=== PATIENT | female | born 1945 | race Caucasian/White ===

== ENCOUNTER 2023-08-30 10:13 | Outpatient (OUT) | payer MEDICARE, SELFPAY ==
--- NOTE | 2023-08-30 | ECG_ITS ---
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
== END 2023-08-30 10:14 | disposition home or self-care (01) ==
PROVIDERS: PCP Internal Medicine; Visit Provider Internal Medicine
DX: R00.0 Tachycardia, unspecified (principal)
CPT/HCPCS: 93005

== ENCOUNTER 2023-09-09 10:49 | Outpatient (OUT) | payer MEDICARE, SELFPAY ==
--- OUTSIDE RECORDS SUMMARY | 2023-09-09 10:52 | XMS_ITS | CCD ---
Author Name Unknown Address [address] [place] [address] Organization [facility] Care Team Providers Care Breaker Unit Assembler Name Role Phone Michael Linder DO Primary Care Provider MAYELIN ROSEN Referring MICHAEL Ortega Primary Care Unavailable MAYELIN ROSEN Referring Unavailable MAYELIN ROSEN Attending Unavailable MICHAEL LINDER Primary Care Unavailable Michael Linder Unavailable DR CINTHIA IBARRA Consulting Unavailable DIAB .LEONELA Admitting Unavailable DIAB LEONELA Childers Attending Unavailable KAILASH, DR FRAUSTO Primary Care Unavailable DIAB .LEONELA Consulting Unavailable KAILASH, DR FRAUSTO Admitting Unavailable KAILASH, DR FRAUSTO Primary Care Unavailable KAILASH, DR FRAUSTO Consulting Unavailable KAILASH, DR FRAUSTO Attending Unavailable Allergies Allergy Classification Reported Allergen(s) Allergy Type Date of Onset Reaction(s) Facility (6 sources) Adhesive Tape-Silicones; Translations: [ADHESIVE TAPE-SILICONES] Drug Intolerance 3 Intolerance [facility] (5 sources) band-aids [Other] Propensity to adverse reactions 7 [facility] (1 source) OTHER; Translations: [OTHER] Propensity to adverse reactions (disorder) 7 [facility] (2 sources) patient allergy list reviewed by nurse or physicia Propensity to adverse reactions 5 Comment:Done Quantitative Medicine Other Medications Current Medications Medication Drug Class(es) Dates Sig (Normalized) Sig (Original) atenolol 25 mg oral tablet (5 sources) beta-Adrenergic Vj take 1 tablet by mouth every twenty-four hours Atenolol 25 MG 1 tablet Orally Once a day Active losartan potassium 50 mg oral tablet (11 sources) Angiotensin 2 Receptor Vj Start: 11-09-2022 take 1 tablet by mouth every twenty-four hours Losartan Potassium 50 MG 1 tablet Orally Once a day Oct, Active Comment on above: Take 50 mg by mouth once daily. 24 hr metoprolol succinate 50 mg extended release oral tablet (1 source) beta-Adrenergic Vj Start: 08-31-2023 take 1 tablet by mouth every twenty-four hours Metoprolol Succinate ER 50 MG 1 tablet Orally Once a day for 30 days Aug, Active Completed/Discontinued Medications Medication Drug Class(es) Dates Sig (Normalized) Sig (Original) ascorbic acid 1000 mg oral tablet (5 sources) Vitamin C Start: 7 take 1 tablet by mouth once daily Ascorbic Acid (VITAMIN C) 1,000 mg ORAL Tab Take one(1) tablet daily. 0 12/01/2006 Active Comment on above: Take one(1) tablet d aily. Ieyxqnh-Wpzwiorwkr-Xndf 333-133-5 mg ORAL Tab (5 sources) Start: 7 Comment on above: dose unknown - takes two tablets per day cholecalciferol 0.125 mg oral tablet (5 sources) Vitamin D Start: 1 cholecalciferol (VITAMIN D3) 5,000 unit tab Take 1,000 Units by mouth once each week. 0 01/13/2011 Active Comment on above: Take 1,000 Units by mouth once each week. hydroCHLOROthiazide 12.5 mg oral tablet (5 sources) Thiazide Diuretic take 1 tablet by mouth every other day hydroCHLOROthiazide (HYDRODIURIL, ESIDRIX) 12.5 mg tablet Take 12.5 mg by mouth once daily. One tablet every other day 0 Active Comment on above: Take 12.5 mg by mout h once daily. One tablet every other day multivitamins(DAILY VITAMIN TAB) (5 sources) Start: 0 multivitamins(DAILY VITAMIN TAB) one tablet daily 0 12/17/2009 Active Comment on above: one tablet daily potassium 99 mg extended release oral tablet (5 sources) take 99 mg by mouth once daily POTASSIUM (POTASSIMIN ORAL) Take 99 mg by mouth once daily. 0 Active Comment on above: Take 99 mg by mouth once daily. Problems Active Problems Problem Classification Problem Date Documented Da te Episodic/Chronic Allergic reactions (4 sources) Allergic contact dermatitis due to plants, except food; Translations: [Allergic contact dermatitis due to plants, except food] Onset: 03-14-2015 Episodic Aortic; peripheral; and visceral artery aneurysms (8 sources) Ascending aorta dilatation; Translations: [Thoracic aortic ectasia] Chronic Cancer of breast (2 sources) Malignant neoplasm of female breast; Translations: [Malignant neoplasm of breast (female), unspecified site] Onset: 04-19-2014 Chronic Cancer of breast (20 sources) History of malignant neoplasm of breast; Translations: [Personal history of malignant neoplasm of breast] Onset: 08-02-2005 12-06-2007 Episodic Cardiac dysrhythmias (1 source) Persistent atrial fibrillation; Translations: [Other persistent atrial fibrillation] Chronic Cardiac dysrhythmias (1 source) Tachycardia, unspecified Episodic E Codes: Fall (1 source) Other fall on same level, initial encounter; Translations: [OTHER FALL ON SAME LEVEL INITIAL] Onset: 11-10-2022 Episodic Essential hypertension (11 sources) Essential hypertension; Translations: [Essential (primary) hypertension] Onset: 11-10-2022 Chronic Gastrointestinal hemorrhage (8 sources) Hematochezia; Translations: [Melena] Onset: 12-30-2015 Episodic Genitourinary symptoms and ill-defined conditions (3 sources) Dysuria; Translations: [Dysuria] Onset: 11-01-2015 Episodic Heart valve disorders (9 sources) Aortic valve disorder; Translations: [Nonrheumatic aortic (valve) stenosis] Onset: 12-16-2021 Chronic Intracranial injury (4 sources) Concussion with less than 1 hour loss of consciousness; Translations: [Concussion with loss of consciousness of 30 minutes or less, subsequent encounter] Onset: 04-05-2018 Episodic Nonmalignant breast conditions (13 sources) Fibrocystic changes of bilateral breasts; Translations: [Diffuse cystic mastopathy of right breast] Onset: 12-06-2008 Chronic Nutritional deficiencies (2 sources) Vitamin D deficiency; Translations: [Vitamin D deficiency, unspecified] Onset: 04-26-2014 Chronic Osteoporosis (6 sources) Primary osteoporosis; Translations: [Age-related osteoporosis without current pathological fracture] Chronic Other fractures (1 source) Other specified fracture of left pubis, subsequent encounter for fracture with routine healing Episodic Other fractures (1 source) Other specified fracture of left pubis, initial encounter for closed fracture; Translations: [OTHER SPEC FX LT PUBIS INIT CLOS FX] Onset: 11-10-2022 Episodic Other injuries and conditions due to external causes (2 sources) History of fall; Translations: [History of falling] Episodic Other non-epithelial cancer of skin (2 sources) Squamous cell carcinoma of nose; Translations: [Squamous cell carcinoma of skin of nose] Episodic Other non-traumatic joint disorders (3 sources) Pain in left hip; Translations: [PAIN IN LEFT HIP] Onset: 11-07-2022 Episodic Other nutritional; endocrine; and metabolic disorders (2 sources) Simple obesity ; Translations: [Other obesity due to excess calories] Onset: 11-01-2015 Chronic Other nutritional; endocrine; and metabolic disorders (2 sources) Obese class I; Translations: [Body mass index 32.0-32.9, adult] Onset: 11-01-2015 Chronic Other nutritional; endocrine; and metabolic disorders (4 sources) Body mass index 30+ - obesity; Translations: [Body mass index 31.0-31.9, adult] Onset: 11-01-2015 Chronic Other nutritional; endocrine; and metabolic disorders (2 sources) Obesity; Translations: [Obesity, unspecified] Chronic Other nutritional; endocrine; and metabolic disorders (2 sources) Obesity caused by energy imbalance; Translations: [Other obesity due to excess calories] Chronic Other nutritional; endocrine; and metabolic disorders (1 source) Other obesity due to excess calories Chronic Other nutritional; endocrine; and metabolic disorders (1 source) Body mass index (BMI) 30.0-30.9, adult Chronic Other screening for suspected conditions (not mental disorders or infectious disease) (6 sources) Patient encounter status; Translations: [Encounter for screening mammogram for malignant neoplasm of breast] Onset: 11-20-2022 Episodic Residual codes; unclassified (1 source) Family history of malignant neoplasm of breast in first degree relative; Translations: [Family history of malignant neoplasm of breast] Episodic Past or Other Problems Problem Classification Problem Date Documented Da te Episodic/Chronic Acute bronchitis (2 sources) Acute bronchitis; Translations: [Acute bronchitis, unspecified] Onset: 06-04-2014 Episodic Bacterial infection; unspecified site (2 sources) Bacterial infectious disease; Translations: [Bacterial infection, unspecified, in conditions classified elsewhere and of unspecified site] Onset: 05-10-2018 Episodic Conditions associated with dizziness or vertigo (2 sources) Benign paroxysmal positional vertigo; Translations: [Benign paroxysmal positional vertigo] Onset: 09-07-2018 Episodic Fluid and electrolyte disorders (4 sources) Dehydration; Translations: [Dehydration] Onset: 10-05-2014 Episodic Fracture of lower limb (2 sources) Nondisplaced fracture of fifth metatarsal bone, left foot, subsequent encounter for fracture with routine healing; Translations: [Nondisp fx of 5th metatarsal bone, l ft, 7thD] Onset: 04-05-2018 Episodic Fracture of upper limb (5 sources) Monteggia's fracture; Translations: [Monteggia's fracture of unspecified ulna, initial encounter for closed fracture] Onset: 07-10-2013 07-10-2013 Episodic Heart valve disorders (4 sources) Cardiac murmur, unspecified; Translations: [CARDIAC MURMUR UNSPECIFIED] Onset: 12-11-2021 Episodic Open wounds of extremities (2 sources) Open wound of knee and/or leg and/or ankle; Translations: [Puncture wound without foreign body, right lower leg, initial encounter] Resolved: 12-02-2021 Episodic Open wounds of head; neck; and trunk (2 sources) Laceration with foreign body of scalp, subsequent encounter; Translations: [Laceration with foreign body of scalp, subsequent encounter] Onset: 04-05-2018 Episodic Other nutritional; endocrine; and metabolic disorders (2 sources) Overweight; Translations: [Overweight] Onset: 11-01-2015 Episodic Other nutritional; endocrine; and metabolic disorders (2 sources) Body mass index 25-29 - overweight; Translations: [Body mass index 29.0-29.9, adult] Onset: 11-01-2015 Episodic Other upper respiratory infections (2 sources) Acute maxillary sinusitis; Translations: [Acute maxillary sinusitis, unspecified] Onset: 09-09-2017 Episodic Skin and subcutaneous tissue infections (4 sources) Cellulitis of right lower limb; Translations: [Cellulitis of right lower limb] Onset: 05-10-2018 Resolved: 12-02-2021 Episodic Spondylosis; intervertebral disc disorders; other back problems (2 sources) Low back pain; Translations: [Low back pain, unspecified] Onset: 05-08-2016 Episodic Sprains and strains (4 sources) Sprain of medial collateral ligament of knee; Translations: [Sprain of medial collateral ligament of left knee, initial encounter] Onset: 09-28-2018 Episodic Superficial injury; contusion (2 sources) Contusion of left hip region; Translations: [Contusion of left hip, subsequent encounter] Onset: 04-05-2018 Episodic Syncope (2 sources) Syncope and collapse; Translations: [Syncope and collapse] Onset: 10-05-2014 Episodic Unclassified (1 source) Other persistent atrial fibrillation Urinary tract infections (2 sources) Urinary tract infectious disease; Translations: [Urinary tract infection, site not specified] Onset: 10-05-2014 Episodic Results Test Name Value Interpretation Reference Range Facility Urinalysis - DIPSTICKon 08-03 Appearance (U) clear [facility] Other Bilirubin Ql (U) Negative [facility] Other Color (U) pale yellow [facility] Other Glucose Ql (U) Negative [facility] Other Hemoglobin Ql (U) Negative [facility] Other Ketones Ql (U) Negative [facility] Other Leukocyte esterase Test strip Ql (U) Negative [facility] Other Nitrite Ql (U) Negative [facility] Other pH (U) 5.0 [pH] [facility] Other Protein Ql (U) Negative [facility] Other Specific gravity (U) [Rel density] 1.010 [facility] Other Urobilinogen (U) [Mass/Vol] 0.2 mg/dL [facility] Other Urinalysis - DIPSTICK [facility] Other CNCOon 11-20-2022 [facility] HNO ID: [id number] Author: Mammography Coordinator Service: ? Author Type: Physician Type: Letter Filed: 11/23/2022 11:37 PM Note Text: November 23, 2022 PID: [id number] Pj Lopez [address] [place] [id number] Dear Ms. Lopez, We are pleased to inform you that the results of your recent breast imaging exam on 11/20/2022 are normal. Early detection of cancer is very important. We also understand recommendations regarding breast cancer screening are controversial. Please discuss with your primary care provider which strategy is best for you and whether a mammogram is right for you. Your imaging studies and report will be kept on file at [facility] as part of your permanent medical record and are available for your continuing care. Thank you for allowing us to help in meeting your health care needs. Sincerely, Dr. 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 She is established patient in Breast Center who was last seen on 10/28/21 for annual exam and screening mammogram with negative findings She denies any breast masses, pain, skin changes or nipple discharge. She denies any new family medical problems. She fell an has sustained a tear in left hip. She is walking with use of a walker On 01/26/06, she underwent a right breast biopsy at outside facility with findings of ILC ER+(40%)/GA+(70%), nuclear grade 1, LVI- with positive douglass. Her tumor size was 1.7 cm. In 03/07, she underwent right lumpectomy with ALND. Residual tumor of 0.8 cm focus of tumor was identified at superior marigin. 20 lymph nodes were removed and 0 were involved with tumor. She declined adjuvant therapy and XRT. She declined genetic testing History pertaining to prior breast biopsies, genetic reports, pathology reports, treatment summaries, personal, social and family history has been extracted from my note dated 10/28/21. Her vitamin D level was No results found for: VITD25. She takes Vitamin D 5000 units and a Multivitamin daily. BMD: Yes, per patient report in 2013; results: osteoporosis( declined treatment-weight bearing exercises) PERSONAL BREAST HISTORY: Past breast history (prior to this encounter) is as follows: Breast biopsy: Yes, 01/05-[facility] Breast cysts: No Breast surgery: Yes, Right PM with ALND Breast cancer: Yes, Stage I (T 1c N 0 M 0) in 2005, treated as above CANCER SURVEILLANCE: Mammograms: Yes, Date in [facility]: 10/28/21; results - negative Breast MRI: No Colonoscopy: Yes, per patient report in 2015, showing diverticulitis RISK FACTORS FOR BREAST CANCER: Age at the onset of menses: 13 years of age. P: 6 Age at the of first child: 20 years of age. She breast fed for 6-8 months total Age at menopause: 52 years of age. Post-menopausal hormone therapy: No She has had uterus removed with negative pathology (done for uterine prolapse), but ovaries remain She is postmenopausal and does not use control. History of Mantle Radiation prior to the age of 29: No Postmenopausal obesity: No There is no height or weight on file to calculate BMI. Current Weight: 173 lbs Mammographic density: There are scattered fibroglandular densities Personal History of Benign Atypical Breast Biopsy: No Alcohol use: Rare PAST MEDICAL HISTORY: PAST MEDICAL HISTORY Diagnosis Date HTN (hypertension) 2014 Patient specifically denies history of: DVT, PE, Migraine headaches WITH AURA , Migraine headaches WITHOUT AURA, Abnormal uterine bleeding and Abnormal uterine biopsies . PAST SURGICAL HISTORY: PAST SURGICAL HISTORY Procedure Laterality Date BREAST SURGERY PROCEDURE UNLISTED 1986 left breast exc. bx. - benign BREAST SURGERY PROCEDURE UNLISTED 01/05 right breast excisional biopsy BREAST SURGERY PROCEDURE UNLISTED 03/07 right breast re-excision with LND EXT HYSTERECTOMY,W/PARTIA L VAGINECTO 2007 Bladder repair and uterus removed. PAST SURGICAL HISTORY OF left foot surgery PAST SURGICAL HISTORY OF left ovarian cystectomy PAST SURGICAL HISTORY OF right toe surgery PAST SURGICAL HISTORY OF Right 07/2014 arm surgery SOCIAL HISTORY: Social History Tobacco Use Smoking status: Never Smokeless tobacco: Never Substance Use Topics Alcohol use: Yes Comment: occasional Drug use: No Caffeine intake: 3 cups / day Exercise: 3-5 minutes per week FAMILY HISTORY: Reviewed: 10/28/21 Family history of breast cancer: Sister ( Marcela) dx at age 31-alive and well-No genetic Family history of ovarian cancer: None Number of sisters: 1 Number of maternal aunts: 3 Number of paternal aunts: 0 Ashkenazi Ancestry: no Has Patient had Genetic Testing? Type of testing no Have any Family Members had Genetic Testing? No Other Cancer: Father dx skin cancer and mother dx uterine cancer in s There is no family history of prostate, colon, pancreatic, gastric, brain, renal cell or thyroid cancer. There is no family history of melanoma, sarcoma or leukemia. Osteoporosis: None Stroke: None Blood Clot: None Heart attack: None Thyroid Nodule or Goiter: Mother Autism: None FAMILY HISTORY Pro (more content not included)... Normal [facility] SCREENING W TOMOon 11-20 [facility] SCREENING W MAX * * *Final Report* * * DATE OF EXAM: Nov 20 2022 12:21PM SSW [id number] - [facility] SCREENING W MAX / PROCEDURE REASON: Encounter for screening mammogram for breast cancer * * * * Physician Interpretation * * * * RESULT: #[id number] - [facility] SCREENING W MAX BILATERAL DIGITAL SCREENING MAMMOGRAM TOMOSYNTHESIS WITH CAD: 11/20/2022 HISTORY: Encounter For Screening Mammogram For Breast Cancer / Screening Mammogram-Patient reports NO symptoms. RESULT: TECHNIQUE: The study was acquired using full field digital technology and interpreted from soft copy. Digital Breast Tomosynthesis (DBT) images were obtained and used to assist in the interpretation of this examination. Current study was also evaluated with a Computer Aided Detection (CAD). Comparison is made to exams dated: 10/28/2021 mammogram, 10/22/2020 mammogram, 10/10/2019 mammogram, 08/16/2018 mammogram, 07/06/2017 mammogram, and 06/16/2016 mammogram - [facility]. There are scattered fibroglandular elements in both breasts. There are benign post operative findings in both breasts. No significant masses, calcifications, or other findings are seen in either breast. There has been no significant interval change. IMPRESSION: BENIGN FINDING There is no mammographic evidence of malignancy. A 1 year screening mammogram is recommended. Yaz Tesfaye M.D. pt/penrad:11/20/2022 12:38:01 Patient Advocate(s): mEmy Patrick RT(R)(M), [facility] letter sent: Normal over 40 Mammogram BI-RADS: 2 Benign finding Multiple national specialty organizations have released breast cancer screening guidelines for women at average risk for developing breast cancer - guidelines that are based on both evidence and opinion, yet differ on when to start and how often to screen for breast cancer. With representation from Breast Imaging, Internal Medicine, Women's Health, Family Medicine, and Medical/Surgical Oncology, the [facility] has carefully reviewed the data and reached the following consensus: 1) All women should engage in shared decision-making with their providers to decide when to start and how often to screen; 2) All women should have the opportunity to start screening mammography at age 40; 3) For women ages 45-55, we recommend annual screening mammograms; 4) For women ages 55 and over, we support both the transition from an annual to a biennial interval if this aligns more with patient's values and preferences, or continuation with annual screening; 5) All women should discuss with their providers when to stop screening mammograms. Director Of Grants: Jonnie Transcribe Date/Time: Nov 20 2022 12:11P Dictated by: YAZ TESFAYE MD This examination was interpreted and the report reviewed and electronically signed by: YAZ TESFAYE MD on Nov 20 2022 12:38PM EST [id number] Normal [facility] Clin ic CT PELVIS WO CONon 3 CT PELVIS WO CON EXAMINATION: CT PELVIS WO CON HISTORY: Fracture of pelvis , left hip pain COMPARISON: No relevant comparison available. TECHNIQUE: Axial, Coronal, and Sagittal CT images obtained without IV contrast. Dose reduction techniques were achieved by using automated exposure control and/or adjustment of mA and/or kV according to patient size and/or use of iterative reconstruction technique. FINDINGS: BOWEL: Marked diverticulosis of sigmoid colon without acute inflammatory changes. LYMPH NODES: No adenopathy. URINARY BLADDER: No visible focal wall thickening, lesion, or calculus. PELVIC ORGANS: Hysterectomy. ANTERIOR WALL: No hernia. BONES: Nondisplaced fracture of the left superior and inferior pubic rami. No fracture of the proximal left or right femur. Degenerative disc disease and levocurvature of lumbar spine. OTHER: Negative. IMPRESSION: 1. Acute, nondisplaced fractures of the left inferior and superior pubic rami. Edema or small amount of hemorrhage within adjacent soft tissues/musculature. Electronically authenticated by: CINTHIA IBARRA Date: 2022-11-07 16:35 Normal [facility] CBC AUTO DIFFon 12-11-2021 BASO # 0.0 103/ul Normal 0.0-0.1 [facility] Comment on above: Performed By: #### C BC #### [facility] [address] [place] [address] Dr. Karishma Langley Basophils/100 WBC (Bld) 0.6 % Normal 0.2-2.0 [facility] Comment on above: Performed By: #### C BC #### [facility] [address] [place] [address] Dr. Karishma Langley EO # 0.2 103/ul Normal 0.0-0.7 [facility] Comment on above: Performed By: #### C BC #### [facility] [address] [place] [address] Dr. Karishma Langley Eosinophils/100 WBC (Bld) 3.0 % Normal 0.9-7.0 [facility] Comment on above: Performed By: #### C BC #### [facility] [address] [place] [address] Dr. Karishma Langley Erythrocyte distribution width (RBC) [Ratio] 12.2 % Normal 11.0-15.0 [facility] Comment on above: Performed By: #### C BC #### [facility] [address] [place] [address] Dr. Karishma Langley Hematocrit (Bld) [Volume fraction] 39.9 % Normal 36.0-48.0 [facility] Comment on above: Performed By: #### C BC #### [facility] [address] [place] [address] Dr. Karishma Langley Hemoglobin (Bld) [Mass/Vol] 13.0 g/dL Normal 12.0-16.0 [facility] Comment on above: Performed By: #### C BC #### [facility] [address] [place] [address] Dr. Karishma Langley IG # 0.01 10e3/ul Normal 0.00-0.03 [facility] Comment on above: Performed By: #### C BC #### [facility] [address] [place] [address] Dr. Karishma Langley IG % 0.2 % Normal 0.0-0.5 [facility] Comment on above: Performed By: #### C BC #### [facility] [address] [place] [address] Dr. Karishma Langley LYMPH # 1.5 103/ul Normal 1.2-3.8 [facility] Comment on above: Performed By: #### C BC #### [facility] [address] [place] [address] Dr. Karishma Langley Lymphocytes/100 WBC (Bld) 27.3 % Normal 20.5-60.0 [facility] Comment on above: Performed By: #### C BC #### [facility] [address] [place], [place] [address] Dr. Karishma Langley MANUAL DIFF REQ NO Normal [facility] Comment on above: Performed By: #### C BC #### [facility] [address] [place] [address] Dr. Karishma Langley MCH (RBC) [Entitic mass] 32.1 pg Normal 26.7-34.0 [facility] [place] [facility] Comment on above: Performed By: #### C BC #### [facility] [address] [place] [address] Dr. Karishma Langley MCHC (RBC) [Mass/Vol] 32.6 g/dL Normal 29.9-35.2 [facility] Comment on above: Performed By: #### C BC #### [facility] [address] [address] [address] Karishma Langley MCV (RBC) [Entitic vol] 98.5 fL Normal 81.0-99.0 [facility] Comment on above: Performed By: #### C BC #### [facility] [address] [place] [address] Dr. Karishma Langley MONO # 0.7 103/ul Normal 0.3-0.8 [facility] Comment on above: Performed By: #### C BC #### [facility] [address] [place] [address] Dr. Karishma Langley Monocytes/100 WBC (Bld) 12.4 % Critically high 1.7-12.0 [facility] Comment on above: Performed By: #### C BC #### [facility] [address] [place] [address] Dr. Karishma Langley NEUT # 3.0 103/ul Normal 1.4-6.5 [facility] Comment on above: Performed By: #### C BC #### [facility] [address] [place] [address] Dr. Karishma Langley Neutrophils/100 WBC (Bld) 56.5 % Normal 43.0-75.0 [facility] Comment on above: Performed By: #### C BC #### [facility] [address] [place] [address] Dr. Karishma Langley Platelet mean volume (Bld) [Entitic vol] 10.3 fL Normal 9.5-13.5 [facility] Comment on above: Performed By: #### C BC #### [facility] [address] [place] [address] Dr. Karishma Langley PLT 275 103/ul Normal 150-450 [facility] Comment on above: Performed By: #### C BC #### [facility] [address] [place] [address] Dr. Karishma Langley RBC 4.05 106/ul Critically low 4.20-5.40 [facility] Comment on above: Performed By: #### C BC #### [facility] [address] [place], [place] [address] Dr. Karishma Langley WBC 5.3 103/ul Normal 4.0-11.0 [facility] [place] [facility] Comment on above: Performed By: #### C BC #### [facility] [address] [place], [place] [address] Dr. Karishma Langley ECHOCARDIO M/2D COMPLETEon 0 12-11-2021 ECHOCARDIO M/2D COMPLETE Patient: PJ LOPEZ Exam Date: 12/11/2021 : 1945 Gender:F Ordering : DR MICHAEL LINDER D.O. Admission #: [id number] Family : Order #: [id number] CLICK HERE TO VIEW EXAM ECHOCARDIOGRAM REPORT PROCEDURE: CARDIO PULMONARY ECHOCARDIO M/2D COMP INDICATIONS: Systolic murmur, hypertension COMPARISON: None. DESCRIPTION: COMPLETE ECHOCARDIOGRAM Real-time transthoracic echocardiography with 2D, M-mode, spectral and color flow Doppler performed. QUALITY: Technical quality was good. LEFT VENTRICLE: Mild to moderate left ventricular hypertrophy. No regional wall motion abnormalities. LV EF: Normal left ventricular ejection fraction, (>55%). DIASTOLIC: Diastolic function is indeterminate. ATRIAL SEPTUM: Visually appears intact. LEFT ATRIUM: Mild dilatation. RIGHT ATRIUM: Mild dilatation. RIGHT VENTRICLE: Mild dilatation. Normal right ventricular systolic function. TRICUSPID VALVE: Normal mobility and thickness. No stenosis with mild regurgitation. Doppler studies reveal mildly (35-45) elevated right sided pressures. RVSP 36 mmHg MITRAL VALVE: Normal mobility and thickness. No evidence of mitral valve stenosis. Moderate mitral annular calcification. Mild mitral regurgitation. AORTIC VALVE: Normal trileaflet appearance. Mildly calcified aortic valve. Normal leaflet mobility. No evidence of aortic valve stenosis. No aortic regurgitation. AORTIC ROOT: Normal diameter and appearance. Ascending aorta is mildly dilated (3.67 cm) PULMONIC VALVE: Normal thickness and mobility. No stenosis. No regurgitation. PERICARDIUM: No evidence of pericardial effusion. IVC: IVC is mildly dilated (2.16 cm), does not completely collapse. CONCLUSION: Global left ventricular systolic function is normal; visually estimated ejection fraction is 55 to 60%. Mild to moderate left ventricular hypertrophy. Diastolic function is indeterminate. Biatrial enlargement. The right ventricle is mildly dilated. Right ventricular systolic function is normal. Mildly elevated right ventricular systolic pressure. Mild tricuspid regurgitation. Mild mitral regurgitation. The ascending aorta is mildly dilated. Adult Echocardiography Procedure Report Left Ventricle LVEDD (3.7 - 5.6 cm): 3.32 cm LVESD (2.2 - 4.0 cm): 2.40 cm LVIVS thickness (0.6 - 1.2 cm): 1.52 cm LVPW thickness (0.5 - 1.0 cm): 1.34 cm e': 10.10 cm/s E - e': 8.50 LVOT Area (cm2): 3.80 cm2 LVOT Diameter 2.20 cm Left Atrium LA Volume Index (2D A2C): 37.90 ml/m2 Left Atrium Systolic Dimension: 4.90 cm Left Atrium Systolic Area(A2C): 22.80 cm2 Left Atrium Systolic Area(A4C): 23.20 cm2 Left Atrium Systolic Volume(A2C): 35229 mm3 Left Atrium Systolic Volume(A4C): 34644 mm3 Mitral Valve MV E to A Ratio: 1.10 Mitral Valve A-Wave Peak Velocity: 80.50 cm/s Mitral Valve E-Wave Peak Velocity: 85.90 cm/s Deceleration Time: 254 ms Right Ventricle Aorta AO Root Diam: 3.70 cm Aortic Valve AoV Area (Peak Vinay): 2.32 cm2 AoV Area (VTI): 2.48 cm2 Peak Velocity(Antegrade Flow): 161.00 cm/s Peak Gradient(Antegrade Flow): 10 mm[Hg] Mean Velocity(Antegrade Flow): 110.00 cm/s Mean Gradient(Antegrade Flow): 6 mm[Hg] Velocity Time Integral: 36.90 cm Tricuspid Valve Pulmonic Valve Peak Velocity: 91.20 cm/s Peak Gradient: 3 mm[Hg] Right Atrium Dictated by: Nelly Ulloa M.D. on 12/11/2021 at 14:28 Approved by: Nelly Ulloa M.D. on 12/11/2021 at 14:32 Normal [facility] PROF CHEM 8 (BAS METB)on Anion gap [Moles/Vol] 13.5 mmol/L Normal [facility] Comment on above: Performed By: #### B MP #### [facility] [address] [address] [address] Karishma Langley Calcium [Mass/Vol] 9.0 mg/dL Normal 8.5-10.1 [facility] Comment on above: Performed By: #### B MP #### [facility] [address] [address] [address] Karishma Langley Chloride [Moles/Vol] 105 mmol/L Normal 98-107 [facility] Comment on above: Performed By: #### B MP #### [facility] [address] [address] [address] Karishma Langley CO2 [Moles/Vol] 24.3 mmol/L Normal 21.0-32.0 [facility] Comment on above: Performed By: #### B MP #### [facility] [address] [address] [address] Karishma Langley Creatinine [Mass/Vol] 0.87 mg/dL Normal 0.55-1.02 [facility] Comment on above: Performed By: #### B MP #### [facility] [address] [address] [address] Karishma Langley EGFR-AF POLISH >60 Normal >=60 [facility] Comment on above: Performed By: #### B MP #### [facility] [address] [address] [address] Karishma Langley EGFR-NON AF POLISH >60 Normal >=60 [facility] Comment on above: Performed By: #### B MP #### [facility] [address] [address] [address] Karishma Langley Glucose [Mass/Vol] 100 mg/dL Normal 74-106 [facility] Comment on above: Performed By: #### B MP #### [facility] [address] [address] [address] Karishma Langley Potassium [Moles/Vol] 3.8 mmol/L Normal 3.5-5.1 [facility] Comment on above: Performed By: #### B MP #### [facility] [address] [address] [address] Karishma Langley Sodium [Moles/Vol] 139 mmol/L Normal 136-145 [facility] [place] [facility] Comment on above: Performed By: #### B MP #### [facility] [address] [address] [address] Karishma Langley Urea nitrogen [Mass/Vol] 22.0 mg/dL Critically high 7.0-18.0 [facility] [place] [facility] Comment on above: Performed By: #### B MP #### [facility] [address] [address] [address] Karishma Langley Urea nitrogen/Creatini ne [Mass ratio] 25.3 mg/mg Normal [facility] [place] [facility] Comment on above: Performed By: #### B MP #### [facility] [address] [address] [address] Karishma Langley Vital Signs Date Time Vital Sign Value Performing Clinician Facility 08-24-2023 10:00-0500 Body height 158.75 cm Seg[facility] Other [facility] Other 08-24-2023 10:00-0500 Body mass index (BMI) [Ratio] 30.63 kg/m2 Michael [email or web address] Other [facility] Other 08-24-2023 10:00-0500 Body weight 77.2 kg Michael [email or web address] Other [facility] Other 08-24-2023 10:00-0500 Diastolic blood pressure 105 mm[Hg] Michael [email or web address] Other [facility] Other 08-24-2023 10:00-0500 Respiratory rate 12 /min Michael [email or web address] Other [facility] Other 08-24-2023 10:00-0500 Systolic blood pressure 152 mm[Hg] Michael [email or web address] Other [facility] Other 11-25-2022 10:30-0400 Body height 158.75 cm Michael [email or web address] Other [facility] Other 11-25-2022 10:30-0400 Body mass index (BMI) [Ratio] 31.17 kg/m2 Michael Ball Other [facility] Other 11-25-2022 10:30-0400 Body weight 78.56 kg Michael Ball Other [facility] Other 11-25-2022 10:30-0400 Diastolic blood pressure 81 mm[Hg] Michael Ball Other [facility] Other 11-25-2022 10:30-0400 Respiratory rate 12 /min Michael Linder Other [facility] Other 11-25-2022 10:30-0400 Systolic blood pressure 177 mm[Hg] Michael Linder Other [facility] Other Encounters Encounter Date Encounter Type Care Provider Facility Start: 08-31-2023 End: 08-31-2023 ambulatory Michael Linder Other [facility] Other Start: 08-31-2023 Telephone encounter Michael Ball [facility] Start: 08-24-2023 End: 08-24-2023 ambulatory Michael Kailash Other [facility] Other Start: 08-24-2023 Patient encounter procedure Michael Ball [facility] Start: 08-17-2023 End: 08-17-2023 ambulatory Michael Ball Other [facility] Other Start: 08-17-2023 Telephone encounter Michael Ball [facility] Start: 05-18-2023 End: 05-18-2023 ambulatory Michael Ball Other [facility] Other Start: 05-18-2023 Telephone encounter Michael Ball [facility] Start: 12-03-2022 End: 12-03-2022 ambulatory Michael Linder Other [facility] Other Start: 12-03-2022 Telephone encounter Michael Linder AD Linder [facility] Start: 11-25-2022 End: 11-25-2022 ambulatory Michael Linder Other [facility] Other Start: 11-25-2022 Office outpatient vi sit 15 minutes Michael Kailash CLAUDIA [facility] Start: 11-20-2022 Documentation procedure Mammog may Coordinator [facility] Start: 11-20-2022 Letter encounter Mammography Coordinator [facility] Department Start: 11-20-2022 End: 11-20-2022 ambulatory MAYELIN ROSEN Facility:[facility] Start: 11-20-2022 End: 11-20-2022 Patient encounter procedure Mayelin Rosen CAP [email or web address].LOCK TENDER Work Phone: [facility] Comment on above: Fibrocystic breast c hanges, bilateral (Primary Dx); Personal history of malignant neoplasm of breast; Encounter for screening mammogram for breast cancer; Family history of breast cancer in sister Start: 11-10-2022 Orders Only Mayelin perez APRN.LOCK TENDER Work Phone: [facility] Comment on above: Encounter for screen ing mammogram for breast cancer (Primary Dx) Start: 11-07-2022 End: 11-07-[address] CINTHIA IBARRA Facility:[facility] Start: 12-11-2021 End: 12-12-[address] MICHAEL LINDER Facility:[facility] Start: 12-03-2021 Adult health examination Broderick Linder Other [facility] Other Start: 10-28-2021 End: 10-28-2021 Patient encounter procedure Mayelin Rosen CAP [email or web address].LOCK TENDER Work Phone: [facility] Comment on above: Fibrocystic breast c hanges, bilateral (Primary Dx); Personal history of malignant neoplasm of breast; Encounter for screening mammogram for breast cancer Start: 10-22-2021 Orders Only Mayelin perez ANJALI Work Phone: [facility] Comment on above: Encounter for screen ing mammogram for breast cancer (Primary Dx); Fibrocystic breast changes, bilateral Procedures Date Procedure Procedure Detail Performing Clinician Start: 11-01-2015 Screening for malign ant neoplasm of colon Michael Kailash Other Depression screening Dion her Kailash Other Plan of Treatment Date Care Activity Detail Author Start: 04-02-2023 Influenza vaccination INFLUENZ A (Season Ended) [facility] Start: 08-02-2022 ADVANCE DIRECTIVE DISCUSSION ADVANCE DIRECTIVE DISCUSSION [facility] Start: 08-02-2022 DEPRESSION ASSESSMENT DEPRESSION ASS ESSMENT [facility] Start: 08-02-2021 ADVANCE DIRECTIVE DISCUSSION ADVANCE DIRECTIVE DISCUSSION [facility] Start: 04-02-2021 Influenza vaccination INFLUENZA (#1) [facility] Start: 07-10-2016 DIABETES SCREEN DIABETES SCREEN [facility] Start: 2009 PNEUMOCOCCAL: 65+ (1 - PCV) PNEUMOCOCCAL: 65+ (1 - PCV) [facility] Start: 1994 SHINGRIX VACCINE (1 of 2) SHINGRIX VACCINE (1 of 2) [facility] Start: 1963 Urine microalbumin profile DTAP,TDAP,TD (1 - Tdap) [facility] Start: 1962 HEPATITIS C SCREENING HEPATITIS C [facility] Start: 1956 Adult depression screening assessment DEPRESSION SCREENING [facility] Start: 1949 COVID-19 VACCINE (1) COVID-19 VACCIN E (1) [facility] Start: 1945 COVID-19 VACCINE (#1) COVID-19 VACCI NE (#1) [facility] End: 12-10-2023 KENDRA SCREENING KENDRA SCREENING Radiology Routine Encounter for screening mammogram for breast cancer 1 Occurrences starting 11/10/2022 until 12/10/2023 [facility] Work Phone: Comment on above: 1 Occurrences starti ng 11/10/2022 until 12/10/2023 End: 11-21-2022 Screening mammography bi 2-view breast inc cad KENDRA SCREENING Radiology Routine Encounter for screening mammogram for breast cancer Fibrocystic breast changes, bilateral 1 Occurrences starting 10/22/2021 until 11/21/2022 [facility] Work Phone: Comment on above: 1 Occurrences starti ng 10/22/2021 until 11/21/2022 [facility] Immunizations Immunization Date Immunization Notes Care Provider Fa cilisadia 03-28-2018 diphtheria, tetanus toxoids and acellular pertussis vaccine, unspecified formulation Michael Linder Other [facility] Other 01-13-2017 diphtheria, tetanus toxoids and acellular pertussis vaccine, unspecified formulation Michael Linder Other [facility] Other Payers Date Payer Category Payer Private Health Insurance [employer] A ETNA MEDICARE SUPPLEMENT [id number] 2019-Present [phone] [address] [address] [place] [address] Indemnity [id number] 2019 Private Health Insurance [employer] A ETNA MEDICARE SUPPLEMENT [id number] 2019-Present [phone] [address] [address] [place] [address] Indemnity [id number] 2009 Medicare MEDICARE MEDICAR E A AND B [id number] 2009-Present [phone] [place] [address] Medicare [id number] 2009 Medicare MEDICARE MEDICAR E A AND B [id number] 2009-Present [phone] [place] [address] Medicare [id number] 1959 Medicare [id number] 1959 Medicare [id number] 1959 Private Health Insurance [facility] [id number] 1945 Unknown [id number] 1945 Unknown [id number] Social History Date Type Detail Facility Start: 08-16-2018 Tobacco smoking status NHIS Never smoked tobacco [facility] Start: 10-23-2020 End: 11-20-2022 Alcohol intake Current drinker of alcohol (finding) [facility] Start: 1945 Sex Assigned At Not on file [facility] Start: 08-16-2018 Tobacco use and exposure Smokeless tobacco non-user [facility] Sex Assigned At Sex Assigned At [facility] Other Medical Equipment Procedure Code Equipment Code Equipment Original Text Equipment Identifier Dates [id number] Screw [id number] Start: 07-12-2013 Comment on above: Description: locking screw 2.7 x 40 [id number] Screw [id number] Start: 07-12-2013 Comment on above: Description: 2.7 x 3 2 locking screw 0--- Locking Screw [id number] Start: 07-12-2013 Comment on above: Description: 2.7 x 1 8 locking screw 0---Cortex Screw [id number] Start: 07-12-2013 Comment on above: Description: 3.5 x 2 4 cortex screw 0---Cortex Screw [id number] Start: 07-12-2013 0---Cortex Screw [id number] Start: 07-12-2013 Comment on above: Description: 2.7 x 2 0 cortex screw 0---Cortex Screw [id number] Start: 07-12-2013 Comment on above: Description: 2.7 x 2 2 cortex screw [id number] 98406-Oouzntciher Screw [id number] Start: 07-12-2013 Comment on above: Description: 2.7 x 2 6 metaphyseal screw [id number] 74625-Envzvi Head [id number] Start: [id number]-Emi5 5 92959-Sdcbplo Screw [id number] Start: [id number]-Twi4 5 43217-Utcitnifahr Screw [id number] Start: 07-12-2013 Comment on above: Description: 2.7 x 1 8 0---Cortex Screw [id number] Start: 07-12-2013 Comment on above: Description: 3.5 x 1 8 0---Cortex Screw [id number] Start: [id number]-Wjh9 5 67395-Aunmusqoq Plate [id number] Start: 07-12-2013 Comment on above: Description: 4 hole plate [id number] 5 68399-Nipfprh Screw [id number] Start: 07-12-2013 0--- 8 Hole Plate [id number] Start: [id number]-Snw1 5 36087-Kadb Radl 7.5mm Evol Std Elb - [id number]_[facility] Start: 07-12-2013 Clinical Notes 10-28-2021 to 08-31-2023 Note Date & Type Note Facility 08-31-2023 Evaluation note Encounter Date Diagnosis Assessment Notes Aug, Persistent atrial fibrillation (ICD-10 - I48.19) [facility] Other 01-23-2024 Evaluation note* Encounter Date Diagnosis Assessment Notes Treatment Notes Treatment Clinical Notes Aug, Medicare annual wellness visit, subsequent (ICD-10 - Z00.00) Personalized health advice was given to the beneficiary including a written plan for screenings discussed and provided. Advanced care planning reviewed and/or information given as requested. Additional counseling was provided here today in regards to, [ ]. The above visit was performed by [ ], under direct supervision of [ ]. Document reviewed and amended by provider signed below. Aug, Primary hypertension (ICD-10 - I10) This patient is instructed to consume a healthy, low-fat, low-salt diet. They are also encouraged to continue exercise to achieve/maintain a normal BMI. Patient is instructed on home BP measurements: - rest for 5 minutes w/o talking.- positioned w/ feet on floor and arm supported.- average best 2/3 readings w/ goal < 135/85.- update office w/ home readings in 2 weeks. Aug, Dysuria (ICD-10 - R30.0) Urine normal w/o s/s infection Instructed to push fluids. Aug, Tachycardia (ICD-10 - R00.0) Denies CP, dyspnea or lightheadedness Pulse irregular and increased Check TSH and EKG Aug, Other obesity due to excess calories (ICD-10 - E66.09) This patient has been instructed on a low-fat, high-fiber diet. They are instructed to reduce calories, portion sizes and snacks. It is recommended that they exercise for 30 minutes, 3-5 times weekly. Aug, Body mass index [BMI] 30.0-30.9, adult (ICD-10 - Z68.30) Aug, History of breast cancer (ICD-10 - Z85.3) Continue surveillance mammograms and SBE. No s/s recurrence, f/u Oncology Aug, Screening mammogram for breast cancer (ICD-10 - Z12.31) Instructed patient on monthly SBE and yearly mammograms. [facility] Other 01-16-2024 Evaluation note* Encounter Date Diagnosis Assessment Notes Treatment Notes Treatment Clinical Notes Aug, Essential (primary) hypertension (ICD-10 - I10) [facility] Other 10-17-2023 Evaluation note* Encounter Date Diagnosis Assessment Notes Treatment Notes Treatment Clinical Notes May, Essential (primary) hypertension (ICD-10 - I10) [facility] Other 04-26-2023 Evaluation note* Encounter Date Diagnosis Assessment Notes Treatment Notes Treatment Clinical Notes Oct, Closed fracture of ramus of left pubis with routine healing, subsequent encounter (ICD-10 - S32.592D) Continue Advil as needed. Activity as tolerated. Oct, Primary hypertension (ICD-10 - I10) This patient is instructed to consume a healthy, low-fat, low-salt diet. They are also encouraged to continue exercise to achieve/maintain a normal BMI. Recheck BP at home and update office if remains > 140/90 Oct, Hx of breast cancer (ICD-10 - Z85.3) CT did not reveal any pathologic findings to suspect mets [facility] Other 04-21-2023 NoteHNO ID: [id number] Author: Emmy Patrick [employer] Service: ? Author Type: Design Engineering Intern Type: Progress Notes Filed: 11/20/2022 12:28 PM Note Text: Radiology Service Progress Note PATIENT NAME: Pj Lopez DATE OF SERVICE: November 20, 2022 TIME: 12:28 PM PATIENT IDENTITY VERIFICATION COMPLETED USING TWO (2) IDENTIFIERS: Name and Date of confirmed by patient verbally. FALL SCREENING: Has the patient had 2 falls in the last year or 1 fall with injury or currently using an Ambulatory Assistive Device (Walker, Cane, Wheelchair, Crutches, etc.)? No PATIENT GENDER DATA: Female. status: : No status: NO. PATIENT RELEVANT IMPLANT DATA REVIEWED: Yes RADIOLOGY DEPARTMENT: Mammography PERIPHERAL IV DATA: Not applicable SIGNED BY: Emmy Patrick [employer] November 20, 2022 12:28 [facility]04-21-2023 NoteHNO ID: [id number] Author: Mayelin Rosen APRN.LOCK TENDER Service: ? 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 She is established patient in Breast Center who was last seen on 10/28/21 for annual exam and screening mammogram with negative findings She denies any breast masses, pain, skin changes or nipple discharge. She denies any new family medical problems. She fell an has sustained a tear in left hip. She is walking with use of a walker On 01/26/06, she underwent a right breast biopsy at outside facility with findings of RIC ER+(40%)/GA+(70%), nuclear grade 1, LVI- with positive douglass. Her tumor size was 1.7 cm. In 03/07, she underwent right lumpectomy with ALND. Residual tumor of 0.8 cm focus of tumor was identified at superior marigin. 20 lymph nodes were removed and 0 were involved with tumor. She declined adjuvant therapy and XRT. She declined genetic testing History pertaining to prior breast biopsies, genetic reports, pathology reports, treatment summaries, personal, social and family history has been extracted from my note dated 10/28/21. Her vitamin D level was No results found for: VITD25. She takes Vitamin D 5000 units and a Multivitamin daily. BMD: Yes, per patient report in 2013; results: osteoporosis( declined treatment-weight bearing exercises) PERSONAL BREAST HISTORY: Past breast history (prior to this encounter) is as follows: Breast biopsy: Yes, 01/05-[facility] Breast cysts: No Breast surgery: Yes, Right PM with ALND Breast cancer: Yes, Stage I (T 1c N 0 M 0) in 2005, treated as above CANCER SURVEILLANCE: Mammograms: Yes, Date in [facility]: 10/28/21; results - negative Breast MRI: No Colonoscopy: Yes, per patient report in 2015, showing diverticulitis RISK FACTORS FOR BREAST CANCER: Age at the onset of menses: 13 years of age. P: 5 Age at the of first child: 20 years of age. She breast fed for 6-8 months total Age at menopause: 52 years of age. Post-menopausal hormone therapy: No She has had uterus removed with negative pathology (done for uterine prolapse), but ovaries remain She is postmenopausal and does not use control. History of Mantle Radiation prior to the age of 30: No Postmenopausal obesity: No There is no height or weight on file to calculate BMI. Current Weight: 173 lbs Mammographic density: There are scattered fibroglandular densities Personal History of Benign Atypical Breast Biopsy: No Alcohol use: Rare PAST MEDICAL HISTORY: PAST MEDICAL HISTORY Diagnosis Date HTN (hypertension) 2014 Patient specifically denies history of: DVT, PE, Migraine headaches WITH AURA , Migraine headaches WITHOUT AURA, Abnormal uterine bleeding and Abnormal uterine biopsies . PAST SURGICAL HISTORY: PAST SURGICAL HISTORY Procedure Laterality Date BREAST SURGERY PROCEDURE UNLISTED 1986 left breast exc. bx. - benign BREAST SURGERY PROCEDURE UNLISTED 01/05 right breast excisional biopsy BREAST SURGERY PROCEDURE UNLISTED 03/07 right breast re-excision with LND EXT HYSTERECTOMY,W/PARTIAL VAGINECTO 2007 Bladder repair and uterus removed. PAST SURGICAL HISTORY OF left foot surgery PAST SURGICAL HISTORY OF left ovarian cystectomy PAST SURGICAL HISTORY OF right toe surgery PAST SURGICAL HISTORY OF Right 07/2014 arm surgery SOCIAL HISTORY: Social History Tobacco Use Smoking status: Never Smokeless tobacco: Never Substance Use Topics Alcohol use: Yes Comment: occasional Drug use: No Caffeine intake: 3 cups / day Exercise: 3-5 minutes per week FAMILY HISTORY: Reviewed: 10/28/21 Family history of breast cancer: Sister ( Marcela) dx at age 31-alive and well-No genetic Family history of ovarian cancer: None Number of sisters: 1 Number of maternal aunts: 3 Number of paternal aunts: 0 Ashkenazi Ancestry: no Has Patient had Genetic Testing? Type of testing no Have any Family Members had Genetic Testing? No Other Cancer: Father dx skin cancer and mother dx uterine cancer in 90's There is no family history of prostate, colon, pancreatic, gastric, brain, renal cell or thyroid cancer. There is no family history of melanoma, sarcoma or leukemia. Osteoporosis: None Stroke: None Blood Clot: None Heart attack: None Thyroid Nodule or Goiter: Mother Autism: None FAMILY HISTORY Problem Relation Age of Onset Breast Cancer Sister diagnosed at age 31. Uterine Cancer Mother 96 at 101 yrs old Cervical Cancer Maternal Aunt Uterine Cancer Maternal Au (more content not included)...[facility]04-21-2023 Miscellaneous Notes* Letter - Mammography Coordinator - 11/20/2022 12:38 PM EDT November 23, 2022 PID: [id number] Pj Lopez [address] [place] [id number] Dear Ms. Lopez, We are pleased to inform you that the results of your recent breast imaging exam on 11/20/2022 are normal. Early detection of cancer is very important. We also understand recommendations regarding breast cancer screening are controversial. Please discuss with your primary care provider which strategy is best for you and whether a mammogram is right for you. Your imaging studies and report will be kept on file at [facility] as part of your permanent medical record and are available for your continuing care. Thank you for allowing us to help in meeting your health care needs. Sincerely, Dr. Tesfaye Interpreting Radiologist [facility] (Normal over 40) documented in this encounterGreen Cross Hospital04-21-2023 Instructions* Patient Instructions* Paola Cloud Ma - 11/20/2022 11:14 AM EDT BREAST CANCER SCREENING If you have remaining breast tissue, an annual screening mammogram and clinical breast exam by yourbreast provider is recommended. Option for mammography include digital mammograms and digital breast tomosynthesis. Single view mammograms are recommended if you have had a mastectomy with tissue flap reconstruction. Mammograms are not necessary if you have had a mastectomy with implant reconstruction. Breast MRI is NOT ROUTINELY recommended for screening following a cancer diagnosis and is NOT recommended for women who have undergone bilateral mastectomy procedures unless otherwise clinically indicated. MRI is recommended for breast cancer survivors with remaining breast tissue who: Have a history if chest irradiation under the age of 30. Carry genetic mutations conferring increased cancer risk (BRCA1, BRCA2, PTEN, TP53, CDH1, STK11, PALB2, CHEK2, JADE) Per [facility] High Risk Care Path recommendations, screening breast MRI may be considered for women under the age of 65 with remaining breast tissue in the following situations: Patients who were under the age of 50 at the time of their breast cancer diagnosis Patients with mammographically dense tissue (BI-RADS category 3 or 4) Patients with a history of invasive lobular breast cancer GENETIC TESTING Approximately 10% of all breast cancers in the [place] are due to inherited genetic mutations. BRCA 1 and BRCA 2 are the most common genes associated with hereditary breast and ovarian cancer risk, but other genes known to increase breast cancer risk have also been identified. A certified genetic counselor can help decide if you are a candidate for testing, especially if your breast cancer was diagnosed prior to the age of 50 you had triple negative breast cancer you have a personal or family history of ovarian cancer you have a family member with a known genetic mutation you have a person or family history of male breast cancer you are of Ashkenazi Zoroastrianism descent HEALTHY LIFESTYLE MANAGEMENT (per NCCN Guidelines Version 1.2017 for Survivorship) All survivors should be encouraged to achieve and maintain a healthy lifestyle with attention to weight management, physical activity, and healthy dietary habits. Healthy Lifestyle habits have been associated with overall health and quality of life. For some cancers, a healthy lifestyle has been associated with a reduced risk of recurrence and . For a healthy lifestyle, all survivors should be encouraged to: Achieve and maintain a healthy body weight throughout life. Strive for at least 150 minutes of moderate or 75 minutes of vigorous activity per week. Maintain a healthy diet high in fruits, vegetables, and whole grains and low in red and processed meats, sugars, and fat in order to promote weight control and avoid obesity. Limit alcohol intake to less than one drink per day. Avoid tobacco products. Practice sun safety. Obtain 6-7 hours of sleep per night. Follow up with primary care physician regularly. WHEN TO CALL Tests may become necessary in some point of time. We encourage you to call with any new questions or concerns, particularly if your symptoms are worsening or have lasted longer than two weeks. Specifically, please report: breast or chest wall lumps, skin changes, swelling, or nipple discharge unexplained nausea or vomiting unexplained localized bone pain unexplained cough or shortness of breath unexplained swelling in your arm(s) unexplained and persistent headaches Breast Cancer Support and Resources Many resources are available in the community and offer an array of programs including support groups and community education programs. All of them have web sites you can access for additional information. These include but are not limited to: [facility] Comprehensive Breast Cancer Program - [email or web address]/thxxgv-[email or web address]-[email or web address] [facility] - [facility][email or web address] [employer] - cancer.org PANDA Breast Cancer Foundations - jdbcfoundation.org FORCE - facingourrisk.org [place] - brightpink.org Young Survival Coalition - youngsurvival.org [employer] - 4thangel.org [facility] - touchedbycancer.org ([place] and [place]) [facility] - the[facility].org ([place] area) [facility] - yellowbrickplace.org ([place] area) [facility] - stewartscaring[facility].org ([place] area) If you would like to compliment one of our caregivers you encountered today, you may do so at [email or web address]. Thank you ! 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 She is established patient in Breast Center who was last seen on 10/28/21 for annual exam and screening mammogram with negative findings She denies any breast masses, pain, skin changes or nipple discharge. She denies any new family medical problems. She fell an has sustained a tear in left hip. She is walking with use of a walker On 01/26/06, she underwent a right breast biopsy at outside facility with findings of [facility] ER+(40%)/GA+(70%), nuclear grade 1, LVI- with positive douglass. Her tumor size was 1.7 cm. In 03/07, she underwent right lumpectomy with ALND. Residual tumor of 0.8 cm focus of tumor was identified at superior marigin. 20 lymph nodes were removed and 0 were involved with tumor. She declined adjuvant therapy and XRT. She declined genetic testing History pertaining to prior breast biopsies, genetic reports, pathology reports, treatment summaries, personal, social and family history has been extracted from my note dated 10/28/21. Her vitamin D level was No results found for: VITD25. She takes Vitamin D 5000 units and a Multivitamin daily. BMD: Yes, per patient report in 2013; results: osteoporosis( declined treatment- weight bearing exercises) PERSONAL BREAST HISTORY: Past breast history (prior to this encounter) is as follows: Breast biopsy: Yes, 01/05-[facility] Breast cysts: No Breast surgery: Yes, Right PM with ALND Breast cancer: Yes, Stage I (T 1c N 0 M 0) in 2006, treated as above CANCER SURVEILLANCE: Mammograms: Yes, Date in [facility]: 10/28/21; results - negative Breast MRI: No Colonoscopy: Yes, per patient report in 2016, showing diverticulitis RISK FACTORS FOR BREAST CANCER: Age at the onset of menses: 13 years of age. P: 6 Age at the of first child: 20 years of age. She breast fed for 6-8 months total Age at menopause: 52 years of age. Post-menopausal hormone therapy: No She has had uterus removed with negative pathology (done for uterine prolapse), but ovaries remain She is postmenopausal and does not use control. History of Mantle Radiation prior to the age of 30: No Postmenopausal obesity: No There is no height or weight on file to calculate BMI. Current Weight: 173 lbs Mammographic density: There are scattered fibroglandular densities Personal History of Benign Atypical Breast Biopsy: No Alcohol use: Rare PAST MEDICAL HISTORY: PAST MEDICAL HISTORY Diagnosis Date HTN (hypertension) 2014 Patient specifically denies history of: DVT, PE, Migraine headaches WITH AURA , Migraine headaches WITHOUT AURA, Abnormal uterine bleeding and Abnormal uterine biopsies . PAST SURGICAL HISTORY: PAST SURGICAL HISTORY Procedure Laterality Date BREAST SURGERY PROCEDURE UNLISTED 1986 left breast exc. bx. - benign BREAST SURGERY PROCEDURE UNLISTED 01/05 right breast excisional biopsy BREAST SURGERY PROCEDURE UNLISTED 03/07 right breast re-excision with LND EXT HYSTERECTOMY,W/PARTIAL VAGINECTO 2007 Bladder repair and uterus removed. PAST SURGICAL HISTORY OF left foot surgery PAST SURGICAL HISTORY OF left ovarian cystectomy PAST SURGICAL HISTORY OF right toe surgery PAST SURGICAL HISTORY OF Right 07/2014 arm surgery SOCIAL HISTORY: Social History Tobacco Use Smoking status: Never Smokeless tobacco: Never Substance Use Topics Alcohol use: Yes Comment: occasional Drug use: No Caffeine intake: 3 cups / day Exercise: 3-5 minutes per week FAMILY HISTORY: Reviewed: 10/28/21 Family history of breast cancer: Sister ( Marcela) dx at age 31-alive and well- No genetic Family history of ovarian cancer: None Number of sisters: 1 Number of maternal aunts: 3 Number of paternal aunts: 0 Ashkenazi Ancestry: no Has Patient had Genetic Testing? Type of testing no Have any Family Members had Genetic Testing? No Other Cancer: Father dx skin cancer and mother dx uterine cancer in 90's There is no family history of prostate, colon, pancreatic, gastric, brain, renal cell or thyroid cancer. There is no family history of melanoma, sarcoma or leukemia. Osteoporosis: None Stroke: None Blood Clot: None Heart attack: None Thyroid Nodule or Goiter: Mother Autism: None FAMILY HISTORY Problem Relation Age of Onset Breast Cancer Sister diagnosed at age 31. Uterine Cancer Mother 96 at 101 yrs old Cervical Cancer Maternal Aunt Uterine Cancer Maternal Aunt in her 70's Skin Cancer Father MEDICATIONS: losartan (COZAAR) 50 mg tablet Take 50 mg by mouth once daily. hydroCHLOROthiazide (HYDRODIURIL, ESIDRIX) 12.5 mg tablet Take 12.5 mg by mouth once daily. One tablet every other day POTASSIUM (POTASSIMIN ORAL) Take 99 mg by mouth once daily. Cholecalciferol, Vitamin D3, (VITAMIN D) 5,000 unit ORAL Tab Take 1,000 Units by mouth once each week. multivitamins(DAILY VITAMIN TAB) one tablet daily Ascorbic Acid (VITAMIN C) 1,000 mg ORAL Tab Take one(1) tablet daily. Bmxpbxg-Sjsgyvbaor-Pydb 333-133-5 mg ORAL Tab dose unknown - takes two tablets per day ALLERGIES: ALLERGIES Allergen Reactions Adhesive Tape-Silic* Intolerance irritation Band-Aids [Other] Cause skin irritation REVIEW OF SYSTEMS: She denies chest pain, shortness of breath, persistent cough, severe headaches, unusual bony pains,abdominal pain or unintentional weight loss. PHYSICAL EXAM: There were no vitals taken for this visit. General: well-nourished, healthy, white, female, alert and oriented x 3, calm Skin: warm, dry, skin color, texture, turgor normal Head/Eyes: normocephalic, atraumatic and anicteric Lymph nodes- The supraclavicular, axillary, and cervical regions are free of significant lymphadenopathy. Right breast-S/p partial mastectomy with no evidence of local recurrence. Mild XRT changes.The skin, nipple and areola appear normal. There is no skin dimpling with movement of the pectoralis. There is no nipple retraction. No discharge can be elicited. The parenchya is moderately fibrocystic. There is no dominant masses in the breast. The axillary tail is normal. There is no tenderness noted with palpation. Left breast- The skin, nipple, and areola appear normal. There is no skin dimpling with movement ofthe pectoralis. There is no nipple retraction. No discharge can be elicited. The parenchyma is moderately fibrocystic. There is no dominant masses in the breast. The axillary tail is normal. There isno tenderness noted with palpation. Chest: cl Cor: reg, no r/m/g IMAGING: Bilateral Screening Mammogram w/DBT was completed in Breast Center today an was negative for malignancy. There are scattered fibroglandular elements in both breasts. There are benign post operative findings in both breasts. There is no mammographic evidence of malignancy Assessment IMPRESSION/PLAN: Pj Lopez is a 77 year old year old female with Bilateral Fibrocystic Change, History of RIGHT Breast Cancer, Osteoporosis and Family history of breast cancer There is no evidence of malignancy. The clinical and mammographic breast findings were discussed indetail. Her breast tissue continues to be scattered density-Category B for dense tissue. Dense breasts can lower the sensitivity for screening mammography. DBT is associated with a 25-40% improved sensitivity and 15% fewer callbacks. DBT is associated with 2-3 times the radiation exposure compared with digital mammography, but is still below the FDA limit for radiation. Breast MRI is NOT ROUTINELY recommended for screening following a cancer diagnosis and is NOT recommended for women who have undergone bilateral mastectomy procedures unless otherwise clinically indicated. MRI is recommended for breast cancer survivors with remaining breast tissue who: - Have a history of chest irradiation under the age of 30. - Carry germline mutations conferring increased cancer risk (BRCA1, BRCA2, PTEN, TP53, CDH1, STK11,PALB2, CHEK2, JADE) Per [facility] High Risk Care Path recommendations, screening breast MRI may be considered for women underthe age of 65 with remaining breast tissue in the following situations: - Age at breast cancer diagnosis under 50 - Mammographically dense tissue (BI-RADS category 3 or 4) - History of invasive lobular breast cancer She doesn't meet [facility] care path guidelines for MRI of breast. She will continue to be followed annually with clinical exam and mamogram. Health maintenance: BMD discussed however she doesn't plan to comply as she has declined any medication. Genetics referral made: This has been recommended in past and declined. She again declined this referral today Chemoprevention discussion: N/A The patient is advised to exercise regularly, achieve/maintain ideal body weight, and to limit alcohol consumption to less than 7 drinks weekly for breast cancer risk reduction and overall health. Encouraged vitamin D and continue weight bearing exercise. She will return in one year for bilateral digital mammogram and clinical evaluation. She will call me in the interim should she have any questions or concerns. I spent a total of 29 minutes on the date of the service which included preparing to see the patient, [id number] patient care, completing clinical documentation, obtaining and/or reviewing separately obtained history, performing a medically appropriate examination, counseling and educating the pat ient/family/caregiver, ordering medications, tests, or procedures, communicating results to the patient/family/caregiver, and care coordination (not separately reported). Mayelin Rosen APRN.SAMM Medical Breast Specialist Women's Health Nurse Practitioner CC: Michael Linder MD ([facility]) [facility] [place] [address] documented in this encounterGreen Cross Hospital04-08-2023 NotePROCEDURE: XR HIP LT 2 3V W PELVIS HISTORY: Pain in lower limb ; left hip pain after falling COMPARISON: None. FINDINGS: BONES:Displaced fracture of the left superior pubic ramus near the pubis. Suspect fracture of inferior pubic ramus, but no appreciable displacement. Unremarkable left femur and hip joint. SOFT TISSUES:No visible soft tissue swelling. EFFUSION:None visible. OTHER: Negative. IMPRESSION: 1. Acute fractures of the left superior and inferior pubic rami. 2. No appreciable fracture of the proximal femur. Unremarkable hip joint. 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 She is an established patient of mine who I last saw on 10/22/20 for annual exam and mammogram with negative findings. She denies any breast masses, pain, skin changes or nipple discharge. She denies any new personal or family medical problems. She continues to be very active and works out regularly On 01/26/06, she underwent a right breast biopsy at outside facility with findings of [facility] ER+(40%)/GA+(70%), nuclear grade 1, LVI- with positive dougalss. Her tumor size was 1.7 cm. In 03/07, she underwent right lumpectomy with ALND. Residual tumor of 0.8 cm focus of tumor was identified at superior marigin. 20 lymph nodes were removed and 0 were involved with tumor. She declined adjuvant therapy and XRT. She declined genetic testing History pertaining to prior breast biopsies, genetic reports, pathology reports, treatment summaries, personal, social and family history has been extracted from my note dated 10/22/20. Her vitamin D level was No results found for: VITD25. She takes Vitamin D 5000 units and a Multivitamin daily. BMD: Yes, per patient report in 2013; results: osteoporosis( declined treatment- weight bearing exercises) PERSONAL BREAST HISTORY: Past breast history (prior to this encounter) is as follows: Breast biopsy: Yes, 01/05-[facility] Breast cysts: No Breast surgery: Yes, Right PM with ALND Breast cancer: Yes, Stage I (T 1c N 0 M 0) in 2005, treated as above CANCER SURVEILLANCE: Mammograms: Yes, Date in Epic: 10/22/20; results - negative Breast MRI: No Colonoscopy: Yes, per patient report in 2015, showing diverticulitis RISK FACTORS FOR BREAST CANCER: Age at the onset of menses: 13 years of age. P: 6 Age at the of first child: 20 years of age. She breast fed for 6-8 months total Age at menopause: 52 years of age. Post-menopausal hormone therapy: No She has had uterus removed with negative pathology (done for uterine prolapse), but ovaries remain She is postmenopausal and does not use control. History of Mantle Radiation prior to the age of 30: No Postmenopausal obesity: No There is no height or weight on file to calculate BMI. Current Weight: 173 lbs Mammographic density: There are scattered fibroglandular densities Personal History of Benign Atypical Breast Biopsy: No Alcohol use: Rare PAST MEDICAL HISTORY: PAST MEDICAL HISTORY Diagnosis Date HTN (hypertension) 2014 Patient specifically denies history of: DVT, PE, Migraine headaches WITH AURA , Migraine headaches WITHOUT AURA, Abnormal uterine bleeding and Abnormal uterine biopsies . PAST SURGICAL HISTORY: PAST SURGICAL HISTORY Procedure Laterality Date BREAST SURGERY PROCEDURE UNLISTED 1986 left breast exc. bx. - benign BREAST SURGERY PROCEDURE UNLISTED 01/05 right breast excisional biopsy BREAST SURGERY PROCEDURE UNLISTED 03/07 right breast re-excision with LND EXT HYSTERECTOMY,W/PARTIAL VAGINECTO 2007 Bladder repair and uterus removed. PAST SURGICAL HISTORY OF left foot surgery PAST SURGICAL HISTORY OF left ovarian cystectomy PAST SURGICAL HISTORY OF right toe surgery PAST SURGICAL HISTORY OF Right 07/2014 arm surgery SOCIAL HISTORY: Social History Tobacco Use Smoking status: Never Smoker Smokeless tobacco: Never Used Substance Use Topics Alcohol use: Yes Comment: occasional Drug use: No Caffeine intake: 3 cups / day Exercise: 3-5 minutes per week FAMILY HISTORY: Reviewed: 10/28/21 Family history of breast cancer: Sister ( Marcela) dx at age 31-alive and well- No genetic Family history of ovarian cancer: None Number of sisters: 1 Number of maternal aunts: 3 Number of paternal aunts: 0 Ashkenazi Ancestry: no Has Patient had Genetic Testing? Type of testing no Have any Family Members had Genetic Testing? No Other Cancer: Father dx skin cancer and mother dx uterine cancer in 90's - There is no family history of prostate, colon, pancreatic, gastric, brain, renal cell or thyroid cancer. - There is no family history of melanoma, sarcoma or leukemia. Osteoporosis: None Stroke: None Blood Clot: None Heart attack: None Thyroid Nodule or Goiter: Mother Autism: None FAMILY HISTORY Problem Relation Age of Onset Breast Cancer Sister diagnosed at age 31. Uterine Cancer Mother 96 at 101 yrs old Cervical Cancer Maternal Aunt Uterine Cancer Maternal Aunt in her 70's Skin Cancer Father MEDICATIONS: losartan (COZAAR) 50 mg tablet Take 50 mg by mouth once daily. hydroCHLOROthiazide (HYDRODIURIL, ESIDRIX) 12.5 mg tablet Take 12.5 mg by mouth once daily. One tablet every other day POTASSIUM (POTASSIMIN ORAL) Take 99 mg by mouth once daily. Cholecalciferol, Vitamin D3, (VITAMIN D) 5,000 unit ORAL Tab Take 1,000 Units by mouth once each week. multivitamins(DAILY VITAMIN TAB) one tablet daily Ascorbic Acid (VITAMIN C) 1,000 mg ORAL Tab Take one(1) tablet daily. Kshqqww-[id number]-Sifv 333-133-5 mg ORAL Tab dose unknown - takes two tablets per day ALLERGIES: ALLERGIES Allergen Reactions Adhesive Tape-Silic* Intolerance irritation Band-Aids [Other] Cause skin irritation REVIEW OF SYSTEMS: She denies chest pain, shortness of breath, persistent cough, unusual bony pains, abdominal pain orunintentional weight loss.+h/o severe headaches-but denies any changes in them PHYSICAL EXAM: There were no vitals taken for this visit. General: well-nourished, healthy, white, female, alert and oriented x 3, calm Skin: warm, dry, skin color, texture, turgor normal Head/Eyes: normocephalic, atraumatic and anicteric Lymph nodes- The supraclavicular, axillary, and cervical regions are free of significant lymphadenopathy. Right breast-S/p partial mastectomy with no evidence of local recurrence. Indentation along incision noted chronically. The skin, nipple and areola appear normal. There is no skin dimpling with movement of the pectoralis. There is no nipple retraction. No discharge can be elicited. The parenchya ismoderately fibrocystic. There is no dominant masses in the breast. The axillary tail is normal. There is no tenderness noted with palpation. Left breast- The skin, nipple, and areola appear normal. There is no skin dimpling with movement ofthe pectoralis. There is no nipple retraction. No discharge can be elicited. The parenchyma is moderately fibrocystic. There is no dominant masses in the breast. The axillary tail is normal. There isno tenderness noted with palpation. S/p breast reduction mammoplasty with well healed incisions Chest: cl Cor: reg, no r/m/g Abd: soft, no hepatomegaly IMAGING: Bilateral Screening Mammogram was completed in [facility] today an was negative for malignancy.There are scattered fibroglandular elements in both breasts. There are benign post operative findings in both breasts. There is no mammographic evidence of malignancy Assessment IMPRESSION/PLAN: Pj Lopez is a 76 year old year old female with Bilateral Fibrocystic Change, History of RIGHT Breast Cancer, Osteoporosis and Family history of breast cancer There is no evidence of malignancy. The clinical and mammographic breast findings were discussed indetail. Her breast tissue continues to be scattered density. I discussed the the patient the option for digital breast tomosynthesis for her screening mammogram in the past. Dense breasts can lower the sensitivity for screening mammography. DBT is associated with a 25-40% improved sensitivity and 15% fewercallbacks. DBT is associated with 2-3 times the radiation exposure compared with digital mammography, but is still below the FDA limit for radiation. She declined this in her care Breast MRI is NOT ROUTINELY recommended for screening following a cancer diagnosis and is NOT recommended for women who have undergone bilateral mastectomy procedures unless otherwise clinically indicated. MRI is recommended for breast cancer survivors with remaining breast tissue who: - Have a history of chest irradiation under the age of 30. - Carry germline mutations conferring increased cancer risk (BRCA1, BRCA2, PTEN, TP53, CDH1, STK11,PALB2, CHEK2, JADE) Per [facility] High Risk Care Path recommendations, screening breast MRI may be considered for women underthe age of 65 with remaining breast tissue in the following situations: - Age at breast cancer diagnosis under 50 - Mammographically dense tissue (BI-RADS category 3 or 4) - History of invasive lobular breast cancer She doesn't meet [facility] care path guidelines for MRI of breast. She will continue to be followed annually with clinical exam and mamogram. Health maintenance: BMD discussed however she doesn't plan to comply as she has declined any medication. Genetics referral made: This has been recommended in past and declined Chemoprevention discussion: N/A The patient is advised to exercise regularly, achieve/maintain ideal body weight, and to limit alcohol consumption to less than 7 drinks weekly for breast cancer risk reduction and overall health. Encouraged vitamin D and continue weight bearing exercise. She was commended on continued exercise routine and very active lifestyle She will return in one year for bilateral digital mammogram and clinical evaluation. She will call me in the interim should she have any questions or concerns. I spent a total of 29 minutes on the date of the service which included preparing to see the patient, [id number] patient care, completing clinical documentation, obtaining and/or reviewing separately obtained history, performing a medically appropriate examination, counseling and educating the pat ient/family/caregiver, ordering medications, tests, or procedures, communicating with other HCPs (not separately reported), independently interpreting results (not separately reported), communicatingresults to the patient/family/caregiver and care coordination (not separately reported). Mayelin Rosen APRN.SAMM Medical Breast Specialist Women's Health Nurse Practitioner CC: Michael Linder MD ([facility]) [address] [place] [address] documented in [facility] Instructions* Patient Instructions* Paola Cloud Ma - 10/28/2021 11:24 AM EDT BREAST CANCER SCREENING If you have remaining breast tissue, an annual screening mammogram and clinical breast exam by yourbreast provider is recommended. Option for mammography include digital mammograms and digital breast tomosynthesis. Single view mammograms are recommended if you have had a mastectomy with tissue flap reconstruction. Mammograms are not necessary if you have had a mastectomy with implant reconstruction. Breast MRI is NOT ROUTINELY recommended for screening following a cancer diagnosis and is NOT recommended for women who have undergone bilateral mastectomy procedures unless otherwise clinically indicated. MRI is recommended for breast cancer survivors with remaining breast tissue who: Have a history if chest irradiation under the age of 30. Carry genetic mutations conferring increased cancer risk (BRCA1, BRCA2, PTEN, TP53, CDH1, STK11, PALB2, CHEK2, JADE) Per [facility] High Risk Care Path recommendations, screening breast MRI may be considered for women under the age of 65 with remaining breast tissue in the following situations: Patients who were under the age of 50 at the time of their breast cancer diagnosis Patients with mammographically dense tissue (BI-RADS category 3 or 4) Patients with a history of invasive lobular breast cancer GENETIC TESTING Approximately 10% of all breast cancers in the [place] are due to inherited genetic mutations. BRCA 1 and BRCA 2 are the most common genes associated with hereditary breast and ovarian cancer risk, but other genes known to increase breast cancer risk have also been identified. A certified genetic counselor can help decide if you are a candidate for testing, especially if your breast cancer was diagnosed prior to the age of 50 you had triple negative breast cancer you have a personal or family history of ovarian cancer you have a family member with a known genetic mutation you have a person or family history of male breast cancer you are of Ashkenazi Zoroastrianism descent HEALTHY LIFESTYLE MANAGEMENT (per NCCN Guidelines Version 1.2017 for Survivorship) All survivors should be encouraged to achieve and maintain a healthy lifestyle with attention to weight management, physical activity, and healthy dietary habits. Healthy Lifestyle habits have been associated with overall health and quality of life. For some cancers, a healthy lifestyle has been associated with a reduced risk of recurrence and . For a healthy lifestyle, all survivors should be encouraged to: Achieve and maintain a healthy body weight throughout life. Strive for at least 150 minutes of moderate or 75 minutes of vigorous activity per week. Maintain a healthy diet high in fruits, vegetables, and whole grains and low in red and processed meats, sugars, and fat in order to promote weight control and avoid obesity. Limit alcohol intake to less than one drink per day. Avoid tobacco products. Practice sun safety. Obtain 6-7 hours of sleep per night. Follow up with primary care physician regularly. WHEN TO CALL Tests may become necessary in some point of time. We encourage you to call with any new questions or concerns, particularly if your symptoms are worsening or have lasted longer than two weeks. Specifically, please report: breast or chest wall lumps, skin changes, swelling, or nipple discharge unexplained nausea or vomiting unexplained localized bone pain unexplained cough or shortness of breath unexplained swelling in your arm(s) unexplained and persistent headaches Breast Cancer Support and Resources Many resources are available in the community and offer an array of programs including support groups and community education programs. All of them have web sites you can access for additional information. These include but are not limited to: [facility] Comprehensive Breast Cancer Program - [email or web address] [facility] - komenneohio.[email or web address] [employer] - cancer.org PANDA Breast Cancer Foundations - jdbcfoundation.[email or web address] FORCE - [email or web address] [facility] [place] - brightpink.[email or web address] Young Survival Coalition - youngsurvival.org [employer]th [employer] - 4thangel.org [facility] - [facility].[email or web address] ([place] and [place]) [facility] - mclean [email or web address] ([place] area) [facility] - yellowbrickplace.org ([place] area) [facility] - stewartscaringplace.org ([place] area) If you would like to compliment one of our caregivers you encountered today, you may do so at [email or web address]. Thank you ! documented in this encounterGreen Cross Hospital03-29-[facility] Nurse Note* Paola Cloud Ma - 10/28/2021 11:24 AM EDT Last mammogram on: 10/22/20 Results: see report Is the patient active on [email or web address] Yes Electronically Signed By: Paola Cloud Ma In Department: [facility] REVIEW OF PATIENT HISTORY: OB History T0 L6 SAB0 IAB0 Ectopic0 Multiple0 Live Births0 Comment: Menarche at age 13. AFB 20. Breastfed. Menopause at age 52. FAMILY HISTORY Problem Relation Age of Onset Breast Cancer Sister diagnosed at age 31. Uterine Cancer Mother 96 at 101 yrs old Cervical Cancer Maternal Aunt Uterine Cancer Maternal Aunt in her 70's Skin Cancer Father PAST MEDICAL HISTORY Diagnosis Date HTN (hypertension) 2014 PAST SURGICAL HISTORY Procedure Laterality Date BREAST SURGERY PROCEDURE UNLISTED 1986 left breast exc. bx. - benign BREAST SURGERY PROCEDURE UNLISTED 01/05 right breast excisional biopsy BREAST SURGERY PROCEDURE UNLISTED 03/07 right breast re-excision with LND EXT HYSTERECTOMY,W/PARTIAL VAGINECTO 2007 Bladder repair and uterus removed. PAST SURGICAL HISTORY OF left foot surgery PAST SURGICAL HISTORY OF left ovarian cystectomy PAST SURGICAL HISTORY OF right toe surgery PAST SURGICAL HISTORY OF Right 07/2014 arm surgery Social History Tobacco Use Smoking status: Never Smoker Smokeless tobacco: Never Used Substance Use Topics Alcohol use: Yes Comment: occasional Drug use: No documented in this encounterGreen [facility] [place] [facility]* Diagnosis Encounter for screening mammogram for breast cancer- Primary Fibrocystic breast changes, bilateral documented in this encounter [facility] [place] [facility]* Diagnosis Fibrocystic breast changes, bilateral- Primary Personal history of malignant neoplasm of breast Encounter for screening mammogram for breast cancer documented in this encounter [facility] note* Diagnosis Encounter for screening mammogram for breast cancer- Primary documented in this encounter [facility] note* Diagnosis Fibrocystic breast changes, bilateral- Primary Personal history of malignant neoplasm of breast Encounter for screening mammogram for breast cancer Family history of breast cancer in sister Family history of malignant neoplasm of breast documented in this encounter [facility] noteNo InformationNort Doctolib Other History general Narrative - Reported* Type Description Date Medical History Primary hypertension Medical History Blood in stool Medical History Hx of breast cancer Medical History Ascending aorta dilatation Medical History Aortic stenosis, mild Medical History Age-related osteopor osis without current pathological fracture Surgical History LUMPECTOMY, BREAST, RIGHT 2006 Surgical History BREAST REDUCTION SURGERY Surgical History ORIF RIGHT HUMERUS Surgical History COLONOSCOPY Hospitalization History SEE SURGICAL HX Quantitative Medicine Other History general Narrative - Reported* Type Description Date Medical History Primary hypertension Medical History Blood in stool Medical History Hx of breast cancer Medical History Ascending aorta dilatation Medical History Aortic stenosis, mild Medical History Age-related osteopor osis without current pathological fracture Surgical History LUMPECTOMY, BREAST, RIGHT 2005 Surgical History BREAST REDUCTION SURGERY Surgical History ORIF RIGHT HUMERUS Surgical History COLONOSCOPY 2016 Hospitalization History SEE SURGICAL HX Quantitative Medicine Other Reason for referral (narrative)* Diagnostic Procedure Only (Routine) - Authorized Specialty Diagnoses / Procedures Referred By Errol benson Referred To Contact [facility] Diagnoses Encounter for screening mammogram for breast cancer Fibrocystic breast changes, bilateral Procedures KENDRA SCREENING SCREENING MAMMOGRAPHY BI 2-VIEW BREAST INC CAD Mayelin Rosen APRN.CNP [address] [place] [address] [facility] [address] [place] [address] Referral ID Status Reason Start Date Expiration Date Visits Requested Visits Authorized [id number] Authorized Auto-Generat ed Referral 10/22/2021 11/21/2022 1 1 [facility] for referral (narrative)* Diagnostic Procedure Only (Routine) - Authorized Specialty Diagnoses / Procedures Referred By Errol benson Referred To Contact [facility] Diagnoses Encounter for screening mammogram for breast cancer Procedures KENDRA SCREENING SCREENING MAMMOGRAPHY BI 2-VIEW BREAST INC Mayelin Cummings APRN.CNP [address] [place] [address] [facility] [address] [place] [address] Referral ID Status Reason Start Date Expiration Date Visits Requested Visits Authorized [id number] Authorized Auto-Generat ed Referral 11/10/2022 12/10/2023 1 1 [facility])* Diagnostic Procedure Only (Routine) - Closed Specialty Diagnoses / Procedures Referred By Errol benson Referred To Contact [facility] Diagnoses Encounter for screening mammogram for breast cancer Procedures KENDRA SCREENING W AMX SCREENING DIGITAL BREAST TOMOSYNTHESIS BI SCREENING MAMMOGRAPHY BI 2-VIEW BREAST INC Mayelin Cummings APRN.CNP [address] [place] [address] [facility] [address] [place] [address] Referral ID Status Reason Start Date Expiration Date V isits Requested Visits Authorized [id number] Closed Auto-Generate d Referral 11/20/2022 12/20/2023 1 1 [facility] Advance Directives Documents on File Type Date Recorded Patient Lot Technician Expl anation Advance Directive(s) 07/14/2013 7:01 PM Documents on File Type Date Recorded Patient Lot Technician Expl anation Advance Directive(s) 07/14/2013 7:01 PM Summary Purpose Family History No Family History Records FoundNo Family History Records Found Additional Source Comments Source Comments (unrecognize d section and content) In the event this informatio n is protected by the Federal Confidentiality of Alcohol and Drug Abuse Patient Records regulations: The Federal rules restrict any use of the information to criminally investigate or prosecute any alcohol or drug abuse patient.[facility] HospitalIn the event this information is protected by the Federal Confidentiality of Alcohol and Drug Abuse Patient Records regulations: The Federal rules restrict any use of the information to criminally investigate or prosecute any alcohol or drug abuse patient.[facility] HospitalIn the event this information is protected by the Federal Confidentiality of Alcohol and Drug Abuse Patient Records regulations: The Federal rules restrict any use of the information to criminally investigate or prosecute any alcohol or drug abuse patient.[facility] HospitalIn the event this information is protected by the Federal Confidentiality of Alcohol and Drug Abuse Patient Records regulations: The Federal rules restrict any use of the information to criminally investigate or prosecute any alcohol or drug abuse patient.[facility] HospitalIn the event this information is protected by the Federal Confidentiality of Alcohol and Drug Abuse Patient Records regulations: The Federal rules restrict any use of the information to criminally investigate or prosecute any alcohol or drug abuse patient.[facility] Care Teams (unrecognized sec tion and content) Breaker Unit Assembler Relationship Specialty Start Date End Date Michael LinderDO PCP - General Internal Medicine 12/19/10 Breaker Unit Assembler Relationship Specialty Start Date End Date Michael Linder, DO PCP - General Internal Medicine 12/19/10 Breaker Unit Assembler Relationship Specialty Start Date End Date Michael Linder, DO PCP - General Internal Medicine 12/19/10 Breaker Unit Assembler Relationship Specialty Start Date End Date Michael Linder DO PCP - General Internal Medicine 12/19/10 Breaker Unit Assembler Relationship Specialty Start Date End Date Michael Linder, DO PCP - General Internal Medicine 12/19/10 Reason for Visit (unrecogniz ed section and content) EKG results Reason Comments Established Patient Annual breast exam w ith mammogram; no breast concerns at this time Reason Comments Established Patient Annual breast exam w ith mammogram; broke Left hip front and back 2 weeks ago; no other breast concerns at this time INFORMATION SOURCE (unrecogn ized section and content) DATE CREATED AUTHOR 11/25/2022 [facility] DATE CREATED AUTHOR AUTHOR'S ORGANIZ ATION 11/28/2022 [facility] FOR RECORDS PERTAINING TO PATIENTS WHO ARE OR HAVE BEEN ENROLLED IN A CHEMICAL DEPENDENCY/SUBSTANCEABUSE PROGRAM, SOME INFORMATION MAY BE OMITTED. This clinical summary was aggregated from multiple sources. Caution should be exercised in using it in the provision of clinical care. This summary normalizes information from multiple sources, and as a consequence, information in this document may materially change the coding, format and clinical context of patient data. In addition, data may be omitted in some cases. CLINICAL DECISIONS SHOULD BE BASED ON THE PRIMARY CLINICAL RECORDS. [facility]. provides no warranty or guarantee of the accuracy or completeness of information in this document.
--- NOTE | 2023-09-09 11:44 | CA_ITS ---
Patient Name: PJ LOPEZ MR#: [id number] : 1945 Exam Date: 09/09/2023 Ordering Doctor: DR LISBET GREEN D.O. ECHOCARDIOGRAM REPORT PROCEDURE: CA ECHO DOPPLER COMPLETE INDICATIONS: New onset of Afib, Primary HTN COMPARISON: None. DESCRIPTION: COMPLETE ECHOCARDIOGRAM Real-time transthoracic echocardiography with 2D, M-mode, spectral and color flow Doppler performed. QUALITY: Technical quality was good. 61 , 172#, BSA 1.77 m2 LEFT VENTRICLE: Normal chamber size. Thickened septal wall. LV EF: Global left ventricular systolic function is normal; visually estimated ejection fraction is 60 to 65%. No obvious wall motion abnormalities. DIASTOLIC: Not adequately assessed due to heart rhythm. ATRIAL SEPTUM: Visually appears intact. LEFT ATRIUM: Severe dilatation. RIGHT ATRIUM: Mild dilatation. RIGHT VENTRICLE: Normal chamber size. Normal systolic function. TRICUSPID VALVE: Normal mobility and thickness. Mild regurgitation. No evidence of pulmonary hypertension. RVSP 23 mmHg MITRAL VALVE: Normal mobility and thickness. Mild mitral annular calcification. Mild to moderate mitral regurgitation. AORTIC VALVE: Normal trileaflet appearance. No visible sclerosis. Normal leaflet mobility. No evidence of aortic valve stenosis. No aortic regurgitation. AORTIC ROOT: Normal diameter and appearance. PULMONIC VALVE: Not well visualized. Normal with No regurgitation. PERICARDIUM: Anterior free space; trivial effusion versus fat pad. IVC: Collapses with inspirations. IVC is normal in size. CONCLUSION: 1. Global left ventricular systolic function is normal; visually estimated ejection fraction is 60 to 65% 2. Normal right ventricular size and systolic function 3. Biatrial enlargement 4. Mild tricuspid regurgitation 5. Mild to moderate mitral regurgitation 6. Anterior free space; trivial effusion versus fat pad Adult Echocardiography Procedure Report Left Ventricle LVEDD (3.7 - 5.6 cm): 3.66 cm LVESD (2.2 - 4.0 cm): 3.39 cm LVIVS thickness (0.6 - 1.2 cm): 1.61 cm LVPW thickness (0.5 - 1.0 cm): 0.98 cm LVOT Max Gradient: 3.87 mm[Hg], 2.84 mm[Hg] LVOT Area (cm2): 0.91 m/s Peak Velocity (LVOT): 0.98 m/s, 0.84 m/s LVOT Diameter 2.38 cm Left Atrium LA Volume Index (2D A2C): 56.99 ml/m2 Left Atrium Systolic Dimension: 4.49 cm Mitral Valve Mitral Valve E-Wave Peak Velocity: 0.76 m/s Right Ventricle Aorta AO Root Diam: 3.16 cm Ascending Ao Diam: 3.09 cm Aortic Valve AoV Area (Peak Vinay): 4.94 cm2, 5.32 cm2 Peak Velocity(Antegrade Flow): 0.82 m/s Peak Gradient(Antegrade Flow): 2.70 mm[Hg] Tricuspid Valve Peak Velocity (Regurgitant Flow): 1.99 m/s, 2.22 m/s, 2.08 m/s Pulmonic Valve Peak Velocity: 0.83 m/s Peak Gradient: 2.63 mm[Hg], 2.92 mm[Hg] Right Atrium Right Atrium Systolic Pressure: 42.93 ml, 42.93 ml Dictated by: Nelly Ulloa M.D. on 09/09/2023 at 16:07 Approved by: Nelly Ulloa M.D. on 09/09/2023 at 16:12
== END 2023-09-09 10:50 | disposition home or self-care (01) ==
LOC: NM 10:49
PROVIDERS: PCP Internal Medicine; Visit Provider Internal Medicine
DX: R07.9 Chest pain, unspecified (principal)
CPT/HCPCS: 93017; 93306

== ENCOUNTER 2023-11-03 13:30 | Outpatient (RCR) | payer MEDICARE, SELFPAY | END 2023-11-30 17:49 | disposition home or self-care (01) | LOC: MM 13:30 | PROVIDERS: PCP Internal Medicine; Visit Provider Internal Medicine | DX: Z51.81 Encounter for therapeutic drug level monitoring (principal); Z79.01 Long term (current) use of anticoagulants; I48.91 Unspecified atrial fibrillation ==

== ENCOUNTER 2023-11-04 07:27 | Observation (INO) | payer MEDICARE, SELFPAY ==
[2023-11-04] VITALS (31 sets, daily range): BP systolic 120–138; BP diastolic 74–97; PULSE 44–124; TEMP 36.5–36.9; O2SAT 87–98; BMI 31.7; BMI 31.5
--- OUTSIDE RECORDS SUMMARY | 2023-11-04 07:38 | XMS_ITS | CCD ---
Author Organization [facility] Care Team Providers Care Bottle Assembler Name Role Phone Michael Rivas DO Primary Care Provider MAYELIN ROSEN Referring Unavailable MICHAEL RIVAS Primary Care Unavailable MAYELIN ROSEN Referring Unavailable MAYELIN ROSEN Attending Unavailable MICHAEL RIVAS Primary Care Unavailable Michael Rivas DR CINTHIA IBARRA Consulting Unavailable DIAB ., LEONELA Admitting Unavailable DIAB ., LEONELA Attending Unavailable KAILASH, DR FRAUSTO Primary Care Unavailable DIAB ., LEONELA Consulting Unavailable KAILASH, DR FRAUSTO Admitting Unavailable KAILASH, DR FRAUSTO Primary Care Unavailable KAILASH, DR FRAUSTO Consulting Unavailable KAILASH, DR FRAUSTO Attending Unavailable Michael Rivas DO Primary Care Provider JUDY CASTRO Attending MICHAEL Ortega Primary Care Unavailable Allergies Allergy Classification Reported Allergen(s) Allergy Type Date of Onset Reaction(s) Facility (6 sources) Adhesive Tape-Silicones; Translations: [ADHESIVE TAPE-SILICONES] Drug Intolerance 3 Intolerance [facility] (5 sources) band-aids [Other] Propensity to adverse reactions 7 [facility] (1 source) OTHER; Translations: [OTHER] Propensity to adverse reactions (disorder) 7 [facility] Repository (2 sources) patient allergy list reviewed by nurse or physicia Propensity to adverse reactions 5 Comment:Done [facility] Other Medications Current Medications Medication Drug Class(es) Dates Sig (Normalized) Sig (Original) apixaban 5 mg oral tablet (6 sources) Factor Xa Inhibitor Start: 09-08-2023 End: 10-29-2023 take 1 tablet by mouth every twelve hours Eliquis 5 MG 1 tablet Orally Twice a day for 30 days Sep, Active atenolol 25 mg oral tablet (5 sources) beta-Adrenergic Vj take 1 tablet by mouth every twenty-four hours Atenolol 25 MG 1 tablet Orally Once a day Active digoxin 0.125 mg oral tablet (1 source) Cardiac Glycoside Start: 10-29-2023 End: 10-28-2024 take 1 tablet by mouth once daily digoxin (Lanoxin) 125 MCG tablet Indications: Atrial fibrillation, unspecified type (CMS/HCC) Take 1 tablet (125 mcg) by mouth once daily. 30 tablet 11 10/29/2023 10/28/2024 Active flecainide acetate 50 mg oral tablet (1 source) Antiarrhythmic Start: 09-24-2023 End: 09-23-2024 take 1 tablet by mouth twice daily flecainide (Tambocor) 50 mg tablet Indications: Atrial fibrillation, unspecified type (CMS/HCC) Take 1 tablet (50 mg) by mouth 2 times a day. 60 tablet 11 09/24/2023 09/23/2024 Active losartan potassium 50 mg oral tablet (17 sources) Angiotensin 2 Receptor Vj Start: 11-09-2022 take 1 tablet by mouth every twenty-four hours Losartan Potassium 50 MG 1 tablet Orally Once a day Oct, Active Comment on above: Take 50 mg by mouth once daily. 24 hr metoprolol succinate 50 mg extended release oral tablet (7 sources) beta-Adrenergic Jv Start: 10-29-2023 End: 10-28-2024 take 1 tablet by mouth once daily metoprolol succinate XL (Toprol-XL) 50 mg 24 hr tablet Indications: Atrial fibrillation, unspecified type (CMS/HCC) Take 1 tablet (50 mg) by mouth once daily. Do not crush or chew. 30 tablet 11 10/29/2023 10/28/2024 Active Start: 08-31-2023 take 1 tablet by jasen th every twenty-four hours Metoprolol Succinate ER 50 MG 1 tablet Orally Once a day Aug, Active End: 09-24-2023 take 1 tablet by mouth once daily metoprolol succinate XL (Toprol-XL) 50 mg 24 hr tablet Take 12.5 mg by mouth once daily. Do not crush or chew. 0 09/24/2023 Discontinued (Side effects) ondansetron 4 mg oral tablet (1 source) Serotonin-3 Receptor Antagonist take 1 tablet by mouth every eight hours as needed ondansetron (Zofran) 4 mg tablet Take 1 tablet (4 mg) by mouth every 8 hours if needed for nausea or vomiting. 0 Active warfarin sodium 5 mg oral tablet (1 source) Vitamin K Antagonist Start: 4 warfarin (Coumadin) 5 mg tablet Indications: Atrial fibrillation, unspecified type (CMS/HCC) One tablet daily or 5 mg daily. To be followed by [facility] 14 tablet 0 10/29/2023 Active Completed/Discontinued Medications Medication Drug Class(es) Dates Sig (Normalized) Sig (Original) ascorbic acid 1000 mg oral tablet (5 sources) Vitamin C Start: 7 take 1 tablet by mouth once daily Ascorbic Acid (VITAMIN C) 1,000 mg ORAL Tab Take one(1) tablet daily. 0 12/01/2006 Active Comment on above: Take one(1) tablet d aily. Feucunk-Xkfokarlui-Pzid 333-133-5 mg ORAL Tab (5 sources) Start: 7 Comment on above: dose unknown - takes two tablets per day cholecalciferol 0.125 mg oral tablet (5 sources) Vitamin D Start: 1 cholecalciferol (VITAMIN D3) 5,000 unit tab Take 1,000 Units by mouth once each week. 0 01/13/2011 Active Comment on above: Take 1,000 Units by mouth once each week. 24 hr dilTIAZem hydrochloride 240 mg extended release oral capsule (2 sources) Calcium Channel Vj Start: 4 End: 5 take 1 capsule by mouth once daily dilTIAZem CD (Cardizem CD) 240 mg 24 hr capsule Indications: Atrial fibrillation, unspecified type (CMS/HCC) , Hypertension, unspecified type Take 1 capsule (240 mg) by mouth once daily. 30 capsule 11 09/24/2023 10/29/2023 Discontinued (Therapy completed) hydroCHLOROthiazide 12.5 mg oral tablet (5 sources) [...] Episodic Aortic; peripheral; and visceral artery aneurysms (12 sources) Ascending aorta dilatation; Translations: [Thoracic aortic ectasia] Chronic Cancer of breast (2 sources) Malignant neoplasm of female breast; Translations: [Malignant neoplasm of breast (female), unspecified site] Onset: 04-19-2014 Chronic Cancer of breast (20 sources) History of malignant neoplasm of breast; Translations: [Personal history of malignant neoplasm of breast] Onset: 08-02-2005 12-06-2007 Episodic Cardiac dysrhythmias (17 sources) Persistent atrial fibrillation; Translations: [Other persistent atrial fibrillation] Onset: 09-24-2023 Chronic Cardiac dysrhythmias (1 source) Tachycardia, unspecified Episodic E Codes: Fall (1 source) Other fall on same level, initial encounter; Translations: [OTHER FALL ON SAME LEVEL INITIAL] Onset: 11-10-2022 Episodic Essential hypertension (20 sources) Essential hypertension; Translations: [Essential (primary) hypertension] Onset: 11-10-2022 Chronic Gastrointestinal hemorrhage (12 sources) Hematochezia; Translations: [Melena] Onset: 12-30-2015 Episodic Genitourinary symptoms and ill-defined conditions (3 sources) Dysuria; Translations: [Dysuria] Onset: 11-01-2015 Episodic Heart valve disorders (13 sources) Aortic valve disorder; Translations: [Nonrheumatic aortic (valve) stenosis] Onset: 12-16-2021 Chronic Intracranial injury (4 sources) Concussion with less than 1 hour loss of consciousness; Translations: [Concussion with loss of consciousness of 30 minutes or less, subsequent encounter] Onset: 04-05-2018 Episodic Nonmalignant breast conditions (13 sources) Fibrocystic changes of bilateral breasts; Translations: [Diffuse cystic mastopathy of right breast] Onset: 12-06-2008 Chronic Nonspecific chest pain (1 source) Precordial pain Episodic Nutritional deficiencies (2 sources) Vitamin D deficiency; Translations: [Vitamin D deficiency, unspecified] Onset: 04-26-2014 Chronic Osteoporosis (10 sources) Primary osteoporosis; Translations: [Age-related osteoporosis without current pathological fracture] Chronic Other aftercare (4 sources) Taking high risk medication; Translations: [Other manager intermediate (current) drug therapy] Onset: 09-24-2023 09-24-2023 Episodic Other aftercare (2 sources) Other longterm (current) drug therapy; Translations: [Other manager intermediate (current) drug therapy] Onset: 09-24-2023 Episodic Other fractures (1 source) Other specified [...] Chronic Other nutritional; endocrine; and metabolic disorders (3 sources) Obese class I; Translations: [Body mass index 32.0-32.9, adult] Onset: 11-01-2015 09-24-2023 Chronic Other nutritional; endocrine; and metabolic disorders (8 sources) Body mass index 30+ - obesity; Translations: [Body mass index 31.0-31.9, adult] Onset: 11-01-2015 Chronic Other nutritional; endocrine; and metabolic disorders (5 sources) Obesity; Translations: [Obesity, unspecified] Onset: 09-24-2023 09-24-2023 Chronic Other nutritional; endocrine; and metabolic disorders (6 sources) Obesity caused by energy imbalance; Translations: [Other obesity due to excess calories] Chronic Other nutritional; endocrine; and metabolic disorders (2 sources) Other obesity due to excess calories Chronic Other nutritional; endocrine; and metabolic disorders (2 sources) Body mass index (BMI) 30.0-30.9, adult Chronic Other screening for suspected conditions (not mental disorders or infectious disease) (6 sources) Patient encounter status; Translations: [Encounter for screening mammogram for malignant neoplasm of breast] Onset: 11-20-2022 Episodic Residual codes; unclassified (1 source) Family history of malignant neoplasm of breast in first degree relative; Translations: [Family history of malignant neoplasm of breast] Episodic Residual codes; unclassified (2 sources) Never smoked tobacco; Translations: [Other specified health status] Onset: 10-29-2023 10-29-2023 Episodic Past or Other Problems Problem Classification [...] Unclassified (1 source) Other persistent atrial fibrillation Unclassified (2 sources) Onset: 09-24-2023 Resolved: 10-29-2023 09-24-2023 Urinary tract infections (2 sources) Urinary tract infectious disease; Translations: [Urinary tract infection, site not specified] Onset: 10-05-2014 Episodic Results Test Name Value Interpretation Reference Range Facility ECG 12 [facility] 09-24-2023 ECG revealed atrial fibrillation with [facility] Work Phone: Urinalysis - DIPSTICKon 08-03 Appearance (U) clear [employer] Other Bilirubin Ql (U) Negative [employer] Other Color (U) pale yellow [employer] [facility] Other Glucose Ql (U) Negative [employer] Other Hemoglobin Ql (U) Negative [employer] Other Ketones Ql (U) Negative [employer] Other Leukocyte esterase Test strip Ql (U) Negative [employer] [facility] Other Nitrite Ql (U) Negative [employer] Other pH (U) 5.0 [pH] [employer] [facility] Other Protein Ql (U) Negative [employer] Other Specific gravity (U) [Rel density] 1.010 [employer] [facility] Other Urobilinogen (U) [Mass/Vol] 0.2 mg/dL [employer] Other Urinalysis - DIPSTICK [employer] Other CNCOon 11-20-2022 [facility] HNO ID: [id number] Author: Mammography Coordinator Service: ? Author Type: Physician Type: Letter Filed: 11/23/2022 11:37 PM Note Text: November 23, 2022 PID: [id number] Pj Lopez [address] [place] [id number] Dear Ms. Lopez, We are pleased to [...] report will be kept on file at [facility] as part of your permanent medical record and are available for your continuing care. Thank you for allowing us to help in meeting your health care needs. Sincerely, Dr. 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 [...] encounter) is as follows: Breast biopsy: Yes, 01/05-[facility] Breast cysts: No Breast surgery: Yes, Right PM with [facility] Breast cancer: Yes, Stage I (T 1c N 0 M 0) in 2005, treated as above CANCER SURVEILLANCE: Mammograms: Yes, Date in [facility]: 10/28/21; results - negative Breast MRI: No [...] HISTORY Pro (more content not included)... Normal [facility] SCREENING [facility] * * *Final Report* * * DATE OF EXAM: Nov 20 2022 12:21PM SSW [id number] - KENDRA SCREENING W MAX / PROCEDURE REASON: Encounter for screening mammogram for breast cancer * * * * Physician Interpretation * * * * RESULT: #[id number] - [facility] MAX BILATERAL DIGITAL SCREENING MAMMOGRAM [...] mammogram, 07/06/2017 mammogram, and 06/16/2016 mammogram - [facility]. There are scattered fibroglandular elements in both breasts. There are benign post operative findings in both breasts. No significant masses, calcifications, or other findings are seen in either breast. There has been no significant interval change. IMPRESSION: BENIGN FINDING There is no mammographic evidence of malignancy. A 1 year screening mammogram is recommended. Yaz Tesfaye M.D. pt/penrad:11/20/2022 12:38:01 Core Winder Machine Operator(s): Emmy Patrick, RT(R)(M), [facility] letter sent: Normal over 40 Mammogram BI-RADS: [...] Health, Family Medicine, and Medical/Surgical Oncology, the [facility] has carefully reviewed the data and reached [...] their providers when to stop screening mammograms. Buncher Machine: Jonnie Transcribe Date/Time: Nov 20 2022 12:11P Dictated by: YAZ TESFAYE MD This examination was interpreted and the report reviewed and electronically signed by: YAZ TESFAYE MD on Nov 20 2022 12:38PM EST [id number] Normal [facility] ic CT PELVIS WO CONon 3 [...] CINTHIA IBARRA Date: 2022-11-07 16:35 Normal [facility] CBC AUTO DIFFon 12-11-2021 BASO # 0.0 103/ul Normal 0.0-0.1 [facility] Comment on above: Performed By: #### C BC #### [facility] [address] [address] [address] Karishma Langley Basophils/100 WBC (Bld) 0.6 % Normal 0.2-2.0 [facility] Comment on above: Performed By: #### C BC #### [facility] [address] [address] [address] Karishma Langley EO # 0.2 103/ul Normal 0.0-0.7 [facility] Comment on above: Performed By: #### C BC #### [facility] [address] [address] [address] Karishma Langley Eosinophils/100 WBC (Bld) 3.0 % Normal 0.9-7.0 [facility] Comment on above: Performed By: #### C BC #### [facility] [address] [address] [address] Karishma Langley Erythrocyte distribution width (RBC) [Ratio] 12.2 % Normal 11.0-15.0 [facility] Comment on above: Performed By: #### C BC #### [facility] [address] [address] [address] Karishma Langley Hematocrit (Bld) [Volume fraction] 39.9 % Normal 36.0-48.0 [facility] Comment on above: Performed By: #### C BC #### [facility] [address] [address] [address] Karishma Langley Hemoglobin (Bld) [Mass/Vol] 13.0 g/dL Normal 12.0-16.0 [facility] Comment on above: Performed By: #### C BC #### [facility] [address] [place] [address] Dr. Karishma Langley IG # 0.01 10e3/ul Normal 0.00-0.03 [facility] Comment on above: Performed By: #### C BC #### [facility] [address] [place] [address] Dr. Karishma Langley IG % 0.2 % Normal 0.0-0.5 [facility] Comment on above: Performed By: #### C BC #### [facility] [address] [place] [address] Dr. Karishma Langley LYMPH # 1.5 103/ul Normal 1.2-3.8 [facility] Comment on above: Performed By: #### C BC #### [facility] [address] [place] [address] Dr. Karishma Langley Lymphocytes/100 WBC (Bld) 27.3 % Normal 20.5-60.0 [facility] Comment on above: Performed By: #### C BC #### [facility] [address] [place] [address] Dr. Karishma Langley MANUAL DIFF REQ NO Normal [facility] Comment on above: Performed By: #### C BC #### [facility] [address] [place] [address] Dr. Karishma Langley MCH (RBC) [Entitic mass] 32.1 pg Normal 26.7-34.0 [facility] Comment on above: Performed By: #### C BC #### [facility] [address] [place] [address] Dr. Karishma Langley MCHC (RBC) [Mass/Vol] 32.6 g/dL Normal 29.9-35.2 [facility] Comment on above: Performed By: #### C BC #### [facility] [address] [place] [address] Dr. Karishma Langley MCV (RBC) [Entitic vol] 98.5 fL Normal 81.0-99.0 [facility] Comment on above: Performed By: #### C BC #### [facility] [address] [place] [address] Dr. Karishma Langley MONO # 0.7 103/ul Normal 0.3-0.8 [facility] Comment on above: Performed By: #### C BC #### [facility] [address] [place] [address] Dr. Karishma Langley Monocytes/100 WBC (Bld) 12.4 % Critically high 1.7-12.0 [facility] Comment on above: Performed By: #### C BC #### [facility] [address] [place] [address] Dr. Karishma Langley NEUT # 3.0 103/ul Normal 1.4-6.5 [facility] Comment on above: Performed By: #### C BC #### [facility] [address] [place] [address] Dr. Karishma Langley Neutrophils/100 WBC (Bld) 56.5 % Normal 43.0-75.0 [facility] Comment on above: Performed By: #### C BC #### [facility] [address] [place] [address] Dr. Karishma Langley Platelet mean volume (Bld) [Entitic vol] 10.3 fL Normal 9.5-13.5 [facility] Comment on above: Performed By: #### C BC #### [facility] [address] [place] [address] Dr. Karishma Langley PLT 275 103/ul Normal 150-450 [facility] Comment on above: Performed By: #### C BC #### [facility] [address] [place] [address] Dr. Karishma Langley RBC 4.05 106/ul Critically low 4.20-5.40 [facility] Comment on above: Performed By: #### C BC #### [facility] [address] [place] [address] Dr. Karishma Langley WBC 5.3 103/ul Normal 4.0-11.0 [facility] Comment on above: Performed By: #### C BC #### [facility] [address] [place] [address] Dr. Karishma Langley ECHOCARDIO M/2D COMPLETEon 0 -12-2022 ECHOCARDIO M/2D COMPLETE Patient: JOHN, PJ M. Exam Date: 12/11/2021 : 1945 Gender:F Ordering : DR MICHAEL RIVAS D.O. Admission #: [id number] Family : Order #: [id number] CLICK HERE TO VIEW EXAM ECHOCARDIOGRAM REPORT [...] Area(A4C): 23.20 cm2 Left Atrium Systolic Volume(A2C): 85490 mm3 Left Atrium Systolic Volume(A4C): 20587 mm3 Mitral Valve MV E to A [...] M.D. on 12/11/2021 at 14:32 Normal [facility] PROF CHEM 8 (BAS METB)on Anion gap [Moles/Vol] 13.5 mmol/L Normal [facility] Comment on above: Performed By: #### B MP #### [facility] [address] [address] [address] Karishma Langley Calcium [Mass/Vol] 9.0 mg/dL Normal 8.5-10.1 [facility] Comment on above: Performed By: #### B MP #### [facility] [address] [address] [address] Karishma Langley Chloride [Moles/Vol] 105 mmol/L Normal 98-107 [facility] Comment on above: Performed By: #### B MP #### [facility] [address] [address] [address] Karishma Langley CO2 [Moles/Vol] 24.3 mmol/L Normal 21.0-32.0 [facility] Comment on above: Performed By: #### B MP #### [facility] [address] [address] [address] Karishma Langley Creatinine [Mass/Vol] 0.87 mg/dL Normal 0.55-1.02 [facility] Comment on above: Performed By: #### B MP #### [facility] [address] [address] [address] Karishma Langley EGFR-AF NIGERIEN >60 Normal >=60 [facility] Comment on above: Performed By: #### B MP #### [facility] [address] [place] [address] Dr. Karishma Langley EGFR-NON AF NIGERIEN >60 Normal >=60 [facility] Comment on above: Performed By: #### B MP #### [facility] [address] [place] [address] Dr. Karishma Langley Glucose [Mass/Vol] 100 mg/dL Normal 74-106 [facility] Comment on above: Performed By: #### B MP #### [facility] [address] [address] [address] Karishma Langley Potassium [Moles/Vol] 3.8 mmol/L Normal 3.5-5.1 [facility] Comment on above: Performed By: #### B MP #### [facility] [address] [address] [address] Karishma Langley Sodium [Moles/Vol] 139 mmol/L Normal 136-145 [facility] Comment on above: Performed By: #### B MP #### [facility] [address] [place] [address] Dr. Karishma Langley Urea nitrogen [Mass/Vol] 22.0 mg/dL Critically high 7.0-18.0 [facility] Comment on above: Performed By: #### B MP #### [facility] [address] [place] [address] Dr. Karishma Langley Urea nitrogen/Creatini ne [Mass ratio] 25.3 mg/mg Normal [facility] Comment on above: Performed By: #### B #### [facility] [address] [place] [address] Dr. Karishma Langley Vital Signs Date Time Vital Sign Value Performing Clinician Facility 10-29-2023 09:37-0400 Body height 154.9 cm Judy Castro MD Work Phone: [facility] 10-29-2023 09:37-0400 Body mass index (BMI) [Ratio] 31.86 kg/m2 Judy Castro MD Work Phone: [facility] 10-29-2023 09:37-0400 Body weight 76.48 kg Judy Castro MD Work Phone: [facility] 10-29-2023 09:37-0400 Diastolic blood pressure 92 mm[Hg] Judy Castro MD Work Phone: [facility] 10-29-2023 09:37-0400 Heart rate 100 /min Judy Castro MD Work Phone: [facility] 10-29-2023 09:37-0400 Systolic blood pressure 142 mm[Hg] Judy Castro MD Work Phone: [facility] 09-24-2023 10:59-0500 Diastolic blood pressure 86 mm[Hg] Judy Castro MD Work Phone: [facility] 09-24-2023 10:59-0500 Systolic blood pressure 136 mm[Hg] Judy Castro MD Work Phone: [facility] 09-24-2023 10:15-0500 Body height 154.9 cm Judy Castro MD Work Phone: [facility] 09-24-2023 10:15-0500 Body mass index (BMI) [Ratio] 32.31 kg/m2 Judy Castro MD Work Phone: [facility] 09-24-2023 10:15-0500 Body weight 77.56 kg Judy Castro MD Work Phone: [facility] 09-24-2023 10:15-0500 Heart rate 131 /min Judy Castro MD Work Phone: [facility] 09-08-2023 09:00-0500 Body height 158.75 cm Michael Ball Other [facility] Other 09-08-2023 09:00-0500 Body mass index (BMI) [Ratio] 31.24 kg/m2 Michael Ball Other [facility] [facility] Other 09-08-2023 09:00-0500 Body weight 78.74 kg Michael Ball Other [facility] [facility] Other 09-08-2023 09:00-0500 Diastolic blood pressure 87 mm[Hg] Michael Ball Other [facility] Other 09-08-2023 09:00-0500 Respiratory rate 12 /min Michael Ball Other [facility] Other 09-08-2023 09:00-0500 Systolic blood pressure 142 mm[Hg] Michael Ball Other [employer] Other 08-24-2023 10:00-0500 Body height 158.75 cm Michael Ball Other [facility] Other 08-24-2023 10:00-0500 Body mass index (BMI) [Ratio] 30.63 kg/m2 Michael Ball Other [facility] Other 08-24-2023 10:00-0500 Body weight 77.2 kg Michael Ball Other [facility] Other 08-24-2023 10:00-0500 Diastolic blood pressure 105 mm[Hg] Michael Ball Other [facility] Other 08-24-2023 10:00-0500 Respiratory rate 12 /min Michael Ball Other [facility] Other 08-24-2023 10:00-0500 Systolic blood pressure 152 mm[Hg] Michael Ball Other [facility] Other 11-25-2022 10:30-0400 Body height 158.75 cm Michael Ball Other [facility] Other 11-25-2022 10:30-0400 Body mass index (BMI) [Ratio] 31.17 kg/m2 Michael Ball Other [facility] Other 11-25-2022 10:30-0400 Body weight 78.56 kg Michael Ball Other [facility] Other 11-25-2022 10:30-0400 Diastolic blood pressure 81 mm[Hg] Michael Ball Other [facility] Other 11-25-2022 10:30-0400 Respiratory rate 12 /min Michael Ball Other [facility] Other 11-25-2022 10:30-0400 Systolic blood pressure 177 mm[Hg] Michael Ball Other [facility] Other Encounters Encounter Date Encounter Type Care Provider Facility Start: 10-29-2023 End: 10-29-2023 Office outpatient visit 25 minutes Judy Castro MD [facility] Comment on above: Atrial fibrillation, unspecified type (CMS/HCC); Hypertension, unspecified type; High risk medication use; Obesity, unspecified classification, unspecified obesity type, unspecified whether serious comorbidity present; Never smoked tobacco Start: 10-26-2023 End: 10-26-2023 ambulatory Michael Rivas Other [facility] Other Start: 10-26-2023 Telephone encounter Michael [facility] Start: 09-24-2023 End: 09-24-2023 ambulatory JUDY CASTRO [facility] Ambulatory Start: 09-24-2023 End: 09-24-2023 Office outpatient new 45 minutes Judy Castro MD Work Phone: [facility] Comment on above: Obesity, Class I, BM I 30-34.9 (Primary Dx); Atrial fibrillation, unspecified type (CMS/HCC); Hypertension, unspecified type; High risk medication use; Persistent atrial fibrillation (CMS/HCC) Start: 09-13-2023 End: 09-13-2023 ambulatory Michael Rivas Other [facility] Other Start: 09-13-2023 Telephone encounter Michael [facility] Start: 09-10-2023 End: 09-10-2023 ambulatory Michael Rivas Other [facility] Other Start: 09-10-2023 Telephone encounter Michael [facility] Start: 09-08-2023 End: 09-08-2023 ambulatory Michael Rivas Other [facility] Other Start: 09-08-2023 Office outpatient vi sit 25 minutes Michael Rivas [facility] Start: 08-31-2023 End: 08-31-2023 ambulatory Michael Rivas Other [facility] Other Start: 08-31-2023 Telephone encounter Michael [facility] Start: 08-24-2023 End: 08-24-2023 ambulatory Michael Rivas Other [facility] Other Start: 08-24-2023 Patient encounter procedure Michael Rivas [facility] Start: 08-17-2023 End: 08-17-2023 ambulatory Michael Rivas Other [facility] Other Start: 08-17-2023 Telephone encounter Michael Mena [facility] Start: 05-18-2023 End: 05-18-2023 ambulatory Michael Rivas Other [facility] Other Start: 05-18-2023 Telephone encounter Michael Mena [facility] Start: 12-03-2022 End: 12-03-2022 ambulatory Michael Rivas Other [facility] Other Start: 12-03-2022 Telephone encounter Michael Rivas [facility] Start: 11-25-2022 End: 11-25-2022 ambulatory Michael Rivas Other [facility] Other Start: 11-25-2022 Office outpatient vi sit 15 minutes Michael Rivas [facility] Start: 11-20-2022 Documentation procedure Mammog may Coordinator [facility] Start: 11-20-2022 Letter encounter Mammography Coordinator [facility] Department Start: 11-20-2022 End: 11-20-2022 ambulatory MAYELIN ROSEN Facility:[facility] Start: 11-20-2022 End: 11-20-2022 Patient encounter procedure Mayelin Rosen PROPERTY SITE MANAGER.INFORMATION SYSTEMS TECHNICIAN Work Phone: [facility] Comment on above: Fibrocystic breast c hanges, bilateral (Primary Dx); Personal history of malignant neoplasm of breast; Encounter for screening mammogram for breast cancer; Family history of breast cancer in sister Start: 11-10-2022 Orders Only Mayelin perez PROPERTY SITE MANAGER.INFORMATION SYSTEMS TECHNICIAN Work Phone: [facility] Comment on above: Encounter for screen ing mammogram for breast cancer (Primary Dx) Start: 11-07-2022 End: 11-07-[address] CINTHIA IBARRA Facility:[facility] Start: 12-11-2021 End: 12-12-[address] MICHAEL RIVAS Facility:[facility] Start: 12-03-2021 Adult health examination Broderick Rivas Other [place] [employer] Other Start: 10-28-2021 End: 10-28-2021 Patient encounter procedure Mayelin Rosen MAXIMILIAN.INFORMATION SYSTEMS TECHNICIAN Work Phone: [facility] Comment on above: Fibrocystic breast c hanges, bilateral (Primary Dx); Personal history of malignant neoplasm of breast; Encounter for screening mammogram for breast cancer Start: 10-22-2021 Orders Only Mayelin Oneal ana PROPERTY SITE MANAGER.INFORMATION SYSTEMS TECHNICIAN Work Phone: [facility] Comment on above: Encounter for screen ing mammogram for breast cancer (Primary Dx); Fibrocystic breast changes, bilateral Procedures Date Procedure Procedure Detail Performing Clinician Start: 09-24-2023 ECG 12-LEAD JUDY COLE Start: 09-24-2023 Ecg routine ecg w/le ast 12 lds w/i&r Judy Castro MD Work Phone: Start: 11-01-2015 Screening for malign ant neoplasm of colon Michael Rivas Other Depression screening Dion Rivas Other Plan of Treatment Date Care Activity Detail Author Start: 03-28-2028 DTaP/Tdap/Td Vaccine s (3 - Tdap) DTaP/Tdap/Td Vaccines (3 - Tdap) [facility] Start: 01-03-2024 End: 01-03-2024 Patient encounter procedure 01/03/2024 1:20 PM EDT [facility] [address] [place] [address] Judy Castro MD [address] [facility] [address] [place] [address] [facility] Start: 11-19-2023 End: 11-19-2023 Patient encounter procedure 11/19/2023 10:10 AM EDT Office Visit [address] [place] [address] Judy Castro MD [address] [place] [address] [facility] Start: 10-13-2023 End: 10-13-2023 Professional / ancillary services management 10/13/2023 2:00 PM EDT Ancillary Procedure [facility] [address] [place] [address] [facility] Start: 10-08-2023 End: 09-24-2024 ECG 12 Lead ECG 12 Lead ECG Routine Atrial fibrillation, unspecified type (CMS/HCC) Expected: 10/08/2023 (Approximate), Expires: 09/24/2024 [facility] Service Area Work Phone: Comment on above: Expected: 10/08/2023 (Approximate), Expires: 09/24/2024 Start: 04-02-2023 Influenza vaccination [facility] Start: 08-02-2022 ADVANCE DIRECTIVE DISCUSSION ADVANCE DIRECTIVE DISCUSSION [facility] Start: 08-02-2022 DEPRESSION ASSESSMENT DEPRESSION ASS ESSMENT [facility] Start: 08-02-2021 ADVANCE DIRECTIVE DISCUSSION ADVANCE DIRECTIVE DISCUSSION [facility] Start: 04-02-2021 Influenza vaccination INFLUENZA (#1) [facility] Start: 07-10-2016 DIABETES SCREEN DIABETES SCREEN [facility] Start: 2009 Pneumococcal Vaccine : 65+ Years (1 - PCV) Pneumococcal Vaccine: 65+ Years (1 - PCV) [facility] Start: 2009 PNEUMOCOCCAL: 65+ (1 - PCV) PNEUMOCOCCAL: 65+ (1 - PCV) [facility] Start: 1994 SHINGRIX VACCINE (1 of 2) SHINGRIX VACCINE (1 of 2) [facility] Start: 1994 Zoster Vaccines (1 o f 2) Zoster Vaccines (1 of 2) [facility] Start: 1966 DTaP/Tdap/Td Vaccine s (1 - Tdap) DTaP/Tdap/Td Vaccines (1 - Tdap) [facility] Start: 1963 Urine microalbumin profile DTAP,TDAP,TD (1 - Tdap) [facility] Start: 1962 HEPATITIS C SCREENING HEPATITIS C SC ALICIA [facility] Start: 1962 Hepatitis C screening Hepatitis C Sc reening [facility] Start: 1956 Adult depression screening assessment DEPRESSION SCREENING [facility] Start: 1949 COVID-19 VACCINE (1) COVID-19 VACCIN E (1) [facility] Start: 1944 COVID-19 VACCINE (#1) COVID-19 VACCI NE (#1) [facility] Start: 1944 Lipid panel Lipid Panel [facility] Start: 1944 Medicare Annual Wellness Visit Medicare Annual Wellness Visit (AWV) [facility] Start: 1944 Screening for osteoporosis Bone Density Scan [facility] End: 12-10-2023 [facility] Routine Encounter for screening mammogram for breast cancer 1 Occurrences starting 11/10/2022 until 12/10/2023 [facility] Work Phone: Comment on above: 1 Occurrences starti ng 11/10/2022 until 12/10/2023 End: 11-21-2022 Screening mammography bi 2-view breast inc cad KENDRA SCREENING Radiology Routine Encounter for screening mammogram for breast cancer Fibrocystic breast changes, bilateral 1 Occurrences starting 10/22/2021 until 11/21/2022 [facility] Work Phone: Comment on above: 1 Occurrences starti ng 10/22/2021 until 11/21/2022 [facility] Immunizations Immunization Date Immunization Notes Care Provider Fili andujar 03-28-2018 diphtheria, tetanus toxoids and acellular pertussis vaccine, unspecified formulation Michael Rivas Other [facility] Other 01-13-2017 diphtheria, tetanus toxoids and acellular pertussis vaccine, unspecified formulation Michael Rivas Other [facility] Other Payers Date Payer Category Payer Private Health Insurance [employer] A ETNA MEDICARE SUPPLEMENT [id number] 2019-Present [phone] [address] [address] [place] [address] Indemnity [id number] 2019 Private Health Insurance [id number] 2009 Medicare MEDICARE MEDICAR E A AND B [id number] 2009-Present [phone] [address] [address] [place] [address] Medicare [id number] 2009 Medicare [id number] 1959 Medicare [id number] 1959 Medicare [id number] 1959 [place] Health [place] [facility] [place] [id number] 1944 Unknown [id number] 1944 Unknown [id number] 1944 Unknown [id number] Social History Date Type Detail Facility Start: 08-16-2018 End: 09-24-2023 Tobacco smoking status [facility] Never smoked tobacco [facility] Start: 10-23-2020 End: 10-29-2023 Alcohol intake Current drinker of alcohol (finding) [facility] Start: 1945 Sex Assigned At Not on file [facility] Start: 08-16-2018 End: 09-24-2023 Tobacco use and exposure Smokeless tobacco non-user [facility] Start: 09-24-2023 End: 10-29-2023 Sex Assigned At [facility] Other Start: 09-24-2023 End: 10-29-2023 History of Social function [facility] Work Phone: Start: 09-24-2023 Alcohol Comment rare [facility] Work Phone: Start: 09-14-2023 End: 10-29-2023 Exposure to SARS-CoV-2 (event) Not sure [facility] Medical Equipment Procedure Code Equipment Code Equipment Original Text Equipment Identifier Dates [id number] Screw [id number] Start: 07-12-2013 Comment on above: Description: locking screw 2.7 x 40 [id number] Screw [id number] Start: 07-12-2013 Comment on above: [...] Description: 2.7 x 2 2 cortex screw [id number] 5 [id number] Screw [id number] Start: 07-12-2013 Comment on above: Description: 2.7 x 2 6 metaphyseal screw [id number] Head [id number] Start: [id number] 5 [id number] Screw [id number] Start: [id number] 5 11532-Tjvexodwsgv Screw [id number] Start: 07-12-2013 Comment on above: Description: 2.7 x 1 8 0---Cortex Screw [id number] Start: 07-12-2013 Comment on above: Description: 3.5 x 1 8 0---Cortex Screw [id number] Start: [id number] 5 45063-Zqlsjhbcl Plate [id number] Start: 07-12-2013 Comment on above: Description: 4 hole plate [id number] 95969-Zxaorah Screw [id number] Start: 07-12-2013 0--- 8 Hole Plate [id number] Start: 07-12-2013 [id number] Radl 7.5mm Evol Std Elb - [id number] Start: 07-12-2013 Clinical Notes 10-28-2021 to 10-29-2023 Judy Castro MD - 10/29/2023 9:50 AM EDTPatient InstructionsJudy Castro MD - 09/24/2023 10:20 AM ESTPatient Instructions Note Date & Type Note Facility 10-29-2023 History of Present illness Narrative Subjective Pj Lopez is a 78 y.o. female Chief Complaint Follow-up HPI Patient was added to the schedule to discuss medical therapy of persistent atrial fibrillation. Since her last visit she did not tolerate flecainide and had to get off of it. Also she is not tolerating diltiazem for a variety of reasons. She is presently hypertensive and complains of inability to exercise and do her daily work without shortness of breath. She remains in atrial fibrillation with a heart rate just around 100 bpm. She demonstrated no signs of heart failure. She had no syncope and also complained about the cost and the side effect of the Eliquis. I addressed all these issues as noted below. Assessment/recommendations: 1-persistent atrial fibrillation with RVR since August 2023. Noninvasive workup with echo and nuclear stress test came back normal. The patient was given class Ic drugs for atrial fibrillation along with diltiazem and did not tolerate either one. I discussed with her at length the merit of rate control and anticoagulation versus rhythm control and anticoagulation. Given the lack of symptoms on presentation I believe for this patient medical therapy should be limited to what is absolutely necessary. I suggested going on the Coumadin since is an expensive and she can tolerated along with rate control utilizing combination of beta-vj and digoxin. She is in agreement to pursue that plan. 2-hypertension on losartan, not completely under control, adding beta-vj therapy might help control the blood pressure. 3-high risk medication with anticoagulation to be monitored closely 4-class I obesity, encouraged the patient to continue to be very active which she already has but cut back on calorie consumption Review of Systems Constitutional: Positive for malaise/fatigue. Gastrointestinal: Positive for nausea and vomiting. Neurological: Positive for dizziness. All other systems reviewed and are negative. Vitals: 10/29/23 0937 BP: (!) 142/92 BP Location: Left arm Patient Position: Sitting Pulse: 100 Weight: 76.5 kg (168 lb 9.6 oz) Height: 1.549 m (5' 1 ) Objective Physical Exam Constitutional: Appearance: Normal appearance. HENT: Nose: Nose normal. Neck: Vascular: No carotid bruit. Cardiovascular: Rate and Rhythm: Normal rate. Pulses: Normal pulses. Heart sounds: Normal heart sounds. Pulmonary: Effort: Pulmonary effort is normal. Abdominal: General: Bowel sounds are normal. Palpations: Abdomen is soft. Musculoskeletal: General: Normal range of motion. Cervical back: Normal range of motion. Right lower leg: No edema. Left lower leg: No edema. Skin: General: Skin is warm and dry. Neurological: General: No focal deficit present. Mental Status: She is alert. Psychiatric: Mood and Affect: Mood normal. Behavior: Behavior normal. Thought Content: Thought content normal. Judgment: Judgment normal. Allergies Patient has no known allergies. Current Medications Current Outpatient Medications: apixaban (Eliquis) 5 mg tablet, Take 1 tablet (5 mg) by mouth 2 times a day., Disp: , Rfl: dilTIAZem CD (Cardizem CD) 240 mg 24 hr capsule, Take 1 capsule (240 mg) by mouth once daily., Disp: 30 capsule, Rfl: 11 losartan (Cozaar) 50 mg tablet, Take 1 tablet (50 mg) by mouth once daily., Disp: , Rfl: ondansetron (Zofran) 4 mg tablet, Take 1 tablet (4 mg) by mouth every 8 hours if needed for nausea or vomiting., Disp: , Rfl: Assessment/Plan 1. Atrial fibrillation, unspecified type (CMS/HCC) Follow Up In Cardiology 2. Hypertension, unspecified type 3. High risk medication use 4. Obesity, unspecified classification, unspecified obesity type, unspecified whether serious comorbidity present 5. Never smoked tobacco Scribe Attestation By signing my name below, I, Neha Nguyen LPN, Scribe attest that this documentation has been prepared under the direction and in the presence of Judy Castro MD. Provider Attestation - Scribe documentation All medical record entries made by the Scribe were at my direction and personally dictated by me. I have reviewed the chart and agree that the record accurately reflects my personal performance of the history, physical exam, discussion and plan. documented in this encounter [facility] Work Phone: 10-29-2023 Instructions Neha Beckman LPN - 10/29/2023 9:50 AM EDT Please bring all medicines, vitamins, and herbal supplements with you when you come to the office. Prescriptions will not be filled unless you are compliant with your follow up appointments or have a follow up appointment scheduled as per instruction of your physician. Refills should be requested at the time of your visit. BMI was above normal measurement. Current weight: 76.5 kg (168 lb 9.6 oz) Weight change since last visit (-) denotes wt loss -2.4 lbs Weight loss needed to achieve BMI 25: 36.6 Lbs Weight loss needed to achieve BMI 30: 10.2 Lbs Provided instructions on dietary changes Provided instructions on exercise. Stop Eliquis Start Coumadin- [facility]. Start 5 mg daily. Will take Eliquis and Coumadin Wednesday, Wed and Wednesday then stop Eliquis Stop Cardizem Start Metoprolol 50 mg daily Start Digoxin .125 mg daily Follow up 2 months documented in this encounter [facility] Work Phone: 09-24-2023 History of Present illness Narrative Cardiology Consultation- New Consult Reason for referral: New Patient HPI: Pj Lopez is a 78 y.o. female with Who was referred to me by Dr. Michael rivas for management of recent diagnosis of atrial fibrillation with RVR. The patient has no previous cardiac history and during routine visit in late August 2023 she was found to be in atrial fibrillation with RVR. She was placed on Eliquis and metoprolol and subsequently had echocardiogram and nuclear stress test which were reportedly unremarkable and copies were requested. The patient had side effect of the metoprolol and has been taking it at a much smaller dose than prescribed and she remains presently in atrial fibrillation with RVR. She is also mildly hypertensive. Her past medical history is only remarkable for hypertension which for year has been controlled on losartan. Patient has no history of atrial fibrillation in the family, she is non-smoker nondrinker with no thyroid disease and no pulmonary disease. The patient lives by herself and has Medicare as her main insurance will supplement from [employer]. She was given samples of Eliquis by her PCP. She has no history of diabetes or heart failure no previous strokes or TIAs. She has no vascular disease anywhere. Her examination is remarkable for tachycardia with irregular rhythm consistent with A-fib with RVR no cardiac murmurs are heard, lungs sounded normal she had no lower extremity edema. Assessment/recommendations: 1-persistent atrial fibrillation with RVR diagnosed late August 2023 and was totally asymptomatic. The patient apparently has no organic heart disease based on nuclear stress test and echocardiogram done in the last few weeks. She has been anticoagulated at least for 3 weeks therefore we will try to restore normal sinus rhythm by adding flecainide 50 mg twice daily and since she did not tolerate metoprolol was switched to diltiazem CD 240 mg daily. ECG will be done in couple of weeks and if necessary cardioversion to follow. Potential side effect of medications were discussed with the patient. She was informed to keep me up-to-date before she changes her medications 2-hypertension on losartan, adding diltiazem will help better control heart rate and blood pressure 3-high risk medication with antiarrhythmics and anticoagulants which should be monitored closely. 4-class I obesity, encouraged the patient to continue to be very active which she already has but cut back on calorie consumption Past Medical History: She has no past medical history on file. Surgical History: She has a past surgical history that includes Tonsillectomy; Ovarian cyst removal; Ankle surgery; Toe Surgery; Tubal ligation; Bladder surgery; and Breast surgery. Family History: Family History Problem Relation Name Age of Onset Aneurysm Father Heart murmur Sister Heart murmur Brother Social History: Social History Tobacco Use Smoking status: Never Smokeless tobacco: Never Substance Use Topics Alcohol use: Yes Comment: rare Allergies: Patient has no known allergies. Current Medications: Current Outpatient Medications: apixaban (Eliquis) 5 mg tablet, Take 1 tablet (5 mg) by mouth 2 times a day., Disp: , Rfl: losartan (Cozaar) 50 mg tablet, Take 1 tablet (50 mg) by mouth once daily., Disp: , Rfl: dilTIAZem CD (Cardizem CD) 240 mg 24 hr capsule, Take 1 capsule (240 mg) by mouth once daily., Disp: 30 capsule, Rfl: 11 flecainide (Tambocor) 50 mg tablet, Take 1 tablet (50 mg) by mouth 2 times a day., Disp: 60 tablet, Rfl: 11 Vitals: Vitals: 09/24/23 1015 09/24/23 1019 09/24/23 1059 BP: (!) 160/100 130/90 136/86 BP Location: Left arm Left arm Patient Position: Sitting Sitting Pulse: (!) 131 Weight: 77.6 kg (171 lb) Height: 1.549 m (5' 1 ) Review of Systems All other systems reviewed and are negative. Objective Physical Exam Assessment and Plan: 1. Atrial fibrillation, unspecified type (CMS/HCC) Follow Up In Cardiology ECG 12 Lead dilTIAZem CD (Cardizem CD) 240 mg 24 hr capsule flecainide (Tambocor) 50 mg tablet ECG 12 Lead 2. Hypertension, unspecified type dilTIAZem CD (Cardizem CD) 240 mg 24 hr capsule 3. High risk medication use Scribe Attestation By signing my name below, Neha Adame LPN, Scribmarilin attest that this documentation has been prepared under the direction and in the presence of Judy Castro MD. Provider Attestation - Scribe documentation All medical record entries made by the Scribe were at my direction and personally dictated by me. I have reviewed the chart and agree that the record accurately reflects my personal performance of the history, physical exam, discussion and plan. documented in this encounter [facility] Work Phone: 09-24-2023 Instructions Neha Beckman LPN - 09/24/2023 10:20 AM EST Please bring all medicines, vitamins, and herbal supplements with you when you come to the office. Prescriptions will not be filled unless you are compliant with your follow up appointments or have a follow up appointment scheduled as per instruction of your physician. Refills should be requested at the time of your visit. Retrieve echo and stress from [facility] CD 240 mg daily Stop Toprol Start Flecainide 50 mg one tablet two times daily EKG 2 weeks Follow up 6 weeks documented in this encounter [facility] Work Phone: 09-08-2023 Evaluation note Encounter Date Diagnosis Assessment Notes Sep, New onset atrial fibrillation (ICD-10 - I48.91) This patient is rate controlled. This patient is anticoagulated to prevent thromboembolic events. Scheduled for stress test to r/o obstructive coronary artery disease. Scheduled for echocardiogram to r/o valvular heart disease and cardiomyopathy. Sep, Precordial pain (ICD-10 - R07.2) Atypical and may be due to cardiac disease. Due to newly dx atrial fibrillation, must exclude obstructive CAD. Initiate Metoprolol. Control BP w/ goal < 140/90 Sep, Primary hypertension (ICD-10 - I10) This patient [...] office w/ home readings in 2 weeks. Sep, Other obesity due to excess calories (ICD-10 - E66.09) This patient has been instructed on a low-fat, high-fiber diet. They are instructed to reduce calories, portion sizes and snacks. It is recommended that they exercise for 30 minutes, 3-5 times weekly. Sep, Body mass index [BMI] 30.0-30.9, adult (ICD-10 - Z68.30) Sep, History of breast cancer (ICD-10 - Z85.3) No s/s recurrence. [facility] Other 01-30-2024 Evaluation note* Encounter Date Diagnosis Assessment Notes Treatment Notes Treatment Clinical Notes Aug, Persistent atrial fibrillation (ICD-10 - I48.19) [facility] Other 01-23-2024 Evaluation note* Encounter Date Diagnosis [...] patient on monthly SBE and yearly mammograms. [facility] Other 01-16-2024 Evaluation note* Encounter Date Diagnosis Assessment Notes Treatment Notes Treatment Clinical Notes Aug, Essential (primary) hypertension (ICD-10 - I10) [facility] Other 10-17-2023 Evaluation note* Encounter Date Diagnosis Assessment Notes Treatment Notes Treatment Clinical Notes May, Essential (primary) hypertension (ICD-10 - I10) [facility] Other 04-26-2023 Evaluation note* Encounter Date Diagnosis [...] reveal any pathologic findings to suspect mets [facility] Other 04-21-2023 NoteHNO ID: [id number] Author: Emmy Patrick, RefleXion Medical Service: ? Author Type: Project Management Analyst Type: Progress Notes Filed: 11/20/2022 12:28 PM [...] DATA: Not applicable SIGNED BY: Emmy Patrick Mammo Tech November 20, 2022 12:28 [facility]04-21-2023 NoteHNO ID: [id number] Author: Mayelin Rosen APRN.SAMM Service: ? 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 [...] encounter) is as follows: Breast biopsy: Yes, 01/05-[facility] Breast cysts: No Breast surgery: Yes, Right PM with ALND Breast cancer: Yes, Stage I (T 1c N 0 M 0) in 2005, treated as above CANCER SURVEILLANCE: Mammograms: Yes, Date in [facility]: 10/28/21; results - negative Breast MRI: No [...] Uterine Cancer Maternal Au (more content not included)...[facility]04-21-2023 Miscellaneous Notes* Letter - Mammography Coordinator - 11/20/2022 12:38 PM EDT November 23, 2022 PID: [id number] Pj Lopez [address] [place] [address] Dear Ms. Lopez, We are pleased to [...] report will be kept on file at [facility] as part of your permanent medical record and are available for your continuing care. Thank you for allowing us to help in meeting your health care needs. Sincerely, Dr. Tesfaye Interpreting Radiologist [facility] (Normal over 40) documented in this [facility]04-[facility]-2023 Instructions* Patient Instructions* Paola Cloud Ma - [...] TP53, CDH1, STK11, PALB2, CHEK2, JADE) Per [facility] High Risk Care Path recommendations, screening breast [...] male breast cancer you are of Ashkenazi Catholic descent HEALTHY LIFESTYLE MANAGEMENT (per NCCN Guidelines [...] include but are not limited to: The [facility] Comprehensive Breast Cancer Program - [email or web address]/services/qivfgs-naiwou-vbcdwro [facility] - komenneohio.org Swazi Cancer Society - cancer.org PANDA Breast Cancer Foundations - jdbcfoundation.org FORCE - facingourrisk.org Bright [place] - brightpink.org Young Survival Coalition - youngsurvival.org 4th [place]ot[place] - 4thangel.org The Gathering Place - touchedbycancer.org ([place] and [place]) The Victory Center - thevictorycenter.org ([place] area) [facility] [place] - yellowbrickplace.org ([place] area) [facility] - stewartscaringplace.org ([place] area) If you would like to compliment one of our caregivers you encountered today, you may do so at [email or web address]. Thank you ! 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 [...] encounter) is as follows: Breast biopsy: Yes, 01/05-[facility] Breast cysts: No Breast surgery: Yes, Right PM with ALND Breast cancer: Yes, Stage I (T 1c N 0 M 0) in 2005, treated as above CANCER SURVEILLANCE: Mammograms: Yes, Date in [facility]: 10/28/21; results - negative Breast MRI: No [...] mg ORAL Tab Take one(1) tablet daily. Mzjfkuv-Xdzljuxazw-Qkag 333-133-5 mg ORAL Tab dose unknown - [...] PTEN, TP53, CDH1, STK11,PALB2, CHEK2, JADE) Per [facility] High Risk Care Path recommendations, screening breast MRI may be considered for women underthe age of 65 with remaining breast tissue in the following situations: - Age at breast cancer diagnosis under 50 - Mammographically dense tissue (BI-RADS category 3 or 4) - History of invasive lobular breast cancer She doesn't meet [facility] care path guidelines for MRI of breast. [...] which included preparing to see the patient, dett-gl-yukh patient care, completing clinical documentation, obtaining and/or reviewing separately obtained history, performing a medically appropriate examination, counseling and educating the pat ient/family/caregiver, ordering medications, tests, or procedures, communicating results to the patient/family/caregiver, and care coordination (not separately reported). Mayelin Rosen APRN.SAMM Medical Breast Specialist Women's Health Nurse Practitioner CC: Michael Rivas MD ([facility]) [address] [place] [address] documented in this encounterT[facility]04-08-2023 NotePROCEDURE: XR HIP LT 2 3V W [...] Electronically authenticated by: CINTHIA IBARRA Date: 2022-11-07 14:54[facility]03-29-2022 History of Present illness Narrative* Mayelin Rosen APRN.INFORMATION SYSTEMS TECHNICIAN - 10/28/2021 11:34 AM EDT MEDICAL BREAST PATIENT NAME: Pj Lopez REASON FOR VISIT: Annual Exam and Mammogram HISTORY of PRESENT ILLNESS: Pj Lopez is a 76 year old year old 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 [...] encounter) is as follows: Breast biopsy: Yes, 01/05-[facility] Breast cysts: No Breast surgery: Yes, Right PM with ALND Breast cancer: Yes, Stage I (T 1c N 0 M 0) in 2005, treated as above CANCER SURVEILLANCE: Mammograms: Yes, Date in [facility]: 10/22/20; results - negative Breast MRI: No [...] mg ORAL Tab Take one(1) tablet daily. Caakzlm-Ggxkpojhxo-Scll 333-133-5 mg ORAL Tab dose unknown - [...] which included preparing to see the patient, lmbe-vc-mmor patient care, completing clinical documentation, obtaining and/or reviewing separately obtained history, performing a medically appropriate examination, counseling and educating the pat ient/family/caregiver, ordering medications, tests, or procedures, communicating with other HCPs (not separately reported), independently interpreting results (not separately reported), communicatingresults to the patient/family/caregiver and care coordination (not separately reported). Mayelin Rosen APRN.SAMM Medical Breast Specialist Women's Health Nurse Practitioner CC: Michael Rivas MD ([facility]) [address] [place] [address] documented in this encounterT[facility]03-29-2022 Instructions* Patient Instructions* Paola Cloud Ma - [...] TP53, CDH1, STK11, PALB2, CHEK2, JADE) Per [facility] High Risk Care Path recommendations, screening breast [...] male breast cancer you are of Ashkenazi Catholic descent HEALTHY LIFESTYLE MANAGEMENT (per NCCN Guidelines [...] include but are not limited to: The [facility] Comprehensive Breast Cancer Program - [email or web address]/services/kplord-qpjfsf-jyvepsr [facility] [place] - komennealTrackDuck.org Swazi Cancer Society - cancer.org PANDA Breast Cancer Foundations - jdbcfoundation.org FORCE - facingourrisk.org Bright [place] - brightpink.org Young Survival Coalition - youngsurvival.org 4th Sotero - 4thangel.org The Gathering Place - touchedbycancer.org ([place] and [place]) The [facility] - thevictorycenter.org ([place] area) [facility] - yellowbrickplace.org ([place] area) [facility] - stewartscaringplace.org ([place] area) If you would like to compliment one of our caregivers you encountered today, you may do so at [email or web address]. Thank you ! documented in this encounterTogus [facility] Center03-29-2022 Nurse Note* Paola Cloud Ma - 10/28/2021 11:24 AM EDT Last mammogram on: 10/22/20 Results: see report Is the patient active on MyChart Yes Electronically Signed By: Paola Cloud Ma [...] occasional Drug use: No [facility] Diagnosis Encounter for screening mammogram for breast cancer- Primary Fibrocystic breast changes, bilateral documented in this [facility]* Diagnosis Fibrocystic breast changes, bilateral- Primary Personal history of malignant neoplasm of breast Encounter for screening mammogram for breast cancer documented in [facility] encounter [facility]* Diagnosis Encounter for screening mammogram for breast cancer- Primary documented in this encounter [facility] note* Diagnosis Fibrocystic breast changes, bilateral- Primary Personal history of malignant neoplasm of breast Encounter for screening mammogram for breast cancer Family history of breast cancer in sister Family history of malignant neoplasm of breast documented in this encounter [facility] noteNo [facility] [employer] Other Evaluation note* Diagnosis Obesity, Class I, BMI 30-34.9- Primary Atrial fibrillation, unspecified type (CMS/HCC) Hypertension, unspecified type High risk medication use Persistent atrial fibrillation (CMS/HCC) Atrial fibrillation documented in this encounter [facility] Work Phone: Evaluation note* Diagnosis Atrial fibrillation, unspecified type (CMS/HCC) Hypertension, unspecified type High risk medication use Obesity, unspecified classification, unspecified obesity type, unspecified whether serious comorbidity present Never smoked tobacco documented in this encounter [facility] Work Phone: History general Narrative - Reported* Type Description [...] History COLONOSCOPY Hospitalization History SEE SURGICAL HX [facility] Other History general Narrative - Reported* Type [...] COLONOSCOPY 2016 Hospitalization History SEE SURGICAL HX [facility] Other Reason for referral (narrative)* Diagnostic Procedure Only (Routine) - Authorized Specialty Diagnoses / Procedures Referred By Errol benson Referred To Contact [facility] Diagnoses Encounter for screening mammogram for breast cancer Fibrocystic breast changes, bilateral Procedures KENDRA SCREENING SCREENING MAMMOGRAPHY BI 2-VIEW BREAST INC [facility] Mayelin Rosen APRN.CNP [address] [place] [address] [facility] [address] [place] [address] Referral ID Status Reason Start Date Expiration Date Visits Requested Visits Authorized [id number] Authorized Auto-Generat ed Referral 10/22/2021 11/21/2022 1 1 [facility] for referral (narrative)* Diagnostic Procedure Only (Routine) - Authorized Specialty Diagnoses / Procedures Referred By Errol benson Referred To Contact [facility] Diagnoses Encounter for screening mammogram for breast cancer Procedures KENDRA SCREENING SCREENING MAMMOGRAPHY BI 2-VIEW BREAST INC Mayelin Cummings APRN.CNP [address] [place] [address] [facility] [address] [place] [address] Referral ID Status Reason Start Date Expiration Date Visits Requested Visits Authorized [id number] Authorized Auto-Generat ed Referral 11/10/2022 12/10/2023 1 1 [facility] for referral (narrative)* Diagnostic Procedure Only (Routine) - Closed Specialty Diagnoses / Procedures Referred By Errol benson Referred To Contact [facility] Diagnoses Encounter for screening mammogram for breast cancer Procedures KENDRA SCREENING W MAX SCREENING DIGITAL BREAST TOMOSYNTHESIS BI SCREENING MAMMOGRAPHY BI 2-VIEW BREAST INC CAD Mayelin Rosen APRN.CNP [address] [place] [address] [facility] [address] [place] [address] Referral ID Status Reason Start Date Expiration Date V isits Requested Visits Authorized [id number] Closed Auto-Generate d Referral 11/20/2022 12/20/2023 1 1 [facility] for referral (narrative)* Reason *FU 09/17 Referral for new onset atrial fibrillation Diagnosis 1 New onset atrial fib rillation (I48.91) Referral Organization [facility] vanessa Referring Provider First Name Michael Referring Provider Last Name Kailash Referring Provider Specialty Internal Me dicine Referred Organization [facility] enter Referred Provider Judy Castro Referred Address [address],[address] Referred Provider Specialty Cardiac Surg ailyn Referral Priority Routine General Notes Mrs. Lopez was foun d to be in atrial fibrillation, at her annual wellness examination. She exercises regularly and denies chest pain, dyspnea, palpitations or lightheadedness. She may have noticed a slight decline in her endurance over the past 3 wks. She has HTN with no personal or family history for CAD. Nany Delarosa 09/10/2023 05:15:05 PM >received today, notes locked, attachments made, referral faxed Clinical Notes Include labs, EKG, E cho and stress test [facility] Other Reason for referral (narrative)* Consultation (Routine) - Authorized Specialty Diagnoses / Procedures Referred By Contac t Referred To Contact Cardiology Diagnoses Atrial fibrillation, unspecified type (CMS/HCC) Procedures Follow Up In Cardiology Judy Castro MD [address], [place] [address] [place] [address] Judy Castro MD [address], [place] [address] [place] [address] Referral ID Status Reason Start Date Expiration Date V isits Requested Visits Authorized [id number] Authorized 10/29/2023 10/28/2024 1 1 [facility] Work Phone: Advance Directives Documents on File Type Date Recorded 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 Advance Directive(s) 07/14/2013 7:01 PM Documents on File Type Date Recorded 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 Advance Directive(s) 07/14/2013 7:01 PM Summary Purpose Family History No Family History Records FoundNo Family History Records FoundNo Family History Records Found Reason for Referral Specialty Diagnoses / Procedures Referred By Contac t Referred To Contact Diagnoses Atrial fibrillation, unspecified type (CMS/HCC) Procedures ECG 12 Lead Judy Castro MD [address], [address] [address] Referral ID Status Reason Start Date Expiration Date V isits Requested Visits Authorized [id number] Authorized 09/24/2023 09/23/2024 1 1 Referral ID Status Reason Start Date Expiration Date V isits Requested Visits Authorized [id number] Authorized 09/24/2023 09/23/2024 1 1 Specialty Diagnoses / Procedures Referred By Contac t Referred To Contact Cardiology Diagnoses Atrial fibrillation, unspecified type (CMS/HCC) Procedures Follow Up In Cardiology Judy Castro MD [address], [address] [address] Judy Castro MD [address], [address] [address] Referral ID Status Reason Start Date Expiration Date V isits Requested Visits Authorized [id number] Authorized 09/24/2023 09/23/2024 1 1 Additional Source Comments Source Comments (unrecognize d section and content) In the event this informatio n is protected by the Federal Confidentiality of Alcohol and Drug Abuse Patient Records regulations: The Federal rules restrict any use of the information to criminally investigate or prosecute any alcohol or drug abuse patient.[facility] the event this information is protected by the Federal Confidentiality of Alcohol and Drug Abuse Patient Records regulations: The Federal rules restrict any use of the information to criminally investigate or prosecute any alcohol or drug abuse patient.[facility] Center[facility] the event this information is protected by the Federal Confidentiality of Alcohol and Drug Abuse Patient Records regulations: The Federal rules restrict any use of the information to criminally investigate or prosecute any alcohol or drug abuse patient.[facility] Center[facility] the event this information is protected by the Federal Confidentiality of Alcohol and Drug Abuse Patient Records regulations: The Federal rules restrict any use of the information to criminally investigate or prosecute any alcohol or drug abuse patient.[facility] CenterIn the event this information is protected by the Federal Confidentiality of Alcohol and Drug Abuse Patient Records regulations: The Federal rules restrict any use of the information to criminally investigate or prosecute any alcohol or drug abuse patient.[facility] Care Teams (unrecognized sec tion and content) Bottle Assembler Relationship Specialty Start Date End Date Michael Rivas DO PCP - General Internal Medicine 12/19/10 Bottle Assembler Relationship Specialty Start Date End Date Michael Rivas DO PCP - General Internal Medicine 12/19/10 Bottle Assembler Relationship Specialty Start Date End Date Michael Rivas DO PCP - General Internal Medicine 12/19/10 Bottle Assembler Relationship Specialty Start Date End Date Michael Rivas DO PCP - General Internal Medicine 12/19/10 Bottle Assembler Relationship Specialty Start Date End Date Michael Rivas DO PCP - General Internal Medicine 12/19/10 Bottle Assembler Relationship Specialty Start Date End Date Michael Rivas DO [address] [place] [address] [place] [address] PCP - General Internal Medicine 09/14/23 Bottle Assembler Relationship Specialty Start Date End Date Michael Rivas DO [address] [facility] [facility] [address] [place] [id number] PCP - General Internal Medicine 09/14/23 Reason for Visit (unrecogniz ed section and content) Reason Comments Established Patient Annual breast exam w ith mammogram; no breast concerns at this time Reason Comments Established Patient Annual breast exam w ith mammogram; broke Left hip front and back 2 weeks ago; no other breast concerns at this time Reason Comments Atrial Fibrillation Specialty Diagnoses / Procedures Referred By Contac t Referred To Contact Diagnoses Atrial fibrillation, unspecified type (CMS/HCC) Procedures ECG 12 Lead Judy Castro MD [address] [place] [address] 2, [address] [address] Referral ID Status Reason Start Date Expiration Date V isits Requested Visits Authorized [id number] Authorized 09/24/2023 09/23/2024 1 1 Reason Comments Follow-up symptoms Specialty Diagnoses / Procedures Referred By Contac t Referred To Contact Cardiology Diagnoses Atrial fibrillation, unspecified type (CMS/HCC) Procedures Follow Up In Cardiology Judy Castro MD [address] [facility] 2, [address] [address] Judy Castro MD [address] [facility] 2, [address] [address] Referral ID Status Reason Start Date Expiration Date V isits Requested Visits Authorized [id number] Authorized 09/24/2023 09/23/2024 1 1 INFORMATION SOURCE (unrecogn ized section and content) DATE CREATED AUTHOR 11/25/2022 [facility] DATE CREATED AUTHOR AUTHOR'S ORGANIZ ATION 11/28/2022 [facility] DATE CREATED AUTHOR AUTHOR'S ORGANIZ ATION 10/02/2023 [facility] FOR RECORDS PERTAINING TO PATIENTS WHO ARE [...] BE BASED ON THE PRIMARY CLINICAL RECORDS. [facility] [employer]. provides no warranty or guarantee of the accuracy or completeness of information in this document.
--- NOTE | 2023-11-04 07:42 | ED_ITS ---
HPI HPI - General Adult General Chief complaint: Nausea/Vomiting/Diarrhea Stated complaint: LOWER BACK PAIN Time Seen by Provider: 11/04/23 07:41 Source: patient Mode of arrival: walk-in History of Present Illness HPI narrative: This patient is here today for evaluation of ongoing nausea. She says has been present for several months. She has mentioned it to her primary care doctor and they thought it might be due to medication. 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 She occasionally has some discomfort in the pain over the last 24 hours gotten worse. The pain is in the both the right upper and left upper quadrant. She says that she is also on blood thinners for atrial fibrillation but was switched recently to Coumadin. She has not had a colonoscopy for approximately 8 years, but at that time it was normal. She has not had upper endoscopy for many many years. She believes it might be her gallbladder. She has not had any recent ultrasounds or CT scans. She has not had any substantial weight gain or weight loss. She denies any alcohol use. Related Data Home Medications ?Medication ?Instructions ?Recorded ?Confirmed digoxin 125 mcg (0.125 mg) tablet 0.125 mg PO DAILY 11/04/23 11/04/23 losartan 50 mg tablet 50 mg PO DAILY 11/04/23 11/04/23 metoprolol succinate 50 mg 50 mg PO DAILY 11/04/23 11/04/23 tablet,extended release 24 hr ondansetron 4 mg disintegrating 4 mg translingual Q6H PRN nausea 11/04/23 11/04/23 tablet and vomiting warfarin 5 mg tablet (Jantoven) 5 mg PO DAILY 11/04/23 11/04/23 Allergies Allergy/AdvReac Type Severity Reaction Status Date / Time No Known Drug Allergies Allergy Verified 11/04/23 07:35 Opioid HPI Opioid Management Most Recent Opioid Data: No Data to Display Exam Narrative Exam Narrative: Awake alert vital signs are stable. Posted heart rate of 44 is an accurate. She is in atrial fibrillation and her heart rate is approximately 110. Her color is good her skin is warm and dry there is no scleral icterus or evidence of anemia. Examination abdomen she has very active bowel sounds throughout the abdomen but she does have discomfort with palpation in the left and the right upper quadrant with no specific masses. There is no rebound rigidity or peritoneal findings. The abdomen seems to be quite gaseous and she has diffuse discomfort as noted. Constitutional Vital Signs, click to edit/add: Last Vital Signs Temp 97.7 F 11/04/23 07:32 Pulse 113 H 11/04/23 10:30 Resp 20 11/04/23 07:32 BP 124/90 11/04/23 10:27 Pulse Ox 94 L 11/04/23 07:32 Course Vital Signs Vital signs: Vital Signs Temperature 97.7 F 11/04/23 07:32 Pulse Rate 44 L 11/04/23 07:32 Respiratory Rate 20 11/04/23 07:32 Blood Pressure 138/97 H 11/04/23 07:32 Pulse Oximetry 94 L 11/04/23 07:32 Temperature 97.7 F 11/04/23 07:32 Pulse Rate 113 H 11/04/23 10:30 Respiratory Rate 20 11/04/23 07:32 Blood Pressure 124/90 11/04/23 10:27 Pulse Oximetry 94 L 11/04/23 07:32 Medical Decision Making MDM Narrative Medical decision making narrative: This patient presents with at least 2 to 3 months of nausea and decreased appetite. Her pain has been present before then but it was not severe or persistent until the last several days. Her CT scan unfortunately shows multiple lesions in her liver and also nodules at the base of her right lung that may represent lung cancer. She also then mentioned to me that she had breast cancer approximately 18 years ago but did not have any chemotherapy or radiation at that time. I spoke her primary care doctor and he would like us to consult the on-call oncologist here. Were waiting for his reply at this time. Also remarkable are the elevation of some of her liver function test as well as her white blood cell count. I spoke with and he is able to consult on the case. I spoke with the hospitalist who will admit the patient. Oncologist advised cancer markers further CT imaging but he will be glad to talk to the admitting physician to facilitate that. We spoke with the patient and she agrees with the need for adm ission. She will be given analgesics and admitted for continuing workup Lab Data Labs: Lab Results 11/04/23 11/04/23 Range/Units 07:43 10:27 WBC 14.5 H (4.0-11.0) 10^3/uL RBC 4.37 (4.20-5.40) 10^6/uL Hgb 14.2 (12.0-16.0) g/dL Hct 42.3 (36.0-48.0) % MCV 96.8 (81.0-99.0) fL MCH 32.5 (26.7-34.0) pg MCHC 33.6 (29.9-35.2) g/dL RDW 14.0 (11.0-15.0) % Plt Count 314 (150-450) 10^3/uL MPV 10.5 (9.5-13.5) fL Neut % (Auto) 82.3 H (43.0-75.0) % Lymph % (Auto) 6.7 L (20.5-60.0) % [place] % (Auto) 9.8 (1.7-12.0) % Eos % (Auto) 0.3 L (0.9-7.0) % Baso % (Auto) 0.3 (0.2-2.0) % Neut # (Auto) 12.0 H (1.4-6.5) 10^3/uL Lymph # (Auto) 1.0 L (1.2-3.8) 10^3/uL [place] # (Auto) 1.4 H (0.3-0.8) 10^3/uL Eos # (Auto) 0.1 (0.0-0.7) 10^3/uL Baso # (Auto) 0.0 (0.0-0.1) 10^3/uL Abs Immat Gran (auto) 0.08 H (0.00-0.03) 10^3/uL Imm/Tot Granulo (auto) 0.6 H (0.0-0.5) % Sodium 137 (136-145) mmol/L Potassium 3.5 (3.5-5.1) mmol/L Chloride 99 (98-107) mmol/L Carbon Dioxide 27.7 (21.0-32.0) mmol/L Anion Gap 13.8 BUN 15.0 (7.0-18.0) mg/dL Creatinine 0.92 (0.55-1.02) mg/dL Est GFR ( Amer) >60 (>=60) Est GFR (Non-Af Amer) 59 L (>=60) BUN/Creatinine Ratio 16.3 Glucose 112 H (74-106) mg/dL Lactate 2.1 H (0.4-2.0) mmol/L Calcium 9.1 (8.5-10.1) mg/dL Total Bilirubin 1.0 (0.2-1.0) mg/dL AST 248 H (15-37) U/L ALT 57 (14-59) U/L Alkaline Phosphatase 168 H (46-116) U/L Total Protein 6.7 (6.4-8.2) g/dL Albumin 2.7 L (3.4-5.0) g/dL Globulin 4.0 g/dL Albumin/Globulin Ratio 0.7 Urine Color Yellow (YELLOW) Urine Clarity Clear (CLEAR) Urine pH 5.5 (5.0-9.0) Ur Specific [place] 1.015 (1.005-1.025) Urine Protein Trace (NEG/TRACE) mg/dL Urine Glucose (UA) Negative (NEGATIVE) mg/dL Urine Ketones Trace A (NEGATIVE) mg/dL Urine Occult Blood Negative (NEGATIVE) Urine Nitrite Negative (NEGATIVE) Urine Bilirubin Negative (NEGATIVE) Urine Urobilinogen 0.2 (0.2-1.0) EU/dL Ur Leukocyte Esterase Negative (NEGATIVE) Digoxin 0.5 L (0.9-2.0) ng/mL Discharge Plan Discharge Chief Complaint: Nausea/Vomiting/Diarrhea Clinical Impression: Cancer, metastatic to liver, Abdominal pain Patient Disposition: Admitted as Observation Time of Disposition Decision: 11:20 Prescriptions / Home Meds: No Action losartan 50 mg tablet 50 mg PO DAILY metoprolol succinate 50 mg tablet extended release 24 hr 50 mg PO DAILY warfarin [Jantoven] 5 mg tablet 5 mg PO DAILY digoxin 125 mcg (0.125 mg) tablet 0.125 mg PO DAILY ondansetron 4 mg tablet,disintegrating 4 mg translingual Q6H PRN (Reason: nausea and vomiting) Print Language: Peruvian Referrals: Michael Linder DO [Primary Care Provider] - 1 week
--- NOTE | 2023-11-04 07:53 | CT_ITS ---
[address] [address] Patient Name: PJ LOPEZ MRN: [id number] date: 1945 Sex: F Assigned Patient Location: ER Current Patient Location: Accession/Order Number: [id number] Exam Date: 11/04/2023 08:36 Report Date: 11/04/2023 09:34 At the request of: LAURA MARTIN Procedure: CT abdomen pelvis w con EXAMINATION: CT abdomen pelvis w con HISTORY: Abdominal pain primarily right upper quadrant , nausea, dry heaves COMPARISON: CT pelvis 11/07/2022 TECHNIQUE: Axial, Coronal, and Sagittal images were obtained without and/or with IV contrast as indicated by examination type. Dose reduction techniques were achieved by using automated exposure control and/or adjustment of mA and/or kV according to patient size and/or use of iterative reconstruction technique. FINDINGS: LUNG BASES: Geographic shaped 1.9 cm nodule within anterior right lateral costophrenic angle. 1.3 cm nodule within right posterior costophrenic angle. LIVER: Innumerable hypodense masses throughout the liver most consistent with neoplasm. Small amount of free fluid in lung liver margins. BILIARY: Sludge versus numerous tiny granular size stones within gallbladder. No appreciable acute inflammatory changes. PANCREAS: No lesion, fluid collection, or abnormal duct dilatation. SPLEEN: No enlargement or focal lesion. ADRENALS: 3.7 cm left adrenal mass, nonspecific but there are small areas of fat density which suggests a benign adenoma. 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 Bilateral renal hypodensities favoring benign cysts. No mass, obstruction, or calcification. BOWEL/MESENTERY: Numerous diverticula scattered along the colon without acute inflammatory changes. No visible mass, obstruction, or bowel wall thickening. AORTA/VASCULAR: No aneurysm or dissection. RETROPERITONEUM: No mass or adenopathy. LYMPH NODES: No adenopathy. URINARY BLADDER: No visible focal wall thickening, lesion, or calculus. PELVIC ORGANS: Hysterectomy. ABDOMINAL WALL: No mass or hernia. BONES: Levoscoliosis of lumbar spine. Old healed left pubic rami fractures. OTHER: Moderate amount of free fluid within pelvis. CT/CT abdomen pelvis w con IMPRESSION: 1. Innumerable lesions throughout the liver most consistent with neoplasm. The 11/07/2022 study included the lower margin of the liver which was clear at that time. 2. There are 2 prominent nodules within the right lung base; nonspecific but given the appearance of the liver these are concerning for neoplasm. 3. Nonspecific 3.7 cm left adrenal mass, although there are small foci of fat density which is suggestive of a benign adenoma. 4. 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 (There is no provided history regarding prior left renal lesion and wedge resection.) 5. Colonic diverticulosis. No suspicious lesion. 6. Small moderate free fluid along margins of the liver and moderate amount of free fluid within the pelvis; nonspecific. Electronically authenticated by: CINTHIA IBARRA Date: 11/04/2023 09:34
[2023-11-04 08:03] LABS: Basophils Percent Auto 0.3 % (0.2-2.0); Eosinophils Absolute Auto 0.1 10^3/uL (0.0-0.7); Eosinophils Percent Auto 0.3 % (0.9-7.0); Hematocrit 42.3 % (36.0-48.0); Hemoglobin 14.2 g/dL (12.0-16.0); Immature Granulocytes Abs Auto 0.08 10^3/uL (0.00-0.03); Immature Granulocytes Pct Auto 0.6 % (0.0-0.5); Lymphocytes Percent Auto 6.7 % (20.5-60.0); Mean Corpuscular HGB Conc 33.6 g/dL (29.9-35.2); Mean Corpuscular Hemoglobin 32.5 pg (26.7-34.0); Mean Corpuscular Volume 96.8 fL (81.0-99.0); Mean Platelet Volume 10.5 fL (9.5-13.5); Monocytes Absolute Auto 1.4 10^3/uL (0.3-0.8); Monocytes Percent Auto 9.8 % (1.7-12.0); Neutrophils Percent Auto 82.3 % (43.0-75.0); Platelet Count 314 10^3/uL (150-450); Red Blood Count 4.37 10^6/uL (4.20-5.40); White Blood Count 14.5 10^3/uL (4.0-11.0)
[2023-11-04] MEDS: 0.9 % SODIUM CHLORIDE 1,000 ML 999 ML IV (08:05)
[2023-11-04] MEDS: ONDANSETRON PF 4 MG/2 ML VIAL IV (08:05)
[2023-11-04 08:27] LABS: Alanine Aminotransferase 57 U/L (14-59); Albumin Globulin Ratio 0.7; Albumin Level 2.7 g/dL (3.4-5.0); Alkaline Phosphatase 168 U/L (46-116); Anion Gap 13.8; Aspartate Amino Transferase 248 U/L (15-37); BUN Creatinine Ratio 16.3; Calcium 9.1 mg/dL (8.5-10.1); Carbon Dioxide 27.7 mmol/L (21.0-32.0); Chloride 99 mmol/L (98-107); Digoxin 0.5 ng/mL (0.9-2.0); Estimated GFR (African America >60 (>=60); Estimated GFR (Non-African Ame 59 (>=60); Glucose 112 mg/dL (74-106); Potassium 3.5 mmol/L (3.5-5.1); Sodium 137 mmol/L (136-145); Total Protein 6.7 g/dL (6.4-8.2)
[2023-11-04 08:36] LABS: Lactate/Lactic Acid 2.1 mmol/L (0.4-2.0)
[2023-11-04 10:46] LABS: Bilirubin Urine NEGATIVE (NEGATIVE); Blood Urine NEGATIVE (NEGATIVE); Clarity Urine CLEAR (CLEAR); Color Urine YELLOW (YELLOW); Glucose Urine UA NEGATIVE (NEGATIVE); Ketones Urine TRACE mg/dL (NEGATIVE); Leukocyte Esterase Urine NEGATIVE (NEGATIVE); Nitrite Urine NEGATIVE (NEGATIVE); Protein Urine TRACE mg/dL (NEG/TRACE); Specific Gravity Urine 1.015 (1.005-1.025); Urobilinogen Urine 0.2 EU/dL (0.2-1.0); pH Urine 5.5 (5.0-9.0)
[2023-11-04 10:47] LABS: Urine Microscopic Indicated NO
[2023-11-04 11:17] LABS: Lactate/Lactic Acid 1.3 mmol/L (0.4-2.0)
[2023-11-04] MEDS: HYDROMORPHONE HCL 1 MG/ML CARTRIDGE IV (11:33)
--- OUTSIDE RECORDS SUMMARY | 2023-11-04 12:24 | XMS_ITS | CCD ---
Author Organization [facility] Care Team Providers Care Manager Professional Development Name Role Phone Michael Rivas DO Primary [...] Translations: [ADHESIVE TAPE-SILICONES] Drug Intolerance 3 Intolerance [facility] (5 sources) band-aids [Other] Propensity to adverse reactions 7 [facility] (1 source) OTHER; Translations: [OTHER] Propensity to adverse reactions (disorder) 7 [facility] (2 sources) patient allergy list reviewed by nurse or physicia Propensity to adverse reactions 5 Comment:Done [facility] Other Medications Current Medications Medication Drug Class(es) [...] extended release oral tablet (7 sources) beta-Adrenergic Vj Start: 10-29-2023 End: 10-28-2024 take 1 tablet [...] 5 mg daily. To be followed by [facility] 14 tablet 0 10/29/2023 Active Completed/Discontinued Medications Medication Drug Class(es) Dates Sig (Normalized) Sig (Original) ascorbic acid 1000 mg oral tablet (5 sources) Vitamin C Start: 7 take 1 tablet by mouth once daily Ascorbic Acid (VITAMIN C) 1,000 mg ORAL Tab Take one(1) tablet daily. 0 12/01/2006 Active Comment on above: Take one(1) tablet d aily. 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] Onset: 09-24-2023 Episodic Other [...] 09-24-2023 ECG revealed atrial fibrillation with RVR [facility] Work Phone: Urinalysis - DIPSTICKon 08-03 Appearance (U) clear i-nexus Other Bilirubin Ql (U) Negative [employer] Other Color (U) pale yellow [facility] Other Glucose Ql (U) Negative i-nexus Other Hemoglobin Ql (U) Negative [employer] Other Ketones Ql (U) Negative i-nexus Other Leukocyte esterase Test strip Ql (U) Negative [facility] Other Nitrite Ql (U) Negative i-nexus Other pH (U) 5.0 [pH] [facility] Other Protein Ql (U) Negative i-nexus Other Specific gravity (U) [Rel density] 1.010 [facility] Other Urobilinogen (U) [Mass/Vol] 0.2 mg/dL [facility] Other Urinalysis - DIPSTICK [facility] Other CNCOon 11-20-2022 [facility] HNO ID: [id number] Author: Mammography Coordinator Service: ? Author Type: Physician Type: Letter Filed: 11/23/2022 11:37 PM Note Text: November 23, 2022 PID: [id number] Pj Lopez [address] [place] [id number] Dear Ms. Lopez, We are pleased to [...] report will be kept on file at [facility] as part of your permanent medical record and are available for your continuing care. Thank you for allowing us to help in meeting your health care needs. Sincerely, Dr. Tesfaye Interpreting Radiologist [facility] (Normal over 40) Normal 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 [...] encounter) is as follows: Breast biopsy: Yes, 01/05-[facility] Breast cysts: No Breast surgery: Yes, Right PM with ALND Breast cancer: Yes, Stage I (T 1c N 0 M 0) in 2005, treated as above CANCER SURVEILLANCE: Mammograms: Yes, Date in [facility]: 10/28/21; results - negative Breast MRI: [...] HISTORY Pro (more content not included)... Normal [facility] SCREENING W TOMOon 11-20 [facility] SCREENING W MAX * * *Final Report* * * DATE OF EXAM: Nov 20 2022 12:21PM SSW [id number] - KENDRA SCREENING W MAX / PROCEDURE REASON: Encounter for screening mammogram for breast cancer * * * * Physician Interpretation * * * * RESULT: #[id number] - [facility] SCREENING W MAX BILATERAL DIGITAL SCREENING [...] mammogram, 07/06/2017 mammogram, and 06/16/2016 mammogram - [facility]. There are scattered fibroglandular elements in both breasts. There are benign post operative findings in both breasts. No significant masses, calcifications, or other findings are seen in either breast. There has been no significant interval change. IMPRESSION: BENIGN FINDING There is no mammographic evidence of malignancy. A 1 year screening mammogram is recommended. Yaz Tesfaye M.D. pt/penrad:11/20/2022 12:38:01 Director Of Land Acquisition(s): Emmy Patrick, RT(R)(M), [facility] letter sent: Normal over 40 Mammogram BI-RADS: [...] Health, Family Medicine, and Medical/Surgical Oncology, the [facility] has carefully reviewed the data and [...] their providers when to stop screening mammograms. [place] Operator: Jonnie Transcribe Date/Time: Nov 20 2022 12:11P Dictated by: YAZ TESFAYE MD This examination was interpreted and the report reviewed and electronically signed by: YAZ TESFAYE MD on Nov 20 2022 12:38PM EST [id number] Normal [facility] Clin ic CT PELVIS WO [...] CINTHIA IBARRA Date: 2022-11-07 16:35 Normal [facility] CBC AUTO DIFFon 12-11-2021 BASO # 0.0 103/ul Normal 0.0-0.[address] [facility] Comment on above: Performed By: #### C BC #### [facility] [address] [address] [address] Karishma Langley Basophils/100 WBC (Bld) 0.6 % Normal 0.2-2.[address] [facility] Comment on above: Performed By: #### C BC #### [facility] [address] [address] [address] Karishma Langley EO # 0.2 103/ul Normal 0.0-0.[address] [facility] Comment on above: Performed By: #### C BC #### [facility] [address] [address] [address] Karishma Langley Eosinophils/100 WBC (Bld) 3.0 % Normal 0.9-7.[address] [facility] Comment on above: Performed By: #### C BC #### [facility] [address] [address] [address] Karishma Langley Erythrocyte distribution width (RBC) [Ratio] 12.2 % Normal 11.0-15.[address] [facility] Comment on above: Performed By: #### C BC #### [facility] [address] [address] [address] Karishma Langley Hematocrit (Bld) [Volume fraction] 39.9 % Normal 36.0-48.[address] [facility] Comment on above: Performed By: #### C BC #### [facility] [address] [address] [address] Karishma Langley Hemoglobin (Bld) [Mass/Vol] 13.0 g/dL Normal 12.0-16.[address] [facility] Comment on above: Performed By: #### C BC #### [facility] [address] [place] [address] Dr. Karishma Langley IG # 0.01 10e3/ul Normal 0.00-0.03 [facility] Comment on above: Performed By: #### C BC #### [facility] [address] [place] [address] Dr. Karishma Langley IG % 0.2 % Normal 0.0-0.5 [facility] Comment on above: Performed By: #### C BC #### [facility] [address] [place] [address] Dr. Karishma Langley LYMPH # 1.5 103/ul Normal 1.2-3.8 [facility] Comment on above: Performed By: #### C BC #### [facility] [address] [place] [address] Dr. Karishma Langley Lymphocytes/100 WBC (Bld) 27.3 % Normal 20.5-60.0 [facility] Comment on above: Performed By: #### C BC #### [facility] [address] [place] [address] Dr. Karishma Langley MANUAL DIFF REQ NO Normal [facility] Comment on above: Performed By: #### C BC #### [facility] [address] [place] [address] Dr. Karishma Langley MCH (RBC) [Entitic mass] 32.1 pg Normal 26.7-34.0 [facility] Comment on above: Performed By: #### C BC #### [facility] [address] [place] [address] Dr. Karishma Langley MCHC (RBC) [Mass/Vol] 32.6 g/dL Normal 29.9-35.2 [facility] Comment on above: Performed By: #### C BC #### [facility] [address] [place] [address] Dr. Karishma Langley MCV (RBC) [Entitic vol] 98.5 fL Normal 81.0-99.0 [facility] Comment on above: Performed By: #### C BC #### [facility] [address] [place] [address] Dr. Karishma Langley MONO # 0.7 103/ul Normal 0.3-0.8 [facility] Comment on above: Performed By: #### C BC #### [facility] [address] [place] [address] Dr. Karishma Langley Monocytes/100 WBC (Bld) 12.4 % Critically high 1.7-12.0 [facility] Comment on above: Performed By: #### C BC #### [facility] [address] [place] [address] Dr. Karishma Langley NEUT # 3.0 103/ul Normal 1.4-6.5 [facility] Comment on above: Performed By: #### C BC #### [facility] [address] [place] [address] Dr. Karishma Langley Neutrophils/100 WBC (Bld) 56.5 % Normal 43.0-75.0 [facility] Comment on above: Performed By: #### C BC #### [facility] [address] [place] [address] Dr. Karishma Langley Platelet mean volume (Bld) [Entitic vol] 10.3 fL Normal 9.5-13.5 [facility] Comment on above: Performed By: #### C BC #### [facility] [address] [place] [address] Dr. Karishma Langley PLT 275 103/ul Normal 150-[address] [facility] Comment on above: Performed By: #### C BC #### [facility] [address] [place] [address] Dr. Karishma Langley RBC 4.05 106/ul Critically low 4.20-5.40 [facility] Comment on above: Performed By: #### C BC #### [facility] [address] [place] [address] Dr. Karishma Langley WBC 5.3 103/ul Normal 4.0-11.0 [facility] Comment on above: Performed By: #### C BC #### [facility] [address] [place] [address] Dr. Karishma Langley ECHOCARDIO M/2D COMPLETEon 0 -12-2022 ECHOCARDIO M/2D COMPLETE Patient: JOHN, PJ M. Exam Date: 12/11/2021 : 1945 Gender:F Ordering : DR MICHAEL RIVAS D.O. Admission #: [id number] Family : Order #: [id number] CLICK HERE TO VIEW EXAM ECHOCARDIOGRAM REPORT [...] Area(A4C): 23.20 cm2 Left Atrium Systolic Volume(A2C): 78203 mm3 Left Atrium Systolic Volume(A4C): 04782 mm3 Mitral Valve MV E to A [...] M.D. on 12/11/2021 at 14:32 Normal [facility] PROF CHEM 8 (BAS METB)on Anion gap [Moles/Vol] 13.5 mmol/L Normal [facility] Comment on above: Performed By: #### B MP #### [facility] [address] [address] [address] Karishma Langley Calcium [Mass/Vol] 9.0 mg/dL Normal 8.5-10.[address] [facility] Comment on above: Performed By: #### B MP #### [facility] [address] [address] [address] Karishma Langley Chloride [Moles/Vol] 105 mmol/L Normal 98-[address] [facility] Comment on above: Performed By: #### B MP #### [facility] [address] [address] [address] Karishma Langley CO2 [Moles/Vol] 24.3 mmol/L Normal 21.0-32.0 [facility] Comment on above: Performed By: #### B MP #### [facility] [address] [address] [address] Karishma Langley Creatinine [Mass/Vol] 0.87 mg/dL Normal 0.55-1.[address] [facility] Comment on above: Performed By: #### B MP #### [facility] [address] [address] [address] aKrishma Langley EGFR-AF [place] >60 Normal >=60 [facility] Comment on above: Performed By: #### B MP #### [facility] [address] [place] [address] Dr. Karishma Langley EGFR-NON AF [place] >60 Normal >=[address] [facility] Comment on above: Performed By: #### B MP #### [facility] [address] [place] [address] Dr. Karishma Langley Glucose [Mass/Vol] 100 mg/dL Normal 74-[address] [facility] Comment on above: Performed By: #### B MP #### [facility] [address] [address] [address] Karishma Langley Potassium [Moles/Vol] 3.8 mmol/L Normal 3.5-5.[address] [facility] Comment on above: Performed By: #### B MP #### [facility] [address] [address] [address] Karishma Langley Sodium [Moles/Vol] 139 mmol/L Normal 136-[address] [facility] Comment on above: Performed By: #### B MP #### [facility] [address] [place] [address] Dr. Karishma Langley Urea nitrogen [Mass/Vol] 22.0 mg/dL Critically high 7.0-18.[address] [facility] Comment on above: Performed By: #### B MP #### [facility] [address] [place] [address] Dr. Karishma Langley Urea nitrogen/Creatini ne [Mass ratio] 25.3 mg/mg Normal [facility] Comment on above: Performed By: #### B #### [facility] [address] [place] [address] Dr. Karishma Langley Vital Signs Date Time Vital Sign Value Performing Clinician Facility 10-29-2023 09:37-0400 Body height 154.9 cm Judy Castro MD Work Phone: [facility] 10-29-2023 09:37-0400 Body mass index (BMI) [Ratio] 31.86 kg/m2 Judy Castro MD Work Phone: [facility] 10-29-2023 09:37-0400 Body weight 76.48 kg Judy Castro MD Work Phone: [facility] 10-29-2023 09:37-0400 Diastolic blood pressure 92 mm[Hg] Judy Castro MD Work Phone: [facility] 10-29-2023 09:37-0400 Heart rate 100 /min Judy Castro MD Work Phone: [facility] 10-29-2023 09:37-0400 Systolic blood pressure 142 mm[Hg] Judy Castro MD Work Phone: [facility] 09-24-2023 10:59-0500 Diastolic blood pressure 86 mm[Hg] Judy Castro MD Work Phone: [facility] 09-24-2023 10:59-0500 Systolic blood pressure 136 mm[Hg] Judy Castro MD Work Phone: [facility] 09-24-2023 10:15-0500 Body height 154.9 cm Judy Castro MD Work Phone: [facility] 09-24-2023 10:15-0500 Body mass index (BMI) [Ratio] 32.31 kg/m2 Judy Castro MD Work Phone: [facility] 09-24-2023 10:15-0500 Body weight 77.56 kg Judy Castro MD Work Phone: [facility] 09-24-2023 10:15-0500 Heart rate 131 /min Judy Castro MD Work Phone: [facility] 09-08-2023 09:00-0500 Body height 158.75 cm Michael Ball Other [facility] Other 09-08-2023 09:00-0500 Body mass index (BMI) [Ratio] 31.24 kg/m2 Michael Ball Other [facility] Other 09-08-2023 09:00-0500 Body weight 78.74 kg Michael Ball Other [facility] Other 09-08-2023 09:00-0500 Diastolic blood pressure 87 mm[Hg] Michael Ball Other [facility] Other 09-08-2023 09:00-0500 Respiratory rate 12 /min Michael Ball Other [facility] Other 09-08-2023 09:00-0500 Systolic blood pressure 142 mm[Hg] Michael Ball Other [facility] Other 08-24-2023 10:00-0500 Body height 158.75 cm Michael Ball Other [facility] Other 08-24-2023 10:00-0500 Body mass index (BMI) [Ratio] 30.63 kg/m2 Michael Ball Other [facility] Other 08-24-2023 10:00-0500 Body weight 77.2 kg Michael Ball Other [facility] Other 08-24-2023 10:00-0500 Diastolic blood pressure 105 mm[Hg] Michael Ball Other [facility] Other 08-24-2023 10:00-0500 Respiratory rate 12 /min Michael Ball Other [facility] Other 08-24-2023 10:00-0500 Systolic blood pressure 152 mm[Hg] Michael Ball Other [facility] Other 11-25-2022 10:30-0400 Body height 158.75 cm Michael Ball Other [facility] Other 11-25-2022 10:30-0400 Body mass index (BMI) [Ratio] 31.17 kg/m2 Michael Ball Other [facility] Other 11-25-2022 10:30-0400 Body weight 78.56 kg Michael Ball Other [facility] Other 11-25-2022 10:30-0400 Diastolic blood pressure 81 mm[Hg] Michael Ball Other [facility] Other 11-25-2022 10:30-0400 Respiratory rate 12 /min Michael Ball Other [facility] Other 11-25-2022 10:30-0400 Systolic blood pressure 177 mm[Hg] Michael Ball Other [facility] Other Encounters Encounter Date Encounter Type Care Provider Facility Start: 10-29-2023 End: 10-29-2023 Office outpatient visit 25 minutes Judy Castro MD Work Phone: [facility] Comment on above: Atrial fibrillation, unspecified type (CMS/HCC); Hypertension, unspecified type; High risk medication use; Obesity, unspecified classification, unspecified obesity type, unspecified whether serious comorbidity present; Never smoked tobacco Start: 10-26-2023 End: 10-26-2023 ambulatory Michael Rivas Other [facility] Other Start: 10-26-2023 Telephone encounter Michael DUONG [facility] Start: 09-24-2023 End: 09-24-2023 ambulatory JUDY CASTRO [facility] Start: 09-24-2023 End: 09-24-2023 Office outpatient new 45 minutes Judy Castro MD Work Phone: [facility] Comment on above: Obesity, Class I, BM I 30-34.9 (Primary Dx); Atrial fibrillation, unspecified type (CMS/HCC); Hypertension, unspecified type; High risk medication use; Persistent atrial fibrillation (CMS/HCC) Start: 09-13-2023 End: 09-13-2023 ambulatory Michael Rivas Other [facility] Other Start: 09-13-2023 Telephone encounter Michael DUONG [facility] Start: 09-10-2023 End: 09-10-2023 ambulatory Michael Rivas Other [facility] Other Start: 09-10-2023 Telephone encounter Michael DUONG [facility] Start: 09-08-2023 End: 09-08-2023 ambulatory Michael Rivas Other [facility] Other Start: 09-08-2023 Office outpatient vi sit 25 minutes Michael Rivas [facility] Start: 08-31-2023 End: 08-31-2023 ambulatory Michael Rivas Other [facility] Other Start: 08-31-2023 Telephone encounter Michael DUONG [facility] Start: 08-24-2023 End: 08-24-2023 ambulatory Michael Rivas Other [facility] Other Start: 08-24-2023 Patient encounter procedure Michael Rivas [facility] Start: 08-17-2023 End: 08-17-2023 ambulatory Michael Rivas Other [facility] Other Start: 08-17-2023 Telephone encounter Michael Mena [facility] Start: 05-18-2023 End: 05-18-2023 ambulatory Michael Rivas Other [facility] Other Start: 05-18-2023 Telephone encounter Michael Mena [facility] Start: 12-03-2022 End: 12-03-2022 ambulatory Michael Rivas Other [facility] Other Start: 12-03-2022 Telephone encounter Michael Rivas [facility] Start: 11-25-2022 End: 11-25-2022 ambulatory Michael Rivas Other [facility] Other Start: 11-25-2022 Office outpatient vi sit 15 minutes Michael Rivas [facility] Start: 11-20-2022 Documentation procedure Mammog may Coordinator [facility] Start: 11-20-2022 Letter encounter Mammography Coordinator [facility] Department Start: 11-20-2022 End: 11-20-2022 ambulatory MAYELIN ROSEN Facility:[facility] Start: 11-20-2022 End: 11-20-2022 Patient encounter procedure Mayelin Rosen POLE PEELING MACHINE OPERATOR.ITEM PROCESSOR Work Phone: [facility] Comment on above: Fibrocystic breast c hanges, bilateral (Primary Dx); Personal history of malignant neoplasm of breast; Encounter for screening mammogram for breast cancer; Family history of breast cancer in sister Start: 11-10-2022 Orders Only Mayelin perez POLE PEELING MACHINE OPERATOR.ITEM PROCESSOR Work Phone: [facility] Comment on above: Encounter for screen ing mammogram for breast cancer (Primary Dx) Start: 11-07-2022 End: 11-07-[address] CINTHIA IBARRA Facility:[facility] Start: 12-11-2021 End: 12-12-[address] MICHAEL RIVAS Facility:[facility] Start: 12-03-2021 Adult health examination Broderick Rivas Other [facility] Other Start: 10-28-2021 End: 10-28-2021 Patient encounter procedure Mayelin Rosen MAXIMILIAN.ITEM PROCESSOR Work Phone: [facility] Comment on above: Fibrocystic breast c hanges, bilateral (Primary Dx); Personal history of malignant neoplasm of breast; Encounter for screening mammogram for breast cancer Start: 10-22-2021 Orders Only Mayelin Oneal ana POLE PEELING MACHINE OPERATOR.ITEM PROCESSOR Work Phone: [facility] Comment on above: Encounter for screen [...] - Tdap) DTaP/Tdap/Td Vaccines (3 - Tdap) [facility] Start: 01-03-2024 End: 01-03-2024 Patient encounter procedure 01/03/2024 1:20 PM EDT Office Visit [facility] [address] [place] [address] Judy Castro MD [address] [facility] [address] [place] [address] [facility] Start: 11-19-2023 End: 11-19-2023 Patient encounter procedure 11/19/2023 10:10 AM EDT Office Visit [address] [place] [address] Judy Castro MD [address] [place] [address] [facility] Start: 10-13-2023 End: 10-13-2023 Professional / ancillary services management 10/13/2023 2:00 PM EDT Ancillary Procedure [facility] [address] [place] [address] [facility] Start: 10-08-2023 End: 09-24-2024 ECG 12 Lead ECG 12 Lead ECG Routine Atrial fibrillation, unspecified type (CMS/HCC) Expected: 10/08/2023 (Approximate), Expires: 09/24/2024 [facility] Service Area Work Phone: Comment on above: Expected: 10/08/2023 (Approximate), Expires: 09/24/2024 Start: 04-02-2023 Influenza vaccination [facility] Start: 08-02-2022 ADVANCE DIRECTIVE DISCUSSION ADVANCE DIRECTIVE DISCUSSION [facility] Start: 08-02-2022 DEPRESSION ASSESSMENT DEPRESSION ASS ESSMENT [facility] Start: 08-02-2021 ADVANCE DIRECTIVE DISCUSSION ADVANCE DIRECTIVE DISCUSSION [facility] Start: 04-02-2021 Influenza vaccination INFLUENZA (#1) [facility] Start: 07-10-2016 DIABETES SCREEN DIABETES SCREEN [facility] Start: 2009 Pneumococcal Vaccine : 65+ Years (1 - PCV) Pneumococcal Vaccine: 65+ Years (1 - PCV) [facility] Start: 2009 PNEUMOCOCCAL: 65+ (1 - PCV) PNEUMOCOCCAL: 65+ (1 - PCV) [facility] Start: 1994 SHINGRIX VACCINE (1 of 2) SHINGRIX VACCINE (1 of 2) [facility] Start: 1994 Zoster Vaccines (1 o f 2) Zoster Vaccines (1 of 2) [facility] Start: 1966 DTaP/Tdap/Td Vaccine s (1 - Tdap) DTaP/Tdap/Td Vaccines (1 - Tdap) [facility] Start: 1963 Urine microalbumin profile DTAP,TDAP,TD (1 - Tdap) [facility] Start: 1962 HEPATITIS C SCREENING HEPATITIS C SC ALICIA [facility] Start: 1962 Hepatitis C screening Hepatitis C Sc reening [facility] Start: 1956 Adult depression screening assessment DEPRESSION SCREENING [facility] Start: 1949 COVID-19 VACCINE (1) COVID-19 VACCIN E (1) [facility] Start: 1945 COVID-19 VACCINE (#1) COVID-19 VACCI NE (#1) [facility] Start: 1945 Lipid panel Lipid Panel [facility] Start: 1945 Medicare Annual Wellness Visit Medicare Annual Wellness Visit (AWV) [facility] Start: 1945 Screening for osteoporosis Bone Density Scan [facility] End: 12-10-2023 KENDRA SCREENING [facility] SCREENING Radiology Routine Encounter for screening mammogram for breast cancer 1 Occurrences starting 11/10/2022 until 12/10/2023 [facility] Work Phone: Comment on above: 1 Occurrences starti ng 11/10/2022 until 12/10/2023 End: 11-21-2022 Screening mammography bi 2-view breast inc cad KENDRA SCREENING Radiology Routine Encounter for screening mammogram for breast cancer Fibrocystic breast changes, bilateral 1 Occurrences starting 10/22/2021 until 11/21/2022 [facility] Work Phone: Comment on above: 1 Occurrences starti ng 10/22/2021 until 11/21/2022 [facility] Immunization Date Immunization Notes Care Provider Fili andujar 03-28-2018 diphtheria, tetanus toxoids and acellular pertussis vaccine, unspecified formulation Michael Rivas Other [facility] Other 01-13-2017 diphtheria, tetanus toxoids and acellular pertussis vaccine, unspecified formulation Michael Rivas Other [facility] Other Payers Date Payer Category Payer Private Health Insurance [employer] A ETNA MEDICARE SUPPLEMENT [id number] 2019-Present [phone] [address] [address] [place] [address] Indemnity [id number] 2019 Private Health Insurance [id number] 2009 Medicare MEDICARE MEDICAR E A AND B [id number] 2009-Present [phone] [address] [address] [place] [address] Medicare [id number] 2009 Medicare [id number] 1959 Medicare [id number] 1959 Medicare [id number] 1959 Private Health Insurance [facility] [id number] 1944 Unknown [id number] 1944 Unknown [id number] 1944 Unknown [id number] Social History Date Type Detail Facility Start: 08-16-2018 End: 09-24-2023 Tobacco smoking status [facility] Never smoked tobacco [facility] Start: 10-23-2020 End: 10-29-2023 Alcohol intake Current drinker of alcohol (finding) [facility] Start: 1945 Sex Assigned At Not on file C [facility] Start: 08-16-2018 End: 09-24-2023 Tobacco use and exposure Smokeless tobacco non-user [facility] Start: 09-24-2023 End: 10-29-2023 Sex Assigned At [facility] [employer] Other Start: 09-24-2023 End: 10-29-2023 History of Social function [facility] Work Phone: Start: 09-24-2023 Alcohol Comment rare [facility] Work Phone: Start: 09-14-2023 End: 10-29-2023 Exposure to SARS-CoV-2 (event) Not sure [facility] Medical Equipment Procedure Code Equipment Code Equipment Original Text Equipment Identifier Dates [id number] Screw [id number] Start: 07-12-2013 Comment on above: Description: locking screw 2.7 x 40 [id number]-Rqyuxtr Screw [id number] Start: 07-12-2013 Comment on above: [...] Description: 2.7 x 2 2 cortex screw [id number] 5 97735-Rajdxympfxy Screw [id number] Start: 07-12-2013 Comment on above: Description: 2.7 x 2 6 metaphyseal screw [id number] 5 10358-Roqjol Head [id number] Start: [id number] 5 10156-Ydbmkyc Screw [id number] Start: [id number] 5 80225-Kfwdobzlhio Screw [id number] Start: 07-12-2013 Comment on above: Description: 2.7 x 1 8 0---Cortex Screw [id number] Start: 07-12-2013 Comment on above: Description: 3.5 x 1 8 0---Cortex Screw [id number] Start: [id number] 5 65732-Wqcwektwj Plate [id number] Start: 07-12-2013 Comment on above: Description: 4 hole plate [id number] 5 15338-Zegovmw Screw [id number] Start: 07-12-2013 0--- 8 Hole Plate [id number] Start: 07-12-2013 [id number] 5 18953-Cxzk Radl 7.5mm Evol Std Elb - [id number] Start: 07-12-2013 Clinical Notes 10-28-2021 to [...] discussion and plan. documented in this encounter [facility] Work Phone: 10-29-2023 Instructions Neha Beckman LPN [...] instructions on exercise. Stop Eliquis Start Coumadin- [facility]. Start 5 mg daily. Will take Eliquis and Coumadin Wednesday, Wed and Wednesday then stop Eliquis Stop Cardizem Start Metoprolol 50 mg daily Start Digoxin .125 mg daily Follow up 2 months documented in this encounter [facility] Work Phone: 09-24-2023 History of Present illness [...] as her main insurance will supplement from [employer]. She was given samples of Eliquis by [...] discussion and plan. documented in this encounter [facility] Work Phone: 09-24-2023 Instructions Neha Beckman LPN [...] your visit. Retrieve echo and stress from [facility] CD 240 mg daily Stop Toprol Start Flecainide 50 mg one tablet two times daily EKG 2 weeks Follow up 6 weeks documented in this encounter [facility] Work Phone: 09-08-2023 Evaluation note Encounter Date [...] cancer (ICD-10 - Z85.3) No s/s recurrence. [facility] Other 01-30-2024 Evaluation note* Encounter Date Diagnosis Assessment Notes Treatment Notes Treatment Clinical Notes Aug, Persistent atrial fibrillation (ICD-10 - I48.19) [facility] Other 01-23-2024 Evaluation note* Encounter Date Diagnosis [...] patient on monthly SBE and yearly mammograms. [facility] Other 01-16-2024 Evaluation note* Encounter Date Diagnosis Assessment Notes Treatment Notes Treatment Clinical Notes Aug, Essential (primary) hypertension (ICD-10 - I10) [facility] Other 10-17-2023 Evaluation note* Encounter Date Diagnosis Assessment Notes Treatment Notes Treatment Clinical Notes May, Essential (primary) hypertension (ICD-10 - I10) [facility] Other 04-26-2023 Evaluation note* Encounter Date Diagnosis [...] reveal any pathologic findings to suspect mets [facility] Other 04-21-2023 NoteHNO ID: [id number] Author: Emmy Patrick, [employer] Service: ? 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 [...] encounter) is as follows: Breast biopsy: Yes, 01/05-[facility] Breast cysts: No Breast surgery: Yes, Right PM with ALND Breast cancer: Yes, Stage I (T 1c N 0 M 0) in 2005, treated as above CANCER SURVEILLANCE: Mammograms: Yes, Date in [facility]: 10/28/21; results - negative Breast MRI: [...] Uterine Cancer Maternal Au (more content not included)...[facility]04-21-2023 Miscellaneous Notes* Letter - Mammography Coordinator - 11/20/2022 12:38 PM EDT November 23, 2022 PID: [id number] Pj Lopez [address] [place] [address] Dear Ms. Lopez, We are pleased to [...] report will be kept on file at [facility] as part of your permanent medical record and are available for your continuing care. Thank you for allowing us to help in meeting your health care needs. Sincerely, Dr. Tesfaye Interpreting Radiologist [facility] (Normal over 40) [facility] Instructions* Patient Instructions* Paola Cloud Ma [...] TP53, CDH1, STK11, PALB2, CHEK2, JADE) Per [facility] High Risk Care Path recommendations, screening [...] male breast cancer you are of Ashkenazi Taoist descent HEALTHY LIFESTYLE MANAGEMENT (per NCCN Guidelines [...] include but are not limited to: The [facility] Comprehensive Breast Cancer Program - [email or web address]/services/[email or web address]-[email or web address] [facility] Affairs [facility] - [email or web address] Hong [place]er Cancer Society - cancer.org PANDA Breast Cancer Foundations - [email or web address].[email or web address] FORCE - facingourrisk.org Bright [place] - brightpink.[email or web address] Young Survival Coalition - youngsurvival.org 4th Sotero - 4thangel.[email or web address] The Gathering Place - [email or web address] ([place] and [place]) The Victory Center - thevictorycenter.org ([place] area) [facility] [place] - yellowbrickplace.org ([place] area) [facility] - [email or web address] ([place] area) If you would like to compliment one of our caregivers you encountered today, you may do so at [email or web address]. Thank you ! 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 [...] encounter) is as follows: Breast biopsy: Yes, 01/05-[facility] Breast cysts: No Breast surgery: Yes, Right PM with ALND Breast cancer: Yes, Stage I (T 1c N 0 M 0) in 2005, treated as above CANCER SURVEILLANCE: Mammograms: Yes, Date in [facility]: 10/28/21; results - negative Breast MRI: [...] mg ORAL Tab Take one(1) tablet daily. Xtjbncb-Flxrwodznu-Qpnp 333-133-5 mg ORAL Tab dose unknown - [...] PTEN, TP53, CDH1, STK11,PALB2, CHEK2, JADE) Per [facility] High Risk Care Path recommendations, screening breast MRI may be considered for women underthe age of 65 with remaining breast tissue in the following situations: - Age at breast cancer diagnosis under 50 - Mammographically dense tissue (BI-RADS category 3 or 4) - History of invasive lobular breast cancer She doesn't meet [facility] care path guidelines for MRI of [...] which included preparing to see the patient, fjix-ur-geld patient care, completing clinical documentation, obtaining and/or reviewing separately obtained history, performing a medically appropriate examination, counseling and educating the pat ient/family/caregiver, ordering medications, tests, or procedures, communicating results to the patient/family/caregiver, and care coordination (not separately reported). Mayelin Rosen APRN.SAMM Medical Breast Specialist Women's Health Nurse Practitioner CC: Michael Rivas MD ([facility]) [address] [place] [address] documented in [facility]04-08-2023 NotePROCEDURE: XR HIP LT 2 3V [...] Electronically authenticated by: CINTHIA IBARRA Date: 2022-11-07 14:54[facility]03-29-2022 History of Present illness Narrative* Mayelin Rosen APRN.ITEM PROCESSOR - 10/28/2021 11:34 AM EDT MEDICAL BREAST PATIENT NAME: Pj Lopez REASON FOR VISIT: Annual Exam and Mammogram HISTORY of PRESENT ILLNESS: Pj Lopez is a 76 year old year 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 [...] encounter) is as follows: Breast biopsy: Yes, 01/05-[facility] Breast cysts: No Breast surgery: Yes, Right PM with ALND Breast cancer: Yes, Stage I (T 1c N 0 M 0) in 2005, treated as above CANCER SURVEILLANCE: Mammograms: Yes, Date in [facility]: 10/22/20; results - negative Breast MRI: [...] mg ORAL Tab Take one(1) tablet daily. Qomfmzb-Jyoxdmsops-Ldzo 333-133-5 mg ORAL Tab dose unknown - [...] which included preparing to see the patient, yvuc-zs-bymx patient care, completing clinical documentation, obtaining and/or [...] Health Nurse Practitioner CC: Michael Rivas MD ([facility]) [address] [place] [address] documented in [facility]03-29-2022 Instructions* Patient Instructions* Paola Cloud Ma [...] TP53, CDH1, STK11, PALB2, CHEK2, JADE) Per [facility] High Risk Care Path recommendations, screening [...] male breast cancer you are of Ashkenazi Taoist descent HEALTHY LIFESTYLE MANAGEMENT (per NCCN Guidelines [...] include but are not limited to: The [facility] Comprehensive Breast Cancer Program - my.[email or web address]/services/arbizr-lhzzkw-woiyanf [facility] Affairs [facility] - komennecaGreen A.org Hong [place]er Cancer Society - cancer.org PANDA Breast Cancer Foundations - jdbcfoundation.org FORCE - facingourrisk.org Bright [place] - brightpink.org Young Survival Coalition - youngsurvival.org 4th Sotero - 4thangel.org The Gathering Place - touchedbycancer.org ([place]) The Victory Center - thevictorycenter.org ([place] area) [facility] - yellowbrickplace.org ([place] area) [facility] - stewartscaringplace.org ([place] area) If you would like to compliment one of our caregivers you encountered today, you may do so at [email or web address]. Thank you ! documented in [facility]03-29-2022 Nurse Note* Paola Cloud Ma - [...] occasional Drug use: No [facility] Diagnosis Encounter for screening mammogram for breast cancer- Primary Fibrocystic breast changes, bilateral documented in this encounter [facility] note* Diagnosis Fibrocystic breast changes, bilateral- Primary Personal history of malignant neoplasm of breast Encounter for screening mammogram for breast cancer documented in this encounter [facility] note* Diagnosis Encounter for screening mammogram for breast cancer- Primary documented in this encounter [facility] note* Diagnosis Fibrocystic breast changes, bilateral- Primary Personal history of malignant neoplasm of breast Encounter for screening mammogram for breast cancer Family history of breast cancer in sister Family history of malignant neoplasm of breast documented in this encounter [facility] noteNo [facility] [employer] Other Evaluation note* Diagnosis Obesity, Class I, BMI 30-34.9- Primary Atrial fibrillation, unspecified type (CMS/HCC) Hypertension, unspecified type High risk medication use Persistent atrial fibrillation (CMS/HCC) Atrial fibrillation documented in this encounter [facility] Work Phone: Evaluation note* Diagnosis Atrial fibrillation, unspecified type (CMS/HCC) Hypertension, unspecified type High risk medication use Obesity, unspecified classification, unspecified obesity type, unspecified whether serious comorbidity present Never smoked tobacco documented in this encounter [facility] Work Phone: History general Narrative - Reported* [...] History COLONOSCOPY Hospitalization History SEE SURGICAL HX [facility] Other History general Narrative - Reported* Type [...] COLONOSCOPY 2016 Hospitalization History SEE SURGICAL HX [facility] Other Reason for referral (narrative)* Diagnostic Procedure Only (Routine) - Authorized Specialty Diagnoses / Procedures Referred By Errol benson Referred To Contact [facility] Diagnoses Encounter for screening mammogram for breast cancer Fibrocystic breast changes, bilateral Procedures KENDRA SCREENING SCREENING MAMMOGRAPHY BI 2-VIEW BREAST INC [facility] Mayelin Rosen APRN.CNP [address] [place] [address] [facility] [address] [place] [address] Referral ID Status Reason Start Date Expiration Date Visits Requested Visits Authorized [id number] Authorized Auto-Generat ed Referral 10/22/2021 11/21/2022 1 1 [facility] for referral (narrative)* Diagnostic Procedure Only (Routine) - Authorized Specialty Diagnoses / Procedures Referred By Errol benson Referred To Contact [facility] Diagnoses Encounter for screening mammogram for breast cancer Procedures KENDRA SCREENING SCREENING MAMMOGRAPHY BI 2-VIEW BREAST INC Mayelin Cummings APRN.CNP [address] [place] [address] [facility] [address] [place] [address] Referral ID Status Reason Start Date Expiration Date Visits Requested Visits Authorized [id number] Authorized Auto-Generat ed Referral 11/10/2022 12/10/2023 1 1 [facility] for referral (narrative)* Diagnostic Procedure Only (Routine) - Closed Specialty Diagnoses / Procedures Referred By Errol benson Referred To Contact [facility] Diagnoses Encounter for screening mammogram for breast cancer Procedures KENDRA SCREENING W MAX SCREENING DIGITAL BREAST TOMOSYNTHESIS BI SCREENING MAMMOGRAPHY BI 2-VIEW BREAST INC CAD Mayelin Rosen APRN.CNP [address] [place] [address] [facility] [address] [place] [address] Referral ID Status Reason Start Date Expiration Date V isits Requested Visits Authorized [id number] Closed Auto-Generate d Referral 11/20/2022 12/20/2023 1 1 [facility] for referral (narrative)* Reason *FU 09/17 Referral for new onset atrial fibrillation Diagnosis 1 New onset atrial fib rillation (I48.91) Referral Organization [facility] Medical C vanessa Referring Provider First Name Michael Referring Provider Last Name Kailash Referring Provider Specialty Internal Me dicine Referred Organization [facility] enter Referred Provider Judy Castro Referred Address [address],[address] Referred Provider Specialty Cardiac Surg ailyn Referral [...] labs, EKG, E cho and stress test [facility] Other Reason for referral (narrative)* Consultation (Routine) - Authorized Specialty Diagnoses / Procedures Referred By Contac t Referred To Contact Cardiology Diagnoses Atrial fibrillation, unspecified type (CMS/HCC) Procedures Follow Up In Cardiology Judy Castro MD [address], [place] [address] [place] [address] Judy Castro MD [address], [place] [address] [place] [address] Referral ID Status Reason Start Date Expiration Date V isits Requested Visits Authorized [id number] Authorized 10/29/2023 10/28/2024 1 1 [facility] Work Phone: Advance Directives Documents on File Type Date Recorded Patient 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 Guide Expl anation Advance Directive(s) 07/14/2013 7:01 PM Documents on File Type Date Recorded Patient Ski Guide Expl anation Advance Directive(s) 07/14/2013 7:01 PM Summary Purpose Family History No Family History Records FoundNo Family History Records FoundNo Family History Records Found Reason for Referral Specialty Diagnoses / Procedures Referred By Contac t Referred To Contact Diagnoses Atrial fibrillation, unspecified type (CMS/HCC) Procedures ECG 12 Lead Judy Castro MD [address], [address] [address] Referral ID Status Reason Start Date Expiration Date V isits Requested Visits Authorized [id number] Authorized 09/24/2023 09/23/2024 1 1 Referral ID Status Reason Start Date Expiration Date V isits Requested Visits Authorized [id number] Authorized 09/24/2023 09/23/2024 1 1 Specialty Diagnoses / Procedures Referred By Contac t Referred To Contact Cardiology Diagnoses Atrial fibrillation, unspecified type (CMS/HCC) Procedures Follow Up In Cardiology Judy Castro MD [address], [address] [address] Judy Castro MD [address], [address] [address] Referral ID Status Reason Start Date Expiration Date V isits Requested Visits Authorized [id number] Authorized 09/24/2023 09/23/2024 1 1 Additional Source Comments Source Comments (unrecognize d section and content) In the event this informatio n is protected by the Federal Confidentiality of Alcohol and Drug Abuse Patient Records regulations: The Federal rules restrict any use of the information to criminally investigate or prosecute any alcohol or drug abuse patient.[facility] Hospital[facility] the event this information is protected by the Federal Confidentiality of Alcohol and Drug Abuse Patient Records regulations: The Federal rules restrict any use of the information to criminally investigate or prosecute any alcohol or drug abuse patient.[facility] HospitalIn the event this information is protected by the Federal Confidentiality of Alcohol and Drug Abuse Patient Records regulations: The Federal rules restrict any use of the information to criminally investigate or prosecute any alcohol or drug abuse patient.[facility] HospitalIn the event this information is protected by the Federal Confidentiality of Alcohol and Drug Abuse Patient Records regulations: The Federal rules restrict any use of the information to criminally investigate or prosecute any alcohol or drug abuse patient.[facility] HospitalIn the event this information is protected by the Federal Confidentiality of Alcohol and Drug Abuse Patient Records regulations: The Federal rules restrict any use of the information to criminally investigate or prosecute any alcohol or drug abuse patient.[facility] Care Teams (unrecognized sec tion and content) Manager Professional Development Relationship Specialty Start Date End Date Michael Rivas DO PCP - General Internal Medicine 12/19/10 Manager Professional Development Relationship Specialty Start Date End Date Michael Rivas DO PCP - General Internal Medicine 12/19/10 Manager Professional Development Relationship Specialty Start Date End Date Michael Rivas DO PCP - General Internal Medicine 12/19/10 Manager Professional Development Relationship Specialty Start Date End Date Michael Rivas DO PCP - General Internal Medicine 12/19/10 Manager Professional Development Relationship Specialty Start Date End Date Michael Rivas DO PCP - General Internal Medicine 12/19/10 Manager Professional Development Relationship Specialty Start Date End Date Michael Rivas DO [address] [place] [address] [place] [address] PCP - General Internal Medicine 09/14/23 Manager Professional Development Relationship Specialty Start Date End Date Michael Rivas DO [address] [facility] [address] [facility] A [place] [id number] PCP - General Internal Medicine 09/14/23 Reason [...] Procedures ECG 12 Lead Judy Castro MD [address] [place] [address] 2, [address] [address] Referral ID Status Reason Start Date Expiration Date V isits Requested Visits Authorized [id number] Authorized 09/24/2023 09/23/2024 1 1 Reason Comments Follow-up symptoms Specialty Diagnoses / Procedures Referred By Contac t Referred To Contact Cardiology Diagnoses Atrial fibrillation, unspecified type (CMS/HCC) Procedures Follow Up In Cardiology Judy Castro MD [address] [facility] 2, [address] [address] Judy Castro MD [address] [facility] 2, [address] [address] Referral ID Status Reason Start Date Expiration Date V isits Requested Visits Authorized [id number] Authorized 09/24/2023 09/23/2024 1 1 INFORMATION SOURCE (unrecogn ized section and content) DATE CREATED AUTHOR 11/25/2022 [facility] DATE CREATED AUTHOR AUTHOR'S ORGANIZ ATION 11/28/2022 [facility] DATE CREATED AUTHOR AUTHOR'S ORGANIZ ATION 10/02/2023 [facility] FOR RECORDS PERTAINING TO PATIENTS WHO [...] THE PRIMARY CLINICAL RECORDS. [facility] [employer] [facility]. provides no warranty or guarantee of the accuracy or completeness of information in this document.
[2023-11-04 14:23] LABS: Amylase 35 U/L (25-115)
--- NOTE | 2023-11-04 14:42 | ECG_ITS ---
[facility] Test Date: 2023-11-04 Pat Name: PJ LOPEZ Department: Room: [facility] Gender: Female Unit Receptionist: : 1945 Requested By: LISBET GREEN Order Number: [id number] Reading MD: LISBET GREEN Measurements Intervals [place] Rate: 132 P: -[id number] IA: -[id number] QRS: 89 QRSD: 86 T: -69 QT: 286 QTc: 364 Interpretive Statements [id number] Atrial fibrillation with rapid ventricular response Inferolateral ST depression, can't exclude myocardial ischemia 9150 abnormal ECG Electronically Signed On 11-05-2023 6:55:19 EDT by LISBET GREEN
[2023-11-04 15:27] LABS: Ammonia 37 umol/L (11-32)
[2023-11-04 15:49] LABS: Partial Thromboplastin Time 51.4 sec (22.3-36.2)
[2023-11-04 15:50] LABS: INR 4.42; Prothrombin Time 43.1 sec (9.0-11.6)
[2023-11-04] MEDS: LACTATED RINGER'S SOLUTION 1,000 ML 100 ML IV (17:17)
[2023-11-04] MEDS: PIPERACILLIN SODIUM/TAZOBACTAM 3.375 GM in 0.9 % SODIUM CHLORIDE 50 ML IV ×2 (17:17→23:14)
--- NOTE | 2023-11-04 18:00 | DIETREC ---
Recommend 237 mL Ensure Original BID.
--- NOTE | 2023-11-04 18:29 | P.HP_ITS ---
HPI H&P: HPI History of Present Illness Chief complaint: LOWER BACK PAIN Narrative: Patient presented to the emergency room with about a protracted course so over a month of just not feeling well.? Fairly recently she was diagnosed with atrial fibrillation she was placed on a couple medications, she just assumed she was not tolerating those but knew she needed to keep taking the medication.? When symptoms became worse she presented to the emergency room.? In the emergency room.? CT scan shows abdominal ascites with multiple areas of possible metastatic disease.? Patient mated for nausea and pain control and dehydration When I saw the patient up on the medical surgical floor, she was resting comfortably, some pain, difficulty taking a deep breath secondary to the abdominal swelling. Opioid HPI Opioid Management Most Recent Opioid Data: Last Pain Scale 5 11/04/23 18:37 Last Pain Assessment 11/04/23 18:06 Last MAR Pain Assessment 11/04/23 18:37 [facility] Medical History (Updated 11/04/23 @ 13:55 by Amrita Green RN) History of fall ?Z91.81 - History of falling (ICD-10) Diverticulosis ?K57.90 - Diverticulosis of intestine, part unspecified, without perforation or abscess without bleeding (ICD-10) Hypertension ?I10 - Essential (primary) hypertension (ICD-10) Atrial fibrillation ?I48.91 - Unspecified atrial fibrillation (ICD-10) Breast cancer ?C50.919 - Malignant neoplasm of unspecified site of unspecified female breast (ICD-10) Surgical History (Updated 11/04/23 @ 13:55 by Amrita Green RN) H/O bilateral breast reduction surgery ?Z98.890 - Other specified postprocedural states (ICD-10) H/O: hysterectomy ?Z90.710 - Acquired absence of both cervix and uterus (ICD-10) H/O lumpectomy ?Z98.890 - Other specified postprocedural states (ICD-10) H/O tubal ligation ?Z98.51 - Tubal ligation status (ICD-10) History of tonsillectomy ?Z90.89 - Acquired absence of other organs (ICD-10) Family History (Updated 11/04/23 @ 12:22 by Amrita Green RN) Mother Family history of hypertension Family history of cancer Father Family history of hypertension Sister Family history of hypertension Family history of cancer Brother Family history of hypertension Social History (Updated 11/04/23 @ 12:22 by Amrita Green RN) Within the past year, how often did you have a drink containing alcohol: never Score interpretation: A score less than 3 is consistent with normal alcohol consumption. Smoking status: Never smoker Non-prescribed substance use: denies use Highest level of school completed/degree received: high school graduate Meds Home Medications and Allergies Home Medications ?Medication ?Instructions ?Recorded ?Confirmed ?Type digoxin 125 mcg (0.125 mg) tablet 0.125 mg PO DAILY 11/04/23 11/04/23 History diltiazem HCl 240 mg 240 mg PO QDAY 11/04/23 11/04/23 History capsule,extended release 24 hr flecainide 50 mg tablet 50 mg PO BID 11/04/23 11/04/23 History losartan 50 mg tablet 50 mg PO DAILY 11/04/23 11/04/23 History metoprolol succinate 50 mg 50 mg PO DAILY 11/04/23 11/04/23 History tablet,extended release 24 hr ondansetron 4 mg disintegrating 4 mg translingual Q6H PRN nausea 11/04/23 11/04/23 History tablet and vomiting warfarin 5 mg tablet (Jantoven) 5 mg PO DAILY 11/04/23 11/04/23 History Allergies Allergy/AdvReac Type Severity Reaction Status Date / Time No Known Drug Allergies Allergy Verified 11/04/23 07:35 Exam Constitutional Vital Signs, click to edit/add: Last Vital Signs Temp 98.5 F 11/04/23 14:18 Pulse 100 H 11/04/23 14:18 Resp 16 11/04/23 14:18 BP 132/81 11/04/23 14:18 Pulse Ox 95 11/04/23 16:59 O2 Del Method Room Air 11/04/23 16:59 Documenting provider has reviewed patient's vital signs: yes Common normals: no apparent distress Respiratory Common normals: normal respiratory effort and no retractions Cardio Common normals: regular rate GI Common normals: negative for Normal to inspection, nondistended, normoactive bowel sounds present, negative for soft to palpation and tender Palpation: firm, tender and ascites present Neuro Common normals: oriented x3 and CN's II-XII intact bilaterally Results Labs Labs: Short CBC 11/04/23 Range/Units 07:43 WBC 14.5 H (4.0-11.0) 10^3/uL Hgb 14.2 (12.0-16.0) g/dL Hct 42.3 (36.0-48.0) % Plt Count 314 (150-450) 10^3/uL BMP 11/04/23 07:43 Sodium 137 Potassium 3.5 Chloride 99 Carbon Dioxide 27.7 BUN 15.0 Creatinine 0.92 Glucose 112 H Calcium 9.1 Liver Function 11/04/23 Range/Units 07:43 Total Bilirubin 1.0 (0.2-1.0) mg/dL AST 248 H (15-37) U/L ALT 57 (14-59) U/L Alkaline Phosphatase 168 H (46-116) U/L Albumin 2.7 L (3.4-5.0) g/dL Urine 11/04/23 Range/Units 10:27 Urine Color Yellow (YELLOW) Urine Clarity Clear (CLEAR) Urine pH 5.5 (5.0-9.0) Ur Specific [place] 1.015 (1.005-1.025) Urine Protein Trace (NEG/TRACE) mg/dL Urine Glucose (UA) Negative (NEGATIVE) mg/dL Assessment and Plan Assessment and Plan (1) Abdominal pain: (2) Cancer, metastatic to liver: Plan Sinus tachycardia, leukocytosis, positive lactate, elevated liver function test, intra-abdominal ascites with appears to be metastatic disease.? She does have a history of breast cancer but this was 18 years ago.? She has not had any recent scans however though.? Will check tumor markers.? Pain control. Dehydration-continue with IV fluids.? Will start patient on antibiotics secondary to the positive lactate and leukocytosis.? Start patient on Reglan [id number].? Phenergan as needed.? Ondansetron was not effective History of breast cancer-workup as an outpatient with oncology Atrial fibrillation-rate currently controlled, she does have Coumadin toxicity- will hold Coumadin today. Elevated liver function test with hyperammonemia-this is likely related to the liver mass's. Repeat labs in a.m.
[2023-11-04] MEDS: METOCLOPRAMIDE HCL 10 MG/2 ML VIAL IVP ×2 (18:37→23:14)
[2023-11-04] MEDS: HYDROMORPHONE HCL 0.5 MG/0.5 ML SYRINGE IV (18:37)
[2023-11-04] MEDS: FLECAINIDE ACETATE 50 MG TABLET PO (20:50)
[2023-11-05] VITALS (14 sets, daily range): BP systolic 111–133; BP diastolic 74–84; PULSE 88–126; TEMP 36.3–36.5; O2SAT 90–97
[2023-11-05] MEDS: LACTATED RINGER'S SOLUTION 1,000 ML 100 ML IV (03:53)
[2023-11-05 04:08] LABS: AFP, Serum, Tumor Marker 32.7 ng/mL (0.0-9.2)
[2023-11-05 04:08] LABS: CEA 2.2 ng/mL (0.0-4.7)
[2023-11-05 05:08] LABS: CA 19-9 181501 U/mL (0-35)
[2023-11-05] MEDS: METOCLOPRAMIDE HCL 10 MG/2 ML VIAL IVP ×2 (05:55→11:33)
[2023-11-05] MEDS: PIPERACILLIN SODIUM/TAZOBACTAM 3.375 GM in 0.9 % SODIUM CHLORIDE 50 ML IV (06:00)
[2023-11-05 06:20] LABS: INR 4.04; Prothrombin Time 39.6 sec (9.0-11.6)
[2023-11-05 06:31] LABS: Digoxin 0.4 ng/mL (0.9-2.0)
--- NOTE | 2023-11-05 09:02 | CM.NOTE ---
Rounds made with Dr. Lin. Jemma with c/o nausea and constipation. Dr. Lin to add Lactulose. Dr. Lin reviewed labs with Jemma and need to follow up with Dr. Botello. Jemma verbalizes understanding.
[2023-11-05] MEDS: DIGOXIN 125 MCG TABLET PO (09:04)
[2023-11-05] MEDS: LOSARTAN POTASSIUM 50 MG TABLET PO (09:04)
[2023-11-05] MEDS: METOPROLOL SUCCINATE 50 MG TAB.ER.24H PO (09:04)
--- NOTE | 2023-11-05 09:55 | CT_ITS ---
[address] [address] Patient Name: PJ LOPEZ MRN: [id number] date: 1945 Sex: F Assigned Patient Location: Current Patient Location: Accession/Order Number: [id number] Exam Date: 11/05/2023 10:40 Report Date: 11/05/2023 11:23 At the request of: HIMA POWELL Procedure: CT chest wo con EXAMINATION: CT chest wo con HISTORY: staging for cancer COMPARISON: CT abdomen pelvis 11/04/2023. TECHNIQUE: Multi-planar CT images were obtained without and/or with IV contrast as indicated by examination type. Axial, Coronal, and Sagittal images. Dose reduction techniques were achieved by using automated exposure control and/or adjustment of mA and/or kV according to patient size and/or use of iterative reconstruction technique. FINDINGS: LUNGS: Right middle lobe lobular 1.8 cm nodule. Several nodules within left lower lobe, largest is 3.1 cm. Additional nodules are 1.3 cm, 1.4 cm, and 0.7 cm. 2.3 cm nodule within left lower lobe. PLEURA: No mass, effusion, or pneumothorax. VASCULATURE: No abnormality. MAYA: No mass or adenopathy. MEDIASTINUM: No mass or adenopathy. CARDIAC: No enlargement, pericardial thickening, or significant calcification. AORTA: No aneurysm or dissection. CHEST WALL: No mass or axillary adenopathy. BONES: No bone lesion or fracture. LIMITED ABDOMEN: Numerous hypodense lesions throughout the liver. Small amount of free fluid within upper abdomen. Stable large left adrenal mass, nonspecific. Large benign-appearing right renal cyst. Limited images of the upper abdomen. OTHER: Negative. CT/CT chest wo con IMPRESSION: 1. Multiple nodules scattered within the lungs; nonspecific but suspicious for metastatic disease. No appreciable hilar or mediastinal adenopathy. 2. Innumerable liver lesions suspected to represent neoplasm. 3. Nonspecific left adrenal mass. Please see the 11/04/2023 CT abdomen and pelvis report. Electronically authenticated by: CINTHIA IBARRA Date: 11/05/2023 11:23
--- NOTE | 2023-11-05 09:57 | P.DS_ITS ---
DS: Providers Provider Date of admission: 11/04/23 11:55 Primary care physician: Michael Linder DO Consults: 11/04/23 Consult to Dietitian Routine Reason For Exam: Weight loss Reason for consultation: weight loss 11/04/23 13:34 Occupational Therapy Eval and Treat Routine Reason for consultation: Only if needed for Rehab Has provider been notified: No Physical Therapy Eval and Treat Routine Reason for consultation: Eval and Treat Has provider been notified: No 11/04/23 13:39 Consult to Oncology Routine Consulting Provider: Kasia Flannery Reason for consultation: mets Has provider been notified: No DS: Diagnosis Discharge Diagnosis (1) Abdominal pain: (2) Cancer, metastatic to liver: Plan Sinus tachycardia, leukocytosis, positive lactate, elevated liver function test, intra-abdominal ascites with appears to be metastatic disease.? She does have a history of breast cancer but this was 18 years ago.? She has not had any recent scans however though.? Will check tumor markers.? Pain control. Dehydration-continue with IV fluids.? Will start patient on antibiotics secondary to the positive lactate and leukocytosis.? Start patient on Reglan [id number].? Phenergan as needed.? Ondansetron was not effective History of breast cancer-workup as an outpatient with oncology Atrial fibrillation-rate currently controlled, she does have Coumadin toxicity- will hold Coumadin today. Elevated liver function test with hyperammonemia-this is likely related to the liver mass's. Repeat labs in a.m. ? DS: Summary Hospital Course Hospital Course: Patient was seen and evaluated in the emergency room with abdominal pain, pressure, recurrent nausea and vomiting. Workup in ER found patient to have likely metastatic process to liver. No mass was noted on the pancreas. CA 19-9 and alpha-fetoprotein both came back positive, the CA 19-9 is over 100,000. She also had leukocytosis and significant tenderness throughout her abdomen that is actually improved today. Will send patient home with antibiotics however. Patient also had Coumadin toxicity, will cut back on her Coumadin back down to 2-1/2 instead of 5 mg a day. Likely going to have some coagulopathy related to her liver metastases. Patient if she tolerates breakfast and lunch she will be discharged home. Pain medications written for. She has a visit with oncology on Wednesday. Patient likely with metastatic pancreatic cancer Time Spent with Patient Time attestation: Total time spent providing and/or coordinating discharge services: Exam Constitutional Vital Signs, click to edit/add: Last Vital Signs Temp 97.5 F L 11/05/23 09:06 Pulse 99 H 11/05/23 09:55 Resp 18 11/05/23 09:06 BP 111/74 11/05/23 09:06 Pulse Ox 95 11/05/23 09:06 O2 Del Method Room Air 11/05/23 09:06 O2 Flow Rate 1 11/04/23 23:50 Documenting provider has reviewed patient's vital signs: yes Common normals: no apparent distress Respiratory Common normals: normal respiratory effort and no retractions Cardio Common normals: regular rate GI Common normals: negative for Normal to inspection, nondistended, normoactive bowel sounds present, negative for soft to palpation and tender Palpation: firm, tender and ascites present Neuro Common normals: oriented x3 and CN's II-XII intact bilaterally DS: Data Data Completed and Pending Labs on day of discharge: Labs from last 24 hours 11/05/23 11/04/23 11/04/23 05:03 15:02 14:52 PT 39.6 H 43.1 H* INR 4.04 4.42 H* APTT 51.4 H* Lactate Ammonia 37 H Amylase Lipase Tumor Marker AFP 32.7 H Carcinoembryonic Ag 2.2 CA 19-9 Antigen 540399 H Urine Color Urine Clarity Urine pH Ur Specific [place] Urine Protein Urine Glucose (UA) Urine Ketones Urine Occult Blood Urine Nitrite Urine Bilirubin Urine Urobilinogen Ur Leukocyte Esterase Digoxin 0.4 L 11/04/23 11/04/23 10:35 10:27 PT INR APTT Lactate 1.3 Ammonia Amylase 35 Lipase 44.0 Tumor Marker AFP Carcinoembryonic Ag CA 19-9 Antigen Urine Color Yellow Urine Clarity Clear Urine pH 5.5 Ur Specific [place] 1.015 Urine Protein Trace Urine Glucose (UA) Negative Urine Ketones Trace A Urine Occult Blood Negative Urine Nitrite Negative Urine Bilirubin Negative Urine Urobilinogen 0.2 Ur Leukocyte Esterase Negative Digoxin Discharge Plan Discharge Disposition: Home, Self-Care Discharge Medications: New hydrocodone-acetaminophen 5-325 mg Tablet 1 tab PO Q4H PRN (Reason: pain) Qty: 42 0RF lactulose 10 gram/15 mL (15 mL) Solution 30 g PO BID Qty: 2880 11RF warfarin 2.5 mg tablet 2.5 mg PO DAILY Qty: 30 11RF metoclopramide HCl [Reglan] 10 mg tablet 10 mg PO ACHS Qty: 60 11RF promethazine 25 mg tablet 25 mg PO Q4H PRN (Reason: nausea) Qty: 60 11RF Continued losartan 50 mg tablet 50 mg PO DAILY metoprolol succinate 50 mg tablet extended release 24 hr 50 mg PO DAILY digoxin 125 mcg (0.125 mg) tablet 0.125 mg PO DAILY ondansetron 4 mg tablet,disintegrating 4 mg translingual Q6H PRN (Reason: nausea and vomiting) diltiazem HCl 240 mg capsule,extended release 24hr 240 mg PO QDAY flecainide 50 mg tablet 50 mg PO BID Discontinued warfarin [Jantoven] 5 mg tablet 5 mg PO DAILY Activity: increase activity as tolerated Diet: advance to your usual diet Print Language: Arabic Patient Instructions: Liver Cancer (DC) Forms: Portal Instructions Follow Up Appointments: Dr. Prudencio Perea. November 08 @ 12:00 , ext. [phone] Dr. Kailash Hollis. November 09 @ 11:15 Discharge Date/Time: 11/05/23 12:45
[2023-11-05] MEDS: LACTULOSE 10 GM/15 ML UD CUP 30 GM PO (10:12)
--- NOTE | 2023-11-05 11:37 | SWNOTE1 ---
SW met with pt to discuss dc needs. Pt is independent at home and has good family support at home. Pt voices she has no discharge needs at this time. SW to follow as needed. Medicare Outpatient Observation Notice reviewed and discussed with patient. Pt. verbalized understanding and signed the form. Original given to patient and copy placed in patient?s chart.
[2023-11-05] MEDS: HYDROCODONE/ACET 5-325 MG TABLET 1 TAB PO (12:10)
--- NOTE | 2023-11-09 15:18 | CM.DCFOLLOWU ---
1st attempt discharge follow up call, phone line was busy on 11/09/23
--- NOTE | 2023-11-10 15:50 | CM.DCFOLLOWU ---
Person spoke with: patient How are you feeling? still not feeling the greatest How is your pain? some pain Did you understand your discharge instructions? yes Do you have any questions about your discharge instructions? no Were you given any prescriptions at discharge? yes Were you able to get your prescriptions filled? yes Do you understand how to take your medications as ordered? yes Do you have any questions about your follow up appointment and do you plan to keep your follow up appointment? no questions, had follow up yesterday and today Is there anything else that you would like to discuss? no Questions/Comments/Concerns/Other: N/A
== END 2023-11-05 12:45 | disposition home or self-care (01) ==
LOC: ER 11:20 → MS 12:09
PROVIDERS: Admitting Provider Family Medicine; Emergency Provider Emergency Medicine Emergency Medical Services; PCP Internal Medicine; Visit Provider Family Medicine
DX: E86.0 Dehydration (principal); R10.11 Right upper quadrant pain; I48.91 Unspecified atrial fibrillation; Z79.01 Long term (current) use of anticoagulants; Z79.899 Other long term (current) drug therapy; K76.9 Liver disease, unspecified; C78.7 Secondary malignant neoplasm of liver and intrahepatic bile duct; R91.8 Other nonspecific abnormal finding of lung field; Z85.3 Personal history of malignant neoplasm of breast; R18.8 Other ascites; Z91.81 History of falling; I10 Essential (primary) hypertension; Z90.710 Acquired absence of both cervix and uterus; Z98.51 Tubal ligation status; R79.89 Other specified abnormal findings of blood chemistry; D72.829 Elevated white blood cell count, unspecified; R00.0 Tachycardia, unspecified; R10.12 Left upper quadrant pain; T45.515A Adverse effect of anticoagulants, initial encounter; E72.20 Disorder of urea cycle metabolism, unspecified; R11.2 Nausea with vomiting, unspecified; K57.30 Diverticulosis of large intestine without perforation or abscess without bleeding; E27.9 Disorder of adrenal gland, unspecified
CPT/HCPCS: 36415; 71250; 74177; 80053; 80162; 81001; 81003; 82105; 82140; 82150; 82378; 83605; 83690; 85025; 85610; 85730; 86301; 87040; 87086; 93005; 94667; 94668; 94761; 96361; 96365; 96366; 96375; 96376; 97165; 99285; G0378; J1170; Q9967

== ENCOUNTER 2023-11-16 16:30 | Observation (INO) | payer MEDICARE, SELFPAY ==
[2023-11-16 16:33] VITALS: BP 113/91; PULSE 83; TEMP 36.6; O2SAT 97; BMI 31.0
--- OUTSIDE RECORDS SUMMARY | 2023-11-16 16:50 | XMS_ITS | CCD ---
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 Name Role Phone Michael Rivas DO Primary Care Provider MAYELIN ROSEN Referring Unavailable MICHAEL RIVAS Primary Care Unavailable MAYELIN ROSEN Referring Unavailable MAYELIN ROSEN Attending Unavailable MICHAEL RIVAS Primary Care Unavailable Michael Rivas DR CINTHIA IBARRA Consulting Unavailable DIAB ., LEONELA Admitting Unavailable DIAB LEONELA Childers Attending Unavailable KAILASH, DR FRAUSTO Primary Care Unavailable DIAB .LEONELA Consulting Unavailable KAILASH, DR FRAUSTO Admitting Unavailable KAILASH, DR FRAUSTO Primary Care Unavailable KAILASH, DR FRAUSTO Consulting Unavailable KAILASH, DR FRAUSTO Attending Unavailable Michael Rivas DO Primary Care Provider JUDY CASTRO Attending MICHAEL Ortega Primary Care Unavailable JUDY CASTRO Attending Unavailable JUDY CASTRO Referring Unavailable MICHAEL RIVAS Primary Care Unavailable Allergies Allergy Classification Reported Allergen(s) Allergy Type Date of Onset Reaction(s) Facility (6 sources) Adhesive Tape-Silicones; Translations: [ADHESIVE TAPE-SILICONES] Drug Intolerance 3 Intolerance [facility] (5 sources) band-aids [Other] Propensity to adverse reactions 7 [facility] (1 source) OTHER; Translations: [OTHER] Propensity to adverse reactions (disorder) 7 [facility] Repository (2 sources) patient allergy list reviewed by nurse or physicia Propensity to adverse reactions 5 Comment:Done [employer] Other Medications Current Medications Medication Drug Class(es) Dates Sig (Normalized) Sig (Original) acetaminophen 325 mg / HYDROcodone bitartrate 5 mg oral tablet (1 source) Opioid Agonist Start: 11-10-2023 take 1 tablet by mouth every four hours Hydrocodone-Acet aminophen Active 1 TAB PO Every 4 hours November 10, 2023 12:00am atenolol 25 mg oral tablet (5 sources) beta-Adrenergic Vj take 1 tablet by mouth every twenty-four hours Atenolol 25 MG 1 tablet Orally Once a day Active digoxin 0.125 mg oral tablet (2 sources) Cardiac Glycoside Start: 10-29-2023 End: 10-28-2024 take 125 ug by mouth once daily Digoxin Active 125 MCG PO Daily November 10, 2023 12:00am flecainide acetate 50 mg oral tablet (3 sources) Antiarrhythmic Start: 11-10-2023 take 50 mg by mouth every twelve hours Flecainide Active 50 MG PO Every 12 hours November 10, 2023 12:00am Start: 09-24-2023 End: 09-23-2024 take 1 tablet by mouth twice daily flecainide (Tambocor) 50 mg tablet Indications: Atrial fibrillation, unspecified type (CMS/HCC) Take 1 tablet (50 mg) by mouth 2 times a day. 60 tablet 11 09/24/2023 09/23/2024 Active Start: 09-24-2023 End: 10-26-2023 take 50 mg by mouth every twelve hours Flecainide Discontinued 50 MG PO Every 12 hours 60 September 24, 2023 1:00am October 26, 2023 8:02pm lactulose 667 mg/ml oral solution (1 source) Osmotic Laxative Start: 11-10-2023 take 30 g by mouth twice daily Lactulose Active 30 GM PO Twice daily November 10, 2023 12:00am losartan potassium 50 mg oral tablet (18 sources) Angiotensin 2 Receptor Vj Start: 11-09-2022 take 50 mg by mouth once daily Losartan Active 50 MG PO Daily September 24, 2023 1:00am Comment on above: Take 50 mg by mouth once daily. metoclopramide 10 mg oral tablet (1 source) Dopamine-2 Receptor Antagonist Start: 11-10-2023 take 10 mg by mouth at bedtime Metoclopramide Hcl Active 10 MG PO .ACHS November 10, 2023 12:00am 24 hr metoprolol succinate 50 mg extended release oral tablet (8 sources) beta-Adrenergic Vj Start: 10-29-2023 End: 10-28-2024 take 50 mg by mouth once daily Metoprolol Succinate Active 50 MG PO Daily November 10, 2023 12:00am Start: 08-31-2023 take 1 tablet by jasen th every twenty-four hours Metoprolol Succinate ER 50 MG 1 tablet Orally Once a day Aug, Active End: 09-24-2023 take 1 tablet by mouth once daily metoprolol succinate XL (Toprol-XL) 50 mg 24 hr tablet Take 12.5 mg by mouth once daily. Do not crush or chew. 0 09/24/2023 Discontinued (Side effects) ondansetron 4 mg disintegrating oral tablet (2 sources) Serotonin-3 Receptor Antagonist Start: 10-26-2023 take 4 mg by mouth every six hours Ondansetron Active 4 MG PO Every 6 hours 19 12October 26, 2023 12:00am take 1 tablet by jasen th every eight hours as needed ondansetron (Zofran) 4 mg tablet Take 1 tablet (4 mg) by mouth every 8 hours if needed for nausea or vomiting. 0 Active promethazine hydrochloride 25 mg oral tablet (1 source) Phenothiazine Start: 11-10-2023 take 25 mg by mouth every four hours Promethazine Active 25 MG PO Every 4 hours November 10, 2023 12:00am warfarin sodium 2.5 mg oral tablet (2 sources) Vitamin K Antagonist Start: 11-10-2023 take 2.5 mg by mouth once daily Warfarin Active 2.5 MG PO Daily November 10, 2023 12:00am Start: 10-29-2023 warfarin (Coum kinjal) 5 mg tablet Indications: Atrial fibrillation, unspecified type (CMS/HCC) One tablet daily or 5 mg daily. To be followed by [facility] 14 tablet 0 10/29/2023 Active Completed/Discontinued Medications Medication Drug Class(es) Dates Sig (Normalized) Sig (Original) apixaban 5 mg oral tablet (8 sources) Factor Xa Inhibitor Start: End: take 1 tablet by mouth twice daily Apixaban (Eliquis) 5 mg tablet Discontinued 5 MG PO Twice daily 60 September 28, 2023 2:19pm November 10, 2023 11:26am ascorbic acid 1000 mg oral tablet (5 sources) Vitamin C Start: 7 take 1 tablet by mouth once daily Ascorbic Acid (VITAMIN C) 1,000 mg ORAL Tab Take one(1) tablet daily. 0 12/01/2006 Active Comment on above: Take one(1) tablet d ailwaldemar. Qwkpjeh-[id number]-Xcca 333-133-5 mg ORAL Tab (5 sources) Start: [...] hydrochloride 240 mg extended release oral capsule (3 sources) Calcium Channel Vj Start: 4 End: [...] Episodic Aortic; peripheral; and visceral artery aneurysms (13 sources) Ascending aorta dilatation; Translations: [Thoracic aortic ectasia] 11-06-2023 Chronic Cancer of breast (2 sources) Malignant neoplasm of female breast; Translations: [Malignant neoplasm of breast (female), unspecified site] Onset: 04-19-2014 Chronic Cancer of breast (20 sources) History of malignant neoplasm of breast; Translations: [Personal history of malignant neoplasm of breast] Onset: 08-02-2005 12-06-2007 Episodic Cardiac dysrhythmias (19 sources) Persistent atrial fibrillation; Translations: [Other persistent atrial fibrillation] Onset: 09-24-2023 Chronic Cardiac dysrhythmias (1 source) Tachycardia, unspecified Episodic E Codes: Fall (1 source) Other fall on same level, initial encounter; Translations: [OTHER FALL ON SAME LEVEL INITIAL] Onset: 11-10-2022 Episodic Essential hypertension (20 sources) Essential hypertension; Translations: [Essential (primary) hypertension] Onset: 11-10-2022 Chronic Gastrointestinal hemorrhage (14 sources) Hematochezia; Translations: [Melena] Onset: 12-30-2015 11-06-2023 Episodic Genitourinary symptoms and ill-defined conditions (3 sources) Dysuria; Translations: [Dysuria] Onset: 11-01-2015 Episodic Heart valve disorders (14 sources) Aortic valve disorder; Translations: [Nonrheumatic aortic (valve) stenosis] Onset: 12-16-2021 11-06-2023 Chronic Intracranial injury (4 sources) Concussion with [...] sources) Taking high risk medication; Translations: [Other supervisor intermediates (current) drug therapy] Onset: 09-24-2023 09-24-2023 Episodic Other aftercare (2 sources) Other skilled nursing (current) drug therapy; Translations: [Other supervisor intermediates (current) drug therapy] Onset: 09-24-2023 Episodic Other [...] mass index (BMI) 30.0-30.9, adult Chronic Other nutritional; endocrine; and metabolic disorders (2 sources) Obesity, unspecified; Translations: [Obesity, unspecified] Onset: 10-29-2023 Chronic Other screening for suspected conditions (not [...] specified health status] Onset: 10-29-2023 10-29-2023 Episodic Residual codes; unclassified (2 sources) Other specified health status; Translations: [Other specified health status] Onset: 10-29-2023 Episodic Secondary malignancies (1 source) Secondary malignant neoplasm of lung; Translations: [Secondary malignant neoplasm of unspecified lung] 11-07-2023 Chronic Secondary malignancies (1 source) Secondary malignant neoplasm of liver; Translations: [Secondary malignant neoplasm of liver and intrahepatic bile duct] 11-07-2023 Chronic Secondary malignancies (1 source) Secondary malignant neoplasm of liver and intrahepatic bile duct; Translations: [Malignant neoplasm of liver, secondary] 11-10-2023 Chronic Secondary malignancies (1 source) Secondary malignant neoplasm of unspecified lung; Translations: [Secondary malignant neoplasm of lung] 11-10-2023 Chronic Past or Other Problems Problem Classification Problem [...] Test Name Value Interpretation Reference Range Facility Activated partial thrombopla stin time (aPTT) in platelet poor plasma by coagulation aon 11-09-2023 aPTT Coag (PPP) [Time] 50.5 s 22.3-36.2 [facility] Comment on above: RESULTS CALLED TO TERESITA HYDE RN Basophils Auto (Bld) [#/Vol] on 11-09-2023 Basophils (Bld) [#/Vol] 0.0 10 3/uL 0.0-0.1 [facility] Basophils/100 WBC Auto (Bld) on 11-09-2023 Basophils/100 WBC (Bld) 0.2 % 0.2-2.0 [facility] Eosinophils/100 WBC Auto (Bl d)on 11-09-2023 Eosinophils/100 WBC (Bld) 0.3 % 0.9-7.0 [facility] Erythrocyte distribution wid th Auto (RBC) [Ratio]on 11-09-2023 Erythrocyte distribution width (RBC) [Ratio] 14.5 % 11.0-15.0 [facility] Estimated glomerular filtrat ion rate (GFR) non- Americanon 11-09-2023 GFR/1.73 sq M.predicted among non-blacks MDRD (S/P/Bld) [Vol rate/Area] 29 mL/min/{1.73_m2} >=60 [facility] Globulin Calc (S) [Mass/Vol] on 11-09-2023 Globulin (S) [Mass/Vol] 4.7 g/dL [facility] Hematocrit Auto (Bld) [Volum e fraction]on 11-09-2023 Hematocrit (Bld) [Volume fraction] 42.3 % 36.0-48.0 [facility] Hemoglobin [Mass/volume] in Bloodon 11-09-2023 Hemoglobin (Bld) [Mass/Vol] 13.8 g/dL 12.0-16.0 [facility] INR in Platelet poor plasma by Coagulation assayon 11-09-2023 INR Coag (PPP) [Relative time] 2.49 {INR} [facility] Comment on above: DESIRED INR:2.0-3.0 CONDITIONS NOT LISTED BELOW2.5-3.5 FOR PROSTHETIC HEART VALVE REPLACEMENT2.5-3.5 RECURRENT THROMBOSIS Laboratory - Chemistry and C hemistry - challengeon 11-09-2023 Albumin [Mass/Vol] 2.1 g/dL 3.4-5.0 [facility] ALP [Catalytic activity/Vol] 170 U/L 46-116 [facility] ALT [Catalytic activity/Vol] 69 U/L 14-59 [facility] AST [Catalytic activity/Vol] 236 U/L 15-37 [facility] Bilirubin [Mass/Vol] 0.8 mg/dL 0.2-1.0 [facility] Calcium [Mass/Vol] 9.6 mg/dL 8.5-10.1 [facility] Chloride [Moles/Vol] 96 mmol/L 98-107 [facility] CO2 [Moles/Vol] 28.5 mmol/L 21.0-32.0 [facility] Creatinine [Mass/Vol] 1.72 mg/dL 0.55-1.02 [facility] GFR/1.73 sq M.predicted MDRD (S/P/Bld) [Vol rate/Area] 35 mL/min/{1.73_m2} >=60 [facility] Glucose [Mass/Vol] 127 mg/dL 74-106 [facility] Potassium [Moles/Vol] 3.1 mmol/L 3.5-5.1 [facility] Protein [Mass/Vol] 6.8 g/dL 6.4-8.2 [facility] Sodium [Moles/Vol] 134 mmol/L 136-145 [facility] Urea nitrogen [Mass/Vol] 27.0 mg/dL 7.0-18.0 [facility] Urea nitrogen/Creatinin e [Mass ratio] 15.7 mg/mg [facility] Laboratory - Hematology and Cell countson 11-09-2023 Immature granulocytes/100 WBC (Bld) 0.7 % 0.0-0.5 [facility] Leukocytes [#/volume] correc shanelle for nucleated erythrocytes in Blood by Automated counon 11-09-2023 WBC corrected for nucl RBC Auto (Bld) [#/Vol] 14.8 10 3/uL 4.0-11.0 [facility] Lymphocytes Auto (Bld) [#/Vo l]on 11-09-2023 Lymphocytes (Bld) [#/Vol] 0.7 10 3/uL 1.2-3.8 [facility] Lymphocytes/100 WBC Auto (Bl d)on 11-09-2023 Lymphocytes/100 WBC (Bld) 4.9 % 20.5-60.0 [facility] MCH Auto (RBC) [Entitic mass ]on 11-09-2023 MCH (RBC) [Entitic mass] 32.6 pg 26.7-34.0 [facility] MCHC Auto (RBC) [Mass/Vol]on 11-09-2023 MCHC (RBC) [Mass/Vol] 32.6 g/dL 29.9-35.2 [facility] MCV Auto (RBC) [Entitic vol] on 11-09-2023 MCV (RBC) [Entitic vol] 100.0 fL 81.0-99.0 [facility] Monocytes Auto (Bld) [#/Vol] on 11-09-2023 Monocytes (Bld) [#/Vol] 1.4 10 3/uL 0.3-0.8 [facility] Monocytes/100 WBC Auto (Bld) on 11-09-2023 Monocytes/100 WBC (Bld) 9.4 % 1.7-12.0 [facility] Neutrophils Auto (Bld) [#/Vo l]on 11-09-2023 Neutrophils (Bld) [#/Vol] 12.5 10 3/uL 1.4-6.5 [facility] Neutrophils/100 WBC Auto (Bl d)on 11-09-2023 Neutrophils/100 WBC (Bld) 84.5 % 43.0-75.0 [facility] No Panel Informationon 11-08 Eosinophils # (Auto) 0.1 10 3/uL 0.0-0.7 [facility] Immature Granulocyte # (Auto) 0.10 10 3/uL 0.00-0.03 [facility] Platelet mean volume Auto (B ld) [Entitic vol]on 11-09-2023 Platelet mean volume (Bld) [Entitic vol] 10.7 fL 9.5-13.5 [facility] Platelets Auto (Bld) [#/Vol] on 11-09-2023 Platelets (Bld) [#/Vol] 323 10 3/uL 150-450 [facility] Prothrombin time (PT)on PT Coag (PPP) [Time] 25.1 s 9.0-11.6 [facility] RBC Auto (Bld) [#/Vol]on RBC (Bld) [#/Vol] 4.23 10 6/uL 4.20-5.40 [facility] Serum or plasma albumin/glob ulin mass ratioon 11-09-2023 Albumin/Globulin [Mass ratio] 0.4 {ratio} [facility] Serum or plasma anion gap de terminationon 11-09-2023 Anion gap [Moles/Vol] 12.6 mmol/L [facility] INR in Platelet poor plasma by Coagulation assayon 11-05-2023 INR Coag (PPP) [Relative time] 4.04 {INR} [facility] Comment on above: DESIRED INR:2.0-3.0 CONDITIONS NOT LISTED BELOW2.5-3.5 FOR PROSTHETIC HEART VALVE REPLACEMENT2.5-3.5 RECURRENT THROMBOSIS No Panel Informationon 11-04 Digoxin Level 0.4 ng/mL 0.9-2.0 [facility] Prothrombin time (PT)on PT Coag (PPP) [Time] 39.6 s 9.0-11.6 [facility] Activated partial thrombopla stin time (aPTT) in platelet poor plasma by coagulation aon 11-04-2023 aPTT Coag (PPP) [Time] 51.4 s 22.3-36.2 [facility] Comment on above: RESULTS CALLED TO SA RA DEGROOT/[place] IN MED SURG Automated urine specific gra vity by refractometryon 11-04-2023 Specific gravity Refractometry automated (U) [Rel density] 1.015 1.005-1.025 [facility] Basophils Auto (Bld) [#/Vol] on 11-04-2023 Basophils (Bld) [#/Vol] 0.0 10 3/uL 0.0-0.1 [facility] Basophils/100 WBC Auto (Bld) on 11-04-2023 Basophils/100 WBC (Bld) 0.3 % 0.2-2.0 [facility] Bilirubin Auto test strip (U ) [Mass/Vol]on 11-04-2023 Bilirubin (U) [Mass/Vol] Negative NEGATIVE [facility] Color Auto (U)on 11-04-2023 Color (U) YELLOW YELLOW [facility] Eosinophils/100 WBC Auto (Bl d)on 11-04-2023 Eosinophils/100 WBC (Bld) 0.3 % 0.9-7.0 [facility] Erythrocyte distribution wid th Auto (RBC) [Ratio]on 11-04-2023 Erythrocyte distribution width (RBC) [Ratio] 14.0 % 11.0-15.0 [facility] Estimated glomerular filtrat ion rate (GFR) non- Americanon 11-04-2023 GFR/1.73 sq M.predicted among non-blacks MDRD (S/P/Bld) [Vol rate/Area] 59 mL/min/{1.73_m2} >=60 [facility] Globulin Calc (S) [Mass/Vol] on 11-04-2023 Globulin (S) [Mass/Vol] 4.0 g/dL [facility] Hematocrit Auto (Bld) [Volum e fraction]on 11-04-2023 Hematocrit (Bld) [Volume fraction] 42.3 % 36.0-48.0 [facility] Hemoglobin [Mass/volume] in Bloodon 11-04-2023 Hemoglobin (Bld) [Mass/Vol] 14.2 g/dL 12.0-16.0 [facility] INR in Platelet poor plasma by Coagulation assayon 11-04-2023 INR Coag (PPP) [Relative time] 4.42 {INR} [facility] Comment on above: RESULTS CALLED TO SA RA DEGROOT/[place] IN MED SURGDESIRED INR:2.0-3.0 CONDITIONS NOT LISTED BELOW2.5-3.5 FOR PROSTHETIC HEART VALVE REPLACEMENT2.5-3.5 RECURRENT THROMBOSIS Ketones Auto test strip (U) [Mass/Vol]on 11-04-2023 Ketones (U) [Mass/Vol] TRACE mg/dL NEGATIVE [facility] Laboratory - Chemistry and C hemistry - challengeon 11-04-2023 Ammonia (P) [Moles/Vol] 37 umol/L 11-32 [facility] Amylase [Catalytic activity/Vol] 35 U/L 25-115 [facility] Lactate [Moles/Vol] 1.3 mmol/L 0.4-2.0 [facility] Lipase [Catalytic activity/Vol] 44.0 U/L 16.0-77.0 [facility] Albumin [Mass/Vol] 2.7 g/dL 3.4-5.0 [facility] ALP [Catalytic activity/Vol] 168 U/L 46-116 [facility] ALT [Catalytic activity/Vol] 57 U/L 14-59 [facility] AST [Catalytic activity/Vol] 248 U/L 15-37 [facility] Bilirubin [Mass/Vol] 1.0 mg/dL 0.2-1.0 [facility] Calcium [Mass/Vol] 9.1 mg/dL 8.5-10.1 [facility] Chloride [Moles/Vol] 99 mmol/L 98-107 [facility] CO2 [Moles/Vol] 27.7 mmol/L 21.0-32.0 [facility] Creatinine [Mass/Vol] 0.92 mg/dL 0.55-1.02 [facility] GFR/1.73 sq M.predicted MDRD (S/P/Bld) [Vol rate/Area] mL/min/{1.73_m2} >=60 [facility] Glucose [Mass/Vol] 112 mg/dL 74-106 [facility] Potassium [Moles/Vol] 3.5 mmol/L 3.5-5.1 [facility] Protein [Mass/Vol] 6.7 g/dL 6.4-8.2 [facility] Sodium [Moles/Vol] 137 mmol/L 136-145 [facility] Urea nitrogen [Mass/Vol] 15.0 mg/dL 7.0-18.0 [facility] Urea nitrogen/Creatinin e [Mass ratio] 16.3 mg/mg [facility] Laboratory - Hematology and Cell countson 11-04-2023 Immature granulocytes/100 WBC (Bld) 0.6 % 0.0-0.5 [facility] Leukocytes [#/volume] correc shanelle for nucleated erythrocytes in Blood by Automated counon 11-04-2023 WBC corrected for nucl RBC Auto (Bld) [#/Vol] 14.5 10 3/uL 4.0-11.0 [facility] Lymphocytes Auto (Bld) [#/Vo l]on 11-04-2023 Lymphocytes (Bld) [#/Vol] 1.0 10 3/uL 1.2-3.8 [facility] Lymphocytes/100 WBC Auto (Bl d)on 11-04-2023 Lymphocytes/100 WBC (Bld) 6.7 % 20.5-60.0 [facility] MCH Auto (RBC) [Entitic mass ]on 11-04-2023 MCH (RBC) [Entitic mass] 32.5 pg 26.7-34.0 [facility] MCHC Auto (RBC) [Mass/Vol]on 11-04-2023 MCHC (RBC) [Mass/Vol] 33.6 g/dL 29.9-35.2 [facility] MCV Auto (RBC) [Entitic vol] on 11-04-2023 MCV (RBC) [Entitic vol] 96.8 fL 81.0-99.0 [facility] Monocytes Auto (Bld) [#/Vol] on 11-04-2023 Monocytes (Bld) [#/Vol] 1.4 10 3/uL 0.3-0.8 [facility] Monocytes/100 WBC Auto (Bld) on 11-04-2023 Monocytes/100 WBC (Bld) 9.8 % 1.7-12.0 [facility] Neutrophils Auto (Bld) [#/Vo l]on 11-04-2023 Neutrophils (Bld) [#/Vol] 12.0 10 3/uL 1.4-6.5 [facility] Neutrophils/100 WBC Auto (Bl d)on 11-04-2023 Neutrophils/100 WBC (Bld) 82.3 % 43.0-75.0 [facility] No Panel Informationon 11-03 Urine Microscopic Review NO [facility] Digoxin Level 0.5 ng/mL 0.9-2.0 [facility] Eosinophils # (Auto) 0.1 10 3/uL 0.0-0.7 [facility] Immature Granulocyte # (Auto) 0.08 10 3/uL 0.00-0.03 [facility] Platelet mean volume Auto (B ld) [Entitic vol]on 11-04-2023 Platelet mean volume (Bld) [Entitic vol] 10.5 fL 9.5-13.5 [facility] Platelets Auto (Bld) [#/Vol] on 11-04-2023 Platelets (Bld) [#/Vol] 314 10 3/uL 150-450 [facility] Protein Auto test strip (U) [Mass/Vol]on 11-04-2023 Protein (U) [Mass/Vol] TRACE mg/dL NEG/TRACE [facility] Prothrombin time (PT)on PT Coag (PPP) [Time] 43.1 s 9.0-11.6 [facility] Comment on above: RESULTS CALLED TO SA RA DEGROOT/[place] IN MED SURG RBC Auto (Bld) [#/Vol]on RBC (Bld) [#/Vol] 4.37 10 6/uL 4.20-5.40 [facility] Serum or plasma albumin/glob ulin mass ratioon 11-04-2023 Albumin/Globulin [Mass ratio] 0.7 {ratio} [facility] Serum or plasma [id number] protein tumor marker measurement (mass/volume)on 11-04-2023 AFP.tumor marker [Mass/Vol] 32.7 ng/mL 0.0-9.2 [facility] Comment on above: [employer] El ectrochemiluminescence Immunoassay(ECLIA)Values obtained with different assay methods or kits cannotbe used interchangeably. Results cannot be interpreted asabsolute evidence of the presence or absence of malignantdisease.This test is not interpretable in females.Performed at: [facility] [employer] [id number] Director: Paul Moore PhD, Phone: [phone] Serum or plasma anion gap de terminationon 11-04-2023 Anion gap [Moles/Vol] 13.8 mmol/L [facility] Serum or plasma cancer antig en 19-9 measurement (units/volume)on 11-04-2023 Cancer Ag 19-9 Qn [id number] [arb'U]/mL 0-35 [facility] Comment on above: Results confirmed on dilution.[employer] Electrochemiluminescence Immunoassay(ECLIA)Values obtained with different assay methods or kits cannotbe used interchangeably. Results cannot be interpreted asabsolute evidence of the presence or absence of malignantdisease.Performed at: [employer] [id number] Director: Paul Moore PhD, Phone: [phone] Specific gravity Auto test s trip (U) [Rel density]on 11-04-2023 Specific gravity (U) [Rel density] CLEAR CLEAR [facility] Urine glucose measurement by test strip (mass/volume)on 11-04-2023 Glucose Test strip (U) [Mass/Vol] Negative NEGATIVE [facility] Urine hemoglobin detection b y automated test stripon 11-04-2023 Hemoglobin Auto test strip Ql (U) Negative NEGATIVE [facility] Urine nitrite detection by a utomated test stripon 11-04-2023 Nitrite Auto test strip Ql (U) Negative NEGATIVE [facility] Urobilinogen Auto test strip (U) [Mass/Vol]on 11-04-2023 Urobilinogen Qn (U) 0.2 {Barbara'U}/dL 0.2-1.0 [facility] pH Auto test strip (U)on pH (U) 5.5 [pH] 5.0-9.0 [facility] ECG 12 Leadon 09-24-2023 ECG revealed atrial fibrillation with RVR [facility] Work Phone: Urinalysis - DIPSTICKon 08-03 Appearance (U) clear [employer] Other Bilirubin Ql (U) Negative [employer] Other Color (U) pale yellow [employer] Other Glucose Ql (U) Negative [employer] Other Hemoglobin Ql (U) Negative [employer] Other Ketones Ql (U) Negative [employer] Other Leukocyte esterase Test strip Ql (U) Negative [employer] Other Nitrite Ql (U) Negative [employer] Other pH (U) 5.0 [pH] [employer] Other Protein Ql (U) Negative [employer] Other Specific gravity (U) [Rel density] 1.010 [employer] Other Urobilinogen (U) [Mass/Vol] 0.2 mg/dL [employer] Other Urinalysis - DIPSTICK [employer] Other CNCOon 11-20-[address] [facility] HNO ID: [id number] Author: Mammography Coordinator Service: ? Author Type: Physician Type: Letter Filed: 11/23/2022 11:37 PM Note Text: November 23, 2022 PID: [id number] Pj Lopez [address] [place] [id number] Dear Alvarado Martíneztt, We are pleased to inform you that [...] report will be kept on file at [facility] as part of your permanent medical record and are available for your continuing care. Thank you for allowing us to help in meeting your health care needs. Sincerely, Dr. 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 [...] encounter) is as follows: Breast biopsy: Yes, 01/05-[facility] Breast cysts: No Breast surgery: Yes, Right PM with ALND Breast cancer: Yes, Stage I (T 1c N 0 M 0) in 2005, treated as above CANCER SURVEILLANCE: Mammograms: Yes, Date in [facility]: 10/28/21; results - negative Breast MRI: [...] HISTORY Pro (more content not included)... Normal [facility] SCREENING W TOMOon 11-20 [facility] SCREENING W MAX * * *Final Report* * * DATE OF EXAM: Nov 20 2022 12:21PM SSW [id number] - KENDRA SCREENING W MAX / PROCEDURE REASON: Encounter for screening mammogram for breast cancer * * * * Physician Interpretation * * * * RESULT: #[id number] - [facility] SCREENING W MAX BILATERAL DIGITAL SCREENING [...] mammogram, 07/06/2017 mammogram, and 06/16/2016 mammogram - [facility]. There are scattered fibroglandular elements in both breasts. There are benign post operative findings in both breasts. No significant masses, calcifications, or other findings are seen in either breast. There has been no significant interval change. IMPRESSION: BENIGN FINDING There is no mammographic evidence of malignancy. A 1 year screening mammogram is recommended. Yaz Tesfaye M.D. pt/penrad:11/20/2022 12:38:01 Driver Operator(s): RT Royal(R)(M), [facility] letter sent: Normal over 40 Mammogram [...] Health, Family Medicine, and Medical/Surgical Oncology, the [facility] has carefully reviewed the [...] their providers when to stop screening mammograms. Drum Handler: Jonnie Transcribe Date/Time: Nov 20 2022 12:11P Dictated by: YAZ TESFAYE MD This examination was interpreted and the report reviewed and electronically signed by: YAZ TESFAYE MD on Nov 20 2022 12:38PM EST [id number] Normal [facility] CT PELVIS WO CONon 3 CT PELVIS WO CON EXAMINATION: CT PELV IS WO CON HISTORY: Fracture of pelvis , [...] CINTHIA IBARRA Date: 2022-11-07 16:35 Normal [facility] CBC AUTO DIFFon 12-11-2021 BASO # 0.0 103/ul Normal 0.0-0.1 [facility] Comment on above: Performed By: #### C BC #### [facility] [address] [address] [address] Karishma Langley Basophils/100 WBC (Bld) 0.6 % Normal 0.2-2.0 [facility] Comment on above: Performed By: #### C BC #### [facility] [address] [address] [address] Karishma Langley EO # 0.2 103/ul Normal 0.0-0.7 [facility] Comment on above: Performed By: #### C BC #### [facility] [address] [place] [address] Dr. Karishma Langley Eosinophils/100 WBC (Bld) 3.0 % Normal 0.9-7.0 [facility] Comment on above: Performed By: #### C BC #### [facility] [address] [place] [address] Dr. Karishma Langley Erythrocyte distribution width (RBC) [Ratio] 12.2 % Normal 11.0-15.0 [facility] Comment on above: Performed By: #### C BC #### [facility] [address] [place] [address] Dr. aKrishma Langley Hematocrit (Bld) [Volume fraction] 39.9 % Normal 36.0-48.0 [facility] Comment on above: Performed By: #### C BC #### [facility] [address] [place] [address] Dr. Karishma Langley Hemoglobin (Bld) [Mass/Vol] 13.0 g/dL Normal 12.0-16.0 [facility] Comment on above: Performed By: #### C BC #### [facility] [address] [place] [address] Dr. Karishma Langley IG # 0.01 10e3/ul Normal 0.00-0.03 [facility] Comment on above: Performed By: #### C BC #### [facility] [address] [place] [address] Dr. Karishma Langley IG % 0.2 % Normal 0.0-0.5 [facility] Comment on above: Performed By: #### C BC #### [facility] [address] [place] [address] Dr. Karishma Langley LYMPH # 1.5 103/ul Normal 1.2-3.8 [facility] Comment on above: Performed By: #### C BC #### [facility] [address] [place] [address] Dr. Karishma Langley Lymphocytes/100 WBC (Bld) 27.3 % Normal 20.5-60.0 [facility] Comment on above: Performed By: #### C BC #### [facility] [address] [place] [address] Dr. Karishma Langley MANUAL DIFF REQ NO Normal [facility] Comment on above: Performed By: #### C BC #### [facility] [address] [place] [address] Dr. Karishma Langley MCH (RBC) [Entitic mass] 32.1 pg Normal 26.7-34.0 [facility] Comment on above: Performed By: #### C BC #### [facility] [address] [place] [address] Dr. Karishma Langley MCHC (RBC) [Mass/Vol] 32.6 g/dL Normal 29.9-35.2 [facility] Comment on above: Performed By: #### C BC #### [facility] [address] [place] [address] Dr. Karishma Langley MCV (RBC) [Entitic vol] 98.5 fL Normal 81.0-99.0 [facility] Comment on above: Performed By: #### C BC #### [facility] [address] [place] [address] Dr. Karishma Langley MONO # 0.7 103/ul Normal 0.3-0.8 [facility] Comment on above: Performed By: #### C BC #### [facility] [address] [place] [address] Dr. Karishma Langley Monocytes/100 WBC (Bld) 12.4 % Critically high 1.7-12.0 [facility] Comment on above: Performed By: #### C BC #### [facility] [address] [place] [address] Dr. Karishma Langley NEUT # 3.0 103/ul Normal 1.4-6.5 [facility] Comment on above: Performed By: #### C BC #### [facility] [address] [place] [address] Dr. Karishma Langley Neutrophils/100 WBC (Bld) 56.5 % Normal 43.0-75.0 [facility] Comment on above: Performed By: #### C BC #### [facility] [address] [place] [address] Dr. Karishma Langley Platelet mean volume (Bld) [Entitic vol] 10.3 fL Normal 9.5-13.5 [facility] Comment on above: Performed By: #### C BC #### [facility] [address] [place] [address] Dr. Karishma Langley PLT 275 103/ul Normal 150-450 [facility] Comment on above: Performed By: #### C BC #### [facility] [address] [place] [address] Dr. Karishma Langley RBC 4.05 106/ul Critically low 4.20-5.40 [facility] Comment on above: Performed By: #### C BC #### [facility] [address] [place] [address] Dr. Karishma Langley WBC 5.3 103/ul Normal 4.0-11.0 [facility] Comment on above: Performed By: #### C BC #### [facility] [address] [place], [place] [id number] Dr. Karishma Langley ECHOCARDIO M/2D COMPLETEon 0 12-11-2021 ECHOCARDIO M/2D COMPLETE Patient: PJ LOPEZ Exam Date: 12/11/2021 : 1945 Gender:F Ordering : DR MICHAEL RIVAS D.O. Admission #: [id number] Family : Order #: [id number] CLICK HERE TO VIEW EXAM ECHOCARDIOGRAM REPORT [...] Area(A4C): 23.20 cm2 Left Atrium Systolic Volume(A2C): 57380 mm3 Left Atrium Systolic Volume(A4C): 92889 mm3 Mitral Valve MV E to A [...] Ulloa M.D. on 12/11/2021 at 14:32 Normal [facility] PROF CHEM 8 (BAS METB)on Anion gap [Moles/Vol] 13.5 mmol/L Normal [facility] Comment on above: Performed By: #### B MP #### [facility] [address] [address] [address] Karishma Langley Calcium [Mass/Vol] 9.0 mg/dL Normal 8.5-10.1 [facility] Comment on above: Performed By: #### B MP #### [facility] [address] [address] [address] Karishma Langley Chloride [Moles/Vol] 105 mmol/L Normal 98-107 [facility] Comment on above: Performed By: #### B MP #### [facility] [address] [address] [address] Karishma Langley CO2 [Moles/Vol] 24.3 mmol/L Normal 21.0-32.0 [facility] Comment on above: Performed By: #### B MP #### [facility] [address] [address] [address] Karishma Langley Creatinine [Mass/Vol] 0.87 mg/dL Normal 0.55-1.02 [facility] Comment on above: Performed By: #### B MP #### [facility] [address] [address] [address] Karishma Langley EGFR-AF OMANI >60 Normal >=60 [facility] Comment on above: Performed By: #### B MP #### [facility] [address] [address] [address] Karishma Langley EGFR-NON AF OMANI >60 Normal >=60 [facility] Comment on above: Performed By: #### B MP #### [facility] [address] [address] [address] Karishma Langley Glucose [Mass/Vol] 100 mg/dL Normal 74-106 [facility] Comment on above: Performed By: #### B MP #### [facility] [address] [address] [address] Karishma Langley Potassium [Moles/Vol] 3.8 mmol/L Normal 3.5-5.1 [facility] Comment on above: Performed By: #### B MP #### [facility] [address] [address] [address] Karishma Langley Sodium [Moles/Vol] 139 mmol/L Normal 136-145 [facility] Comment on above: Performed By: #### B MP #### [facility] [address] [address] [address] Karishma Langley Urea nitrogen [Mass/Vol] 22.0 mg/dL Critically high 7.0-18.0 [facility] Comment on above: Performed By: #### B MP #### [facility] [address] [address] [address] Karishma Langley Urea nitrogen/Creatinin e [Mass ratio] 25.3 mg/mg Normal [facility] Comment on above: Performed By: #### B MP #### [facility] [address] [place] [address] Dr. Karishma Langley Vital Signs Date Time Vital Sign Value Performing Clinician Facility 11-10-2023 11:27-0400 Body height 158.75 cm [facility] 11-10-2023 11:27-0400 Body mass index (BMI) [Ratio] 30.7 kg/m2 [facility] 11-10-2023 11:27-0400 Body weight 77.28 kg [facility] 11-10-2023 11:27-0400 Diastolic blood pressure 75 mm[Hg] [facility] 11-10-2023 11:27-0400 Heart rate 102 /min [facility] 11-10-2023 11:27-0400 Respiratory rate 16 /min [facility] 11-10-2023 11:27-0400 Systolic blood pressure 124 mm[Hg] [facility] 10-29-2023 09:37-0400 Body height 154.9 cm Judy Castro MD Work Phone: [facility] 10-29-2023 09:37-0400 Body mass index (BMI) [Ratio] 31.86 kg/m2 Judy Castro MD Work Phone: [facility] 10-29-2023 09:37-0400 Body weight 76.48 kg Judy Castro MD Work Phone: [facility] 10-29-2023 09:37-0400 Diastolic blood pressure 92 mm[Hg] Judy Castro MD Work Phone: [facility] 10-29-2023 09:37-0400 Heart rate 100 /min Judy Castro MD Work Phone: [facility] 10-29-2023 09:37-0400 Systolic blood pressure 142 mm[Hg] Judy Castro MD Work Phone: [facility] 09-24-2023 10:59-0500 Diastolic blood pressure 86 mm[Hg] Judy Castro MD Work Phone: [facility] 09-24-2023 10:59-0500 Systolic blood pressure 136 mm[Hg] Judy Castro MD Work Phone: [facility] 09-24-2023 10:15-0500 Body height 154.9 cm Judy Castro MD Work Phone: [facility] 09-24-2023 10:15-0500 Body mass index (BMI) [Ratio] 32.31 kg/m2 Judy Castro MD Work Phone: [facility] 09-24-2023 10:15-0500 Body weight 77.56 kg Judy Castro MD Work Phone: [facility] 09-24-2023 10:15-0500 Heart rate 131 /min Judy Castro MD Work Phone: [facility] 09-08-2023 09:00-0500 Body height 158.75 cm Michael Ball Other [facility] [employer] Other 09-08-2023 09:00-0500 Body mass index (BMI) [Ratio] 31.24 kg/m2 Michael Ball Other [employer] Other 09-08-2023 09:00-0500 Body weight 78.74 kg Michael Ball Other [employer] Other 09-08-2023 09:00-0500 Diastolic blood pressure 87 mm[Hg] Michael Ball Other [employer] Other 09-08-2023 09:00-0500 Respiratory rate 12 /min Michael Ball Other [employer] Other 09-08-2023 09:00-0500 Systolic blood pressure 142 mm[Hg] Michael Ball Other [employer] Other 08-24-2023 10:00-0500 Body height 158.75 cm Michael Ball Other [facility] 08-24-2023 10:00-0500 Body mass index (BMI) [Ratio] 30.63 kg/m2 Michael Ball Other [facility] Other 08-24-2023 10:00-0500 Body weight 77.2 kg Michael Ball Other [facility] 08-24-2023 10:00-0500 Diastolic blood pressure 105 mm[Hg] Michael Ball Other [facility] 08-24-2023 10:00-0500 Respiratory rate 12 /min Michael Ball Other [facility] Other 08-24-2023 10:00-0500 Systolic blood pressure 152 mm[Hg] Michael Ball Other [facility] 11-25-2022 10:30-0400 Body height 158.75 cm Michael Ball Other [facility] Other 11-25-2022 10:30-0400 Body mass index (BMI) [Ratio] 31.17 kg/m2 Michael Ball Other [facility] Other 11-25-2022 10:30-0400 Body weight 78.56 kg Michael Ball Other [facility] Other 11-25-2022 10:30-0400 Diastolic blood pressure 81 mm[Hg] Michael Ball Other [facility] Other 11-25-2022 10:30-0400 Respiratory rate 12 /min Michael Ball Other [employer] Other 11-25-2022 10:30-0400 Systolic blood pressure 177 mm[Hg] Michael Ball Other [employer] Other Encounters Encounter Date Encounter Type Care Provider Facility Start: 11-10-2023 End: 11-10-2023 ambulatory [facility] Work Phone: Start: 11-10-2023 End: 11-10-2023 Patient encounter procedure [facility] Work Phone: Start: 11-09-2023 Non-patient / Non-visit [facility] Physician [facility] Work Phone: Start: 11-09-2023 Non-patient / Non-visit [facility] Physician [facility] [employer] Work Phone: Start: 11-05-2023 Non-patient / Non-visit [facility] Physician [facility] [employer] Work Phone: Start: 11-04-2023 Non-patient / Non-visit [facility] Physician [facility] [employer] Work Phone: Start: 10-29-2023 End: 10-29-2023 ambulatory [facility] Start: 10-29-2023 End: 10-29-2023 Office outpatient visit 25 minutes Judy Castro MD Work Phone: [facility] Comment on above: Atrial fibrillation, unspecified type (CMS/HCC); Hypertension, unspecified type; High risk medication use; Obesity, unspecified classification, unspecified obesity type, unspecified whether serious comorbidity present; Never smoked tobacco Start: 10-26-2023 End: 10-26-2023 ambulatory Michael Rivas Other [facility] Other Start: 10-26-2023 Telephone encounter Michael Rivas [facility] Start: 09-30-2023 Non-patient / Non-visit [facility] Physician [facility] [employer] Work Phone: Start: 09-24-2023 End: 09-24-2023 ambulatory [facility] Start: 09-24-2023 End: 09-24-2023 Office outpatient new 45 minutes Judy Castro MD Work Phone: [facility] Comment on above: Obesity, Class I, BM I 30-34.9 (Primary Dx); Atrial fibrillation, unspecified type (CMS/HCC); Hypertension, unspecified type; High risk medication use; Persistent atrial fibrillation (CMS/HCC) Start: 09-13-2023 End: 09-13-2023 ambulatory Michael Rivas Other [employer] Other Start: 09-13-2023 Telephone encounter Michael Rivas [facility] Start: 09-10-2023 End: 09-10-2023 ambulatory Michael Rivas Other [employer] Other Start: 09-10-2023 Telephone encounter Michael DUONG [facility] Start: 09-08-2023 End: 09-08-2023 ambulatory Michael Rivas Other [employer] Other Start: 09-08-2023 Office outpatient vi sit 25 minutes Michael Rivas [facility] Start: 08-31-2023 End: 08-31-2023 ambulatory Michael Rivas Other [employer] Other Start: 08-31-2023 Telephone encounter Michael DUONG [facility] Start: 08-24-2023 End: 08-24-2023 ambulatory Michael Rivas Other [employer] Other Start: 08-24-2023 Patient encounter procedure Michael Rivas [facility] Start: 08-24-2023 End: 08-24-2023 Patient encounter procedure [facility]- Start: 08-17-2023 End: 08-17-2023 ambulatory Michael Rivas Other [employer] Other Start: 08-17-2023 Telephone encounter Michael Rivas [facility] Start: 05-18-2023 End: 05-18-2023 ambulatory Michael Rivas Other [employer] Other Start: 05-18-2023 Telephone encounter Michael Rivas [facility] Start: 12-03-2022 End: 12-03-2022 ambulatory Michael Rivas Other [employer] Other Start: 12-03-2022 Telephone encounter Michael Rivas AD [facility] Start: 11-25-2022 End: 11-25-2022 ambulatory Michael Rivas Other [employer] Other Start: 11-25-2022 Office outpatient vi sit 15 minutes Michael Kailash CLAUDIA [facility] Start: 11-20-2022 Documentation procedure Mammog may Coordinator [facility] Start: 11-20-2022 Letter encounter Mammography Coordinator [facility] Department Start: 11-20-2022 End: 11-20-2022 ambulatory MAYELIN ROSEN Facility:[facility] Start: 11-20-2022 End: 11-20-2022 Patient encounter procedure Mayelin Rosen STRATEGIC INSIGHTS LEAD.BOTTOM TURNING LATHE TENDER Work Phone: [facility] Comment on above: Fibrocystic breast c hanges, bilateral (Primary Dx); Personal history of malignant neoplasm of breast; Encounter for screening mammogram for breast cancer; Family history of breast cancer in sister Start: 11-10-2022 Orders Only Mayelin perez APRN.BOTTOM TURNING LATHE TENDER Work Phone: [facility] Comment on above: Encounter for screen ing mammogram for breast cancer (Primary Dx) Start: 11-07-2022 End: 11-07-[address] CINTHIA IBARRA Facility:[facility] Start: 12-11-2021 End: 12-12-[address] MICHAEL RIVAS Facility:[facility] Start: 12-03-2021 Adult health examination Broderick Rivas Other [employer] Other Start: 10-28-2021 End: 10-28-2021 Patient encounter procedure Mayelin Rosen STRATEGIC INSIGHTS LEAD.BOTTOM TURNING LATHE TENDER Work Phone: [facility] Comment on above: Fibrocystic breast c hanges, bilateral (Primary Dx); Personal history of malignant neoplasm of breast; Encounter for screening mammogram for breast cancer Start: 10-22-2021 Orders Only Mayelin perez BOTTOM TURNING LATHE TENDER Work Phone: [facility] Comment on above: Encounter for screen ing mammogram for breast cancer (Primary Dx); Fibrocystic breast changes, bilateral Procedures Date Procedure Procedure Detail Performing Clinician Start: 11-04-2023 Carcinoembryonic antigen cea Comment on above: Nonsmokers <3.9 Smokers <5.6[employer] Electrochemiluminescence Immunoassay(ECLIA)Values obtained with different assay methods or kitscannot be used interchangeably. Results cannot beinterpreted as absolute evidence of the presence orabsence of malignant disease.Performed at: [facility] [id number] Director: Paul Moore PhD, Phone: [phone] Start: 10-29-2023 FOLLOW UP IN CARDIOLOGY JUDY CASTRO Start: 09-24-2023 ECG 12-LEAD JUDY CASTRO Start: 09-24-2023 Ecg routine ecg w/least 12 lds w/i&r Judy Castro MD Work Phone: Start: 11-01-2015 Screening for malignant neoplasm of colon Michael Rivas Other Depression screening Dion Rivas Other Plan of Treatment Date Care Activity Detail Author Start: 03-28-2028 DTaP/Tdap/Td Vaccine s (3 - Tdap) DTaP/Tdap/Td Vaccines (3 - Tdap) [facility] Start: 01-03-2024 End: 01-03-2024 Patient encounter procedure 01/03/2024 1:20 PM EDT Office Visit [facility] [address] [facility] [address] [place] [address] Judy Castro MD [address] [facility] [address] [place] [address] [facility] Start: 11-19-2023 End: 11-19-2023 Patient encounter procedure 11/19/2023 10:10 AM EDT Office Visit [address] [place] [address] Judy Castro MD [address] [facility] [address] [place] [address] [facility] Start: 11-04-2023 Blood Culture 1 Blood Culture 1 [facility] Start: 11-04-2023 Blood Culture 2 Blood Culture 2 [facility] Start: 10-13-2023 End: 10-13-2023 Professional / ancillary services management 10/13/2023 2:00 PM EDT Ancillary Procedure [address] [place] [address] [facility] Start: 10-08-2023 End: 09-24-2024 ECG 12 Lead ECG 12 Lead ECG Routine Atrial fibrillation, unspecified type (CMS/HCC) Expected: 10/08/2023 (Approximate), Expires: 09/24/2024 [facility] Service Area Work Phone: Comment on above: Expected: 10/08/2023 (Approximate), Expires: 09/24/2024 Start: 04-02-2023 Influenza vaccination C [facility] Start: 08-02-2022 ADVANCE DIRECTIVE DISCUSSION ADVANCE DIRECTIVE DISCUSSION [facility] Start: 08-02-2022 DEPRESSION ASSESSMENT DEPRESSION ASS ESSMENT [facility] Start: 08-02-2021 ADVANCE DIRECTIVE DISCUSSION ADVANCE DIRECTIVE DISCUSSION [facility] Start: 04-02-2021 Influenza vaccination INFLUENZA (#1) [facility] Start: 07-10-2016 DIABETES SCREEN DIABETES SCREEN [facility] Start: 2009 Pneumococcal Vaccine : 65+ Years (1 - PCV) Pneumococcal Vaccine: 65+ Years (1 - PCV) [facility] Start: 2009 PNEUMOCOCCAL: 65+ (1 - PCV) PNEUMOCOCCAL: 65+ (1 - PCV) [facility] Start: 1994 SHINGRIX VACCINE (1 of 2) SHINGRIX VACCINE (1 of 2) [facility] Start: 1994 Zoster Vaccines (1 o f 2) Zoster Vaccines (1 of 2) [facility] Start: 1966 DTaP/Tdap/Td Vaccine s (1 - Tdap) DTaP/Tdap/Td Vaccines (1 - Tdap) [facility] Start: 1963 Urine microalbumin profile DTAP,TDAP,TD (1 - Tdap) [facility] Start: 1962 HEPATITIS C SCREENING HEPATITIS C [facility] Start: 1962 Hepatitis C screening Hepatitis C [facility] Start: 1956 Adult depression screening assessment DEPRESSION SCREENING [facility] Start: 1949 COVID-19 VACCINE (1) COVID-19 VACCIN E (1) [facility] Start: 1945 COVID-19 VACCINE (#1) COVID-19 VACCI NE (#1) [facility] Start: 1944 Lipid panel Lipid Panel [facility] Start: 1945 Medicare Annual Wellness Visit Medicare Annual Wellness Visit (AWV) [facility] Start: 1945 Screening for osteoporosis Bone Density Scan [facility] End: 12-10-2023 KENDRA SCREENING KENDRA SCREENING Radiology Routine Encounter for screening mammogram for breast cancer 1 Occurrences starting 11/10/2022 until 12/10/2023 [facility] Work Phone: Comment on above: 1 Occurrences starti ng 11/10/2022 until 12/10/2023 End: 11-21-2022 Screening mammography bi 2-view breast inc cad KENDRA SCREENING Radiology Routine Encounter for screening mammogram for breast cancer Fibrocystic breast changes, bilateral 1 Occurrences starting 10/22/2021 until 11/21/2022 [facility] Work Phone: Comment on above: 1 Occurrences starti ng 10/22/2021 until 11/21/2022 [facility] Immunizations Immunization Date Immunization Notes Care Provider Fili andujar 03-28-2018 diphtheria, tetanus toxoids and acellular pertussis vaccine, unspecified formulation Michael Rivas Other [facility] 01-13-2017 diphtheria, tetanus toxoids and acellular pertussis vaccine, unspecified formulation Michael Rivas Other [facility] Payers Date Payer Category Payer Private Health Insurance AETRENETTA Carty ETNA MEDICARE SUPPLEMENT [id number] 2019-Present [phone] [address] [address] [place] [address] Indemnity [id number] 2019 Private Health Insurance [id number] 2009 Medicare MEDICARE MEDICAR E A AND B [id number] 2009-Present [phone] [place] [address] Medicare [id number] 2009 Medicare [id number] 1959 Medicare [id number] 1959 Medicare [id number] 1959 Private Health Insurance [facility] [id number] 1944 Unknown [id number] 1944 Unknown [id number] 1944 Unknown [id number] 1944 Unknown [id number] Unknown [id number] Social History Date Type Detail Facility Start: 08-16-2018 End: 09-24-2023 Tobacco smoking status NHIS Never smoked tobacco [facility] Start: 10-23-2020 End: 10-29-2023 Alcohol intake Current drinker of alcohol (finding) [facility] Start: 1945 Sex Assigned At Not on file C [facility] Start: 08-16-2018 End: 09-24-2023 Tobacco use and exposure Smokeless tobacco non-user [facility] Start: 09-24-2023 End: 10-29-2023 Sex Assigned At [facility] Other Start: 09-24-2023 End: 10-29-2023 History of Social function [facility] Work Phone: Start: 09-24-2023 Alcohol Comment rare [facility] Work Phone: Start: 09-14-2023 End: 10-29-2023 Exposure to SARS-CoV-2 (event) Not sure [facility] Start: 1945 Sex Assigned At Female F [facility] Medical Equipment Procedure Code Equipment Code Equipment Original Text Equipment Identifier Dates [id number] Screw [id number] Start: 07-12-2013 Comment on above: Description: locking screw 2.7 x 40 [id number] 13681-Oaailvk Screw [id number] Start: 07-12-2013 Comment on above: [...] Description: 2.7 x 2 2 cortex screw [id number] 00333-Gfducpwxdse Screw [id number] Start: 07-12-2013 Comment on above: Description: 2.7 x 2 6 metaphyseal screw [id number] 51858-Zqkvli Head [id number] Start: [id number]-Saz5 5 24943-Wsocqec Screw [id number] Start: [id number]-Fpg1 5 30388-Npuevjbgasz Screw [id number] Start: 07-12-2013 Comment on above: Description: 2.7 x 1 8 0---Cortex Screw [id number] Start: 07-12-2013 Comment on above: Description: 3.5 x 1 8 0---Cortex Screw [id number] Start: [id number]-Fic6 5 68250-Kweuibapb Plate [id number] Start: 07-12-2013 Comment on above: Description: 4 hole plate [id number] 5 94343-Sajgqzn Screw [id number] Start: 07-12-2013 0--- 8 Hole Plate [id number] Start: 07-12-20139-000554535-Zyc4 5 05693-Cxjg Radl 7.5mm Evol Std Elb - [id number] Start: 07-12-2013 Clinical Notes 10-28-2021 to [...] Scribe Attestation By signing my name below, INeha LPN, Scribe attest that this documentation has [...] discussion and plan. documented in this encounter [facility] Work Phone: 10-29-2023 Instructions Neha Beckman [...] instructions on exercise. Stop Eliquis Start Coumadin- [facility]. Start 5 mg daily. Will take Eliquis and Coumadin Wednesday, Wed and Wednesday then stop Eliquis Stop Cardizem Start Metoprolol 50 mg daily Start Digoxin .125 mg daily Follow up 2 months documented in this encounter [facility] Work Phone: 09-24-2023 History of Present [...] as her main insurance will supplement from [employer]. She was given samples of Eliquis by [...] Attestation By signing my name below, I, Samson Jennings LPN attest that this documentation has been prepared [...] discussion and plan. documented in this encounter [facility] Work Phone: 09-24-2023 Instructions Neha Beckman [...] your visit. [facility] mg daily Stop Toprol Start Flecainide 50 mg one tablet two times daily EKG 2 weeks Follow up 6 weeks documented in this encounter [facility] Work Phone: 09-08-2023 Evaluation note Encounter [...] cancer (ICD-10 - Z85.3) No s/s recurrence. [facility] Other 01-30-2024 Evaluation note* Encounter Date Diagnosis Assessment Notes Treatment Notes Treatment Clinical Notes Aug, Persistent atrial fibrillation (ICD-10 - I48.19) [facility] Other 01-23-2024 Evaluation note* Encounter Date Diagnosis [...] patient on monthly SBE and yearly mammograms. [facility] Other 01-16-2024 Evaluation note* Encounter Date Diagnosis Assessment Notes Treatment Notes Treatment Clinical Notes Aug, Essential (primary) hypertension (ICD-10 - I10) [facility] Other 10-17-2023 Evaluation note* Encounter Date Diagnosis Assessment Notes Treatment Notes Treatment Clinical Notes May, Essential (primary) hypertension (ICD-10 - I10) [facility] Other 04-26-2023 Evaluation note* Encounter Date Diagnosis [...] reveal any pathologic findings to suspect mets [facility] Other 04-21-2023 NoteHNO ID: [id number] Author: Emmy Patrick Oxagen Service: ? Author Type: Automation And Controls Instructor Type: Progress Notes Filed: 11/20/2022 12:28 PM [...] DATA: Not applicable SIGNED BY: Emmy Patrick Oxagen November 20, 2022 12:28 [facility]04-21-2023 NoteHNO ID: [id number] Author: Mayelin Rosen APRN.BOTTOM TURNING LATHE TENDER Service: ? 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 [...] encounter) is as follows: Breast biopsy: Yes, 01/05-[facility] Breast cysts: No Breast surgery: Yes, Right PM with ALND Breast cancer: Yes, Stage I (T 1c N 0 M 0) in 2005, treated as above CANCER SURVEILLANCE: Mammograms: Yes, Date in [facility]: 10/28/21; results - negative Breast MRI: [...] cancer and mother dx uterine cancer in 's There is no family history of prostate, [...] Uterine Cancer Maternal Au (more content not included)...[facility]04-21-2023 Miscellaneous Notes* Letter - Mammography Coordinator - 11/20/2022 12:38 PM EDT November 23, 2022 PID: [id number] Pj Lopez [address] [place] [address] Dear Ms. Lopez, We are pleased to [...] report will be kept on file at [facility] as part of your permanent medical record and are available for your continuing care. Thank you for allowing us to help in meeting your health care needs. Sincerely, Dr. Tesfaye Interpreting Radiologist [facility] (Normal over 40) documented in this encounterLouis Stokes [facility]04-21-2023 Instructions* Patient Instructions* Paola [...] TP53, CDH1, STK11, PALB2, CHEK2, JADE) Per [facility] High Risk Care Path [...] male breast cancer you are of Ashkenazi Confucianist descent HEALTHY LIFESTYLE MANAGEMENT (per NCCN Guidelines [...] include but are not limited to: The [facility] Comprehensive Breast Cancer Program - [email or web address] [facility] - [facility].org [place] Cancer Society - cancer.org PANDA Breast Cancer Foundations - [email or web address] FORCE - facingourrisk.org [place] - brightpink.org Young Survival Coalition - youngsurvival.org 4th Sotero - 4thangel.[email or web address] The Gathering Place - touchedbycancer.org ([place] and [place]) The Victory Center - thevictorycenter.org ([place] area) [facility] [place] - yellowbrickplace.org ([place] area) [facility] - stewartscaringplace.org ([place] area) If you would like to compliment one of our caregivers you encountered today, you may do so at [email or web address]. Thank you ! 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 [...] encounter) is as follows: Breast biopsy: Yes, 01/05-[facility] Breast cysts: No Breast surgery: Yes, Right PM with ALND Breast cancer: Yes, Stage I (T 1c N 0 M 0) in 2005, treated as above CANCER SURVEILLANCE: Mammograms: Yes, Date in Epic: 10/28/21; results - negative Breast MRI: No [...] cancer and mother dx uterine cancer in 's There is no family history of prostate, [...] mg ORAL Tab Take one(1) tablet daily. Xtbiorv-Aivekomxej-Fsqk 333-133-5 mg ORAL Tab dose unknown - [...] which included preparing to see the patient, usgu-qu-tyyb patient care, completing clinical documentation, obtaining and/or reviewing separately obtained history, performing a medically appropriate examination, counseling and educating the pat ient/family/caregiver, ordering medications, tests, or procedures, communicating results to the patient/family/caregiver, and care coordination (not separately reported). Mayelin Rosen APRN.[facility] Medical Breast Specialist Women's Health Nurse Practitioner CC: Michael Rivas MD ([facility]) [address] [id number] documented in this encounterLouis Stokes [facility]04-08-2023 NotePROCEDURE: XR HIP LT [...] Electronically authenticated by: CINTHIA IBARRA Date: 2022-11-07 14:54[facility]03-29-2022 History of Present illness Narrative* Mayelin Rosen APRN.CNP - 10/28/2021 11:34 AM EDT MEDICAL BREAST PATIENT NAME: Pj Lopez REASON FOR VISIT: Annual Exam and Mammogram HISTORY of PRESENT ILLNESS: Pj Lopez is a 76 year old 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 [...] encounter) is as follows: Breast biopsy: Yes, 01/05-[facility] Breast cysts: No Breast surgery: Yes, Right PM with ALND Breast cancer: Yes, Stage I (T 1c N 0 M 0) in 2005, treated as above CANCER SURVEILLANCE: Mammograms: Yes, Date in [facility]: 10/22/20; results - negative Breast MRI: [...] mg ORAL Tab Take one(1) tablet daily. Erwrbwz-Fbdxmioqxv-Fodb 333-133-5 mg ORAL Tab dose unknown - [...] PTEN, TP53, CDH1, STK11,PALB2, CHEK2, JADE) Per [facility] High Risk Care Path recommendations, screening breast MRI may be considered for women underthe age of 65 with remaining breast tissue in the following situations: - Age at breast cancer diagnosis under 50 - Mammographically dense tissue (BI-RADS category 3 or 4) - History of invasive lobular breast cancer She doesn't meet [facility] care path guidelines for MRI of breast. [...] which included preparing to see the patient, srzl-fq-gtoj patient care, completing clinical documentation, obtaining and/or reviewing separately obtained history, performing a medically appropriate examination, counseling and educating the pat ient/family/caregiver, ordering medications, tests, or procedures, communicating with other HCPs (not separately reported), independently interpreting results (not separately reported), communicatingresults to the patient/family/caregiver and care coordination (not separately reported). Mayelin Rosen APRN.[facility] Medical Breast Specialist Women's Health Nurse Practitioner CC: Michael Rivas MD ([facility]) [address] [phone] documented in this encounterLouis Stokes [facility]03-29-2022 Instructions* Patient Instructions* Paola [...] TP53, CDH1, STK11, PALB2, CHEK2, JADE) Per [facility] High Risk Care Path [...] male breast cancer you are of Ashkenazi Confucianist descent HEALTHY LIFESTYLE MANAGEMENT (per NCCN Guidelines [...] include but are not limited to: The [facility] Comprehensive Breast Cancer Program - [email or web address] [facility] - [facility].org Tanz[place] Cancer Society - cancer.org PANDA Breast Cancer Foundations - [email or web address] FORCE - facingourrisk.org [place] - brightpink.org Young Survival Coalition - youngsurvival.org 4th Sotero - 4thangel.org The Gathering Place - touchedbycancer.org ([place] and [place]) [facility] Center - thevictorycenter.org ([place] area) [facility] - yellowbrickplace.org ([place] area) [facility] - stewartscaringplace.org ([place] area) If you would like to compliment one of our caregivers you encountered today, you may do so at [email or web address]. Thank you ! documented in this encounterLouis Stokes [facility] Center03-29-2022 Nurse Note* Paola Cloud Ma - 10/28/2021 11:24 AM EDT Last mammogram on: 10/22/20 Results: see report Is the patient active on [employer] Yes Electronically Signed By: Paola Cloud Ma [...] occasional Drug use: No documented in this encounterLouis [facility] CenterEvaludel[facility]* Diagnosis Encounter for screening mammogram for breast cancer- Primary Fibrocystic breast changes, bilateral documented in this encounter [facility]* Diagnosis Fibrocystic breast changes, bilateral- Primary Personal history of malignant neoplasm of breast Encounter for screening mammogram for breast cancer documented in this encounter [facility]* Diagnosis Encounter for screening mammogram for breast cancer- Primary documented in this encounter [facility]* Diagnosis Fibrocystic breast changes, bilateral- Primary Personal history of malignant neoplasm of breast Encounter for screening mammogram for breast cancer Family history of breast cancer in sister Family history of malignant neoplasm of breast documented in this encounter [facility]Eval[facility] noteNo [employer] Other Evaluation note* Diagnosis Obesity, Class I, BMI 30-34.9- Primary Atrial fibrillation, unspecified type (CMS/HCC) Hypertension, unspecified type High risk medication use Persistent atrial fibrillation (CMS/HCC) Atrial fibrillation documented in this encounter [facility] Work Phone: Evaluation note* Diagnosis Atrial fibrillation, unspecified type (CMS/HCC) Hypertension, unspecified type High risk medication use Obesity, unspecified classification, unspecified obesity type, unspecified whether serious comorbidity present Never smoked tobacco documented in this encounter [facility] Work Phone: Evaluation note* Diagnosis Onset Date Resolution Status Blood in stool acute 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 Persistent atrial fibrillation acute Primary hypertension acute [facility] Work Phone: Hisnmrk general Narrative - Reported* Type Description Date [...] History COLONOSCOPY Hospitalization History SEE SURGICAL HX [facility] Other Hisczlk general Narrative - Reported* Type Description Date [...] COLONOSCOPY 2016 Hospitalization History SEE SURGICAL HX [facility] Other Reason for referral (narrative)* Diagnostic Procedure Only (Routine) - Authorized Specialty Diagnoses / Procedures Referred By Contac t Referred To Contact [facility] Diagnoses Encounter for screening mammogram for breast cancer Fibrocystic breast changes, bilateral Procedures KENDRA SCREENING SCREENING MAMMOGRAPHY BI 2-VIEW BREAST INC CAD Mayelin Rosen, MAXIMILIAN.BOTTOM TURNING LATHE TENDER [address] [place] [address] [facility] [address] [place] [address] Referral ID Status Reason Start Date Expiration Date Visits Requested Visits Authorized [id number] Authorized Auto-Generat ed Referral 10/22/2021 11/21/2022 1 1 [facility] for referral (narrative)* Diagnostic Procedure Only (Routine) - Authorized Specialty Diagnoses / Procedures Referred By Contac t Referred To Contact [facility] Diagnoses Encounter for screening mammogram for breast cancer Procedures KENDRA SCREENING SCREENING MAMMOGRAPHY BI 2-VIEW BREAST INC [facility] Mayelin Rosen APRN.BOTTOM TURNING LATHE TENDER [address] [place] [address] [facility] [address] [place] [address] Referral ID Status Reason Start Date Expiration Date Visits Requested Visits Authorized [id number] Authorized Auto-Generat ed Referral 11/10/2022 12/10/2023 1 1 [facility] for referral (narrative)* Diagnostic Procedure Only (Routine) - Closed Specialty Diagnoses / Procedures Referred By Casandraac t Referred To Contact [facility] Diagnoses Encounter for screening mammogram for breast cancer Procedures KENDRA SCREENING W MAX SCREENING DIGITAL BREAST TOMOSYNTHESIS BI SCREENING MAMMOGRAPHY BI 2-VIEW BREAST INC [facility] Mayelin Rosen APRN.BOTTOM TURNING LATHE TENDER [address] [place] [address] [facility] [address] [place] [address] Referral ID Status Reason Start Date Expiration Date V isits Requested Visits Authorized [id number] Closed Auto-Generate d Referral 11/20/2022 12/20/2023 1 1 [facility] for referral (narrative)* Reason *FU 09/17 Referral for new onset atrial fibrillation Diagnosis 1 New onset atrial fib rillation (I48.91) Referral Organization [facility] Referring Provider First Name Michael Referring Provider Last Name Kailash Referring Provider Specialty Internal Me dicine Referred Organization [facility] enter Referred Provider Judy Castro Referred Address [address] [facility] [address] [place] [address] Referred Provider Specialty Cardiac Surg ailyn Referral [...] labs, EKG, E cho and stress test [facility] Other Reason for referral (narrative)* Consultation (Routine) - Authorized Specialty Diagnoses / Procedures Referred By Errol benson Referred To Contact Cardiology Diagnoses Atrial fibrillation, unspecified type (CMS/HCC) Procedures Follow Up In Cardiology Judy Castro MD [facility] [facility], [address] [address] Judy Castro MD [address] [facility] 2, [address] [address] Referral ID Status Reason Start Date Expiration Date V isits Requested Visits Authorized [id number] Authorized 10/29/2023 10/28/2024 1 1 [facility] Work Phone: Advance Directives No Advanced Directives Records FoundDocuments on File Type Date Recorded Patient 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 Communication Instructor Expl anation Advance Directive(s) 07/14/2013 7:01 PM Documents on File Type Date Recorded Patient Oral Communication Instructor Expl anation Advance Directive(s) 07/14/2013 7:01 PM Advance Directive Response Recorded Date/ Time Advance Directives No September 11:40am Summary Purpose Family History No Family History Records FoundNo Family History Records FoundNo Family History Records Found Reason for Referral Specialty Diagnoses / Procedures Referred By Errol benson Referred To Contact Diagnoses Atrial fibrillation, unspecified type (CMS/HCC) Procedures ECG 12 Lead Judy Castro MD [address] [facility] 2, Jay [address] [place] [address] Referral ID Status Reason Start Date Expiration Date V isits Requested Visits Authorized [id number] Authorized 09/24/2023 09/23/2024 1 1 Referral ID Status Reason Start Date Expiration Date V isits Requested Visits Authorized [id number] Authorized 09/24/2023 09/23/2024 1 1 Specialty Diagnoses / Procedures Referred By Contac t Referred To Contact Cardiology Diagnoses Atrial fibrillation, unspecified type (CMS/HCC) Procedures Follow Up In Cardiology Judy Castro MD [address] [facility] 2, [address] [address] Judy Castro MD [address] [facility] 2, [address] [address] Referral ID Status Reason Start Date Expiration Date V isits Requested Visits Authorized [id number] Authorized 09/24/2023 09/23/2024 1 1 Chief Complaint and Reason for Visit Chief Complaint Wellness Amb Documentation Amb Documentation tbh d/c on 11/04 Reason for Visit Blood in stool 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 Persistent atrial fibrillation Primary hypertension Additional Source Comments Source Comments (unrecognize d section and content) In the event this informatio n is protected by the Federal Confidentiality of Alcohol and Drug Abuse Patient Records regulations: The Federal rules restrict any use of the information to criminally investigate or prosecute any alcohol or drug abuse patient.[facility] CenterIn the event this information is protected by the Federal Confidentiality of Alcohol and Drug Abuse Patient Records regulations: The Federal rules restrict any use of the information to criminally investigate or prosecute any alcohol or drug abuse patient.[facility] CenterIn the event this information is protected by the Federal Confidentiality of Alcohol and Drug Abuse Patient Records regulations: The Federal rules restrict any use of the information to criminally investigate or prosecute any alcohol or drug abuse patient.[facility] CenterIn the event this information is protected by the Federal Confidentiality of Alcohol and Drug Abuse Patient Records regulations: The Federal rules restrict any use of the information to criminally investigate or prosecute any alcohol or drug abuse patient.[facility] CenterIn the event this information is protected by the Federal Confidentiality of Alcohol and Drug Abuse Patient Records regulations: The Federal rules restrict any use of the information to criminally investigate or prosecute any alcohol or drug abuse patient.[facility] Care Teams (unrecognized sec tion and content) Printed Circuit Board Reworker Relationship Specialty Start Date End Date Michael Rivas DO PCP - General Internal Medicine 12/19/10 [employer] Board Reworker Relationship Specialty Start Date End Date Michael Rivas, DO PCP - General Internal Medicine 12/19/10 [employer] Board Reworker Relationship Specialty Start Date End Date Kailash Michael Sanchez, DO PCP - General Internal Medicine 12/19/10 [employer] Board Reworker Relationship Specialty Start Date End Date Kailash Michael Sanchez, DO PCP - General Internal Medicine 12/19/10 [employer]ed Circuit Board Reworker Relationship Specialty Start Date End Date KailashMichael Laura, DO PCP - General Internal Medicine 12/19/10 Printed Circuit Board Reworker Relationship Specialty Start Date End Date Michael Rivas DO [address] [facility] [place] [address] PCP - General Internal Medicine 09/14/23 [employer] Relationship Specialty Start Date End Date Kailash Michael Laura, DO [address] [facility] [place] [address] [address] PCP - General Internal Medicine 09/14/23 Team Status: Active Member Role Status Dates Michael Rivas DO Primary Care Provider Active Team Status: Inactive Member Role Status Dates Michael Rivas DO Attending Provider Active Sta rt: August 24, 2023 End: August 24, 2023 Team Status: Active Member Role Status Dates Michael Rivas DO Primary Care Provider Active Start: September 30, 2023 Elyse Fontenot LPN Attending Provider Active S tart: September 30, 2023 Team Status: Active Member Role Status Dates Michael Rivas DO Primary Care Provide r, Attending Provider Active Start: November 04, 2023 Team Status: Active Member Role Status Dates Michael Rivas DO Primary Care Provide r, Attending Provider Active Start: November 05, 2023 Team Status: Active Member Role Status Dates Michael Rivas DO Primary Care Provide r, Attending Provider Active Start: November 09, 2023 Team Status: Active Member Role Status Dates Michael Rivas DO Primary Care Provider Active Start: November 09, 2023 ESSENCE Lara Attending Provider Active St art: November 09, 2023 Team Status: Inactive Member Role Status Dates Michael Rivas DO Primary Care Provide r, Attending Provider Active Start: November 10, 2023 End: November 10, 2023 Reason for Visit (unrecogniz ed section and [...] Procedures ECG 12 Lead Judy Castro MD [address] [place] [address] 2, [address] [address] Referral ID Status Reason Start Date Expiration Date V isits Requested Visits Authorized [id number] Authorized 09/24/2023 09/23/2024 1 1 Reason Comments Follow-up symptoms Specialty Diagnoses / Procedures Referred By Contac t Referred To Contact Cardiology Diagnoses Atrial fibrillation, unspecified type (CMS/HCC) Procedures Follow Up In Cardiology Judy Castro MD [address] [facility] 2, [address] [address] Judy Castro MD [address] [place] [address] 2, [address] [address] Referral ID Status Reason Start Date Expiration Date V isits Requested Visits Authorized [id number] Authorized 09/24/2023 09/23/2024 1 1 INFORMATION SOURCE (unrecogn ized section and content) DATE CREATED AUTHOR 11/25/2022 [facility] DATE CREATED AUTHOR AUTHOR'S ORGANIZ ATION 11/28/[address] [facility] DATE CREATED AUTHOR AUTHOR'S ORGANIZ ATION 11/12/2023 [facility] Ambulatory Goals (unrecognized section and content) Goals may be documented in a n alternate section FOR RECORDS PERTAINING TO PATIENTS WHO ARE [...] BE BASED ON THE PRIMARY CLINICAL RECORDS. [facility] provides no warranty or guarantee of the accuracy or completeness of information in this document.
--- NOTE | 2023-11-16 16:52 | ED.GENADUL1 ---
HPI HPI - General Adult General Chief complaint: Abdominal Pain Stated complaint: other Time Seen by Provider: 11/16/23 16:44 Source: patient, medical record and other Source information: infusion staff Mode of arrival: bed Limitations: no limitations History of Present Illness HPI narrative: 78-year-old female presents to be admitted for correction of her INR. She recently was diagnosed with some liver issues and is seeing an oncologist. She was going to have a diagnostic paracentesis tomorrow but her INR was found to be elevated today so she was sent to the ER to receive vitamin K and be admitted. She had been on Coumadin until 4 days ago. She complains of some mild to moderate discomfort in her abdomen. Related Data Home Medications ?Medication ?Instructions ?Recorded ?Confirmed digoxin 125 mcg (0.125 mg) tablet 0.125 mg PO DAILY 11/04/23 11/04/23 diltiazem HCl 240 mg 240 mg PO QDAY 11/04/23 11/04/23 capsule,extended release 24 hr flecainide 50 mg tablet 50 mg PO BID 11/04/23 11/04/23 losartan 50 mg tablet 50 mg PO DAILY 11/04/23 11/04/23 metoprolol succinate 50 mg 50 mg PO DAILY 11/04/23 11/04/23 tablet,extended release 24 hr ondansetron 4 mg disintegrating 4 mg translingual Q6H PRN nausea 11/04/23 11/04/23 tablet and vomiting Previous Rx's ?Medication ?Instructions ?Recorded hydrocodone 5 mg-acetaminophen 325 1 tab PO Q4H PRN pain #42 tabs 11/05/23 mg tablet lactulose 10 gram/15 mL (15 mL) 30 g (45 mL) PO BID #2,880 mL 11/05/23 oral solution metoclopramide HCl 10 mg tablet 10 mg PO ACHS #60 tabs 11/05/23 (Reglan) promethazine 25 mg tablet 25 mg PO Q4H PRN nausea #60 tabs 11/05/23 warfarin 2.5 mg tablet 2.5 mg PO DAILY #30 tabs 11/05/23 Allergies Allergy/AdvReac Type Severity Reaction Status Date / Time No Known Drug Allergies Allergy Verified 11/16/23 16:39 Opioid HPI Opioid Management Most Recent Opioid Data: Last Pain Scale 4 11/05/23 12:10 Review of Systems ROS Narrative A ten point review of systems is negative except as noted above. [facility] Medical History (Updated 11/16/23 @ 17:03 by Jony Serrano MD) Abdominal pain ?R10.9 - Unspecified abdominal pain (ICD-10) Cancer, metastatic to liver ?C78.7 - Secondary malignant neoplasm of liver and intrahepatic bile duct (ICD-10) History of fall ?Z91.81 - History of falling (ICD-10) Diverticulosis ?K57.90 - Diverticulosis of intestine, part unspecified, without perforation or abscess without bleeding (ICD-10) Hypertension ?I10 - Essential (primary) hypertension (ICD-10) Atrial fibrillation ?I48.91 - Unspecified atrial fibrillation (ICD-10) Breast cancer ?C50.919 - Malignant neoplasm of unspecified site of unspecified female breast (ICD-10) Surgical History (Updated 11/04/23 @ 13:55 by Amrita Green RN) H/O bilateral breast reduction surgery ?Z98.890 - Other specified postprocedural states (ICD-10) H/O: hysterectomy ?Z90.710 - Acquired absence of both cervix and uterus (ICD-10) H/O lumpectomy ?Z98.890 - Other specified postprocedural states (ICD-10) H/O tubal ligation ?Z98.51 - Tubal ligation status (ICD-10) History of tonsillectomy ?Z90.89 - Acquired absence of other organs (ICD-10) Family History (Updated 11/04/23 @ 12:22 by Amrita Green RN) Mother Family history of hypertension Family history of cancer Father Family history of hypertension Sister Family history of hypertension Family history of cancer Brother Family history of hypertension Social History (Updated 11/04/23 @ 12:22 by Amrita Green RN) Within the past year, how often did you have a drink containing alcohol: never Score interpretation: A score less than 3 is consistent with normal alcohol consumption. Smoking status: Never smoker Non-prescribed substance use: denies use Highest level of school completed/degree received: high school graduate Exam Narrative Exam Narrative: Nurses note and vital signs reviewed and patient is not hypoxic. General: The patient appears well and in no apparent distress. Patient is resting comfortably on cart. Skin: Warm, dry, mild pallor noted. There is no rash noted. Head: Normocephalic, atraumatic Eye: Normal conjunctiva, no drainage Ears, Nose, Mouth, and Throat: oral mucosa is moist. Nares patent. Mouth without vesicles. Ear canals patent. Tm's without Erythema Cardiovascular: Regular Rate and Rhythm Respiratory: Patient is in no distress, no accessory muscle use, lungs are clear to auscultation, no wheezing, rales or rhonchi Back: non-tender, no CVA tenderness bilaterally to percussion. GI: Nondistended. Palpable mass present in the epigastric area going into the right upper quadrant Musculoskeletal: The patient has no evidence of calf tenderness, symmetrical pulses noted bilaterally Neurological: A&O, normal speech Psychiatric: Cooperative Constitutional Vital Signs, click to edit/add: Last Vital Signs Temp 97.8 F 11/16/23 16:33 Pulse 83 11/16/23 16:33 Resp 18 11/16/23 16:33 BP 113/91 11/16/23 16:33 Pulse Ox 97 11/16/23 16:33 O2 Del Method Room Air 11/16/23 16:33 Course Vital Signs Vital signs: Vital Signs Temperature 97.8 F 11/16/23 16:33 Pulse Rate 83 11/16/23 16:33 Respiratory Rate 18 11/16/23 16:33 Blood Pressure 113/91 11/16/23 16:33 Pulse Oximetry 97 11/16/23 16:33 Oxygen Delivery Method Room Air 11/16/23 16:33 Temperature 97.8 F 11/16/23 16:33 Pulse Rate 83 11/16/23 16:33 Respiratory Rate 18 11/16/23 16:33 Blood Pressure 113/91 11/16/23 16:33 Pulse Oximetry 97 11/16/23 16:33 Oxygen Delivery Method Room Air 11/16/23 16:33 Medical Decision Making MDM Narrative Medical decision making narrative: I spoke to Dr. Flannery who recommends 5 mg of IV vitamin K now and to recheck her INR tonight at 9 PM and then again in the morning at 7 AM. I have ordered all of that and she is being admitted. Findings are discussed with the patient. Differential Diagnosis Differential Diagnosis: Elevated INR, liver masses Lab Data Lab results reviewed: Yes I reviewed the patient's lab results Discharge Plan Discharge Chief Complaint: Abdominal Pain Clinical Impression: Elevated INR Patient Disposition: Admitted as Observation Time of Disposition Decision: 17:02 Condition: Good
[2023-11-16] MEDS: PHYTONADIONE (VIT K1) 5 MG in 0.9 % SODIUM CHLORIDE 50 ML 202 MG IV (17:18)
[2023-11-16 17:32] VITALS: BP 124/78; PULSE 96; TEMP 36.4; O2SAT 93
[2023-11-16 18:02] VITALS: BMI 27.1
--- OUTSIDE RECORDS SUMMARY | 2023-11-16 18:10 | XMS_ITS | CCD ---
Author Organization [facility] Care Team Providers Care Fusion Analyst Name Role Phone Michael Rivas DO Primary Care Provider MAYELIN ROSEN Referring Unavailable MICHAEL RIVAS Primary Care Unavailable MAYELIN ROSEN Referring Unavailable MAYELIN ROSEN Attending Unavailable MICHAEL RIVAS Primary Care Unavailable Michael Rivas DR CINTHIA IBARRA Consulting Unavailable DIAB ., LEONELA Admitting Unavailable DIAB LEONELA Chliders Attending Unavailable KAILASH, DR FRAUSTO Primary Care [...] Translations: [ADHESIVE TAPE-SILICONES] Drug Intolerance 3 Intolerance [facility] (5 sources) band-aids [Other] Propensity to adverse reactions 7 [facility] (1 source) OTHER; Translations: [OTHER] Propensity to adverse reactions (disorder) 7 [facility] Repository (2 sources) patient allergy list reviewed by nurse or physicia Propensity to adverse reactions 5 Comment:Done [employer] Other Medications Current Medications Medication Drug Class(es) [...] 5 mg daily. To be followed by [facility] 14 tablet 0 10/29/2023 Active [...] on above: Take one(1) tablet d ailwaldemar. Eiamklt-Ecyzecoost-Yaks 333-133-5 mg ORAL Tab (5 sources) Start: [...] sources) Taking high risk medication; Translations: [Other vermin exterminator (current) drug therapy] Onset: 09-24-2023 09-24-2023 Episodic Other aftercare (2 sources) Other group home (current) drug therapy; Translations: [Other vermin exterminator (current) drug therapy] Onset: 09-24-2023 Episodic Other [...] aPTT Coag (PPP) [Time] 50.5 s 22.3-36.2 [facility] Comment on above: RESULTS CALLED TO TERESITA HYDE RN Basophils Auto (Bld) [#/Vol] on 11-09-2023 Basophils (Bld) [#/Vol] 0.0 10 3/uL 0.0-0.1 [facility] Basophils/100 WBC Auto (Bld) on 11-09-2023 Basophils/100 WBC (Bld) 0.2 % 0.2-2.0 [facility] Eosinophils/100 WBC Auto (Bl d)on 11-09-2023 Eosinophils/100 WBC (Bld) 0.3 % 0.9-7.0 [facility] Erythrocyte distribution wid th Auto (RBC) [Ratio]on 11-09-2023 Erythrocyte distribution width (RBC) [Ratio] 14.5 % 11.0-15.0 [facility] Estimated glomerular filtrat ion rate (GFR) non- Americanon 11-09-2023 GFR/1.73 sq M.predicted among non-blacks MDRD (S/P/Bld) [Vol rate/Area] 29 mL/min/{1.73_m2} >=60 [facility] Globulin Calc (S) [Mass/Vol] on 11-09-2023 Globulin (S) [Mass/Vol] 4.7 g/dL [facility] Hematocrit Auto (Bld) [Volum e fraction]on 11-09-2023 Hematocrit (Bld) [Volume fraction] 42.3 % 36.0-48.0 [facility] Hemoglobin [Mass/volume] in Bloodon 11-09-2023 Hemoglobin (Bld) [Mass/Vol] 13.8 g/dL 12.0-16.0 [facility] INR in Platelet poor plasma by Coagulation assayon 11-09-2023 INR Coag (PPP) [Relative time] 2.49 {INR} [facility] Comment on above: DESIRED INR:2.0-3.0 CONDITIONS NOT LISTED BELOW2.5-3.5 FOR PROSTHETIC HEART VALVE REPLACEMENT2.5-3.5 RECURRENT THROMBOSIS Laboratory - Chemistry and C hemistry - challengeon 11-09-2023 Albumin [Mass/Vol] 2.1 g/dL 3.4-5.0 [facility] ALP [Catalytic activity/Vol] 170 U/L 46-116 [facility] ALT [Catalytic activity/Vol] 69 U/L 14-59 [facility] AST [Catalytic activity/Vol] 236 U/L 15-37 [facility] Bilirubin [Mass/Vol] 0.8 mg/dL 0.2-1.0 [facility] Calcium [Mass/Vol] 9.6 mg/dL 8.5-10.1 [facility] Chloride [Moles/Vol] 96 mmol/L 98-107 [facility] CO2 [Moles/Vol] 28.5 mmol/L 21.0-32.0 [facility] Creatinine [Mass/Vol] 1.72 mg/dL 0.55-1.02 [facility] GFR/1.73 sq M.predicted MDRD (S/P/Bld) [Vol rate/Area] 35 mL/min/{1.73_m2} >=60 [facility] Glucose [Mass/Vol] 127 mg/dL 74-106 [facility] Potassium [Moles/Vol] 3.1 mmol/L 3.5-5.1 [facility] Protein [Mass/Vol] 6.8 g/dL 6.4-8.2 [facility] Sodium [Moles/Vol] 134 mmol/L 136-145 [facility] Urea nitrogen [Mass/Vol] 27.0 mg/dL 7.0-18.0 [facility] Urea nitrogen/Creatinin e [Mass ratio] 15.7 mg/mg [facility] Laboratory - Hematology and Cell countson 11-09-2023 Immature granulocytes/100 WBC (Bld) 0.7 % 0.0-0.5 [facility] Leukocytes [#/volume] correc shanelle for nucleated erythrocytes in Blood by Automated counon 11-09-2023 WBC corrected for nucl RBC Auto (Bld) [#/Vol] 14.8 10 3/uL 4.0-11.0 [facility] Lymphocytes Auto (Bld) [#/Vo l]on 11-09-2023 Lymphocytes (Bld) [#/Vol] 0.7 10 3/uL 1.2-3.8 [facility] Lymphocytes/100 WBC Auto (Bl d)on 11-09-2023 Lymphocytes/100 WBC (Bld) 4.9 % 20.5-60.0 [facility] MCH Auto (RBC) [Entitic mass ]on 11-09-2023 MCH (RBC) [Entitic mass] 32.6 pg 26.7-34.0 [facility] MCHC Auto (RBC) [Mass/Vol]on 11-09-2023 MCHC (RBC) [Mass/Vol] 32.6 g/dL 29.9-35.2 [facility] MCV Auto (RBC) [Entitic vol] on 11-09-2023 MCV (RBC) [Entitic vol] 100.0 fL 81.0-99.0 [facility] Monocytes Auto (Bld) [#/Vol] on 11-09-2023 Monocytes (Bld) [#/Vol] 1.4 10 3/uL 0.3-0.8 [facility] Monocytes/100 WBC Auto (Bld) on 11-09-2023 Monocytes/100 WBC (Bld) 9.4 % 1.7-12.0 [facility] Neutrophils Auto (Bld) [#/Vo l]on 11-09-2023 Neutrophils (Bld) [#/Vol] 12.5 10 3/uL 1.4-6.5 [facility] Neutrophils/100 WBC Auto (Bl d)on 11-09-2023 Neutrophils/100 WBC (Bld) 84.5 % 43.0-75.0 [facility] No Panel Informationon 11-08 Eosinophils # (Auto) 0.1 10 3/uL 0.0-0.7 [facility] Immature Granulocyte # (Auto) 0.10 10 3/uL 0.00-0.03 [facility] Platelet mean volume Auto (B ld) [Entitic vol]on 11-09-2023 Platelet mean volume (Bld) [Entitic vol] 10.7 fL 9.5-13.5 [facility] Platelets Auto (Bld) [#/Vol] on 11-09-2023 Platelets (Bld) [#/Vol] 323 10 3/uL 150-450 [facility] Prothrombin time (PT)on PT Coag (PPP) [Time] 25.1 s 9.0-11.6 [facility] RBC Auto (Bld) [#/Vol]on RBC (Bld) [#/Vol] 4.23 10 6/uL 4.20-5.40 [facility] Serum or plasma albumin/glob ulin mass ratioon 11-09-2023 Albumin/Globulin [Mass ratio] 0.4 {ratio} [facility] Serum or plasma anion gap de terminationon 11-09-2023 Anion gap [Moles/Vol] 12.6 mmol/L [facility] INR in Platelet poor plasma by Coagulation assayon 11-05-2023 INR Coag (PPP) [Relative time] 4.04 {INR} [facility] Comment on above: DESIRED INR:2.0-3.0 CONDITIONS NOT LISTED BELOW2.5-3.5 FOR PROSTHETIC HEART VALVE REPLACEMENT2.5-3.5 RECURRENT THROMBOSIS No Panel Informationon 11-04 Digoxin Level 0.4 ng/mL 0.9-2.0 [facility] Prothrombin time (PT)on PT Coag (PPP) [Time] 39.6 s 9.0-11.6 [facility] Activated partial thrombopla stin time (aPTT) in platelet poor plasma by coagulation aon 11-04-2023 aPTT Coag (PPP) [Time] 51.4 s 22.3-36.2 [facility] Comment on above: RESULTS CALLED TO SA RA DEGROOT/[place] IN MED SURG Automated urine specific gra vity by refractometryon 11-04-2023 Specific gravity Refractometry automated (U) [Rel density] 1.015 1.005-1.025 [facility] Basophils Auto (Bld) [#/Vol] on 11-04-2023 Basophils (Bld) [#/Vol] 0.0 10 3/uL 0.0-0.1 [facility] Basophils/100 WBC Auto (Bld) on 11-04-2023 Basophils/100 WBC (Bld) 0.3 % 0.2-2.0 [facility] Bilirubin Auto test strip (U ) [Mass/Vol]on 11-04-2023 Bilirubin (U) [Mass/Vol] Negative NEGATIVE [facility] Color Auto (U)on 11-04-2023 Color (U) YELLOW YELLOW [facility] Eosinophils/100 WBC Auto (Bl d)on 11-04-2023 Eosinophils/100 WBC (Bld) 0.3 % 0.9-7.0 [facility] Erythrocyte distribution wid th Auto (RBC) [Ratio]on 11-04-2023 Erythrocyte distribution width (RBC) [Ratio] 14.0 % 11.0-15.0 [facility] Estimated glomerular filtrat ion rate (GFR) non- Americanon 11-04-2023 GFR/1.73 sq M.predicted among non-blacks MDRD (S/P/Bld) [Vol rate/Area] 59 mL/min/{1.73_m2} >=60 [facility] Globulin Calc (S) [Mass/Vol] on 11-04-2023 Globulin (S) [Mass/Vol] 4.0 g/dL [facility] Hematocrit Auto (Bld) [Volum e fraction]on 11-04-2023 Hematocrit (Bld) [Volume fraction] 42.3 % 36.0-48.0 [facility] Hemoglobin [Mass/volume] in Bloodon 11-04-2023 Hemoglobin (Bld) [Mass/Vol] 14.2 g/dL 12.0-16.0 [facility] INR in Platelet poor plasma by Coagulation assayon 11-04-2023 INR Coag (PPP) [Relative time] 4.42 {INR} [facility] Comment on above: RESULTS CALLED TO SA RA DEGROOT/[place] IN MED SURGDESIRED INR:2.0-3.0 CONDITIONS NOT LISTED BELOW2.5-3.5 FOR PROSTHETIC HEART VALVE REPLACEMENT2.5-3.5 RECURRENT THROMBOSIS Ketones Auto test strip (U) [Mass/Vol]on 11-04-2023 Ketones (U) [Mass/Vol] TRACE mg/dL NEGATIVE [facility] Laboratory - Chemistry and C hemistry - challengeon 11-04-2023 Ammonia (P) [Moles/Vol] 37 umol/L 11-32 [facility] Amylase [Catalytic activity/Vol] 35 U/L 25-115 [facility] Lactate [Moles/Vol] 1.3 mmol/L 0.4-2.0 [facility] Lipase [Catalytic activity/Vol] 44.0 U/L 16.0-77.0 [facility] Albumin [Mass/Vol] 2.7 g/dL 3.4-5.0 [facility] ALP [Catalytic activity/Vol] 168 U/L 46-116 [facility] ALT [Catalytic activity/Vol] 57 U/L 14-59 [facility] AST [Catalytic activity/Vol] 248 U/L 15-37 [facility] Bilirubin [Mass/Vol] 1.0 mg/dL 0.2-1.0 [facility] Calcium [Mass/Vol] 9.1 mg/dL 8.5-10.1 [facility] Chloride [Moles/Vol] 99 mmol/L 98-107 [facility] CO2 [Moles/Vol] 27.7 mmol/L 21.0-32.0 [facility] Creatinine [Mass/Vol] 0.92 mg/dL 0.55-1.02 [facility] GFR/1.73 sq M.predicted MDRD (S/P/Bld) [Vol rate/Area] mL/min/{1.73_m2} >=60 [facility] Glucose [Mass/Vol] 112 mg/dL 74-106 [facility] Potassium [Moles/Vol] 3.5 mmol/L 3.5-5.1 [facility] Protein [Mass/Vol] 6.7 g/dL 6.4-8.2 [facility] Sodium [Moles/Vol] 137 mmol/L 136-145 [facility] Urea nitrogen [Mass/Vol] 15.0 mg/dL 7.0-18.0 [facility] Urea nitrogen/Creatinin e [Mass ratio] 16.3 mg/mg [facility] Laboratory - Hematology and Cell countson 11-04-2023 Immature granulocytes/100 WBC (Bld) 0.6 % 0.0-0.5 [facility] Leukocytes [#/volume] correc shanelle for nucleated erythrocytes in Blood by Automated counon 11-04-2023 WBC corrected for nucl RBC Auto (Bld) [#/Vol] 14.5 10 3/uL 4.0-11.0 [facility] Lymphocytes Auto (Bld) [#/Vo l]on 11-04-2023 Lymphocytes (Bld) [#/Vol] 1.0 10 3/uL 1.2-3.8 [facility] Lymphocytes/100 WBC Auto (Bl d)on 11-04-2023 Lymphocytes/100 WBC (Bld) 6.7 % 20.5-60.0 [facility] MCH Auto (RBC) [Entitic mass ]on 11-04-2023 MCH (RBC) [Entitic mass] 32.5 pg 26.7-34.0 [facility] MCHC Auto (RBC) [Mass/Vol]on 11-04-2023 MCHC (RBC) [Mass/Vol] 33.6 g/dL 29.9-35.2 [facility] MCV Auto (RBC) [Entitic vol] on 11-04-2023 MCV (RBC) [Entitic vol] 96.8 fL 81.0-99.0 [facility] Monocytes Auto (Bld) [#/Vol] on 11-04-2023 Monocytes (Bld) [#/Vol] 1.4 10 3/uL 0.3-0.8 [facility] Monocytes/100 WBC Auto (Bld) on 11-04-2023 Monocytes/100 WBC (Bld) 9.8 % 1.7-12.0 [facility] Neutrophils Auto (Bld) [#/Vo l]on 11-04-2023 Neutrophils (Bld) [#/Vol] 12.0 10 3/uL 1.4-6.5 [facility] Neutrophils/100 WBC Auto (Bl d)on 11-04-2023 Neutrophils/100 WBC (Bld) 82.3 % 43.0-75.0 [facility] No Panel Informationon 11-03 Urine Microscopic Review NO [facility] Digoxin Level 0.5 ng/mL 0.9-2.0 [facility] Eosinophils # (Auto) 0.1 10 3/uL 0.0-0.7 [facility] Immature Granulocyte # (Auto) 0.08 10 3/uL 0.00-0.03 [facility] Platelet mean volume Auto (B ld) [Entitic vol]on 11-04-2023 Platelet mean volume (Bld) [Entitic vol] 10.5 fL 9.5-13.5 [facility] Platelets Auto (Bld) [#/Vol] on 11-04-2023 Platelets (Bld) [#/Vol] 314 10 3/uL 150-450 [facility] Protein Auto test strip (U) [Mass/Vol]on 11-04-2023 Protein (U) [Mass/Vol] TRACE mg/dL NEG/TRACE [facility] Prothrombin time (PT)on PT Coag (PPP) [Time] 43.1 s 9.0-11.6 [facility] Comment on above: RESULTS CALLED TO SA RA DEGROOT/[place] IN MED SURG RBC Auto (Bld) [#/Vol]on RBC (Bld) [#/Vol] 4.37 10 6/uL 4.20-5.40 [facility] Serum or plasma albumin/glob ulin mass ratioon 11-04-2023 Albumin/Globulin [Mass ratio] 0.7 {ratio} [facility] Serum or plasma pmrpi-4-azed protein tumor marker measurement (mass/volume)on 11-04-2023 AFP.tumor marker [Mass/Vol] 32.7 ng/mL 0.0-9.2 [facility] Comment on above: [employer] El ectrochemiluminescence Immunoassay(ECLIA)Values obtained with different assay methods or kits cannotbe used interchangeably. Results cannot be interpreted asabsolute evidence of the presence or absence of malignantdisease.This test is not interpretable in females.Performed at: [facility] [address] [id number] Director: Paul Moore PhD, Phone: [phone] Serum or plasma anion gap de terminationon 11-04-2023 Anion gap [Moles/Vol] 13.8 mmol/L [facility] Serum or plasma cancer antig en 19-9 measurement (units/volume)on 11-04-2023 Cancer Ag 19-9 Qn [id number] [arb'U]/mL 0-35 [facility] Comment on above: Results confirmed on dilution.[employer] Electrochemiluminescence Immunoassay(ECLIA)Values obtained with different assay methods or kits cannotbe used interchangeably. Results cannot be interpreted asabsolute evidence of the presence or absence of malignantdisease.Performed at: [employer] [id number] Director: Paul Moore PhD, Phone: [phone] Specific gravity Auto test s trip (U) [Rel density]on 11-04-2023 Specific gravity (U) [Rel density] CLEAR CLEAR [facility] Urine glucose measurement by test strip (mass/volume)on 11-04-2023 Glucose Test strip (U) [Mass/Vol] Negative NEGATIVE [facility] Urine hemoglobin detection b y automated test stripon 11-04-2023 Hemoglobin Auto test strip Ql (U) Negative NEGATIVE [facility] Urine nitrite detection by a utomated test stripon 11-04-2023 Nitrite Auto test strip Ql (U) Negative NEGATIVE [facility] Urobilinogen Auto test strip (U) [Mass/Vol]on 11-04-2023 Urobilinogen Qn (U) 0.2 {Barbara'U}/dL 0.2-1.0 [facility] pH Auto test strip (U)on pH (U) 5.5 [pH] 5.0-9.0 [facility] ECG 12 Leadon 09-24-2023 ECG revealed atrial fibrillation with RVR [facility] Work Phone: Urinalysis - DIPSTICKon 08-03 Appearance (U) clear [employer] Other Bilirubin Ql (U) Negative [employer] Other Color (U) pale yellow [employer] Other Glucose Ql (U) Negative [employer] Other Hemoglobin Ql (U) Negative [employer] Other Ketones Ql (U) Negative [employer] Other Leukocyte esterase Test strip Ql (U) Negative [employer] Other Nitrite Ql (U) Negative [employer] Other pH (U) 5.0 [pH] [employer] Other Protein Ql (U) Negative [employer] Other Specific gravity (U) [Rel density] 1.010 [employer] Other Urobilinogen (U) [Mass/Vol] 0.2 mg/dL [employer] Other Urinalysis - DIPSTICK [employer] Other CNCOon 11-20-2022 [facility] HNO ID: [id number] Author: Mammography Coordinator Service: ? Author Type: Physician Type: Letter Filed: 11/23/2022 11:37 PM Note Text: November 23, 2022 PID: [id number] jP Lopez [address] [place] [id number] Dear Alvarado Martíneztt, We are pleased to [...] report will be kept on file at [facility] as part of your permanent medical record and are available for your continuing care. Thank you for allowing us to help in meeting your health care needs. Sincerely, Dr. Tesfaye Interpreting Radiologist [facility] (Normal over 40) Normal 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 [...] encounter) is as follows: Breast biopsy: Yes, 01/05-[facility] Breast cysts: No Breast surgery: Yes, Right PM with ALND Breast cancer: Yes, Stage I (T 1c N 0 M 0) in 2005, treated as above CANCER SURVEILLANCE: Mammograms: Yes, Date in [facility]: 10/28/21; results - negative Breast MRI: [...] HISTORY Pro (more content not included)... Normal [facility] SCREENING W TOMOon 11-20 [facility] SCREENING W MAX * * *Final Report* * * DATE OF EXAM: Nov 20 2022 12:21PM SSW [id number] - KENDRA SCREENING W MAX / PROCEDURE REASON: Encounter for screening mammogram for breast cancer * * * * Physician Interpretation * * * * RESULT: #[id number] - [facility] SCREENING W [...] mammogram, 07/06/2017 mammogram, and 06/16/2016 mammogram - [facility]. There are scattered fibroglandular elements in both breasts. There are benign post operative findings in both breasts. No significant masses, calcifications, or other findings are seen in either breast. There has been no significant interval change. IMPRESSION: BENIGN FINDING There is no mammographic evidence of malignancy. A 1 year screening mammogram is recommended. Yaz Tesfaye M.D. pt/penrad:11/20/2022 12:38:01 Endocrinology Nurse(s): RT Royal(R)(M), [facility] letter sent: Normal over 40 Mammogram BI-RADS: [...] Health, Family Medicine, and Medical/Surgical Oncology, the [facility] has carefully reviewed the data and [...] their providers when to stop screening mammograms. D[employer] Machine Back Tender: Jonnie Transcribe Date/Time: Nov 20 2022 12:11P Dictated by: YAZ TESFAYE MD This examination was interpreted and the report reviewed and electronically signed by: YAZ TESFAYE MD on Nov 20 2022 12:38PM EST [id number] Normal [facility] CT PELVIS WO CONon 3 CT PELVIS [...] CINTHIA IBARRA Date: 2022-11-07 16:35 Normal [facility] CBC AUTO DIFFon 12-11-2021 BASO # 0.0 103/ul Normal 0.0-0.1 [facility] Comment on above: Performed By: #### C BC #### [facility] [address] [address] [address] Karishma Langley Basophils/100 WBC (Bld) 0.6 % Normal 0.2-2.0 [facility] Comment on above: Performed By: #### C BC #### [facility] [address] [address] [address] Karishma Langley EO # 0.2 103/ul Normal 0.0-0.7 [facility] Comment on above: Performed By: #### C BC #### [facility] [address] [place] [address] Dr. Karishma Langley Eosinophils/100 WBC (Bld) 3.0 % Normal 0.9-7.0 [facility] Comment on above: Performed By: #### C BC #### [facility] [address] [place] [address] Dr. Karishma Langley Erythrocyte distribution width (RBC) [Ratio] 12.2 % Normal 11.0-15.0 [facility] Comment on above: Performed By: #### C BC #### [facility] [address] [place] [address] Dr. Karishma Langley Hematocrit (Bld) [Volume fraction] 39.9 % Normal 36.0-48.0 [facility] Comment on above: Performed By: #### C BC #### [facility] [address] [place] [address] Dr. Karishma Langley Hemoglobin (Bld) [Mass/Vol] 13.0 g/dL Normal 12.0-16.0 [facility] Comment on above: Performed By: #### C BC #### [facility] [address] [place] [address] Dr. Karishma Langley IG # 0.01 10e3/ul Normal 0.00-0.03 [facility] Comment on above: Performed By: #### C BC #### [facility] [address] [place] [address] Dr. Karishma Langley IG % 0.2 % Normal 0.0-0.5 [facility] Comment on above: Performed By: #### C BC #### [facility] [address] [place] [address] Dr. Karishma Langley LYMPH # 1.5 103/ul Normal 1.2-3.8 [facility] Comment on above: Performed By: #### C BC #### [facility] [address] [place] [address] Dr. Karishma Langley Lymphocytes/100 WBC (Bld) 27.3 % Normal 20.5-60.0 [facility] Comment on above: Performed By: #### C BC #### [facility] [address] [place] [address] Dr. Karishma Langley MANUAL DIFF REQ NO Normal [facility] Comment on above: Performed By: #### C BC #### [facility] [address] [place] [address] Dr. Karishma Langley MCH (RBC) [Entitic mass] 32.1 pg Normal 26.7-34.0 [facility] Comment on above: Performed By: #### C BC #### [facility] [address] [place] [address] Dr. Karishma Langley MCHC (RBC) [Mass/Vol] 32.6 g/dL Normal 29.9-35.2 [facility] Comment on above: Performed By: #### C BC #### [facility] [address] [place] [address] Dr. Karishma Langley MCV (RBC) [Entitic vol] 98.5 fL Normal 81.0-99.0 [facility] Comment on above: Performed By: #### C BC #### [facility] [address] [place] [address] Dr. Karishma Langley MONO # 0.7 103/ul Normal 0.3-0.8 [facility] Comment on above: Performed By: #### C BC #### [facility] [address] [place] [address] Dr. Karishma Langley Monocytes/100 WBC (Bld) 12.4 % Critically high 1.7-12.0 [facility] Comment on above: Performed By: #### C BC #### [facility] [address] [place] [address] Dr. Karishma Langley NEUT # 3.0 103/ul Normal 1.4-6.5 [facility] Comment on above: Performed By: #### C BC #### [facility] [address] [place] [address] Dr. Karishma Langley Neutrophils/100 WBC (Bld) 56.5 % Normal 43.0-75.0 [facility] Comment on above: Performed By: #### C BC #### [facility] [address] [place] [address] Dr. Karishma Langley Platelet mean volume (Bld) [Entitic vol] 10.3 fL Normal 9.5-13.5 [facility] Comment on above: Performed By: #### C BC #### [facility] [address] [place] [address] Dr. Karishma Langley PLT 275 103/ul Normal 150-450 [facility] Comment on above: Performed By: #### C BC #### [facility] [address] [place] [address] Dr. Karishma Langley RBC 4.05 106/ul Critically low 4.20-5.40 [facility] Comment on above: Performed By: #### C BC #### [facility] [address] [place] [address] Dr. Karishma Langley WBC 5.3 103/ul Normal 4.0-11.0 [facility] Comment on above: Performed By: #### C BC #### [facility] [address] [place], [place] [id number] Dr. Karishma Langley ECHOCARDIO M/2D COMPLETEon 0 12-11-2021 ECHOCARDIO M/2D COMPLETE Patient: PJ LOPEZ Exam Date: 12/11/2021 : 1945 Gender:F Ordering : DR MICHAEL RIVAS D.O. Admission #: [id number] Family : Order #: [id number] CLICK HERE TO VIEW EXAM ECHOCARDIOGRAM REPORT [...] Area(A4C): 23.20 cm2 Left Atrium Systolic Volume(A2C): 88509 mm3 Left Atrium Systolic Volume(A4C): 21634 mm3 Mitral Valve MV E to A [...] Ulloa M.D. on 12/11/2021 at 14:32 Normal [facility] PROF CHEM 8 (BAS METB)on Anion gap [Moles/Vol] 13.5 mmol/L Normal [facility] Comment on above: Performed By: #### B MP #### [facility] [address] [address] [address] Karishma Langley Calcium [Mass/Vol] 9.0 mg/dL Normal 8.5-10.1 [facility] Comment on above: Performed By: #### B MP #### [facility] [address] [address] [address] Karishma Langley Chloride [Moles/Vol] 105 mmol/L Normal 98-107 [facility] Comment on above: Performed By: #### B MP #### [facility] [address] [address] [address] Karsihma Langley CO2 [Moles/Vol] 24.3 mmol/L Normal 21.0-32.0 [facility] Comment on above: Performed By: #### B MP #### [facility] [address] [address] [address] Karishma Langley Creatinine [Mass/Vol] 0.87 mg/dL Normal 0.55-1.02 [facility] Comment on above: Performed By: #### B MP #### [facility] [address] [address] [address] Karishma Langley EGFR-AF ANGOLAN >60 Normal >=60 [facility] Comment on above: Performed By: #### B MP #### [facility] [address] [address] [address] Karishma Langley EGFR-NON AF ANGOLAN >60 Normal >=60 [facility] Comment on above: Performed By: #### B MP #### [facility] [address] [address] [address] Karishma Langley Glucose [Mass/Vol] 100 mg/dL Normal 74-106 [facility] Comment on above: Performed By: #### B MP #### [facility] [address] [address] [address] Karishma Langley Potassium [Moles/Vol] 3.8 mmol/L Normal 3.5-5.1 [facility] Comment on above: Performed By: #### B MP #### [facility] [address] [address] [address] Karishma Langley Sodium [Moles/Vol] 139 mmol/L Normal 136-145 [facility] Comment on above: Performed By: #### B MP #### [facility] [address] [address] [address] Karishma Langley Urea nitrogen [Mass/Vol] 22.0 mg/dL Critically high 7.0-18.0 [facility] Comment on above: Performed By: #### B MP #### [facility] [address] [address] [address] Karishma Langley Urea nitrogen/Creatinin e [Mass ratio] 25.3 mg/mg Normal [facility] Comment on above: Performed By: #### B MP #### [facility] [address] [place] [address] Dr. Karishma Langley Vital Signs Date Time Vital Sign Value Performing Clinician Facility 11-10-2023 11:27-0400 Body height 158.75 cm [facility] 11-10-2023 11:27-0400 Body mass index (BMI) [Ratio] 30.7 kg/m2 [facility] 11-10-2023 11:27-0400 Body weight 77.28 kg [facility] 11-10-2023 11:27-0400 Diastolic blood pressure 75 mm[Hg] [facility] 11-10-2023 11:27-0400 Heart rate 102 /min [facility] 11-10-2023 11:27-0400 Respiratory rate 16 /min [facility] 11-10-2023 11:27-0400 Systolic blood pressure 124 mm[Hg] [facility] 10-29-2023 09:37-0400 Body height 154.9 cm Judy Castro MD Work Phone: [facility] 10-29-2023 09:37-0400 Body mass index (BMI) [Ratio] 31.86 kg/m2 Judy Castro MD Work Phone: [facility] 10-29-2023 09:37-0400 Body weight 76.48 kg Judy Castro MD Work Phone: [facility] 10-29-2023 09:37-0400 Diastolic blood pressure 92 mm[Hg] Judy Castro MD Work Phone: [facility] 10-29-2023 09:37-0400 Heart rate 100 /min Judy Castro MD Work Phone: [facility] 10-29-2023 09:37-0400 Systolic blood pressure 142 mm[Hg] Judy Castro MD Work Phone: [facility] 09-24-2023 10:59-0500 Diastolic blood pressure 86 mm[Hg] Judy Castro MD Work Phone: [facility] 09-24-2023 10:59-0500 Systolic blood pressure 136 mm[Hg] Judy Castor MD Work Phone: [facility] 09-24-2023 10:15-0500 Body height 154.9 cm Judy Castro MD Work Phone: [facility] 09-24-2023 10:15-0500 Body mass index (BMI) [Ratio] 32.31 kg/m2 Judy Castro MD Work Phone: [facility] 09-24-2023 10:15-0500 Body weight 77.56 kg Judy Castro MD Work Phone: [facility] 09-24-2023 10:15-0500 Heart rate 131 /min Judy Castro MD Work Phone: [facility] 09-08-2023 09:00-0500 Body height 158.75 cm Michael Ball Other [facility] [employer] Other 09-08-2023 09:00-0500 Body mass index (BMI) [Ratio] 31.24 kg/m2 Michael Ball Other [employer] Other 09-08-2023 09:00-0500 Body weight 78.74 kg Michael Ball Other [employer] Other 09-08-2023 09:00-0500 Diastolic blood pressure 87 mm[Hg] Michael Ball Other [employer] Other 09-08-2023 09:00-0500 Respiratory rate 12 /min Michael Ball Other [employer] Other 09-08-2023 09:00-0500 Systolic blood pressure 142 mm[Hg] Michael Ball Other [employer] Other 08-24-2023 10:00-0500 Body height 158.75 cm Michael Ball Other [facility] 08-24-2023 10:00-0500 Body mass index (BMI) [Ratio] 30.63 kg/m2 Michael Ball Other [facility] [employer] Other 08-24-2023 10:00-0500 Body weight 77.2 kg Michael Ball Other [facility] 08-24-2023 10:00-0500 Diastolic blood pressure 105 mm[Hg] Michael Ball Other [facility] 08-24-2023 10:00-0500 Respiratory rate 12 /min Michael Ball Other [facility] [employer] Other 08-24-2023 10:00-0500 Systolic blood pressure 152 mm[Hg] Michael Ball Other [facility] 11-25-2022 10:30-0400 Body height 158.75 cm Michael Ball Other [facility] [employer] Other 11-25-2022 10:30-0400 Body mass index (BMI) [Ratio] 31.17 kg/m2 Michael Ball Other [facility] [employer] Other 11-25-2022 10:30-0400 Body weight 78.56 kg Michael Ball Other [facility] [employer] Other 11-25-2022 10:30-0400 Diastolic blood pressure 81 mm[Hg] Michael Ball Other [employer] Other 11-25-2022 10:30-0400 Respiratory rate 12 /min Michael Ball Other [employer] Other 11-25-2022 10:30-0400 Systolic blood pressure 177 mm[Hg] Michael Ball Other [employer] Other Encounters Encounter Date Encounter Type Care Provider Facility Start: 11-10-2023 End: 11-10-2023 ambulatory [facility] Work Phone: Start: 11-10-2023 End: 11-10-2023 Patient encounter procedure [facility] Work Phone: Start: 11-09-2023 Non-patient / Non-visit [facility] Work Phone: Start: 11-09-2023 Non-patient / Non-visit [facility] [employer] Work Phone: Start: 11-05-2023 Non-patient / Non-visit [facility] [employer] Work Phone: Start: 11-04-2023 Non-patient / Non-visit [facility] [employer] Work Phone: Start: 10-29-2023 End: 10-29-2023 ambulatory [facility] Start: 10-29-2023 End: 10-29-2023 Office outpatient visit 25 minutes Judy Castro MD Work Phone: [facility] Comment on above: Atrial fibrillation, unspecified type (CMS/HCC); Hypertension, unspecified type; High risk medication use; Obesity, unspecified classification, unspecified obesity type, unspecified whether serious comorbidity present; Never smoked tobacco Start: 10-26-2023 End: 10-26-2023 ambulatory Michael Rivas Other [facility] [employer] Other Start: 10-26-2023 Telephone encounter Michael Rivas [facility] Start: 09-30-2023 Non-patient / Non-visit [facility] [employer] Work Phone: Start: 09-24-2023 End: 09-24-2023 ambulatory [facility] Start: 09-24-2023 End: 09-24-2023 Office outpatient new 45 minutes Judy Castro MD Work Phone: [facility] Comment on above: Obesity, Class I, BM I 30-34.9 (Primary Dx); Atrial fibrillation, unspecified type (CMS/HCC); Hypertension, unspecified type; High risk medication use; Persistent atrial fibrillation (CMS/HCC) Start: 09-13-2023 End: 09-13-2023 ambulatory Michael Rivas Other [employer] Other Start: 09-13-2023 Telephone encounter Michael Rivas [facility] Start: 09-10-2023 End: 09-10-2023 ambulatory Michael Rivas Other [employer] Other Start: 09-10-2023 Telephone encounter Michael DUONG [facility] Start: 09-08-2023 End: 09-08-2023 ambulatory Michael Rivas Other [employer] Other Start: 09-08-2023 Office outpatient vi sit 25 minutes Michael Rivas [facility] Start: 08-31-2023 End: 08-31-2023 ambulatory Michael Rivas Other [employer] Other Start: 08-31-2023 Telephone encounter Michael DUONG [facility] Start: 08-24-2023 End: 08-24-2023 ambulatory Michael Rivas Other [employer] Other Start: 08-24-2023 Patient encounter procedure Michael Rivas [facility] Start: 08-24-2023 End: 08-24-2023 Patient encounter procedure [facility]- Start: 08-17-2023 End: 08-17-2023 ambulatory Michael Rivas Other [employer] Other Start: 08-17-2023 Telephone encounter Michael Rivas [facility] Start: 05-18-2023 End: 05-18-2023 ambulatory Michael Rivas Other [employer] Other Start: 05-18-2023 Telephone encounter Michael Rivas [facility] Start: 12-03-2022 End: 12-03-2022 ambulatory Michael Rivas Other [employer] Other Start: 12-03-2022 Telephone encounter Michael Rivas AD Rivas [facility] Start: 11-25-2022 End: 11-25-2022 ambulatory Michael Rivas Other [employer] Other Start: 11-25-2022 Office outpatient vi sit 15 minutes Michael Kailash CLAUDIA [facility] Start: 11-20-2022 Documentation procedure Mammog may Coordinator [facility] Start: 11-20-2022 Letter encounter Mammography Coordinator [facility] Department Start: 11-20-2022 End: 11-20-2022 ambulatory MAYELIN ROSEN Facility:[facility] Start: 11-20-2022 End: 11-20-2022 Patient encounter procedure Mayelin Rosen HUMAN RESOURCE PROFESSIONAL.HUMAN RESOURCES TALENT MANAGER Work Phone: [facility] Comment on above: Fibrocystic breast c hanges, bilateral (Primary Dx); Personal history of malignant neoplasm of breast; Encounter for screening mammogram for breast cancer; Family history of breast cancer in sister Start: 11-10-2022 Orders Only Mayelin perez APRN.HUMAN RESOURCES TALENT MANAGER Work Phone: [facility] Comment on above: Encounter for screen ing mammogram for breast cancer (Primary Dx) Start: 11-07-2022 End: 11-07-[address] CINTHIA IBARRA Facility:[facility] Start: 12-11-2021 End: 12-12-[address] MICHAEL RIVAS Facility:[facility] Start: 12-03-2021 Adult health examination Broderick Rivas Other [employer] Other Start: 10-28-2021 End: 10-28-2021 Patient encounter procedure Mayelin Rosen HUMAN RESOURCE PROFESSIONAL.HUMAN RESOURCES TALENT MANAGER Work Phone: [facility] Comment on above: Fibrocystic breast c hanges, bilateral (Primary Dx); Personal history of malignant neoplasm of breast; Encounter for screening mammogram for breast cancer Start: 10-22-2021 Orders Only Mayelin perez HUMAN RESOURCES TALENT MANAGER Work Phone: [facility] Comment on [...] the presence orabsence of malignant disease.Performed at: [facility] [id number] Director: Paul Moore PhD, Phone: [phone] Start: 10-29-2023 FOLLOW UP IN CARDIOLOGY JUDY [...] - Tdap) DTaP/Tdap/Td Vaccines (3 - Tdap) [facility] Start: 01-03-2024 End: 01-03-2024 Patient encounter procedure 01/03/2024 1:20 PM EDT Office Visit [facility] [address] [facility] [address] [place] [address] Judy Castro MD [address] [facility] [address] [place] [address] [facility] Start: 11-19-2023 End: 11-19-2023 Patient encounter procedure 11/19/2023 10:10 AM EDT Office Visit [address] [place] [address] Judy Castro MD [address] [facility] [address] [place] [address] [facility] Start: 11-04-2023 Blood Culture 1 Blood Culture 1 [facility] Start: 11-04-2023 Blood Culture 2 Blood Culture 2 [facility] Start: 10-13-2023 End: 10-13-2023 Professional / ancillary services management 10/13/2023 2:00 PM EDT Ancillary Procedure [address] [place] [address] [facility] Start: 10-08-2023 End: 09-24-2024 ECG 12 Lead ECG 12 Lead ECG Routine Atrial fibrillation, unspecified type (CMS/HCC) Expected: 10/08/2023 (Approximate), Expires: 09/24/[address] [facility] Service Area Work Phone: Comment on above: Expected: 10/08/2023 (Approximate), Expires: 09/24/2024 Start: 04-02-2023 Influenza vaccination C [facility] Start: 08-02-2022 ADVANCE DIRECTIVE DISCUSSION ADVANCE DIRECTIVE DISCUSSION [facility] Start: 08-02-2022 DEPRESSION ASSESSMENT DEPRESSION ASS ESSMENT [facility] Start: 08-02-2021 ADVANCE DIRECTIVE DISCUSSION ADVANCE DIRECTIVE DISCUSSION [facility] Start: 04-02-2021 Influenza vaccination INFLUENZA (#1) [facility] Start: 07-10-2016 DIABETES SCREEN DIABETES SCREEN [facility] Start: 2009 Pneumococcal Vaccine : 65+ Years (1 - PCV) Pneumococcal Vaccine: 65+ Years (1 - PCV) [facility] Start: 2009 PNEUMOCOCCAL: 65+ (1 - PCV) PNEUMOCOCCAL: 65+ (1 - PCV) [facility] Start: 1994 SHINGRIX VACCINE (1 of 2) SHINGRIX VACCINE (1 of 2) [facility] Start: 1994 Zoster Vaccines (1 o f 2) Zoster Vaccines (1 of 2) [facility] Start: 1966 DTaP/Tdap/Td Vaccine s (1 - Tdap) DTaP/Tdap/Td Vaccines (1 - Tdap) [facility] Start: 1963 Urine microalbumin profile DTAP,TDAP,TD (1 - Tdap) [facility] Start: 1962 HEPATITIS C SCREENING HEPATITIS C [facility] Start: 1962 Hepatitis C screening Hepatitis C [facility] Start: 1956 Adult depression screening assessment DEPRESSION SCREENING [facility] Start: 1949 COVID-19 VACCINE (1) COVID-19 VACCIN E (1) [facility] Start: 1944 COVID-19 VACCINE (#1) COVID-19 VACCI NE (#1) [facility] Start: 1944 Lipid panel Lipid Panel [facility] Start: 1944 Medicare Annual Wellness Visit Medicare Annual Wellness Visit (AWV) [facility] Start: 1944 Screening for osteoporosis Bone Density Scan [facility] End: 12-10-2023 KENDRA SCREENING KENDRA SCREENING Radiology Routine Encounter for screening mammogram for breast cancer 1 Occurrences starting 11/10/2022 until 12/10/2023 [facility] Work Phone: Comment on above: 1 Occurrences starti ng 11/10/2022 until 12/10/2023 End: 11-21-2022 Screening mammography bi 2-view breast inc cad KENDRA SCREENING Radiology Routine Encounter for screening mammogram for breast cancer Fibrocystic breast changes, bilateral 1 Occurrences starting 10/22/2021 until 11/21/2022 [facility] Work Phone: Comment on above: 1 Occurrences starti ng 10/22/2021 until 11/21/2022 [facility] Immunizations Immunization Date Immunization Notes Care Provider Fili andujar 03-28-2018 diphtheria, tetanus toxoids and acellular pertussis vaccine, unspecified formulation [facility] 01-13-2017 diphtheria, tetanus toxoids and acellular pertussis vaccine, unspecified formulation [facility] R[facility] Payers Date Payer Category Payer Private Health Insurance [employer]ETR[employer]TA [employer]y ETNA MEDICARE SUPPLEMENT [id number] 2019-Present [phone] [address] [address] [place] [address] Indemnity [id number] 2019 Private Health Insurance [id number] 2009 Medicare MEDICARE MEDICAR E A AND B [id number] 2009-Present [phone] [place] [address] Medicare [id number] 2009 Medicare [id number] 1959 Medicare [id number] 1959 Medicare [id number] 1959 Private Health [place] [facility] [id number] 1944 Unknown [id number] 1944 Unknown [id number] 1944 Unknown [id number] 1944 Unknown [id number] Unknown [id number] Social History Date Type Detail Facility Start: 08-16-2018 End: 09-24-2023 Tobacco smoking status NHIS Never smoked tobacco [facility] Start: 10-23-2020 End: 10-29-2023 Alcohol intake Current drinker of alcohol (finding) [facility] Start: 1945 Sex Assigned At Not on file [facility] Start: 08-16-2018 End: 09-24-2023 Tobacco use and exposure Smokeless tobacco non-user [facility] Start: 09-24-2023 End: 10-29-2023 Sex Assigned At [facility] [employer] Other Start: 09-24-2023 End: 10-29-2023 History of Social function [facility] Work Phone: Start: 09-24-2023 Alcohol Comment rare [facility] Work Phone: Start: 09-14-2023 End: 10-29-2023 Exposure to SARS-CoV-2 (event) Not sure [facility] Start: 1945 Sex Assigned At Female F [facility] Medical Equipment Procedure Code Equipment Code Equipment Original Text Equipment Identifier Dates [id number] Screw [id number] Start: 07-12-2013 Comment on above: Description: locking screw 2.7 x 40 [id number] Screw [id number] Start: 07-12-2013 Comment on above: [...] Description: 2.7 x 2 2 cortex screw [id number]-Jtztqsvhctk Screw [id number] Start: 07-12-2013 Comment on above: Description: 2.7 x 2 6 metaphyseal screw [id number] [id number] Head [id number] Start: [id number] 5 30508-Wjpqqsk Screw [id number] Start: [id number] 5 09339-Vcndmtbumjt Screw [id number] Start: 07-12-2013 Comment on above: Description: 2.7 x 1 8 0---Cortex Screw [id number] Start: 07-12-2013 Comment on above: Description: 3.5 x 1 8 0---Cortex Screw [id number] Start: [id number] 5 82483-Ukkzmfhhd Plate [id number] Start: 07-12-2013 Comment on above: Description: 4 hole plate [id number] 5 07848-Wnpxmmt Screw [id number] Start: 07-12-2013 0--- 8 Hole Plate [id number] Start: [id number] 5 65938-Fbso Radl 7.5mm Evol Std Elb - [id number] Start: 07-12-2013 Clinical Notes 10-28-2021 to [...] discussion and plan. documented in this encounter [facility] Work Phone: 10-29-2023 Instructions Neha [...] instructions on exercise. Stop Eliquis Start Coumadin- [facility]. Start 5 mg daily. Will take Eliquis and Coumadin Wednesday, Wed and Wednesday then stop Eliquis Stop Cardizem Start Metoprolol 50 mg daily Start Digoxin .125 mg daily Follow up 2 months documented in this encounter [facility] Work Phone: 09-24-2023 History of [...] as her main insurance will supplement from [employer]. She was given samples of Eliquis by [...] discussion and plan. documented in this encounter [facility] Work Phone: 09-24-2023 Instructions Neha [...] your [facility]. [facility] daily Stop Toprol Start Flecainide 50 mg one tablet two times daily EKG 2 weeks Follow up 6 weeks documented in this encounter [facility] Work Phone: 09-08-2023 Evaluation note [...] cancer (ICD-10 - Z85.3) No s/s recurrence. [employer] Other 01-30-2024 Evaluation note* Encounter Date Diagnosis Assessment Notes Treatment Notes Treatment Clinical Notes Aug, Persistent atrial fibrillation (ICD-10 - I48.19) [employer] Other 01-23-2024 Evaluation note* Encounter Date Diagnosis [...] patient on monthly SBE and yearly mammograms. [employer] Other 01-16-2024 Evaluation note* Encounter Date Diagnosis Assessment Notes Treatment Notes Treatment Clinical Notes Aug, Essential (primary) hypertension (ICD-10 - I10) [employer] Other 10-17-2023 Evaluation note* Encounter Date Diagnosis Assessment Notes Treatment Notes Treatment Clinical Notes May, Essential (primary) hypertension (ICD-10 - I10) [employer] Other 04-26-2023 Evaluation note* Encounter Date Diagnosis [...] reveal any pathologic findings to suspect mets [employer] Other 04-21-2023 NoteHNO ID: [id number] Author: Emmy Patrick CYP Design Service: ? Author Type: Box Hinge And Lock Attacher Type: Progress Notes Filed: 11/20/2022 12:28 PM [...] DATA: Not applicable SIGNED BY: Emmy Patrick [employer] November 20, 2022 12:28 [facility]04-21-2023 NoteHNO ID: [id number] Author: Mayelin Rosen APRN.HUMAN RESOURCES TALENT MANAGER Service: ? 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 [...] encounter) is as follows: Breast biopsy: Yes, 01/05-[facility] Breast cysts: No Breast surgery: Yes, Right PM with ALND Breast cancer: Yes, Stage I (T 1c N 0 M 0) in 2005, treated as above CANCER SURVEILLANCE: Mammograms: Yes, Date in [facility]: 10/28/21; results - negative Breast MRI: [...] Uterine Cancer Maternal Au (more content not included)...[facility]04-21-2023 Miscellaneous Notes* Letter - Mammography Coordinator - 11/20/2022 12:38 PM EDT November 23, 2022 PID: [id number] Pj Lopez [address] [place] [address] Dear Ms. Lopez, We are pleased to [...] report will be kept on file at [facility] as part of your permanent medical record and are available for your continuing care. Thank you for allowing us to help in meeting your health care needs. Sincerely, Dr. Tesfaye Interpreting Radiologist [facility] (Normal over 40) [facility] Instructions* Patient Instructions* Paola Cloud Ma [...] TP53, CDH1, STK11, PALB2, CHEK2, JADE) Per [facility] High Risk Care Path recommendations, screening [...] male breast cancer you are of Ashkenazi Congregation descent HEALTHY LIFESTYLE MANAGEMENT (per NCCN Guidelines [...] include but are not limited to: The [facility] Comprehensive Breast Cancer Program - [email or web address]/[email or web address] [facility] - [email or web address] [employer] Cancer [employer] - cancer.org PANDA Breast Cancer Foundations - [email or web address].[email or web address] FORCE - facingourrisk.[email or web address] [facility] [place] - brightpink.org Young Survival Coalition - youngsurvival.[email or web address] 4th Sotero - 4thangel.[email or web address] [facility] - touchedbycancer.org ([place] and [place]) [facility] - thevictorycenter.org ([place] area) [facility] - yellowbrickplace.org ([place] area) [facility] - stewartscaringplace.org ([place] area) If you would like to compliment one of our caregivers you encountered today, you may do so at [email or web address]. Thank you ! 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 [...] encounter) is as follows: Breast biopsy: Yes, 01/05-[facility] Breast cysts: No Breast surgery: Yes, [...] mg ORAL Tab Take one(1) tablet daily. Xdrvxke-Cjuxljggya-Jlyl 333-133-5 mg ORAL Tab dose unknown - [...] which included preparing to see the patient, aoyo-ip-yrxr patient care, completing clinical documentation, obtaining and/or reviewing separately obtained history, performing a medically appropriate examination, counseling and educating the pat ient/family/caregiver, ordering medications, tests, or procedures, communicating results to the patient/family/caregiver, and care coordination (not separately reported). 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 [...] encounter) is as follows: Breast biopsy: Yes, 01/05-[facility] Breast cysts: No Breast surgery: Yes, Right PM with ALND Breast cancer: Yes, Stage I (T 1c N 0 M 0) in 2005, treated as above CANCER SURVEILLANCE: Mammograms: Yes, Date in [facility]: 10/22/20; results - negative Breast MRI: [...] mg ORAL Tab Take one(1) tablet daily. Gigsrij-Zfmsglxbhn-Xaai 333-133-5 mg ORAL Tab dose unknown - [...] PTEN, TP53, CDH1, STK11,PALB2, CHEK2, JADE) Per [facility] High Risk Care Path recommendations, screening breast MRI may be considered for women underthe age of 65 with remaining breast tissue in the following situations: - Age at breast cancer diagnosis under 50 - Mammographically dense tissue (BI-RADS category 3 or 4) - History of invasive lobular breast cancer She doesn't meet [facility] care path guidelines for MRI of [...] which included preparing to see the patient, bkvl-sq-tkkq patient care, completing clinical documentation, obtaining and/or reviewing separately obtained history, performing a medically appropriate examination, counseling and educating the pat ient/family/caregiver, ordering medications, tests, or procedures, communicating with other HCPs (not separately reported), independently interpreting results (not separately reported), communicatingresults to the patient/family/caregiver and care coordination (not separately reported). Mayelin Rosen APRN.[facility] Medical Breast Specialist Women's Health Nurse Practitioner CC: Michael Rivas MD ([facility]) [address] [phone] documented in this encounterWadsworth-Rittman Hospital03-29-2022 Instructions* Patient Instructions* Paola Cloud Ma [...] TP53, CDH1, STK11, PALB2, CHEK2, JADE) Per [facility] High Risk Care Path recommendations, screening [...] male breast cancer you are of Ashkenazi Congregation descent HEALTHY LIFESTYLE MANAGEMENT (per NCCN Guidelines [...] include but are not limited to: The [facility] Comprehensive Breast Cancer Program - [email or web address].[email or web address]/services/kztafa-[email or web address] [facility] - [email or web address] [employer] Cancer Society - cancer.org PANDA Breast Cancer Foundations - jdbcfoundation.[email or web address] FORCE - facingourrisk.[email or web address] [facility] [place] [place] - brightpink.org Young Survival Coalition - youngsurvival.org 4th Sotero - 4thangel.org The [facility] - touchedbycancer.org ([place] and [place]) [facility] - thevictorycenter.org ([place] area) [facility] - yellowbrickplace.org ([place] area) [facility] - stewartscaringplace.org ([place] area) If you would like to compliment one of our caregivers you encountered today, you may do so at [email or web address]. Thank you ! documented in this encounterWadsworth-Rittman Hospital03-29-2022 Nurse Note* Paola Cloud Ma - 10/28/2021 11:24 AM EDT Last mammogram on: 10/22/20 Results: see report Is the patient active on [employer] Yes Electronically Signed By: Paola Cloud Ma [...] occasional Drug use: No documented in this encounterWadsworth-Rittman HospitalEvaluchristiana hospital note* Diagnosis Encounter for screening mammogram for breast cancer- Primary Fibrocystic breast changes, bilateral documented in this encounter [facility]* Diagnosis Fibrocystic breast changes, bilateral- Primary Personal history of malignant neoplasm of breast Encounter for screening mammogram for breast cancer documented in this encounter [facility]* Diagnosis Encounter for screening mammogram for breast cancer- Primary documented in this encounter [facility]* Diagnosis Fibrocystic breast changes, bilateral- Primary Personal history of malignant neoplasm of breast Encounter for screening mammogram for breast cancer Family history of breast cancer in sister Family history of malignant neoplasm of breast documented in this encounter [facility] noteNo [employer] Other Evaluation note* Diagnosis Obesity, Class I, BMI 30-34.9- Primary Atrial fibrillation, unspecified type (CMS/HCC) Hypertension, unspecified type High risk medication use Persistent atrial fibrillation (CMS/HCC) Atrial fibrillation documented in this encounter [facility] Work Phone: Evaluation note* Diagnosis Atrial fibrillation, unspecified type (CMS/HCC) Hypertension, unspecified type High risk medication use Obesity, unspecified classification, unspecified obesity type, unspecified whether serious comorbidity present Never smoked tobacco documented in this encounter [facility] Work Phone: Evaluation note* Diagnosis Onset Date Resolution Status Blood in stool acute 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 Persistent atrial fibrillation acute Primary hypertension acute [facility] Work Phone: Hisnwhn general Narrative - Reported* Type Description Date [...] History COLONOSCOPY Hospitalization History SEE SURGICAL HX [employer] Other Hiszjgk general Narrative - Reported* Type Description Date [...] COLONOSCOPY 2016 Hospitalization History SEE SURGICAL HX [employer] Other Reason for referral (narrative)* Diagnostic Procedure Only (Routine) - Authorized Specialty Diagnoses / Procedures Referred By Contac t Referred To Contact [facility] Diagnoses Encounter for screening mammogram for breast cancer Fibrocystic breast changes, bilateral Procedures KENDRA SCREENING SCREENING MAMMOGRAPHY BI 2-VIEW BREAST INC CAD Mayelin Rosen, MAXIMILIAN.HUMAN RESOURCES TALENT MANAGER [address] [place] [address] [facility] [address] [place] [address] Referral ID Status Reason Start Date Expiration Date Visits Requested Visits Authorized [id number] Authorized Auto-Generat ed Referral 10/22/2021 11/21/2022 1 1 [facility] for referral (narrative)* Diagnostic Procedure Only (Routine) - Authorized Specialty Diagnoses / Procedures Referred By Contac t Referred To Contact BR IMAG[facility] Diagnoses Encounter for screening mammogram for breast cancer Procedures KENDRA SCREENING SCREENING MAMMOGRAPHY BI 2-VIEW BREAST INC [facility] Mayelin Rosen APRN.HUMAN RESOURCES TALENT MANAGER [address] [place] [address] [facility] [address] [place] [address] Referral ID Status Reason Start Date Expiration Date Visits Requested Visits Authorized [id number] Authorized Auto-Generat ed Referral 11/10/2022 12/10/2023 1 1 [facility] for referral (narrative)* Diagnostic Procedure Only (Routine) - Closed Specialty Diagnoses / Procedures Referred By Casandraac t Referred To Contact [facility] Diagnoses Encounter for screening mammogram for breast cancer Procedures KENDRA SCREENING W MAX SCREENING DIGITAL BREAST TOMOSYNTHESIS BI SCREENING MAMMOGRAPHY BI 2-VIEW BREAST INC [facility] Mayelin Rosen APRN.HUMAN RESOURCES TALENT MANAGER [address] [place] [address] [facility] [address] [place] [address] Referral ID Status Reason Start Date Expiration Date V isits Requested Visits Authorized [id number] Closed Auto-Generate d Referral 11/20/2022 12/20/2023 1 1 [facility] for referral (narrative)* Reason *FU 09/17 Referral for new onset atrial fibrillation Diagnosis 1 New onset atrial fib rillation (I48.91) Referral Organization [facility] Referring Provider First Name Michael Referring Provider Last Name Kailash Referring Provider Specialty Internal Me dicine Referred Organization [facility] enter Referred Provider Judy Castro Referred Address [address] [facility] [address] [place] [address] Referred Provider Specialty Cardiac Surg ailyn Referral [...] labs, EKG, E cho and stress test [employer] Other Reason for referral (narrative)* Consultation (Routine) - Authorized Specialty Diagnoses / Procedures Referred By Errol benson Referred To Contact Cardiology Diagnoses Atrial fibrillation, unspecified type (CMS/HCC) Procedures Follow Up In Cardiology Judy Castro MD [facility] [facility], [address] [address] Judy Castro MD [address] [facility] 2, [address] [address] Referral ID Status Reason Start Date Expiration Date V isits Requested Visits Authorized [id number] Authorized 10/29/2023 10/28/2024 1 1 [facility] Work Phone: Advance Directives No Advanced Directives Records FoundDocuments on File Type Date Recorded 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 Advance Directive(s) 07/14/2013 7:01 PM Documents on File Type Date Recorded 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 Advance Directive(s) 07/14/2013 7:01 PM Advance Directive Response Recorded Date/ Time Advance Directives No September 11:40am Summary Purpose Family History No Family History Records FoundNo Family History Records FoundNo Family History Records Found Reason for Referral Specialty Diagnoses / Procedures Referred By Errol benson Referred To Contact Diagnoses Atrial fibrillation, unspecified type (CMS/HCC) Procedures ECG 12 Lead Judy Castro MD [address] [facility] 2, [place] [address] [place] [address] Referral ID Status Reason Start Date Expiration Date V isits Requested Visits Authorized [id number] Authorized 09/24/2023 09/23/2024 1 1 Referral ID Status Reason Start Date Expiration Date V isits Requested Visits Authorized [id number] Authorized 09/24/2023 09/23/2024 1 1 Specialty Diagnoses / Procedures Referred By Contac t Referred To Contact Cardiology Diagnoses Atrial fibrillation, unspecified type (CMS/HCC) Procedures Follow Up In Cardiology Judy Castro MD [address] [facility] 2, [address] [address] Judy Castro MD [address] [facility] 2, [address] [address] Referral ID Status Reason Start Date Expiration Date V isits Requested Visits Authorized [id number] Authorized 09/24/2023 09/23/2024 1 1 Chief Complaint [...] or prosecute any alcohol or drug abuse patient.[facility] HospitalIn the event this information is protected by the Federal Confidentiality of Alcohol and Drug Abuse Patient Records regulations: The Federal rules restrict any use of the information to criminally investigate or prosecute any alcohol or drug abuse patient.[facility] HospitalIn the event this information is protected by the Federal Confidentiality of Alcohol and Drug Abuse Patient Records regulations: The Federal rules restrict any use of the information to criminally investigate or prosecute any alcohol or drug abuse patient.[facility] HospitalIn the event this information is protected by the Federal Confidentiality of Alcohol and Drug Abuse Patient Records regulations: The Federal rules restrict any use of the information to criminally investigate or prosecute any alcohol or drug abuse patient.[facility] HospitalIn the event this information is protected by the Federal Confidentiality of Alcohol and Drug Abuse Patient Records regulations: The Federal rules restrict any use of the information to criminally investigate or prosecute any alcohol or drug abuse patient.[facility] Care Teams (unrecognized sec tion and content) Fusion Analyst Relationship Specialty Start Date End Date Michael Rivas DO PCP - General Internal Medicine 12/19/10 Fusion Analyst Relationship Specialty Start Date End Date Michael Rivas, DO PCP - General Internal Medicine 12/19/10 Fusion Analyst Relationship Specialty Start Date End Date Kailash Michael Sanchez, DO PCP - General Internal Medicine 12/19/10 Fusion Analyst Relationship Specialty Start Date End Date Kailash Michael Sanchez, DO PCP - General Internal Medicine 12/19/10 Fusion Analyst Relationship Specialty Start Date End Date KailashMichael Laura, DO PCP - General Internal Medicine 12/19/10 Fusion Analyst Relationship Specialty Start Date End Date Michael Rivas DO [address] [facility] [place] [address] PCP - General Internal Medicine 09/14/23 Fusion Analyst Relationship Specialty Start Date End Date Kailash Michael Laura, DO [address] [facility] [place] [address] [place] [address] PCP - General Internal Medicine 09/14/23 Team [...] Procedures ECG 12 Lead Judy Castro MD [address] [place] [address] 2, [address] [address] Referral ID Status Reason Start Date Expiration Date V isits Requested Visits Authorized [id number] Authorized 09/24/2023 09/23/2024 1 1 Reason Comments Follow-up symptoms Specialty Diagnoses / Procedures Referred By Contac t Referred To Contact Cardiology Diagnoses Atrial fibrillation, unspecified type (CMS/HCC) Procedures Follow Up In Cardiology Judy Castro MD [address] [facility] 2, [address] [address] Judy Castro MD [address] [place] [address] 2, [address] [address] Referral ID Status Reason Start Date Expiration Date V isits Requested Visits Authorized [id number] Authorized 09/24/2023 09/23/2024 1 1 INFORMATION SOURCE (unrecogn ized section and content) DATE CREATED AUTHOR 11/25/2022 [facility] DATE CREATED AUTHOR AUTHOR'S ORGANIZ ATION 11/28/2022 [facility] DATE CREATED AUTHOR AUTHOR'S ORGANIZ ATION 11/12/2023 [facility] Ambulatory Goals (unrecognized section and [...] BE BASED ON THE PRIMARY CLINICAL RECORDS. [facility]. provides no warranty or guarantee of the accuracy or completeness of information in this document.
[2023-11-16 18:11] VITALS: BP 118/71; PULSE 100; TEMP 36.6; O2SAT 95
[2023-11-16 19:44] VITALS: BP 115/88; PULSE 104; TEMP 36.4; O2SAT 91
[2023-11-16] MEDS: POTASSIUM CHLORIDE 10 MEQ ER TABLET 40 MEQ PO (19:52)
[2023-11-16] MEDS: OXYCODONE HCL 5 MG TABLET PO (19:52)
[2023-11-16 20:15] VITALS: O2SAT 95
[2023-11-16] MEDS: FLECAINIDE ACETATE 50 MG TABLET PO (20:48)
[2023-11-16] MEDS: LACTULOSE 10 GM/15 ML UD CUP 30 GM PO (20:48)
[2023-11-16 21:27] LABS: INR 2.42; Prothrombin Time 24.4 sec (9.0-11.6)
[2023-11-16 23:58] VITALS: BP 119/74; PULSE 95; TEMP 36.4; O2SAT 94
[2023-11-17 04:14] VITALS: BP 110/72; PULSE 92; TEMP 36.6; O2SAT 97
[2023-11-17 05:16] LABS: INR 1.46; Prothrombin Time 15.1 sec (9.0-11.6)
--- NOTE | 2023-11-17 07:22 | US_ITS ---
The [address] [address] Patient Name: PJ LOPEZ MRN: [id number] date: 1945 Sex: F Assigned Patient Location: [place] Current Patient Location: Accession/Order Number: [id number] Exam Date: 11/17/2023 07:23 Report Date: 11/17/2023 08:47 At the request of: SHAIKH YUE Procedure: US paracentesis abd w/image EXAMINATION: US paracentesis abd w/image HISTORY: ascites COMPARISON: No relevant comparison available. DESCRIPTION: Informed consent was obtained. The patient was prepped and draped in standard sterile fashion. Ultrasound-guided paracentesis was performed in the usual sterile manner using 1% Xylocaine. FINDINGS: Ultrasound performed 11/16/2023 and before the start of the procedure demonstrates only a small amount of ascites with the largest pocket in the right lower quadrant. This was not felt to be amenable to therapeutic paracentesis due to the proximity of multiple bowel loops. Therefore a diagnostic thoracentesis was performed SITE: Right lower quadrant NEEDLE: 3.5 inch 20-gauge spinal needle MEDICATION: 6 cc 1% buffered Xylocaine for local anesthesia FLUID DESCRIPTION: Medial mid yellow, clear FLUID VOLUME: 40 cc COMPLICATIONS: None LABORATORY: Pending OTHER: Negative. US/US paracentesis abd w/image IMPRESSION: Technically successful diagnostic paracentesis Electronically authenticated by: MARIBEL ESCOBEDO Date: 11/17/2023 08:47
[2023-11-17 07:39] VITALS: BP 124/86; PULSE 84; TEMP 36.4; O2SAT 92
[2023-11-17 07:45] LABS: Anion Gap 11.4; BUN Creatinine Ratio 24.2; Calcium 9.1 mg/dL (8.5-10.1); Carbon Dioxide 28.4 mmol/L (21.0-32.0); Chloride 100 mmol/L (98-107); Estimated GFR (African America 51 (>=60); Estimated GFR (Non-African Ame 42 (>=60); Glucose 96 mg/dL (74-106); Lactate Dehydrogenase 862 U/L (81-234); Potassium 3.8 mmol/L (3.5-5.1); Sodium 136 mmol/L (136-145)
[2023-11-17] MEDS: DIGOXIN 125 MCG TABLET PO (08:34)
[2023-11-17] MEDS: METOPROLOL SUCCINATE 50 MG TAB.ER.24H PO (08:34)
[2023-11-17] MEDS: DILTIAZEM HCL 240 MG CAP.ER.24H PO (08:34)
[2023-11-17] MEDS: OXYCODONE HCL 5 MG TABLET PO (10:22)
--- NOTE | 2023-11-17 10:28 | CM.NOTE ---
Rounds made with Dr. Neri, discussed with pt possible discharge to home today. Dr. Neri will connect with Dr. Flannery for further recommendations.
--- NOTE | 2023-11-17 10:36 | CM.NOTE ---
Medical Outpatient Observation Notice discussed with pt, pt verbalizes understanding and signs paper. Original given to pt and copy placed in pt's chart.
--- NOTE | 2023-11-17 10:37 | P.HP_ITS ---
<Statement entered by Shaikh Halle MD - 11/17/23 11:19> This documentation has been reviewed and approved. Patient seen and examined. Case discussed with Vale Giordano, SOUND ASSISTANT and nursing staff. Agree with her clinical findings, treatment plan. Patient is being worked up for metastatic cancer of unknown primary. Suspected Liver Cancer but definitive diagnosis is pending. She was scheduled for outpatient paracentesis but could not get it due to intractable nausea, supra therapeutic INR for which she was admitted overnight. Patient was given Vit K with improvement in her INR and had paracentesis performed today. Appropriate labs/fluid studies ordered in consultation with Oncology. Rip is feeling subjectively better after paracentesis and is stable for discharge to continue her oncological work as outpatient. Exam: Laying in bed, comfortable CTA b/l, normal RR Abdominal distention, NT. AAOX 3. Non focal neurological exam Assessment and Plan Metastatic disease of unknown primary Abdominal ascites Supra therapeutic INR HTN Leukocytosis Nausea/vomiting CKD 3 Abdominal Pain -sp paracentesis. Abd improved after paracentesis so did her nausea. INR 1.5 after Vit K administration for supratherapeutic INR. She likely has underlying coagulopathy from numerous neosplastic lesions in her liver. Patient also has leukocytosis but no signs and symptoms of an infection and this is also likely from underlying metastatic disease. -stable for d/c. Follow up with PCP, oncology in 1-2 weeks. HPI H&P: HPI History of Present Illness Chief complaint: other, Elevated INR, Liver Masses Narrative: 11/17/23 0940 This is a 78-year-old female patient with a complicated past medical history as outlined below including recent diagnosis of liver cancer, unknown primary versus metastatic, and history of breast cancer; who presented to the ED yester day evening directly from the outpatient oncology office due to an elevated INR. The patient was scheduled for an outpatient paracentesis first thing this morning, but her INR remained elevated at 3.63 despite holding her warfarin for 4 days. She was treated with vitamin K in the ED and admitted to observation to the hospitalist service for monitoring of her INR and further treatment with FFP if indicated. At the time of my exam the patient's INR had dropped to 1.46 and she has already had her paracentesis first thing this morning. She tolerated this procedure well. There was only a small volume of ascites amenable to paracentesis and this has been sent for diagnostic workup. We have had multiple conversations with the oncology service for coordination of further treatment. The patient will be discharged home and the oncology service will attempt to obtain an outpatient IR liver biopsy as soon as possible for definitive diagnosis due to the small amount of ascites fluid making it difficult to obtain a definitive diagnosis via cytology. The patient is being discharged home in stable condition and is fully aware of the plan going forward. The oncology clinic will contact her with an appointment for her biopsy once it is arranged. Opioid HPI Opioid Management Most Recent Opioid Data: Last Pain Scale 5 11/17/23 10:22 Last Pain Assessment 11/17/23 10:05 Last MAR Pain Assessment 11/17/23 10:22 Last ORT Total Score 0 11/16/23 18:02 Last ORT Risk Category Low Risk 11/16/23 18:02 Review of Systems ROS Status of ROS 10 or more systems reviewed and unremark able except as noted in history and below [facility] Medical History (Updated 11/17/23 @ 10:44 by Vale Mahoney NP) Abdominal pain ?R10.9 - Unspecified abdominal pain (ICD-10) Cancer, metastatic to liver ?C78.7 - Secondary malignant neoplasm of liver and intrahepatic bile duct (ICD-10) History of fall ?Z91.81 - History of falling (ICD-10) Diverticulosis ?K57.90 - Diverticulosis of intestine, part unspecified, without perforation or abscess without bleeding (ICD-10) Hypertension ?I10 - Essential (primary) hypertension (ICD-10) Atrial fibrillation ?I48.91 - Unspecified atrial fibrillation (ICD-10) Breast cancer ?C50.919 - Malignant neoplasm of unspecified site of unspecified female breast (ICD-10) Surgical History (Updated 11/17/23 @ 08:48 by Christine Roman) S/P abdominal paracentesis ?Z98.890 - Other specified postprocedural states (ICD-10) H/O bilateral breast reduction surgery ?Z98.890 - Other specified postprocedural states (ICD-10) H/O: hysterectomy ?Z90.710 - Acquired absence of both cervix and uterus (ICD-10) H/O lumpectomy ?Z98.890 - Other specified postprocedural states (ICD-10) H/O tubal ligation ?Z98.51 - Tubal ligation status (ICD-10) History of tonsillectomy ?Z90.89 - Acquired absence of other organs (ICD-10) Family History (Updated 11/04/23 @ 12:22 by Amrita Green RN) Mother Family history of hypertension Family history of cancer Father Family history of hypertension Sister Family history of hypertension Family history of cancer Brother Family history of hypertension Social History (Updated 11/04/23 @ 12:22 by Amrita Green RN) Within the past year, how often did you have a drink containing alcohol: never Score interpretation: A score less than 3 is consistent with normal alcohol consumption. Smoking status: Never smoker Non-prescribed substance use: denies use Highest level of school completed/degree received: high school graduate Meds Home Medications and Allergies Home Medications ?Medication ?Instructions ?Recorded ?Confirmed ?Type digoxin 125 mcg (0.125 mg) tablet 0.125 mg PO DAILY 11/04/23 11/16/23 History diltiazem HCl 240 mg 240 mg PO QDAY 11/04/23 11/16/23 History capsule,extended release 24 hr flecainide 50 mg tablet 50 mg PO BID 11/04/23 11/16/23 History losartan 50 mg tablet 50 mg PO DAILY 11/04/23 11/16/23 History metoprolol succinate 50 mg 50 mg PO DAILY 11/04/23 11/16/23 History tablet,extended release 24 hr ondansetron 4 mg disintegrating 4 mg translingual Q6H PRN nausea 11/04/23 11/16/23 History tablet and vomiting hydrocodone 5 mg-acetaminophen 325 1 tab PO Q4H PRN pain #42 tabs 11/05/23 11/16/23 Rx mg tablet lactulose 10 gram/15 mL (15 mL) 30 g (45 mL) PO BID #2,880 mL 11/05/23 11/16/23 Rx oral solution metoclopramide HCl 10 mg tablet 10 mg PO ACHS #60 tabs 11/05/23 11/16/23 Rx (Reglan) promethazine 25 mg tablet 25 mg PO Q4H PRN nausea #60 tabs 11/05/23 11/16/23 Rx warfarin 2.5 mg tablet 2.5 mg PO DAILY #30 tabs 11/05/23 11/16/23 Rx bumetanide 0.5 mg tablet 0.5 mg PO .qd PRN edema 11/16/23 11/16/23 History Allergies Allergy/AdvReac Type Severity Reaction Status Date / Time No Known Drug Allergies Allergy Verified 11/17/23 08:48 Exam Constitutional Vital Signs, click to edit/add: Last Vital Signs Temp 97.6 F 11/17/23 07:39 Pulse 84 11/17/23 07:39 Resp 18 11/17/23 07:39 BP 124/86 11/17/23 07:39 Pulse Ox 92 L 11/17/23 07:39 O2 Del Method Room Air 11/17/23 07:39 Common normals: no apparent distress, oriented x3, alert and well nourished General appearance: cooperative Orientation/consciousness: Yes awake HENMT Common normals: normocephalic, head/scalp atraumatic, hearing grossly normal bilaterally, external nose normal and moist oral mucous membranes Eye Common normals: PERRL, EOMs intact bilaterally, conjunctivae normal and no scleral icterus Alignment: alignment normal Eyelid: eyelids normal Neck & C-Spine Common normals: full ROM, supple and no JVD Chest Common normals: inspection of chest normal Chest: symmetrical chest wall rise and tenderness (Left lateral, distal ribs) Respiratory Common normals: normal respiratory effort, no retractions, no use of accessory muscles and clear to auscultation bilaterally Effort & inspection: able to speak in complete sentences Cardio Common normals: no JVD, regular rate, regular rhythm, S1 normal heart sound, S2 normal heart sound, no gallops, no clicks, no murmurs, no rub and peripheral pulses 2+ throughout GI Common normals: soft to palpation and no bruits Inspection: abnormal to inspection (distended) Auscultation: normoactive bowel sounds Palpation: tender (RUQ, RLQ-greatest at RUQ) and mass (RUQ); no rebound tenderness present Bladder/kidney exam: bladder normal to palpation Extremity Common normals: normal capillary refill and no pedal edema General: normal exam except as noted; no clubbing and no cyanosis Neuro Jacquelyn Coma Scale: GCS not evaluated Common normals: CN's II-XII intact bilaterally, moves all extremities, no focal motor deficits and no sensory deficits noted Speech: speech normal Motor exam: strength 5/5 throughout Psych Common normals: mental status grossly normal, thought process normal, affect normal and activity/motor behavior normal Results Labs Labs: [facility] 11/17/23 04:04 Sodium 136 Potassium 3.8 Chloride 100 Carbon Dioxide 28.4 BUN 30.0 H Creatinine 1.24 H Glucose 96 Calcium 9.1 Pulse Oximetry Attestation: I have reviewed the pertinent pulse oximetry results. Imaging Paracentesis - US Guided: Attestation: I have reviewed the pertinent imaging results. Radiologist's impression: IMPRESSION: Technically successful diagnostic paracentesis Assessment and Plan Assessment and Plan (1) Liver cancer: Assessment and Plan: Acute/Sub-acute * Adm observation * Known liver CA, unclear if primary * Diagnostic paracentesis scheduled for 11/17/23, but INR was elevated at 3.63 on 11/15 on outpatient labs - see below * Follows w/ Dr Flannery outpatient - defer further imaging/treatment to the oncology service (2) Elevated INR: Assessment and Plan: Acute * Vitamin K given in ED on 11/15 * INR down to 1.46 today prior to paracentesis (3) Abdominal pain: Assessment and Plan: Chronic * 2/2 liver masses * Continue home [place] (4) Atrial fibrillation: Assessment and Plan: Chronic * Continue home flecainide, digoxin, diltiazem for rate control * Warfarin on Hold prior to paracentesis, likely hold at d/c too for pending IR biopsy (5) Hypertension: Assessment and Plan: Chronic * Continue home diltiazem and losartan
[2023-11-17 11:38] VITALS: O2SAT 95
[2023-11-18 13:11] LABS: Amylase, Body Fluid 19 U/L (.); Clarity, Serous Clear (Clear); Color, Serous Yellow (.); Eosinophils, Serous 0 % (Not Estab.); Glucose, Body Fluid 100 mg/dL (.); LD, Body Fluid 256 IU/L (.); Lining Cells, Serous 45 % (Not Estab.); Lymphocytes, Serous 18 % (Not Estab.); Macrophages, Serous 31 % (Not Estab.); Neut, Serous 6 % (0-24); Nucleated Cells, Serous 285 /mm3 (0-499); Protein, Body Fluid 2.7 g/dL (.); RBC, Serous 0 /uL (Not Estab.)
--- OUTSIDE RECORDS SUMMARY | 2023-11-19 07:12 | XMS_ITS | CCD ---
Author Organization [facility] Care Team Providers Care Information Security Officer Name Role Phone Michael Rivas DO Primary Care Provider MAYELIN ROSEN Referring Unavailable MICHAEL RIVAS Primary Care Unavailable MAYELIN ROSEN Referring Unavailable MAYELIN ROSEN Attending Unavailable MICHAEL RIVAS Primary Care Unavailable Michael Rivas Unavailable DR CINTHIA IBARRA Consulting Unavailable DIAB ., LEONELA Admitting Unavailable DIAB .LEONELA Attending Unavailable KAILASH, DR FRAUSTO Primary Care Unavailable DIAB ., LEONELA Consulting Unavailable KAILASH, DR FRUASTO Admitting Unavailable KAILASH, DR FRAUSTO Primary Care Unavailable KAILASH, DR FRAUSTO Consulting Unavailable KAILASH, DR FRAUSTO Attending Unavailable Michael Rivas DO Primary Care Provider DO Michael Rivas Primary Care Provider [phone] MD Mirza Ríos V Attending Provider [phone] JUDY CASTRO Attending Unavailable MICHAEL RIVAS Primary Care Unavailable JUDY CASTRO Attending Unavailable JUDY CASTRO Referring Unavailable MICHAEL RIVAS Primary Care Unavailable Mirza Ríos V Attending Unavailable Mirza Ríos V Admitting Unavailable Michael Rivas Primary Care Unavailable Allergies Allergy Classification Reported Allergen(s) Allergy Type Date of Onset Reaction(s) Facility (6 sources) Adhesive Tape-Silicones; Translations: [ADHESIVE TAPE-SILICONES] Drug Intolerance 3 Intolerance [facility] (5 sources) band-aids [Other] Propensity to adverse reactions 7 [facility] (1 source) OTHER; Translations: [OTHER] Propensity to adverse reactions (disorder) 7 [facility] (2 sources) patient allergy list reviewed by nurse or physicia Propensity to adverse reactions 03-06-201 5 Comment:Done [employer] Other Medications Current Medications Medication Drug Class(es) Dates Sig (Normalized) Sig (Original) acetaminophen 325 mg / HYDROcodone bitartrate 5 mg oral tablet (2 sources) Opioid Agonist Start: 11-10-2023 take 1 tablet by mouth every four hours Hydrocodone-Acet aminophen Active 1 TAB PO Every 4 hours November 10, 2023 12:00am atenolol 25 mg oral tablet (5 sources) beta-Adrenergic Vj take 1 tablet by mouth every twenty-four hours Atenolol 25 MG 1 tablet Orally Once a day Active digoxin 0.125 mg oral tablet (3 sources) Cardiac Glycoside Start: 10-29-2023 End: 10-28-2024 take 125 ug by mouth once daily Digoxin Active 125 MCG PO Daily November 10, 2023 12:00am 24 hr dilTIAZem hydrochloride 240 mg extended release oral capsule (4 sources) Calcium Channel Vj Start: 09-24-2023 End: 09-23-2024 take 240 mg by mouth once daily Diltiazem Hcl Active 240 MG PO Daily September 24, 2023 1:00am flecainide acetate 50 mg oral tablet (5 sources) Antiarrhythmic Start: 11-10-2023 take 50 mg [...] 2023 8:02pm lactulose 667 mg/ml oral solution (2 sources) Osmotic Laxative Start: 11-10-2023 take 30 g by mouth twice daily Lactulose Active 30 GM PO Twice daily November 10, 2023 12:00am losartan potassium 50 mg oral tablet (20 sources) Angiotensin 2 Receptor Vj Start: 11-16-2023 take 1 tablet by mouth once daily Losartan Active 0 .ROUTE .COMPLEX 90 November 16, 2023 1:24pm TAKE 1 TABLET BY MOUTH EVERY DAY Start: 11-09-2022 End: 11-16-2023 take 50 mg by mouth once daily Losartan Discontinued 5 0 MG PO Daily September 24, 2023 1:00am November 16, 2023 1:24pm Comment on above: Take 50 mg by mouth once daily. metoclopramide 10 mg oral tablet (2 sources) Dopamine-2 Receptor Antagonist Start: 11-10-19 take 10 mg by mouth at bedtime Metoclopramide Hcl Active 10 MG PO .ACHS November 10, 2023 12:00am 24 hr metoprolol succinate 50 mg extended release oral tablet (9 sources) beta-Adrenergic Vj Start: 10-29-19 End: 10-29-19 take 50 mg by mouth once daily [...] effects) ondansetron 4 mg disintegrating oral tablet (3 sources) Serotonin-3 Receptor Antagonist Start: 10-26-2023 take [...] Active promethazine hydrochloride 25 mg oral tablet (2 sources) Phenothiazine Start: 11-10-2023 take 25 mg by mouth every four hours Promethazine Active 25 MG PO Every 4 hours November 10, 2023 12:00am warfarin sodium 2.5 mg oral tablet (3 sources) Vitamin K Antagonist Start: 11-10-2023 take 2.5 mg by mouth once daily Warfarin Active 2.5 MG PO Daily November 10, 2023 12:00am Start: 10-29-2023 warfarin (Coum kinjal) 5 mg tablet Indications: Atrial fibrillation, unspecified type (CMS/HCC) One tablet daily or 5 mg daily. To be followed by [facility] 14 tablet 0 10/29/2023 Active Completed/Discontinued Medications Medication Drug Class(es) Dates Sig (Normalized) Sig (Original) apixaban 5 mg oral tablet (10 sources) Factor Xa Inhibitor Start: 4 End: 4 take 1 tablet by mouth twice daily Apixaban (Eliquis) 5 mg tablet Discontinued 5 MG PO Twice daily 60 30 September 28, 2023 2:19pm November 10, 2023 11:26am ascorbic acid 1000 mg oral tablet (5 sources) Vitamin C Start: 7 take 1 tablet by mouth once daily Ascorbic Acid (VITAMIN C) 1,000 mg ORAL Tab Take one(1) tablet daily. 0 12/01/2006 Active Comment on above: Take one(1) tablet d aily. Xarghhy-Lzoeopwvjv-Upwb 333-133-5 mg ORAL Tab (5 sources) Start: [...] Episodic Aortic; peripheral; and visceral artery aneurysms (14 sources) Ascending aorta dilatation; Translations: [Thoracic aortic ectasia] 11-06-2023 Chronic Cancer of breast (2 sources) Malignant neoplasm of female breast; Translations: [Malignant neoplasm of breast (female), unspecified site] Onset: 04-19-2014 Chronic Cancer of breast (20 sources) History of malignant neoplasm of breast; Translations: [Personal history of malignant neoplasm of breast] Onset: 08-02-2005 12-06-2007 Episodic Cardiac dysrhythmias (20 sources) Persistent atrial fibrillation; Translations: [Other persistent atrial fibrillation] Onset: 09-24-2023 Chronic Cardiac dysrhythmias (1 source) Tachycardia, unspecified Episodic E Codes: Fall (1 source) Other fall on same level, initial encounter; Translations: [OTHER FALL ON SAME LEVEL INITIAL] Onset: 11-10-2022 Episodic Essential hypertension (20 sources) Essential hypertension; Translations: [Essential (primary) hypertension] Onset: 11-10-2022 Chronic Gastrointestinal hemorrhage (16 sources) Hematochezia; Translations: [Melena] Onset: 12-30-2015 11-06-2023 Episodic Genitourinary symptoms and ill-defined conditions (3 sources) Dysuria; Translations: [Dysuria] Onset: 11-01-2015 Episodic Heart valve disorders (15 sources) Aortic valve disorder; Translations: [Nonrheumatic aortic [...] sources) Taking high risk medication; Translations: [Other group home (current) drug therapy] Onset: 09-24-2023 09-24-2023 Episodic Other aftercare (2 sources) Other group home (current) drug therapy; Translations: [Other terminal carman (current) drug therapy] Onset: 09-24-2023 Episodic Other [...] health status] Onset: 10-29-2023 Episodic Secondary malignancies (2 sources) Secondary malignant neoplasm of lung; Translations: [Secondary malignant neoplasm of unspecified lung] 11-07-2023 Chronic Secondary malignancies (2 sources) Secondary malignant neoplasm of liver; 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] Test Name Value Interpretation Reference Range Facility Estimated glomerular filtrat ion rate (GFR) non- Americanon 11-17-2023 GFR/1.73 sq M.predicted among non-blacks MDRD (S/P/Bld) [Vol rate/Area] 42 mL/min/{1.73_m2} >=60 [facility] INR in Platelet poor plasma by Coagulation assayon 11-17-2023 INR Coag (PPP) [Relative time] 1.46 {INR} [facility] Comment on above: DESIRED INR:2.0-3.0 CONDITIONS NOT LISTED BELOW2.5-3.5 FOR PROSTHETIC HEART VALVE REPLACEMENT2.5-3.5 RECURRENT THROMBOSIS Laboratory - Chemistry and C hemistry - challengeon 11-17-2023 Calcium [Mass/Vol] 9.1 mg/dL 8.5-10.1 [facility] Chloride [Moles/Vol] 100 mmol/L 98-107 [facility] CO2 [Moles/Vol] 28.4 mmol/L 21.0-32.0 [facility] Creatinine [Mass/Vol] 1.24 mg/dL 0.55-1.02 [facility] GFR/1.73 sq M.predicted MDRD (S/P/Bld) [Vol rate/Area] 51 mL/min/{1.73_m2} >=60 [facility] Glucose [Mass/Vol] 96 mg/dL 74-106 [facility] LDH [Catalytic activity/Vol] 862 U/L 81-234 [facility] Potassium [Moles/Vol] 3.8 mmol/L 3.5-5.1 [facility] Sodium [Moles/Vol] 136 mmol/L 136-145 [facility] Urea nitrogen [Mass/Vol] 30.0 mg/dL 7.0-18.0 [facility] Urea nitrogen/Creatinine [Mass ratio] 24.2 mg/mg [facility] Laboratory - Microbiology an d Antimicrobial susceptibilityOrdered By: Michael Rivas on 11-17-2023 Microscopic observation Gram stain Nom (Unsp spec) [facility] Prothrombin time (PT)on 10-31 PT Coag (PPP) [Time] 15.1 s 9.0-11.6 [facility] Serum or plasma anion gap de terminationon 11-17-2023 Anion gap [Moles/Vol] 11.4 mmol/L [facility] Activated partial thrombopla stin time (aPTT) in platelet poor plasma by coagulation aon 11-16-2023 aPTT Coag (PPP) [Time] 49.6 s 22.3-36.2 [facility] Comment on above: RESULTS CALLED TO YANELI DEL ROSARIO/[place] IN INFUSION Basophils Auto (Bld) [#/Vol] on 11-16-2023 Basophils (Bld) [#/Vol] 0.0 10 3/uL 0.0-0.1 [facility] Basophils/100 WBC Auto (Bld) on 11-16-2023 Basophils/100 WBC (Bld) 0.2 % 0.2-2.0 [facility] Eosinophils/100 WBC Auto (Bl d)on 11-16-2023 Eosinophils/100 WBC (Bld) 0.2 % 0.9-7.0 [facility] Erythrocyte distribution wid th Auto (RBC) [Ratio]on 11-16-2023 Erythrocyte distribution width (RBC) [Ratio] 14.7 % 11.0-15.0 [facility] Estimated glomerular filtrat ion rate (GFR) non- Americanon 11-16-2023 GFR/1.73 sq M.predicted among non-blacks MDRD (S/P/Bld) [Vol rate/Area] 39 mL/min/{1.73_m2} >=60 [facility] Globulin Calc (S) [Mass/Vol] on 11-16-2023 Globulin (S) [Mass/Vol] 4.6 g/dL [facility] Hematocrit Auto (Bld) [Volum e fraction]on 11-16-2023 Hematocrit (Bld) [Volume fraction] 44.1 % 36.0-48.0 [facility] Hemoglobin [Mass/volume] in Bloodon 11-16-2023 Hemoglobin (Bld) [Mass/Vol] 14.5 g/dL 12.0-16.0 [facility] INR in Platelet poor plasma by Coagulation assayon 11-16-2023 INR Coag (PPP) [Relative time] 2.42 {INR} [facility] Comment on above: DESIRED INR:2.0-3.0 CONDITIONS NOT LISTED BELOW2.5-3.5 FOR PROSTHETIC HEART VALVE REPLACEMENT2.5-3.5 RECURRENT THROMBOSIS Laboratory - Chemistry and C hemistry - challengeon 11-16-2023 Albumin [Mass/Vol] 2.4 g/dL 3.4-5.0 [facility] ALP [Catalytic activity/Vol] 219 U/L 46-116 [facility] ALT [Catalytic activity/Vol] 67 U/L 14-59 [facility] AST [Catalytic activity/Vol] 266 U/L 15-37 [facility] Bilirubin [Mass/Vol] 1.4 mg/dL 0.2-1.0 [facility] Calcium [Mass/Vol] 9.7 mg/dL 8.5-10.1 [facility] Chloride [Moles/Vol] 98 mmol/L 98-107 [facility] CO2 [Moles/Vol] 28.7 mmol/L 21.0-32.0 [facility] Creatinine [Mass/Vol] 1.31 mg/dL 0.55-1.02 [facility] GFR/1.73 sq M.predicted MDRD (S/P/Bld) [Vol rate/Area] 47 mL/min/{1.73_m2} >=60 [facility] Glucose [Mass/Vol] 103 mg/dL 74-106 [facility] Potassium [Moles/Vol] 3.2 mmol/L 3.5-5.1 [facility] Protein [Mass/Vol] 7.0 g/dL 6.4-8.2 [facility] Sodium [Moles/Vol] 138 mmol/L 136-145 [facility] Urea nitrogen [Mass/Vol] 28.0 mg/dL 7.0-18.0 [facility] Urea nitrogen/Creatinine [Mass ratio] 21.4 mg/mg [facility] Laboratory - Hematology and Cell countson 11-16-2023 Immature granulocytes/100 WBC (Bld) 0.9 % 0.0-0.5 [facility] Leukocytes [#/volume] correc shanelle for nucleated erythrocytes in Blood by Automated counon 11-16-2023 WBC corrected for nucl RBC Auto (Bld) [#/Vol] 19.6 10 3/uL 4.0-11.0 [facility] Lymphocytes Auto (Bld) [#/Vo l]on 11-16-2023 Lymphocytes (Bld) [#/Vol] 1.2 10 3/uL 1.2-3.8 [facility] Lymphocytes/100 WBC Auto (Bl d)on 11-16-2023 Lymphocytes/100 WBC (Bld) 6.1 % 20.5-60.0 [facility] MCH Auto (RBC) [Entitic mass ]on 11-16-2023 MCH (RBC) [Entitic mass] 31.5 pg 26.7-34.0 [facility] MCHC Auto (RBC) [Mass/Vol]on 11-16-2023 MCHC (RBC) [Mass/Vol] 32.9 g/dL 29.9-35.2 [facility] MCV Auto (RBC) [Entitic vol] on 11-16-2023 MCV (RBC) [Entitic vol] 95.9 fL 81.0-99.0 [facility] Monocytes Auto (Bld) [#/Vol] on 11-16-2023 Monocytes (Bld) [#/Vol] 1.3 10 3/uL 0.3-0.8 [facility] Monocytes/100 WBC Auto (Bld) on 11-16-2023 Monocytes/100 WBC (Bld) 6.6 % 1.7-12.0 [facility] Neutrophils Auto (Bld) [#/Vo l]on 11-16-2023 Neutrophils (Bld) [#/Vol] 16.8 10 3/uL 1.4-6.5 [facility] Neutrophils/100 WBC Auto (Bl d)on 11-16-2023 Neutrophils/100 WBC (Bld) 86.0 % 43.0-75.0 [facility] No Panel Informationon 11-15 Eosinophils # (Auto) 0.0 10 3/uL 0.0-0.7 [facility] Immature Granulocyte # (Auto) 0.18 10 3/uL 0.00-0.03 [facility] Platelet mean volume Auto (B ld) [Entitic vol]on 11-16-2023 Platelet mean volume (Bld) [Entitic vol] 10.1 fL 9.5-13.5 [facility] Platelets Auto (Bld) [#/Vol] on 11-16-2023 Platelets (Bld) [#/Vol] 444 10 3/uL 150-450 [facility] Prothrombin time (PT)on 10-31 PT Coag (PPP) [Time] 24.4 s 9.0-11.6 [facility] RBC Auto (Bld) [#/Vol]on RBC (Bld) [#/Vol] 4.60 10 6/uL 4.20-5.40 [facility] Serum or plasma albumin/glob ulin mass ratioon 11-16-2023 Albumin/Globulin [Mass ratio] 0.5 {ratio} [facility] Serum or plasma anion gap de terminationon 11-16-2023 Anion gap [Moles/Vol] 14.5 mmol/L [facility] Activated partial thrombopla stin time (aPTT) in platelet poor plasma by coagulation aon 11-09-2023 aPTT Coag (PPP) [Time] 50.5 s 22.3-36.2 [facility] Comment on above: RESULTS CALLED TO TERESITA HYDE RN Basophils Auto (Bld) [#/Vol] on 11-09-2023 Basophils (Bld) [#/Vol] 0.0 10 3/uL 0.0-0.1 [facility] Basophils/100 WBC Auto (Bld) on 04-09-2024 Basophils/100 WBC (Bld) 0.2 % 0.2-2.0 [facility] Eosinophils/100 WBC Auto (Bl d)on 11-09-2023 Eosinophils/100 WBC (Bld) 0.3 % 0.9-7.0 [facility] Erythrocyte distribution wid th Auto (RBC) [Ratio]on 11-09-2023 Erythrocyte distribution width (RBC) [Ratio] 14.5 % 11.0-15.0 [facility] Estimated glomerular filtrat ion rate (GFR) non- Americanon 11-09-2023 GFR/1.73 sq M.predicted among non-blacks MDRD (S/P/Bld) [Vol rate/Area] 29 mL/min/{1.73_m2} >=60 [facility] Globulin Calc (S) [Mass/Vol] on 11-09-2023 Globulin (S) [Mass/Vol] 4.7 g/dL [facility] Hematocrit Auto (Bld) [Volum e fraction]on 11-09-2023 Hematocrit (Bld) [Volume fraction] 42.3 % 36.0-48.0 [facility] Hemoglobin [Mass/volume] in Bloodon 11-09-2023 Hemoglobin (Bld) [Mass/Vol] 13.8 g/dL 12.0-16.0 [facility] INR in Platelet poor plasma by Coagulation assayon 11-09-2023 INR Coag (PPP) [Relative time] 2.49 {INR} [facility] Comment on above: DESIRED INR:2.0-3.0 CONDITIONS NOT LISTED BELOW2.5-3.5 FOR PROSTHETIC HEART VALVE REPLACEMENT2.5-3.5 RECURRENT THROMBOSIS Laboratory - Chemistry and C hemistry - challengeon 11-09-2023 Albumin [Mass/Vol] 2.1 g/dL 3.4-5.0 [facility] ALP [Catalytic activity/Vol] 170 U/L 46-116 [facility] ALT [Catalytic activity/Vol] 69 U/L 14-59 [facility] AST [Catalytic activity/Vol] 236 U/L 15-37 [facility] Bilirubin [Mass/Vol] 0.8 mg/dL 0.2-1.0 [facility] Calcium [Mass/Vol] 9.6 mg/dL 8.5-10.1 [facility] Chloride [Moles/Vol] 96 mmol/L 98-107 [facility] CO2 [Moles/Vol] 28.5 mmol/L 21.0-32.0 [facility] Creatinine [Mass/Vol] 1.72 mg/dL 0.55-1.02 [facility] GFR/1.73 sq M.predicted MDRD (S/P/Bld) [Vol rate/Area] 35 mL/min/{1.73_m2} >=60 [facility] Glucose [Mass/Vol] 127 mg/dL 74-106 [facility] Potassium [Moles/Vol] 3.1 mmol/L 3.5-5.1 [facility] Protein [Mass/Vol] 6.8 g/dL 6.4-8.2 [facility] Sodium [Moles/Vol] 134 mmol/L 136-145 [facility] Urea nitrogen [Mass/Vol] 27.0 mg/dL 7.0-18.0 [facility] Urea nitrogen/Creatinine [Mass ratio] 15.7 mg/mg [facility] Laboratory - Hematology and Cell countson 11-09-2023 Immature granulocytes/100 WBC (Bld) 0.7 % 0.0-0.5 [facility] Leukocytes [#/volume] correc shanelle for nucleated erythrocytes in Blood by Automated counon 11-09-2023 WBC corrected for nucl RBC Auto (Bld) [#/Vol] 14.8 10 3/uL 4.0-11.0 [facility] Lymphocytes Auto (Bld) [#/Vo l]on 11-09-2023 Lymphocytes (Bld) [#/Vol] 0.7 10 3/uL 1.2-3.8 [facility] Lymphocytes/100 WBC Auto (Bl d)on 11-09-2023 Lymphocytes/100 WBC (Bld) 4.9 % 20.5-60.0 [facility] MCH Auto (RBC) [Entitic mass ]on 11-09-2023 MCH (RBC) [Entitic mass] 32.6 pg 26.7-34.0 [facility] MCHC Auto (RBC) [Mass/Vol]on 11-09-2023 MCHC (RBC) [Mass/Vol] 32.6 g/dL 29.9-35.2 [facility] MCV Auto (RBC) [Entitic vol] on 11-09-2023 MCV (RBC) [Entitic vol] 100.0 fL 81.0-99.0 [facility] Monocytes Auto (Bld) [#/Vol] on 11-09-2023 Monocytes (Bld) [#/Vol] 1.4 10 3/uL 0.3-0.8 [facility] Monocytes/100 WBC Auto (Bld) on 11-09-2023 Monocytes/100 WBC (Bld) 9.4 % 1.7-12.0 [facility] Neutrophils Auto (Bld) [#/Vo l]on 11-09-2023 Neutrophils (Bld) [#/Vol] 12.5 10 3/uL 1.4-6.5 [facility] Neutrophils/100 WBC Auto (Bl d)on 11-09-2023 Neutrophils/100 WBC (Bld) 84.5 % 43.0-75.0 [facility] No Panel Informationon 11-08 Eosinophils # (Auto) 0.1 10 3/uL 0.0-0.7 [facility] Immature Granulocyte # (Auto) 0.10 10 3/uL 0.00-0.03 [facility] Platelet mean volume Auto (B ld) [Entitic vol]on 11-09-2023 Platelet mean volume (Bld) [Entitic vol] 10.7 fL 9.5-13.5 [facility] Platelets Auto (Bld) [#/Vol] on 11-09-2023 Platelets (Bld) [#/Vol] 323 10 3/uL 150-450 [facility] Prothrombin time (PT)on PT Coag (PPP) [Time] 25.1 s 9.0-11.6 [facility] RBC Auto (Bld) [#/Vol]on RBC (Bld) [#/Vol] 4.23 10 6/uL 4.20-5.40 [facility] Serum or plasma albumin/glob ulin mass ratioon 11-09-2023 Albumin/Globulin [Mass ratio] 0.4 {ratio} [facility] Serum or plasma anion gap de terminationon 11-09-2023 Anion gap [Moles/Vol] 12.6 mmol/L [facility] INR in Platelet poor plasma by Coagulation assayon 11-05-2023 INR Coag (PPP) [Relative time] 4.04 {INR} [facility] Comment on above: DESIRED INR:2.0-3.0 CONDITIONS NOT LISTED BELOW2.5-3.5 FOR PROSTHETIC HEART VALVE REPLACEMENT2.5-3.5 RECURRENT THROMBOSIS No Panel Informationon 11-04 Digoxin Level 0.4 ng/mL 0.9-2.0 [facility] Prothrombin time (PT)on PT Coag (PPP) [Time] 39.6 s 9.0-11.6 [facility] Activated partial thrombopla stin time (aPTT) in platelet poor plasma by coagulation aon 11-04-2023 aPTT Coag (PPP) [Time] 51.4 s 22.3-36.2 [facility] Comment on above: RESULTS CALLED TO SA RA DEGROOT/[place] IN MED SURG Automated urine specific gra vity by refractometryon 11-04-2023 Specific gravity Refractometry automated (U) [Rel density] 1.015 1.005-1.02 5 [facility] Basophils Auto (Bld) [#/Vol] on 11-04-2023 Basophils (Bld) [#/Vol] 0.0 10 3/uL 0.0-0.1 [facility] Basophils/100 WBC Auto (Bld) on 11-04-2023 Basophils/100 WBC (Bld) 0.3 % 0.2-2.0 [facility] Bilirubin Auto test strip (U ) [Mass/Vol]on 11-04-2023 Bilirubin (U) [Mass/Vol] Negative NEGATIVE [facility] Color Auto (U)on 11-04-2023 Color (U) YELLOW YELLOW [facility] Eosinophils/100 WBC Auto (Bl d)on 11-04-2023 Eosinophils/100 WBC (Bld) 0.3 % 0.9-7.0 [facility] Erythrocyte distribution wid th Auto (RBC) [Ratio]on 11-04-2023 Erythrocyte distribution width (RBC) [Ratio] 14.0 % 11.0-15.0 [facility] Estimated glomerular filtrat ion rate (GFR) non- Americanon 11-04-2023 GFR/1.73 sq M.predicted among non-blacks MDRD (S/P/Bld) [Vol rate/Area] 59 mL/min/{1.73_m2} >=60 [facility] Globulin Calc (S) [Mass/Vol] on 11-04-2023 Globulin (S) [Mass/Vol] 4.0 g/dL [facility] Hematocrit Auto (Bld) [Volum e fraction]on 11-04-2023 Hematocrit (Bld) [Volume fraction] 42.3 % 36.0-48.0 [facility] Hemoglobin [Mass/volume] in Bloodon 11-04-2023 Hemoglobin (Bld) [Mass/Vol] 14.2 g/dL 12.0-16.0 [facility] INR in Platelet poor plasma by Coagulation assayon 11-04-2023 INR Coag (PPP) [Relative time] 4.42 {INR} [facility] Comment on above: RESULTS CALLED TO SA RA DEGROOT/[place] IN MED SURGDESIRED INR:2.0-3.0 CONDITIONS NOT LISTED BELOW2.5-3.5 FOR PROSTHETIC HEART VALVE REPLACEMENT2.5-3.5 RECURRENT THROMBOSIS Ketones Auto test strip (U) [Mass/Vol]on 11-04-2023 Ketones (U) [Mass/Vol] TRACE mg/dL NEGATIVE F [facility] Laboratory - Chemistry and C hemistry - challengeon 11-04-2023 Ammonia (P) [Moles/Vol] 37 umol/L 11-32 [facility] Amylase [Catalytic activity/Vol] 35 U/L 25-115 [facility] Lactate [Moles/Vol] 1.3 mmol/L 0.4-2.0 [facility] Lipase [Catalytic activity/Vol] 44.0 U/L 16.0-77.0 [facility] Albumin [Mass/Vol] 2.7 g/dL 3.4-5.0 [facility] ALP [Catalytic activity/Vol] 168 U/L 46-116 [facility] ALT [Catalytic activity/Vol] 57 U/L 14-59 [facility] AST [Catalytic activity/Vol] 248 U/L 15-37 [facility] Bilirubin [Mass/Vol] 1.0 mg/dL 0.2-1.0 [facility] Calcium [Mass/Vol] 9.1 mg/dL 8.5-10.1 [facility] Chloride [Moles/Vol] 99 mmol/L 98-107 [facility] CO2 [Moles/Vol] 27.7 mmol/L 21.0-32.0 [facility] Creatinine [Mass/Vol] 0.92 mg/dL 0.55-1.02 [facility] GFR/1.73 sq M.predicted MDRD (S/P/Bld) [Vol rate/Area] mL/min/{1.73_m2} >=60 [facility] Glucose [Mass/Vol] 112 mg/dL 74-106 [facility] Potassium [Moles/Vol] 3.5 mmol/L 3.5-5.1 [facility] Protein [Mass/Vol] 6.7 g/dL 6.4-8.2 [facility] Sodium [Moles/Vol] 137 mmol/L 136-145 [facility] Urea nitrogen [Mass/Vol] 15.0 mg/dL 7.0-18.0 [facility] Urea nitrogen/Creatinine [Mass ratio] 16.3 mg/mg [facility] Laboratory - Hematology and Cell countson 11-04-2023 Immature granulocytes/100 WBC (Bld) 0.6 % 0.0-0.5 [facility] Leukocytes [#/volume] correc shanelle for nucleated erythrocytes in Blood by Automated counon 11-04-2023 WBC corrected for nucl RBC Auto (Bld) [#/Vol] 14.5 10 3/uL 4.0-11.0 [facility] Lymphocytes Auto (Bld) [#/Vo l]on 11-04-2023 Lymphocytes (Bld) [#/Vol] 1.0 10 3/uL 1.2-3.8 [facility] Lymphocytes/100 WBC Auto (Bl d)on 11-04-2023 Lymphocytes/100 WBC (Bld) 6.7 % 20.5-60.0 [facility] MCH Auto (RBC) [Entitic mass ]on 11-04-2023 MCH (RBC) [Entitic mass] 32.5 pg 26.7-34.0 [facility] MCHC Auto (RBC) [Mass/Vol]on 11-04-2023 MCHC (RBC) [Mass/Vol] 33.6 g/dL 29.9-35.2 [facility] MCV Auto (RBC) [Entitic vol] on 11-04-2023 MCV (RBC) [Entitic vol] 96.8 fL 81.0-99.0 [facility] Monocytes Auto (Bld) [#/Vol] on 11-04-2023 Monocytes (Bld) [#/Vol] 1.4 10 3/uL 0.3-0.8 [facility] Monocytes/100 WBC Auto (Bld) on 11-04-2023 Monocytes/100 WBC (Bld) 9.8 % 1.7-12.0 [facility] [facility] Neutrophils Auto (Bld) [#/Vo l]on 11-04-2023 Neutrophils (Bld) [#/Vol] 12.0 10 3/uL 1.4-6.5 [facility] Neutrophils/100 WBC Auto (Bl d)on 11-04-2023 Neutrophils/100 WBC (Bld) 82.3 % 43.0-75.0 [facility] No Panel InformationOrdered By: Michael Rivas on 11-04-2023 Blood Culture 2 [facility] Blood Culture 1 [facility] No Panel Informationon 11-03 Urine Microscopic Review NO [facility] Digoxin Level 0.5 ng/mL 0.9-2.0 [facility] Eosinophils # (Auto) 0.1 10 3/uL 0.0-0.7 [facility] Immature Granulocyte # (Auto) 0.08 10 3/uL 0.00-0.03 [facility] Platelet mean volume Auto (B ld) [Entitic vol]on 11-04-2023 Platelet mean volume (Bld) [Entitic vol] 10.5 fL 9.5-13.5 [facility] Platelets Auto (Bld) [#/Vol] on 11-04-2023 Platelets (Bld) [#/Vol] 314 10 3/uL 150-450 [facility] Protein Auto test strip (U) [Mass/Vol]on 11-04-2023 Protein (U) [Mass/Vol] TRACE mg/dL NEG/TRACE F [facility] Prothrombin time (PT)on PT Coag (PPP) [Time] 43.1 s 9.0-11.6 [facility] Comment on above: RESULTS CALLED TO SA RA DEGROOT/[place] IN MED SURG RBC Auto (Bld) [#/Vol]on RBC (Bld) [#/Vol] 4.37 10 6/uL 4.20-5.40 [facility] Serum or plasma albumin/glob ulin mass ratioon 11-04-2023 Albumin/Globulin [Mass ratio] 0.7 {ratio} [facility] Serum or plasma [id number] protein tumor marker measurement (mass/volume)on 11-04-2023 AFP.tumor marker [Mass/Vol] 32.7 ng/mL 0.0-9.2 [facility] Comment on above: [employer] El ectrochemiluminescence Immunoassay(ECLIA)Values obtained with different assay methods or kits cannotbe used interchangeably. Results cannot be interpreted asabsolute evidence of the presence or absence of malignantdisease.This test is not interpretable in females.Performed at: [facility] [id number] Director: Paul Moore PhD, Phone: [phone] Serum or plasma anion gap de terminationon 11-04-2023 Anion gap [Moles/Vol] 13.8 mmol/L Fi [facility] Serum or plasma cancer antig en 19-9 measurement (units/volume)on 11-04-2023 Cancer Ag 19-9 Qn [id number] [arb'U]/mL 0-35 [facility] Comment on above: Results confirmed on dilution.[employer] Electrochemiluminescence Immunoassay(ECLIA)Values obtained with different assay methods or kits cannotbe used interchangeably. Results cannot be interpreted asabsolute evidence of the presence or absence of malignantdisease.Performed at: [address] [id number] Director: Paul Moore PhD, Phone: [phone] Specific gravity Auto test s trip (U) [Rel density]on 11-04-2023 Specific gravity (U) [Rel density] CLEAR CLEAR [facility] Urine glucose measurement by test strip (mass/volume)on 11-04-2023 Glucose Test strip (U) [Mass/Vol] Negative NEGATIVE [facility] Urine hemoglobin detection b y automated test stripon 11-04-2023 Hemoglobin Auto test strip Ql (U) Negative NEGATIVE [facility] Urine nitrite detection by a utomated test stripon 11-04-2023 Nitrite Auto test strip Ql (U) Negative NEGATIVE [facility] Urobilinogen Auto test strip (U) [Mass/Vol]on 11-04-2023 Urobilinogen Qn (U) 0.2 {Barbara'U}/dL 0.2-1.0 [facility] pH Auto test strip (U)on pH (U) 5.5 [pH] 5.0-9.0 [facility] ECG 12 Leadon 09-24-2023 ECG revealed atrial fibrillation with RVR [facility] Work Phone: Urinalysis - DIPSTICKon 08-03 Appearance (U) clear [employer] Other Bilirubin Ql (U) Negative [employer] Other Color (U) pale yellow [employer] Other Glucose Ql (U) Negative [employer] Other Hemoglobin Ql (U) Negative [employer] Other Ketones Ql (U) Negative [employer] Other Leukocyte esterase Test strip Ql (U) Negative [employer] Other Nitrite Ql (U) Negative [employer] Other pH (U) 5.0 [pH] [employer] Other Protein Ql (U) Negative [employer] Other Specific gravity (U) [Rel density] 1.010 [employer] Other Urobilinogen (U) [Mass/Vol] 0.2 mg/dL [employer] Other Urinalysis - DIPSTICK [employer] Other CNCOon 11-20-2022 [facility] HNO ID: [id number] Author: Mammography Coordinator Service: ? Author Type: Physician Type: Letter Filed: 11/23/2022 11:37 PM Note Text: November 23, 2022 PID: [id number] Pj Lopez [address] [place] [id number] Dear Ms. Lopez, We are pleased to [...] report will be kept on file at [facility] as part of your permanent medical record and are available for your continuing care. Thank you for allowing us to help in meeting your health care needs. Sincerely, Dr. 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 [...] encounter) is as follows: Breast biopsy: Yes, 01/05-[facility] Breast cysts: No Breast surgery: Yes, Right PM with ALND Breast cancer: Yes, Stage I (T 1c N 0 M 0) in 2005, treated as above CANCER SURVEILLANCE: Mammograms: Yes, Date in [facility]: 10/28/21; results - negative Breast MRI: No [...] HISTORY Pro (more content not included)... Normal [facility] SCREENING W TOMOon 11-20 KENDRA SCREENING W MAX * * *Final Report* * * DATE OF EXAM: Nov 20 2022 12:21PM SSW [id number] - KENDRA SCREENING W MAX / PROCEDURE REASON: Encounter for screening mammogram for breast cancer * * * * Physician Interpretation * * * * RESULT: #[id number] - KENDRA SCREENING W MAX BILATERAL DIGITAL SCREENING MAMMOGRAM [...] mammogram, 07/06/2017 mammogram, and 06/16/2016 mammogram - [facility]. There are scattered fibroglandular elements in both breasts. There are benign post operative findings in both breasts. No significant masses, calcifications, or other findings are seen in either breast. There has been no significant interval change. IMPRESSION: BENIGN FINDING There is no mammographic evidence of malignancy. A 1 year screening mammogram is recommended. Yaz Tesfaye M.D. pt/penrad:11/20/2022 12:38:01 Family Specialist(s): RT Royal(R)(M), [facility] letter sent: Normal over 40 Mammogram [...] Health, Family Medicine, and Medical/Surgical Oncology, the [facility] has carefully reviewed the data and reached [...] their providers when to stop screening mammograms. Treasury Representative: Jonnie Transcribe Date/Time: Nov 20 2022 12:11P Dictated by: YAZ TESFAYE MD This examination was interpreted and the report reviewed and electronically signed by: YAZ TESFAYE MD on Nov 20 2022 12:38PM EST [id number] Normal [facility] CT PELVIS WO CONon 3 CT PELVIS [...] CINTHIA IBARRA Date: 2022-11-07 16:35 Normal [facility] CBC AUTO DIFFon 12-11-2021 BASO # 0.0 103/ul Normal 0.0-0.1 [facility] Comment on above: Performed By: #### C BC #### [facility] [address] [place] [address] Dr. Karishma Langley Basophils/100 WBC (Bld) 0.6 % Normal 0.2-2.0 [facility] Comment on above: Performed By: #### C BC #### [facility] [address] [place] [address] Dr. Karishma Langley EO # 0.2 103/ul Normal 0.0-0.7 [facility] Comment on above: Performed By: #### C BC #### [facility] [address] [place] [address] Dr. Karishma Langley Eosinophils/100 WBC (Bld) 3.0 % Normal 0.9-7.0 [facility] Comment on above: Performed By: #### C BC #### [facility] [address] [place] [address] Dr. Karishma Langley Erythrocyte distribution width (RBC) [Ratio] 12.2 % Normal 11.0-15.0 [facility] Comment on above: Performed By: #### C BC #### [facility] [address] [place] [address] Dr. Karishma Langley Hematocrit (Bld) [Volume fraction] 39.9 % Normal 36.0-48.0 [facility] Comment on above: Performed By: #### C BC #### [facility] [address] [place] [address] Dr. Karishma Langley Hemoglobin (Bld) [Mass/Vol] 13.0 g/dL Normal 12.0-16.0 [facility] Comment on above: Performed By: #### C BC #### [facility] [address] [place] [address] Dr. Karishma Langley IG # 0.01 10e3/ul Normal 0.00-0.03 [facility] Comment on above: Performed By: #### C BC #### [facility] [address] [place] [address] Dr. Karishma Langley IG % 0.2 % Normal 0.0-0.5 [facility] Comment on above: Performed By: #### C BC #### [facility] [address] [place] [address] Dr. Karishma Langley LYMPH # 1.5 103/ul Normal 1.2-3.8 [facility] Comment on above: Performed By: #### C BC #### [facility] [address] [place] [address] Dr. Karishma Langley Lymphocytes/100 WBC (Bld) 27.3 % Normal 20.5-60.0 [facility] Comment on above: Performed By: #### C BC #### [facility] [address] [place] [address] Dr. Karishma Langley MANUAL DIFF REQ NO Normal [facility] Comment on above: Performed By: #### C BC #### [facility] [address] [place] [address] Dr. Karishma Langley MCH (RBC) [Entitic mass] 32.1 pg Normal 26.7-34.0 [facility] Comment on above: Performed By: #### C BC #### [facility] [address] [place] [address] Dr. Karishma Langley MCHC (RBC) [Mass/Vol] 32.6 g/dL Normal 29.9-35.2 [facility] Comment on above: Performed By: #### C BC #### [facility] [address] [place] [address] Dr. Karishma Langley MCV (RBC) [Entitic vol] 98.5 fL Normal 81.0-99.0 [facility] Comment on above: Performed By: #### C BC #### [facility] [address] [place] [address] Dr. Karishma Langley MONO # 0.7 103/ul Normal 0.3-0.8 [facility] Comment on above: Performed By: #### C BC #### [facility] [address] [place] [address] Dr. Karishma Langley Monocytes/100 WBC (Bld) 12.4 % Critically high 1.7-12.0 [facility] Comment on above: Performed By: #### C BC #### [facility] [address] [place] [address] Dr. Karishma Langley NEUT # 3.0 103/ul Normal 1.4-6.5 [facility] Comment on above: Performed By: #### C BC #### [facility] [address] [address] [address] Karishma Langley Neutrophils/100 WBC (Bld) 56.5 % Normal 43.0-75.0 [facility] Comment on above: Performed By: #### C BC #### [facility] [address] [address] [address] Karishma Langley Platelet mean volume (Bld) [Entitic vol] 10.3 fL Normal 9.5-13.5 [facility] Comment on above: Performed By: #### C BC #### [facility] [address] [address] [address] Karishma Langley PLT 275 103/ul Normal 150-450 [facility] Comment on above: Performed By: #### C BC #### [facility] [address] [address] [address] Karishma Langley RBC 4.05 106/ul Critically low 4.20-5.40 [facility] Comment on above: Performed By: #### C BC #### [facility] [address] [address] [address] Karishma Langley WBC 5.3 103/ul Normal 4.0-11.0 [facility] Comment on above: Performed By: #### C BC #### [facility] [address] [address] [address] Karishma Langley ECHOCARDIO M/2D COMPLETEon 0 12-11-2021 ECHOCARDIO M/2D COMPLETE Patient: PJ LOPEZ Exam Date: 12/11/2021 : 1945 Gender:F Ordering : DR MICHAEL RIVAS D.O. Admission #: [id number] Family : Order #: [id number] CLICK HERE TO VIEW EXAM ECHOCARDIOGRAM REPORT [...] Area(A4C): 23.20 cm2 Left Atrium Systolic Volume(A2C): 75670 mm3 Left Atrium Systolic Volume(A4C): 44493 mm3 Mitral Valve MV E to A [...] Ulloa M.D. on 12/11/2021 at 14:32 Normal [facility] PROF CHEM 8 (BAS METB)on Anion gap [Moles/Vol] 13.5 mmol/L Normal [facility] Comment on above: Performed By: #### B MP #### [facility] [address] [place] [address] Dr. Karishma Langley Calcium [Mass/Vol] 9.0 mg/dL Normal 8.5-10.1 [facility] Comment on above: Performed By: #### B MP #### [facility] [address] [place] [address] Dr. Karishma Langley Chloride [Moles/Vol] 105 mmol/L Normal 98-107 [facility] Comment on above: Performed By: #### B MP #### [facility] [address] [place] [address] Dr. Karishma Langley CO2 [Moles/Vol] 24.3 mmol/L Normal 21.0-32.0 [facility] Comment on above: Performed By: #### B MP #### [facility] [address] [place] [address] Dr. Karishma Langley Creatinine [Mass/Vol] 0.87 mg/dL Normal 0.55-1.02 [facility] Comment on above: Performed By: #### B MP #### [facility] [address] [address] [address] Karishma Langley EGFR-AF MONGOLIAN >60 Normal >=60 [facility] Comment on above: Performed By: #### B MP #### [facility] [address] [address] [address] Karishma Langley EGFR-NON AF MONGOLIAN >60 Normal >=60 [facility] Comment on above: Performed By: #### B MP #### [facility] [address] [address] [address] Karishma Langley Glucose [Mass/Vol] 100 mg/dL Normal 74-106 [facility] Comment on above: Performed By: #### B MP #### [facility] [address] [address] [address] Karishma Langley Potassium [Moles/Vol] 3.8 mmol/L Normal 3.5-5.1 [facility] Comment on above: Performed By: #### B MP #### [facility] [address] [address] [address] Karishma Langley Sodium [Moles/Vol] 139 mmol/L Normal 136-145 [facility] Comment on above: Performed By: #### B MP #### [facility] [address] [address] [address] Karishma Langley Urea nitrogen [Mass/Vol] 22.0 mg/dL Critically high 7.0-18.0 [facility] Comment on above: Performed By: #### B MP #### [facility] [address] [address] [address] Karishma Langley Urea nitrogen/Creatinine [Mass ratio] 25.3 mg/mg Normal [facility] Comment on above: Performed By: #### B MP #### [facility] [address] [place] [address] Dr. Karishma Langley Vital Signs Date Time Vital Sign Value Performing Clinician Facility 11-10-2023 11:27-0400 Body height 158.75 cm [facility] 11-10-2023 11:27-0400 Body mass index (BMI) [Ratio] 30.7 kg/m2 [facility] 11-10-2023 11:27-0400 Body weight 77.28 kg [facility] 11-10-2023 11:27-0400 Diastolic blood pressure 75 mm[Hg] [facility] 11-10-2023 11:27-0400 Heart rate 102 /min [facility] 11-10-2023 11:27-0400 Respiratory rate 16 /min [facility] 11-10-2023 11:27-0400 Systolic blood pressure 124 mm[Hg] [facility] 10-29-2023 09:37-0400 Body height 154.9 cm Judy Castro MD Work Phone: [facility] 10-29-2023 09:37-0400 Body mass index (BMI) [Ratio] 31.86 kg/m2 Judy Castro MD Work Phone: [facility] 10-29-2023 09:37-0400 Body weight 76.48 kg Judy Castro MD Work Phone: [facility] 10-29-2023 09:37-0400 Diastolic blood pressure 92 mm[Hg] Judy Castro MD Work Phone: [facility] 10-29-2023 09:37-0400 Heart rate 100 /min Judy Castro MD Work Phone: [facility] 10-29-2023 09:37-0400 Systolic blood pressure 142 mm[Hg] Judy Castro MD Work Phone: [facility] 09-24-2023 10:59-0500 Diastolic blood pressure 86 mm[Hg] Judy Castro MD Work Phone: [facility] 09-24-2023 10:59-0500 Systolic blood pressure 136 mm[Hg] Judy Castro MD Work Phone: [facility] 09-24-2023 10:15-0500 Body height 154.9 cm Judy Castro MD Work Phone: [facility] 09-24-2023 10:15-0500 Body mass index (BMI) [Ratio] 32.31 kg/m2 Judy Castro MD Work Phone: [facility] 09-24-2023 10:15-0500 Body weight 77.56 kg Judy Castro MD Work Phone: [facility] 09-24-2023 10:15-0500 Heart rate 131 /min Judy Castro MD Work Phone: [facility] 09-08-2023 09:00-0500 Body height 158.75 cm Michael Ball Other [employer] [facility] [employer] Other 09-08-2023 09:00-0500 Body mass index (BMI) [Ratio] 31.24 kg/m2 Michael Ball Other [employer] Other 09-08-2023 09:00-0500 Body weight 78.74 kg Michael Ball Other [employer] Other 09-08-2023 09:00-0500 Diastolic blood pressure 87 mm[Hg] Michael Ball Other [employer] Other 09-08-2023 09:00-0500 Respiratory rate 12 /min Michael Ball Other [employer] Other 09-08-2023 09:00-0500 Systolic blood pressure 142 mm[Hg] Michael Ball Other [employer] Other 08-24-2023 10:00-0500 Body height 158.75 cm Michael Ball Other [facility] 08-24-2023 10:00-0500 Body mass index (BMI) [Ratio] 30.63 kg/m2 Michael Ball Other [employer] Other 08-24-2023 10:00-0500 Body weight 77.2 kg Michael Ball Other [facility] 08-24-2023 10:00-0500 Diastolic blood pressure 105 mm[Hg] Michael Ball Other [facility] 08-24-2023 10:00-0500 Respiratory rate 12 /min Michael Ball Other [employer] Other 08-24-2023 10:00-0500 Systolic blood pressure 152 mm[Hg] Michael Ball Other [facility] 11-25-2022 10:30-0400 Body height 158.75 cm Michael Ball Other [employer] Other 11-25-2022 10:30-0400 Body mass index (BMI) [Ratio] 31.17 kg/m2 Michael Ball Other [employer] Other 11-25-2022 10:30-0400 Body weight 78.56 kg Michael Ball Other [employer] Other 11-25-2022 10:30-0400 Diastolic blood pressure 81 mm[Hg] Michael Ball Other [employer] Other 11-25-2022 10:30-0400 Respiratory rate 12 /min Michael Ball Other [employer] Other 11-25-2022 10:30-0400 Systolic blood pressure 177 mm[Hg] Michael Ball Other [employer] Other Encounters Encounter Date Encounter Type Care Provider Facility Start: 11-17-2023 End: 11-17-2023 ambulatory Mirza V West Facility:[facility] Start: 11-17-2023 End: 11-17-2023 ambulatory DO Michael Ball Work Phone: [facility] Work Phone: Start: 11-17-2023 End: 11-17-2023 Departed Referred DO Michael Rivas Work Phone: [facility] Start: 11-17-2023 Non-patient / Non-visit DO Catalino Riavs Work Phone: [facility] Work Phone: Start: 11-16-2023 Non-patient / Non-visit DO Catalino Rivas Work Phone: [facility] Work Phone: Start: 11-10-2023 End: 11-10-2023 ambulatory [facility] Work Phone: Start: 11-10-2023 End: 11-10-2023 Patient encounter procedure [facility] Work Phone: Start: 11-09-2023 Non-patient / Non-visit [facility] Work Phone: Start: 11-09-2023 Non-patient / Non-visit [facility] Work Phone: Start: 11-05-2023 Non-patient / Non-visit [facility] Work Phone: Start: 11-04-2023 Non-patient / Non-visit [facility] Work Phone: Start: 10-29-2023 End: 10-29-2023 ambulatory JUDY Romero [facility] Start: 10-29-2023 End: 10-29-2023 Office outpatient visit 25 minutes Judy Castro MD Work Phone: [facility] Comment on above: Atrial fibrillation, unspecified type (CMS/HCC); Hypertension, unspecified type; High risk medication use; Obesity, unspecified classification, unspecified obesity type, unspecified whether serious comorbidity present; Never smoked tobacco Start: 10-26-2023 End: 10-26-2023 ambulatory Michael Rivas Other [employer] Other Start: 10-26-2023 Telephone encounter Michael Rivas [facility] Start: 09-30-2023 Non-patient / Non-visit [facility] Work Phone: Start: 09-24-2023 End: 09-24-2023 ambulatory JUDY Romero [facility] Start: 09-24-2023 End: 09-24-2023 Office outpatient new 45 minutes Judy Castro MD Work Phone: [facility] Comment on above: Obesity, Class I, BM I 30-34.9 (Primary Dx); Atrial fibrillation, unspecified type (CMS/HCC); Hypertension, unspecified type; High risk medication use; Persistent atrial fibrillation (CMS/HCC) Start: 09-13-2023 End: 09-13-2023 ambulatory Michael Rivas Other [employer] Other Start: 09-13-2023 Telephone encounter Michael Rivas [facility] Start: 09-10-2023 End: 09-10-2023 ambulatory Michael Rivas Other [employer] Other Start: 09-10-2023 Telephone encounter Michael Rivas [facility] Start: 09-08-2023 End: 09-08-2023 ambulatory Michael Rivas Other [employer] Other Start: 09-08-2023 Office outpatient vi sit 25 minutes Michael Rivas [facility] Start: 08-31-2023 End: 08-31-2023 ambulatory Michael Rivas Other [employer] Other Start: 08-31-2023 Telephone encounter Michael Rivas [facility] Start: 08-24-2023 End: 08-24-2023 ambulatory Michael Rivas Other [employer] Other Start: 08-24-2023 Patient encounter procedure Michael Rivas [facility] Start: 08-24-2023 End: 08-24-2023 Patient encounter procedure [facility]- Start: 08-17-2023 End: 08-17-2023 ambulatory Michael Rivas Other [employer] Other Start: 08-17-2023 Telephone encounter Michael Rivas FP [facility] Start: 05-18-2023 End: 05-18-2023 ambulatory Michael Rivas Other [employer] Other Start: 05-18-2023 Telephone encounter Michael Rivas [facility] Start: 12-03-2022 End: 12-03-2022 ambulatory Michael Rivas Other [employer] Other Start: 12-03-2022 Telephone encounter Michael Rivas [facility] Start: 11-25-2022 End: 11-25-2022 ambulatory Michael Rivas Other [employer] Other Start: 11-25-2022 Office outpatient vi sit 15 minutes Michael Rivas [facility] Start: 11-20-2022 Documentation procedure Mammog may Coordinator [facility] Start: 11-20-2022 Letter encounter Mammography Coordinator [facility] Start: 11-20-2022 End: 11-20-2022 ambulatory MAYELIN ROSEN Facility:[facility] Start: 11-20-2022 End: 11-20-2022 Patient encounter procedure Mayelin Rosen PRODUCTION SUPPORT ANALYST.[employer] Work Phone: [facility] Comment on above: Fibrocystic breast c hanges, bilateral (Primary Dx); Personal history of malignant neoplasm of breast; Encounter for screening mammogram for breast cancer; Family history of breast cancer in sister Start: 11-10-2022 Orders Only Mayelin perez PRODUCTION SUPPORT ANALYST.[employer] Work Phone: [facility] Comment on above: Encounter for screen ing mammogram for breast cancer (Primary Dx) Start: 11-07-2022 End: 11-07-[address] CINTHIA IBARRA Facility:[facility] Start: 12-11-2021 End: 12-12-[address] MICHAEL RIVAS Facility:[facility] Start: 12-03-2021 Adult health examination Broderick Rivas Other [employer] Other Start: 10-28-2021 End: 10-28-2021 Patient encounter procedure Mayelin Rosen PRODUCTION SUPPORT ANALYST.[employer] Work Phone: [facility] Comment on above: Fibrocystic breast c hanges, bilateral (Primary Dx); Personal history of malignant neoplasm of breast; Encounter for screening mammogram for breast cancer Start: 10-22-2021 Orders Only Mayelin perez PRODUCTION SUPPORT ANALYST.[employer] Work Phone: [facility] Comment on above: Encounter for screen ing mammogram for breast cancer (Primary Dx); Fibrocystic breast changes, bilateral Procedures Date Procedure Procedure Detail Performing Clinician Start: 11-17-2023 Microscopic observation [Identifier] in Unspecified specimen by Gram stain DO Michael Rivas Work Phone: Start: 11-04-2023 Carcinoembryonic antigen cea Comment on above: Nonsmokers <3.9 Smokers <5.6Roche [employer]o stics Electrochemiluminescence Immunoassay(ECLIA)Values obtained with different assay methods or kitscannot be used interchangeably. Results cannot beinterpreted as absolute evidence of the presence orabsence of malignant disease.Performed at: [place] [id number] Director: Paul Moore PhD, Phone: [phone] Start: 11-04-2023 Blood Culture 1 DO Michael Rivas Work Phone: Start: 11-04-2023 Blood Culture 2 DO Michael Rivas Work Phone: Start: 10-29-2023 FOLLOW UP IN CARDIOLOGY JUDY [...] - Tdap) DTaP/Tdap/Td Vaccines (3 - Tdap) [facility] Start: 01-03-2024 End: 01-03-2024 Patient encounter procedure 01/03/2024 1:20 PM EDT Office Visit [facility] [address] [place] [phone] Judy Castro MD [address] [place] [address] [facility] Start: 11-19-2023 End: 11-19-2023 Patient encounter procedure 11/19/2023 10:10 AM EDT Office Visit [address] [place] [address] Judy Castro MD [address] [place] [address] [facility] Start: 11-04-2023 Blood Culture 1 [facility] Start: 11-04-2023 Blood Culture 2 [facility] Start: 10-13-2023 End: 10-13-2023 Professional / ancillary services management 10/13/2023 2:00 PM EDT Ancillary Procedure [address] [place] [address] [facility] Start: 10-08-2023 End: 09-24-2024 ECG 12 Lead ECG 12 Lead ECG Routine Atrial fibrillation, unspecified type (CMS/HCC) Expected: 10/08/2023 (Approximate), Expires: 09/24/2024 [facility] Service Area Work Phone: Comment on above: Expected: 10/08/2023 (Approximate), Expires: 09/24/2024 Start: 04-02-2023 Influenza vaccination C [facility] Start: 08-02-2022 ADVANCE DIRECTIVE DISCUSSION ADVANCE DIRECTIVE DISCUSSION [facility] Start: 08-02-2022 DEPRESSION ASSESSMENT DEPRESSION ASS ESSMENT [facility] Start: 08-02-2021 ADVANCE DIRECTIVE DISCUSSION ADVANCE DIRECTIVE DISCUSSION [facility] Start: 04-02-2021 Influenza vaccination INFLUENZA (#1) [facility] Start: 07-10-2016 DIABETES SCREEN DIABETES SCREEN [facility] Start: 2009 Pneumococcal Vaccine : 65+ Years (1 - PCV) Pneumococcal Vaccine: 65+ Years (1 - PCV) [facility] Start: 2009 PNEUMOCOCCAL: 65+ (1 - PCV) PNEUMOCOCCAL: 65+ (1 - PCV) [facility] Start: 1994 SHINGRIX VACCINE (1 of 2) SHINGRIX VACCINE (1 of 2) [facility] Start: 1994 Zoster Vaccines (1 o f 2) Zoster Vaccines (1 of 2) [facility] Start: 1966 DTaP/Tdap/Td Vaccine s (1 - Tdap) DTaP/Tdap/Td Vaccines (1 - Tdap) [facility] Start: 1963 Urine microalbumin profile DTAP,TDAP,TD (1 - Tdap) [facility] Start: 1962 HEPATITIS C SCREENING HEPATITIS C [facility] Start: 1962 Hepatitis C screening Hepatitis C [facility] Start: 1956 Adult depression screening assessment DEPRESSION SCREENING [facility] Start: 1949 COVID-19 VACCINE (1) COVID-19 VACCIN E (1) [facility] Start: 1944 COVID-19 VACCINE (#1) COVID-19 VACCI NE (#1) [facility] Start: 1944 Lipid panel Lipid Panel [facility] Start: 1944 Medicare Annual Wellness Visit Medicare Annual Wellness Visit (AWV) [facility] Start: 1944 Screening for osteoporosis Bone Density Scan [facility] End: 12-10-2023 KENDRA SCREENING KENDRA SCREENING Radiology Routine Encounter for screening mammogram for breast cancer 1 Occurrences starting 11/10/2022 until 12/10/2023 [facility] Work Phone: Comment on above: 1 Occurrences starti ng 11/10/2022 until 12/10/2023 End: 11-21-2022 Screening mammography bi 2-view breast inc cad KENDRA SCREENING Radiology Routine Encounter for screening mammogram for breast cancer Fibrocystic breast changes, bilateral 1 Occurrences starting 10/22/2021 until 11/21/2022 [facility] Work Phone: Comment on above: 1 Occurrences starti ng 10/22/2021 until 11/21/2022 [facility] Immunizations Immunization Date Immunization Notes Care Provider Fa cility 03-28-2018 diphtheria, tetanus toxoids and acellular pertussis vaccine, unspecified formulation Michael Rivas Other [facility] 01-13-2017 diphtheria, tetanus toxoids and acellular pertussis vaccine, unspecified formulation Michael Rivas Other [facility] Payers Date Payer Category Payer Self-pay 2019 Private Health Insurance [employer]ET[employer] A ETNA MEDICARE SUPPLEMENT [id number] 2019-Present [phone] [address] [address] [place] [address] Indemnity [id number] 2019 Private Health Insurance [id number] 2009 Medicare MEDICARE MEDICAR E A AND B [id number] 2009-Present [phone] [address] [address] [place] [address] Medicare [id number] 2009 Medicare [id number] 1959 Medicare [id number] 1959 Medicare [id number] 1959 Private Health Insurance [facility] [id number] 1944 Unknown [id number] 1944 Unknown [id number] 1944 Unknown [id number] 1944 Unknown [id number] Unknown [id number] Unknown [id number] Social History Date Type Detail Facility Start: 08-16-2018 End: 09-24-2023 Tobacco smoking status DEIS Never smoked tobacco [facility] Start: 10-23-2020 End: 10-29-2023 Alcohol intake Current drinker of alcohol (finding) [facility] Start: 1945 Sex Assigned At Not on file [facility] Start: 08-16-2018 End: 09-24-2023 Tobacco use and exposure Smokeless tobacco non-user [facility] Start: 09-24-2023 End: 10-29-2023 Sex Assigned At [facility] [employer] Other Start: 09-24-2023 End: 10-29-2023 History of Social function [facility] Work Phone: Start: 09-24-[address] [facility] Work Phone: Start: 09-14-2023 End: 10-29-2023 Exposure to SARS-CoV-2 (event) Not sure [facility] Start: 1945 Sex Assigned At Female F [facility] Medical Equipment Procedure Code Equipment Code Equipment Original Text Equipment Identifier Dates [id number] Screw [id number]_[facility] Start: 07-12-2013 Comment on above: Description: locking screw 2.7 x 40 [id number] 38396-Onuedzd Screw [id number] Start: 07-12-2013 Comment on above: [...] Description: 2.7 x 2 2 cortex screw [id number] 5 70504-Cgffdtzsflo Screw [id number]_[facility] Start: 07-12-2013 Comment on above: Description: 2.7 x 2 6 metaphyseal screw [id number] 95494-Numacd Head [id number] Start: [id number]-Zxx5 5 70735-Ytmjwbf Screw [id number]_[facility] Start: 07-12-20130-984233444-Ywu7 5 71605-Nhjzwmdjioy Screw [id number] Start: 07-12-2013 Comment on above: Description: 2.7 x 1 8 0---Cortex Screw [id number] Start: 07-12-2013 Comment on above: Description: 3.5 x 1 8 0---Cortex Screw [id number] Start: [id number]-Dqw9 5 43124-Eelyiyyew Plate [id number]_[facility] Start: 07-12-2013 Comment on above: Description: 4 hole plate [id number] 5 03987-Ybyebpb Screw [id number] Start: 07-12-2013 0--- 8 Hole Plate [id number]_[facility] Start: 07-12-20134-401572005-Htc2 5 76673-Olht Radl 7.5mm Evol Std b - [id number]_imp Start: 07-12-2013 Clinical Notes 10-28-2021 to [...] signing my name below, Neha Adame LPN, Scribe attest that this documentation has [...] discussion and plan. documented in this encounter [facility] Work Phone: 10-29-2023 Instructions Neha Beckman [...] instructions on exercise. Stop Eliquis Start Coumadin- [facility]. Start 5 mg daily. Will take Eliquis and Coumadin Wednesday, Wed and Wednesday then stop Eliquis Stop Cardizem Start Metoprolol 50 mg daily Start Digoxin .125 mg daily Follow up 2 months documented in this encounter [facility] Work Phone: 09-24-2023 History of Present [...] as her main insurance will supplement from [employer]. She was given samples of Eliquis by [...] discussion and plan. documented in this encounter [facility] Work Phone: 09-24-2023 Instructions Neha Beckman [...] your visit. Retrieve echo and stress from [facility] CD 240 mg daily Stop Toprol Start Flecainide 50 mg one tablet two times daily EKG 2 weeks Follow up 6 weeks documented in this encounter [facility] Work Phone: 09-08-2023 Evaluation note Encounter [...] cancer (ICD-10 - Z85.3) No s/s recurrence. [facility] Other 01-30-2024 Evaluation note* Encounter Date Diagnosis Assessment Notes Treatment Notes Treatment Clinical Notes Aug, Persistent atrial fibrillation (ICD-10 - I48.19) [facility] Other 01-23-2024 Evaluation note* Encounter Date [...] patient on monthly SBE and yearly mammograms. [facility] Other 01-16-2024 Evaluation note* Encounter Date Diagnosis Assessment Notes Treatment Notes Treatment Clinical Notes Aug, Essential (primary) hypertension (ICD-10 - I10) [facility] Other 10-17-2023 Evaluation note* Encounter Date Diagnosis Assessment Notes Treatment Notes Treatment Clinical Notes May, Essential (primary) hypertension (ICD-10 - I10) [facility] Other 04-26-2023 Evaluation note* Encounter Date [...] reveal any pathologic findings to suspect mets [facility] Other 04-21-2023 NoteHNO ID: [id number] Author: Emmy Patrick [employer] Service: ? Author Type: Workforce Development Assistant Type: Progress Notes Filed: 11/20/2022 12:28 PM [...] DATA: Not applicable SIGNED BY: Emmy Patrick [employer] November 20, 2022 12:28 [facility]04-21-2023 NoteHNO ID: [id number] Author: Mayelin Rosen APRN.[employer] Service: ? 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 [...] encounter) is as follows: Breast biopsy: Yes, 01/05-[facility] Breast cysts: No Breast surgery: Yes, Right [...] Maternal Au (more content not included)...[facility]04-21-2023 Miscellaneous Notes* Letter - Mammography Coordinator - 11/20/2022 12:38 PM EDT November 23, 2022 PID: [id number] Pjwaldemar Lopez [address] [place], [place] [id number] Dear Ms. Lopez, We are pleased to [...] report will be kept on file at [facility] as part of your permanent medical record and are available for your continuing care. Thank you for allowing us to help in meeting your health care needs. Sincerely, Dr. Tesfaye Interpreting Radiologist [facility] (Normal over 40) documented in this encounterHol[facility] Instructions* Patient Instructions* Paola Cloud Ma - [...] TP53, CDH1, STK11, PALB2, CHEK2, JADE) Per [facility] High Risk Care Path recommendations, screening breast [...] male breast cancer you are of Ashkenazi Jehovah'S Witness descent HEALTHY LIFESTYLE MANAGEMENT (per NCCN Guidelines [...] include but are not limited to: The [facility] Comprehensive Breast Cancer Program - my.[facility].org/services/quwdlg-knplvu-vaitzfb Tru [facility] - trunedeio.org Albanian Cancer Society - cancer.org PANDA Breast Cancer Foundations - jdbcfoundation.org FORCE - facingourrisk.org Bright [place] - brightpink.org Young Survival Coalition - youngsurvival.org 4th Sotero - 4thangel.org The Gathering Place - touchedbycancer.org ([place] and [place]) The Victory Center - thevictorycenter.org ([place] area) [place] - yellowbrickplace.org ([place] area) [facility] - stewartscaringplace.org ([place] area) If you would like to compliment one of our caregivers you encountered today, you may do so at [email or web address]. Thank you ! 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 [...] encounter) is as follows: Breast biopsy: Yes, 01/05-[facility] Breast cysts: No Breast surgery: Yes, Right PM with ALND Breast cancer: Yes, Stage I (T 1c N 0 M 0) in 2005, treated as above CANCER SURVEILLANCE: Mammograms: Yes, Date in [facility]: 10/28/21; results - negative Breast MRI: No [...] mg ORAL Tab Take one(1) tablet daily. Zpvwaqe-Icwlecmetz-Jmfh 333-133-5 mg ORAL Tab dose unknown - [...] PTEN, TP53, CDH1, STK11,PALB2, CHEK2, JADE) Per [facility] High Risk Care Path recommendations, screening breast [...] which included preparing to see the patient, ojes-do-hatp patient care, completing clinical documentation, obtaining and/or reviewing separately obtained history, performing a medically appropriate examination, counseling and educating the pat ient/family/caregiver, ordering medications, tests, or procedures, communicating results to the patient/family/caregiver, and care coordination (not separately reported). 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 [...] encounter) is as follows: Breast biopsy: Yes, 01/05-[facility] Breast cysts: No Breast surgery: Yes, Right PM with ALND Breast cancer: Yes, Stage I (T 1c N 0 M 0) in 2006, treated as above CANCER SURVEILLANCE: Mammograms: Yes, Date in [facility]: 10/22/20; results - negative Breast MRI: No [...] mg ORAL Tab Take one(1) tablet daily. Jtsowsq-Opzgtswbbp-Rrla 333-133-5 mg ORAL Tab dose unknown - [...] which included preparing to see the patient, ijhf-np-hpos patient care, completing clinical documentation, obtaining and/or [...] Practitioner CC: Michael Rivas MD ([facility]) [address] [place] [address] documented in this encounterHol[facility]-20[facility] Instructions* Patient Instructions* Paola Cloud Al - 10/28/2021 11:24 AM EDT BREAST CANCER [...] TP53, CDH1, STK11, PALB2, CHEK2, JADE) Per [facility] High Risk Care Path recommendations, screening breast [...] 10% of all breast cancers in the are due to inherited genetic mutations. BRCA [...] male breast cancer you are of Ashkenazi Jehovah'S Witness descent HEALTHY LIFESTYLE MANAGEMENT (per NCCN Guidelines [...] include but are not limited to: The [facility] Comprehensive Breast Cancer Program - my.[facility].org/services/wntnau-eumxps-vxizmgo Tru [facility] - trunekarlajuan m.org Albanian Cancer Society - cancer.org PANDA Breast Cancer Foundations - jdbcfoundation.org FORCE - facingourrisk.org [place] - brightpink.org Young Survival Coalition - youngsurvival.org 4th Sotero - 4thangel.org The Gathering Place - touchedbycancer.org ([place] and [place]) The [facility] Center - thevictorycenter.org ([place] area) [facility] - yellowbrickplace.org ([place] area) [facility] - stewartscaringplace.org ([place] area) If you would like to compliment one of our caregivers you encountered today, you may do so at [email or web address]. Thank you ! documented in this encounterHolzer [facility]03-29-2022 Nurse Note* Paola Cloud Ma - 10/28/2021 [...] occasional Drug use: No [facility] Diagnosis Encounter for screening mammogram for breast cancer- Primary Fibrocystic breast changes, bilateral documented in this encounter [facility] note* Diagnosis Fibrocystic breast changes, bilateral- Primary Personal history of malignant neoplasm of breast Encounter for screening mammogram for breast cancer documented in this encounter [facility] note* Diagnosis Encounter for screening mammogram for breast cancer- Primary documented in this encounter [facility] note* Diagnosis Fibrocystic breast changes, bilateral- Primary Personal history of malignant neoplasm of breast Encounter for screening mammogram for breast cancer Family history of breast cancer in sister Family history of malignant neoplasm of breast documented in this encounter [facility] noteNo [employer] Other Evaluation note* Diagnosis Obesity, Class I, BMI 30-34.9- Primary Atrial fibrillation, unspecified type (CMS/HCC) Hypertension, unspecified type High risk medication use Persistent atrial fibrillation (CMS/HCC) Atrial fibrillation documented in this encounter [facility] Work Phone: Evaluation note* Diagnosis Atrial fibrillation, unspecified type (CMS/HCC) Hypertension, unspecified type High risk medication use Obesity, unspecified classification, unspecified obesity type, unspecified whether serious comorbidity present Never smoked tobacco documented in this encounter [facility] Work Phone: Evaluation note* Diagnosis Onset Date Resolution Status Blood in stool acute 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 Persistent atrial fibrillation acute Primary hypertension [facility] Work Phone: Evaluation note* Diagnosis Onset Date Resolution Status Ascites, malignant acute Blood in stool acute 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 Persistent atrial fibrillation acute Primary hypertension acute [facility] Work Phone: History general Narrative - [...] History COLONOSCOPY Hospitalization History SEE SURGICAL HX [facility] Other History general Narrative - Reported* [...] COLONOSCOPY 2016 Hospitalization History SEE SURGICAL HX [facility] Other Reason for referral (narrative)* Diagnostic Procedure Only (Routine) - Authorized Specialty Diagnoses / Procedures Referred By Errol benson Referred To Contact [facility] Diagnoses Encounter for screening mammogram for breast cancer Fibrocystic breast changes, bilateral Procedures KENDRA SCREENING SCREENING MAMMOGRAPHY BI 2-VIEW BREAST INC CAD Mayelin Rosen APRN.CNP [address] [place] [address] [facility] [address] [place] [address] Referral ID Status Reason Start Date Expiration Date Visits Requested Visits Authorized [id number] Authorized Auto-Generat ed Referral 10/22/2021 11/21/2022 1 1 [facility] for referral (narrative)* Diagnostic Procedure Only (Routine) - Authorized Specialty Diagnoses / Procedures Referred By Errol benson Referred To Contact [facility] Diagnoses Encounter for screening mammogram for breast cancer Procedures KENDRA SCREENING SCREENING MAMMOGRAPHY BI 2-VIEW BREAST INC Mayelin Cummings APRN.CNP [address] [place] [address] [facility] [address] [place] [address] Referral ID Status Reason Start Date Expiration Date Visits Requested Visits Authorized [id number] Authorized Auto-Generat ed Referral 11/10/2022 12/10/2023 1 1 [facility] for referral (narrative)* Diagnostic Procedure Only (Routine) - Closed Specialty Diagnoses / Procedures Referred By Errol benson Referred To Contact [facility] Diagnoses Encounter for screening mammogram for breast cancer Procedures KENDRA SCREENING W MAX SCREENING DIGITAL BREAST TOMOSYNTHESIS BI SCREENING MAMMOGRAPHY BI 2-VIEW BREAST INC CAD Mayelin Rosen APRN.CNP [address] [place] [address] [facility] [address] [place] [address] Referral ID Status Reason Start Date Expiration Date V isits Requested Visits Authorized [id number] Closed Auto-Generate d Referral 11/20/2022 12/20/2023 1 1 [facility] for referral (narrative)* Reason *FU 09/17 Referral for new onset atrial fibrillation Diagnosis 1 New onset atrial fib rillation (I48.91) Referral Organization [facility] vanessa Referring Provider First Name Michael Referring Provider Last Name Kailash Referring Provider Specialty Internal Me dicine Referred Organization [facility] enter Referred Provider Judy Castro Referred Address [address] [facility] [address] [place] [address] Referred Provider Specialty Cardiac Surg ailyn Referral [...] labs, EKG, E cho and stress test [facility] Other Reason for referral (narrative)* Consultation (Routine) - Authorized Specialty Diagnoses / Procedures Referred By Errol benson Referred To Contact Cardiology Diagnoses Atrial fibrillation, unspecified type (CMS/HCC) Procedures Follow Up In Cardiology Judy Castro MD [address] [facility] [address], [address] [place] [id number] Judy Castro MD [address] [facility], [address] [place] [address] Referral ID Status Reason Start Date Expiration Date V isits Requested Visits Authorized [id number] Authorized 10/29/2023 10/28/2024 1 1 [facility] Work Phone: Advance Directives No Advanced Directives Records FoundDocuments on File Type Date Recorded Patient Molder Machine Expl anation Advance Directive(s) 07/14/2013 7:01 PM Documents on File Type Date Recorded Patient Molder Machine Expl anation Advance Directive(s) 07/14/2013 7:01 PM [...] ECG 12 Lead Judy Castro MD [address] [facility] 2, [address] [address] Referral ID Status Reason Start Date Expiration Date V isits Requested Visits Authorized [id number] Authorized 09/24/2023 09/23/2024 1 1 Referral ID Status Reason Start Date Expiration Date V isits Requested Visits Authorized [id number] Authorized 09/24/2023 09/23/2024 1 1 Specialty Diagnoses / Procedures Referred By Contac t Referred To Contact Cardiology Diagnoses Atrial fibrillation, unspecified type (CMS/HCC) Procedures Follow Up In Cardiology Judy Castro MD [address] [facility] [address], [address] [place] [id number] Judy Castro MD [address] [facility] [address] [place] [address] Referral ID Status Reason Start Date Expiration Date V isits Requested Visits Authorized [id number] Authorized 09/24/2023 09/23/2024 1 1 Chief Complaint and Reason for Visit Chief Complaint Wellness Amb Documentation Amb Documentation tbh d/c on 11/04 Reason for Visit Blood in stool 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 Persistent atrial fibrillation Primary hypertension Chief Complaint Wellness Amb Documentation Amb Documentation tbh d/c on 11/04 Unknown Reason for Visit Ascites, malignant Blood in stool 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 Persistent atrial fibrillation Primary hypertension Additional Source Comments Source Comments (unrecognize d section and content) In the event this informatio n is protected by the Federal Confidentiality of Alcohol and Drug Abuse Patient Records regulations: The Federal rules restrict any use of the information to criminally investigate or prosecute any alcohol or drug abuse patient.[facility] the event this information is protected by the Federal Confidentiality of Alcohol and Drug Abuse Patient Records regulations: The Federal rules restrict any use of the information to criminally investigate or prosecute any alcohol or drug abuse patient.[facility] the event this information is protected by the Federal Confidentiality of Alcohol and Drug Abuse Patient Records regulations: The Federal rules restrict any use of the information to criminally investigate or prosecute any alcohol or drug abuse patient.[facility] the event this information is protected by the [facility] Confidentiality of Alcohol and Drug Abuse Patient Records regulations: The Federal rules restrict any use of the information to criminally investigate or prosecute any alcohol or drug abuse patient.[facility] the event this information is protected by the Federal Confidentiality of Alcohol and Drug Abuse Patient Records regulations: The Federal rules restrict any use of the information to criminally investigate or prosecute any alcohol or drug abuse patient.[facility] Care Teams (unrecognized sec tion and content) Information Security Officer Relationship Specialty Start Date End Date Michael Rivas DO PCP - General Internal Medicine 12/19/10 Information Security Officer Relationship Specialty Start Date End Date Michael Rivas DO PCP - General Internal Medicine 12/19/10 Information Security Officer Relationship Specialty Start Date End Date Michael Rivas DO PCP - General Internal Medicine 12/19/10 Information Security Officer Relationship Specialty Start Date End Date Michael Rivas DO PCP - General Internal Medicine 12/19/10 Information Security Officer Relationship Specialty Start Date End Date Michael Rivas DO PCP - General Internal Medicine 12/19/10 Information Security Officer Relationship Specialty Start Date End Date Michael Rivas DO [address] [place] [place] [address] [place] [address] PCP - General Internal Medicine 09/14/23 Information Security Officer Relationship Specialty Start Date End Date Michael Rivas DO [address] [place] [address] [place] [address] PCP - General Internal Medicine 09/14/23 Team Status: Active Member Role Status Dates Michael Rivas , DO Primary Care Provider Active Team Status: [...] 2023 Team Status: Active Member Role Status Giselle Rivas DO Primary Care Provide r, Attending [...] November 10, 2023 End: November 10, 2023 Team Status: Active Member Role Status Dates Michael Rivas DO Primary Care Provide r, Attending Provider Active Start: November 16, 2023 Team Status: Active Member Role Status Dates Michael Rivas DO Primary Care Provide r, Attending Provider Active Start: November 17, 2023 Team Status: Inactive Member Role Status Dates Michael Rivas DO Primary Care Provider Active Start: November 17, 2023 End: November 17, 2023 Mirza Ríos MD Attending Provider Active Star t: November 17, 2023 End: November 17, 2023 Reason for Visit (unrecogniz ed section [...] ECG 12 Lead Judy Castro MD [address] [facility] [address], [place] [id number] Referral ID Status Reason Start Date Expiration Date V isits Requested Visits Authorized [id number] Authorized 09/24/2023 09/23/2024 1 1 Reason Comments Follow-up symptoms Specialty Diagnoses / Procedures Referred By Contac t Referred To Contact Cardiology Diagnoses Atrial fibrillation, unspecified type (CMS/HCC) Procedures Follow Up In Cardiology Judy Castro MD [address] [facility] [address], [address] [place] [id number] Judy Castro MD [address] [facility] [address], [address] [address] Referral ID Status Reason Start Date Expiration Date V isits Requested Visits Authorized [id number] Authorized 09/24/2023 09/23/2024 1 1 INFORMATION SOURCE (unrecogn ized section and content) DATE CREATED AUTHOR 11/25/2022 [facility] DATE CREATED AUTHOR AUTHOR'S ORGANIZ ATION [facility]/28/2022 [facility] DATE CREATED AUTHOR AUTHOR'S ORGANIZ ATION 11/18/2023 [facility] DATE CREATED AUTHOR AUTHOR'S ORGANIZ ATION 11/18/2023 [facility] Goals (unrecognized section and content) Goals may [...] BE BASED ON THE PRIMARY CLINICAL RECORDS. [facility]. provides no warranty or guarantee of the accuracy or completeness of information in this document.
--- NOTE | 2023-11-19 15:23 | CM.DCFOLLOWU ---
Person spoke with: Jemma How are you feeling? Weak and tired How is your pain? Better Did you understand your discharge instructions? Yes Do you have any questions about your discharge instructions? No Were you given any prescriptions at discharge? No Were you able to get your prescriptions filled? N/A Do you understand how to take your medications as ordered? Yes Do you have any questions about your follow up appointment and do you plan to keep your follow up appointment? I went to see Dr. Linder today and biopsy is scheduled for Wednesday. Is there anything else that you would like to discuss? No Questions/Comments/Concerns/Other:
[2023-11-22 01:06] LABS: pH, Body Fluid 7.6 (Not Estab.)
== END 2023-11-17 13:45 | disposition home or self-care (01) ==
LOC: ER 17:16 → MS 11-17 07:37
PROVIDERS: Admitting Provider Internal Medicine; Emergency Provider Emergency Medicine; PCP Internal Medicine; Visit Provider Nurse Practitioner
DX: R79.1 Abnormal coagulation profile (principal); C78.7 Secondary malignant neoplasm of liver and intrahepatic bile duct; R18.8 Other ascites; R93.89 Abnormal findings on diagnostic imaging of other specified body structures; Z90.710 Acquired absence of both cervix and uterus; M81.0 Age-related osteoporosis without current pathological fracture; Z79.01 Long term (current) use of anticoagulants; Z85.3 Personal history of malignant neoplasm of breast; I48.91 Unspecified atrial fibrillation; Z91.81 History of falling; Z98.51 Tubal ligation status; I12.9 Hypertensive chronic kidney disease with stage 1 through stage 4 chronic kidney disease, or unspecified chronic kidney disease; R11.2 Nausea with vomiting, unspecified; N18.30 Chronic kidney disease, stage 3 unspecified; R10.9 Unspecified abdominal pain; D72.829 Elevated white blood cell count, unspecified; K57.90 Diverticulosis of intestine, part unspecified, without perforation or abscess without bleeding; Z79.899 Other long term (current) drug therapy
CPT/HCPCS: 36415; 49083; 76705; 80048; 80053; 82150; 82945; 83615; 83986; 84157; 85025; 85610; 85730; 87070; 87205; 88112; 88305; 89050; 89051; 94761; 96365; 96376; 99285; G0378

== ENCOUNTER 2023-11-30 15:30 | Outpatient (RCR) | payer MEDICARE, SELFPAY ==
[2023-11-09 10:32] LABS: Basophils Percent Auto 0.2 % (0.2-2.0); Eosinophils Absolute Auto 0.1 10^3/uL (0.0-0.7); Eosinophils Percent Auto 0.3 % (0.9-7.0); Hematocrit 42.3 % (36.0-48.0); Hemoglobin 13.8 g/dL (12.0-16.0); Immature Granulocytes Pct Auto 0.7 % (0.0-0.5); Lymphocytes Absolute Auto 0.7 10^3/uL (1.2-3.8); Lymphocytes Percent Auto 4.9 % (20.5-60.0); Mean Corpuscular HGB Conc 32.6 g/dL (29.9-35.2); Mean Corpuscular Hemoglobin 32.6 pg (26.7-34.0); Mean Platelet Volume 10.7 fL (9.5-13.5); Monocytes Absolute Auto 1.4 10^3/uL (0.3-0.8); Monocytes Percent Auto 9.4 % (1.7-12.0); Neutrophils Absolute Auto 12.5 10^3/uL (1.4-6.5); Neutrophils Percent Auto 84.5 % (43.0-75.0); Platelet Count 323 10^3/uL (150-450); Red Blood Count 4.23 10^6/uL (4.20-5.40); Red Cell Distribution Width 14.5 % (11.0-15.0); White Blood Count 14.8 10^3/uL (4.0-11.0)
[2023-11-09 10:43] LABS: Alanine Aminotransferase 69 U/L (14-59); Albumin Globulin Ratio 0.4; Albumin Level 2.1 g/dL (3.4-5.0); Alkaline Phosphatase 170 U/L (46-116); Anion Gap 12.6; Aspartate Amino Transferase 236 U/L (15-37); BUN Creatinine Ratio 15.7; Bilirubin Total 0.8 mg/dL (0.2-1.0); Calcium 9.6 mg/dL (8.5-10.1); Carbon Dioxide 28.5 mmol/L (21.0-32.0); Chloride 96 mmol/L (98-107); Estimated GFR (African America 35 (>=60); Estimated GFR (Non-African Ame 29 (>=60); Globulin 4.7 g/dL; Glucose 127 mg/dL (74-106); Potassium 3.1 mmol/L (3.5-5.1); Sodium 134 mmol/L (136-145); Total Protein 6.8 g/dL (6.4-8.2)
[2023-11-09 10:48] LABS: INR 2.49; Prothrombin Time 25.1 sec (9.0-11.6)
[2023-11-09 10:51] LABS: Partial Thromboplastin Time 50.5 sec (22.3-36.2)
--- NOTE | 2023-11-16 | US_ITS ---
[place] [id number] Patient Name: PJ LOPEZ MRN: [id number] date: 1945 Sex: F Assigned Patient Location: INF Current Patient Location: [facility] Accession/Order Number: [id number] Exam Date: 11/16/2023 15:40 Report Date: 11/16/2023 16:15 At the request of: ESTUARDO WRAY Procedure: US abdomen limited EXAMINATION: US abdomen limited HISTORY: Evaluate for ascites COMPARISON: CT 11/04/2023 FINDINGS: Mild to moderate ascites with the largest pocket in the right upper quadrant measuring 5.7 cm in AP dimension Gallbladder wall thickening US/US abdomen limited IMPRESSION: Mild to moderate ascites Gallbladder wall thickening, consider dedicated gallbladder ultrasound Electronically authenticated by: MARIBEL ESCOBEDO Date: 11/16/2023 16:15
[2023-11-16 15:36] LABS: Basophils Percent Auto 0.2 % (0.2-2.0); Eosinophils Percent Auto 0.2 % (0.9-7.0); Hematocrit 44.1 % (36.0-48.0); Hemoglobin 14.5 g/dL (12.0-16.0); Immature Granulocytes Abs Auto 0.18 10^3/uL (0.00-0.03); Immature Granulocytes Pct Auto 0.9 % (0.0-0.5); Lymphocytes Absolute Auto 1.2 10^3/uL (1.2-3.8); Lymphocytes Percent Auto 6.1 % (20.5-60.0); Mean Corpuscular HGB Conc 32.9 g/dL (29.9-35.2); Mean Corpuscular Hemoglobin 31.5 pg (26.7-34.0); Mean Corpuscular Volume 95.9 fL (81.0-99.0); Mean Platelet Volume 10.1 fL (9.5-13.5); Monocytes Absolute Auto 1.3 10^3/uL (0.3-0.8); Monocytes Percent Auto 6.6 % (1.7-12.0); Neutrophils Absolute Auto 16.8 10^3/uL (1.4-6.5); Platelet Count 444 10^3/uL (150-450); Red Cell Distribution Width 14.7 % (11.0-15.0); White Blood Count 19.6 10^3/uL (4.0-11.0)
[2023-11-16 15:50] LABS: Alanine Aminotransferase 67 U/L (14-59); Albumin Globulin Ratio 0.5; Albumin Level 2.4 g/dL (3.4-5.0); Alkaline Phosphatase 219 U/L (46-116); Anion Gap 14.5; Aspartate Amino Transferase 266 U/L (15-37); BUN Creatinine Ratio 21.4; Bilirubin Total 1.4 mg/dL (0.2-1.0); Calcium 9.7 mg/dL (8.5-10.1); Carbon Dioxide 28.7 mmol/L (21.0-32.0); Chloride 98 mmol/L (98-107); Estimated GFR (African America 47 (>=60); Estimated GFR (Non-African Ame 39 (>=60); Globulin 4.6 g/dL; Glucose 103 mg/dL (74-106); Potassium 3.2 mmol/L (3.5-5.1); Sodium 138 mmol/L (136-145)
[2023-11-16] MEDS: ONDANSETRON 4 MG RAPDIS TABLET 8 MG PO (16:07)
[2023-11-16 16:11] LABS: INR 3.63; Prothrombin Time 35.8 sec (9.0-11.6)
[2023-11-16 16:14] LABS: Partial Thromboplastin Time 49.6 sec (22.3-36.2)
--- NOTE | 2023-11-16 16:45 | PC.NURSE ---
0430: Pt. taken to ED for evaluation and admit to M/S. Report given to [place] Easton
[2023-11-16 16:47] VITALS: BP 130/84; PULSE 98; TEMP 35.8; O2SAT 98
== END 2023-11-30 23:59 | disposition home or self-care (01) ==
LOC: INF 15:30
PROVIDERS: PCP Internal Medicine; Visit Provider Internal Medicine Hematology & Oncology
DX: C78.7 Secondary malignant neoplasm of liver and intrahepatic bile duct (principal); R93.89 Abnormal findings on diagnostic imaging of other specified body structures; Z90.710 Acquired absence of both cervix and uterus; I10 Essential (primary) hypertension; M81.0 Age-related osteoporosis without current pathological fracture; I48.91 Unspecified atrial fibrillation; Z79.01 Long term (current) use of anticoagulants; Z85.3 Personal history of malignant neoplasm of breast; R18.8 Other ascites
CPT/HCPCS: 36415; 76705; 80053; 85025; 85610; 85730; G0463

== ENCOUNTER 2023-12-01 00:17 | Outpatient (RCR) | payer MEDICARE, SELFPAY | END 2023-12-31 11:13 | disposition home or self-care (01) | LOC: MM 00:17 | PROVIDERS: PCP Internal Medicine; Visit Provider Internal Medicine | DX: Z51.81 Encounter for therapeutic drug level monitoring (principal); Z79.01 Long term (current) use of anticoagulants; I48.91 Unspecified atrial fibrillation ==